=== PATIENT | female | born 1950 | race Caucasian/White ===

== ENCOUNTER 2019-10-14 14:45 | Inpatient (IN) | payer OTHER ==
--- OUTSIDE RECORDS SUMMARY | 2019-10-14 14:50 | XMS REPORT | Summary of Care ---
:1950 Author Organization [facility] Address [address] [place] [address] Care Team Providers Name Role Phone Bryce Lopez Primary Care Provider Reason for Referral Radiology Services (Routine) Status Reason Specialty Diagnoses / Referred By Referred To Procedures Contact Contact New Request Diagnostic Diagnoses Fibroadenosis of right breast Breast mass, right Stefania Veloz Radiology Procedures BI DIAGNOSTIC MAMMOGRAM BILATERAL MD Shaunna [address] [place] [phone] Reason for Visit Reason Comments Follow-up breast biopsy Encounter Details Date Type Department Care Team Description 08/03/2019 Office Visit [facility] Surgical RickyStefania jonas Denia st mass, right (Primary Dx); Specialties - Rich Maza MD Fibroadenosis of right breast [address], [address] [place] [address] [address] [place] [phone] Allergies Active Allergy Reactions Severity Noted Date Comments Clindamycin Rash 06/16/2019 Sulfa (Sulfonamide Antibiotics) Unknown - See comments 06/16/2019 documented as of this encounter (statuses as of 08/03/2019) Medications Medication Sig Dispensed Refills Start Date End Date Status amLODIPine 5 mg Take 2.5 mg by 0 07/01/2019 Active tablet mouth daily. valsartan 320 mg Take 240 mg by 1 05/12/2019 Active tablet mouth daily. multivitamin, Take 1 tablet by 0 Active tx-minerals (COMPLETE mouth daily. MULTIVITAMIN) tablet calcium/magnesium Take 2 tablets by 0 Active (CALCIUM AND mouth daily. MAGNESIUM ORAL) calcium Take 1 tablet by 0 Act ismael carbonate-vitamin D3 mouth daily. 1,000 mg(2,500 mg)-800 unit Tab zolpidem 10 mg tablet Take 10 mg by 0 Active mouth at bedtime as needed for Insomnia. traMADol 50 mg Take 1 tablet by 28 tablet 0 07/27/2019 020 Active tabletIndications: mouth every 6 Breast mass, right (six) hours as needed for Pain (scale 4-6) or Pain (scale 7-10) for up to 7 days. Hospital, Clinic, or Ordered Dose Route Frequency Start Date End D ate Status Other Facility Administered Medication ceFAZolin (ANCEF) 1000 mg IVPB O.R. HOLDING ONCE 07/27/2019 Active 1,000 mg in NaCl 0.9% (NS) 50 mL MINI-BAG documented as of this encounter (statuses as of 08/03/2019) Active Problems Problem Noted Date Breast pain 07/07/2019 Overview: Added automatically from request for jeff aide [id number] Breast mass, right 07/07/2019 Overview: Added automatically from request for jeff aide [id number] documented as of this encounter (statuses as of 08/03/2019) Social History Tobacco Use Types Packs/Day Years Used Date Never Smoker Smokeless Tobacco: Never Used Alcohol Use Drinks/Week oz/Week Comments Never Alcohol Habits Answer Date Recorded How often do you have a drink containing alcohol? Never 07/15/2019 How many drinks containing alcohol do you have on a typical Not asked day when you are drinking? How often do you have six or more drinks on one occasion? No t asked Sex Assigned at Date Recorded Not on file Job Start Date Occupation Industry Not on file Not on file Not on file Travel History Travel Start Travel End No recent travel history available. documented as of this encounter Last Filed Vital Signs Vital Sign Reading Time Taken Comments Blood Pressure 151/97 08/03/2019 1:10 PM GRAVEL WHEELER Pulse 80 08/03/2019 1:10 PM GRAVEL WHEELER Temperature 36.8 C (98.3 F) 08/03/2019 1:07 PM GRAVEL WHEELER Respiratory Rate 20 08/03/2019 1:07 PM GRAVEL WHEELER Oxygen Saturation 98% 08/03/2019 1:07 PM GRAVEL WHEELER Inhaled Oxygen Concentration - - Weight 79.4 kg (175 lb) 08/03/2019 1:07 PM GRAVEL WHEELER Height 172.7 cm (5' 8") 08/03/2019 1:07 PM GRAVEL WHEELER Body Mass Index 26.61 08/03/2019 1:07 PM GRAVEL WHEELER documented in this encounter Progress Notes Malina Carmona RN - 08/03/2019 1:00 PM CSTJessenia James is a 69 year old female comes to clinic independent in ambulation for follow up post op. Pt comes alone . Pt in NAD w/ pain reported 0/10. Pt preferred language is Divehi. Pt. denies fall in last 12 months. Allergies and medications reviewed and updated. Pt to monitor BP at home if it remains elevated or he is to become symptomatic he is to contact his PCP or go directly to the ER EL WHEELER Stefania Veloz MD - 08/03/2019 1:00 PM CST 69 year old one week status post right lumpectomy with benign pathology. SURGICAL PATHOLOGY EXAM: [id number] Order: [id number] Collected: 07/27/2019 11:06 Status: Final result Visible to patient: No (Not Released) Component Final Diagnosis A. BREAST, RIGHT, LUMPECTOMY: - BENIGN BREAST TISSUE WITH FIBROCYSTIC CHANGES (STROMAL FIBROSIS, FLORID DUCTAL HYPERPLASIA OF USUAL TYPE WITH APOCRINE METAPLASIA) - RADIAL SCAR WITH FLORID DUCTAL HYPERPLASIA OF USUAL TYPE - NO MALIGNANCY IDENTIFIED Juany Kahn MD 07/29/2019 1:26 PM Healing well RTC prn Mammogram in one year. documented in this encounter Plan of Treatment Name Type Priority Associated Diagnoses Order S chedule BI DIAGNOSTIC MAMMOGRAM IMAGING Routine Fibroadenosis of right Expected: BILATERAL breast 08/03/2020, Expires: Breast mass, right Health Maintenance Due Date Last Done Comments HEPATITIS C (HCV) SCREEN 1950 DTaP,Tdap,and Td Vaccines (1 - Tdap) 1962 COLONOSCOPY 2001 Zoster Recombinant Vaccine (SHINGRIX) (1 of 2) 2001 Medicare Wellness Visit 2016 Osteoporosis Screening 2016 PNEUMOCOCCAL VACCINES 65+ (1 of 2 - PCV13) 2016 INFLUENZA VACCINE (#1) 2019 Breast Cancer Screening (MAMMOGRAM) 06/16/2020 06/16/2019 documented as of this encounter Results Not on filedocumented in this encounter Visit Diagnoses Diagnosis Breast mass, right - Primary Lump or mass in breast Fibroadenosis of right breast Fibroadenosis of breast documented in this encounter Insurance Payer Benefit Plan / Subscriber ID Effective Dates Phone Addre ss Type Group MEDICARE MEDICARE PART A xxxxxxxxxxx 2016-Ivan [phone] Medicare & B t 82 [id number] BRIE RUFF [phone] AETNA AETNA INDEMNITY [id number] 2018-Ivan peña documented as of this encounter
--- OUTSIDE RECORDS SUMMARY | 2019-10-14 14:50 | XMS REPORT | Summary of Care ---
:1950 Author Organization [facility] - Health Address [address] [place] [address] Care Team Providers Name Role Phone Bryce Lopez Primary Care Provider Reason for Visit Auth/Cert Status Reason Specialty Diagnoses / Procedures Referred By Lola hernandezact Referred To Contact Surgery Diagnoses Mastodynia Unspecified lump in the right breast, unspecified quadrant Breast pain [N64.4] Breast mass, right [N63.10] Adc Pre/Pacu/Post Procedures [facility] CODING HELP GA BX BREAST W DEVICE 1ST LESION ULTRASOUND GUIDE GA MASTECTOMY, PARTIAL GA EXCISE BREAST CYST BREAST LUMPECTOMY [address] [place] [address] [place] [address] Phone: Fax: Encounter Details Date Type Department Care Team Description 07/27/2019 Hospital Encounter [facility] [place] [facility], Breast pain [place] [address] [place] [address] [place] [address] [place], [place] [phone] Allergies Active Allergy Reactions Severity Noted Date Comments Clindamycin Rash 06/16/2019 Sulfa (Sulfonamide Antibiotics) Unknown - See comments 06/16/2019 documented as of this encounter (statuses as of 07/27/2019) Medications Medication Sig Dispensed Refills Start Date [...] Take 1 tablet by 28 tablet 0 07/27/201908/03/ 020 Active tabletIndications: mouth every 6 Breast mass, right (six) hours as needed for Pain (scale 4-6) or Pain (scale 7-10) for up to 7 days. documented as of this encounter (statuses as of 07/27/2019) Active Problems Problem Noted Date Breast pain 07/07/2019 Overview: Added automatically from request for jeff aide [id number] Breast mass, right 07/07/2019 Overview: Added automatically from request for jeff aide [id number] documented as of this encounter (statuses as of 07/27/2019) Social History Tobacco Use Types Packs/Day Years [...] Sign Reading Time Taken Comments Blood Pressure 140/85 07/27/2019 12:08 PM DESULPHURING OPERATOR Pulse 97 07/27/2019 12:08 PM DESULPHURING OPERATOR Temperature 36.7 C (98 F) 07/27/2019 12:08 PM DESULPHURING OPERATOR Respiratory Rate 15 07/27/2019 12:08 PM DESULPHURING OPERATOR Oxygen Saturation 98% 07/27/2019 12:08 PM DESULPHURING OPERATOR Inhaled Oxygen Concentration - - Weight 79.4 kg (175 lb) 07/25/2019 5:07 PM DESULPHURING OPERATOR Height 167.6 cm (5' 5.98") 07/25/2019 5:07 PM DESULPHURING OPERATOR Body Mass Index 28.26 07/25/2019 5:07 PM DESULPHURING OPERATOR documented in this encounter Discharge Summaries Stefania Veloz MD - 07/27/2019 11:49 AM CST Date of Service: 07/27/19 Admit Date 07/27/19 Discharge Date: 07/27/19 Attending MD:Magdiel Primary Diagnosis: Right breast mass Final Diagnosis: right breast mass Active Problems: right breast mass Past Medical History: Diagnosis Date HTN (hypertension) Long Q-T syndrome Principle procedures: US guided Excision of Right breast mass Significant XRays: none Hospital couse: uncomplicsaated Condition: Good Diet: reguular Activity As tolerated Wound Care: May shower and pat incisions dry. No swimming or tub baths No heavy lifting Steristrips will fall off on their own. Call MD or return to ED for fever >101.5, redness or drainage from incision, intractable pain or nausea. Discharge: Discharged home Followed Appointment: one week 08/03/[address] Veloz Discharge Meds: tramadol 50mg q 4 hours. documented in this encounter Plan of Treatment Date Type Specialty Care Team Description 08/03/2019 Office Visit Surgery Stefania Veloz MD [address] [place] [address] [phone] Name Type Priority Associated Diagnoses Order S chedule EKG-12 LEAD ROUTINE HEART STATION Routine ONCE fo r 1 Occurrences sta rting 07/27/2019 unti l 07/27/2019 SURGICAL PATHOLOGY LAB Routine ONCE for 1 EXAM Occurrences sta rting 07/27/2019 Health Maintenance Due Date Last Done Comments HEPATITIS C (HCV) SCREEN 1950 DTaP,Tdap,and Td Vaccines (1 - Tdap) 1962 COLONOSCOPY 2001 Zoster Recombinant Vaccine (SHINGRIX) (1 of 2) 2001 Medicare Wellness Visit 2016 Osteoporosis Screening 2016 PNEUMOCOCCAL VACCINES 65+ (1 of 2 - PCV13) 2016 INFLUENZA VACCINE (#1) 2019 Breast Cancer Screening (MAMMOGRAM) 06/16/2020 06/16/2019 documented as of this encounter Procedures Procedure Name Priority Date/Time Associated Comments Diagnosis CBC WITH DIFFERENTIAL Routine 07/27/2019 8:45 Re sults for this AM DESULPHURING OPERATOR procedure are i n the results section. CBC WITH DIFFERENTIAL Routine 07/27/2019 8:45 Re sults for this AM DESULPHURING OPERATOR procedure are i n the results section. BASIC METABOLIC PANEL Routine 07/27/2019 8:45 Re sults for this (NA, K, CL, CO2, AM DESULPHURING OPERATOR procedure a re in GLUCOSE, BUN, the results CREATININE, CA) section. DISCLOSURE AND Routine 07/06/2019 12:01 CONSENT, MEDICAL AND AM DESULPHURING OPERATOR SURGICAL PROCEDURES documented in this encounter Results CBC WITH DIFFERENTIAL (07/27/2019 8:45 AM DESULPHURING OPERATOR) Pathologist Sig nature WBC 10.00 4.30 - 11.10 [facility] 10*3/L [facility] RBC 4.47 3.93 - 5.25 [facility] 10*6/L [facility] HGB 13.6 11.6 - 15.0 [facility] g/dL [facility] HCT 40.3 35.7 - 45.2 % [facility] MCV 90.2 80.6 - 95.5 fL [facility] MCH 30.4 25.9 - 32.8 pg [facility] MCHC 33.7 31.6 - 35.1 [facility] g/dL [facility] RDW-SD 42.1 39.0 - 49.9 fL [facility] RDW-CV 12.8 12.0 - 15.5 % [facility] PLT 332 166 - 358 [facility] 10*3/L [facility] MPV 9.3 (L) 9.5 - 12.9 fL [facility] NRBC/100 WBC 0.0 0.0 - 10.0 /100 [facility] WBCs [facility] NRBC x10^3 <0.01 10*3/L [facility] GRAN MAT (NEUT) % 66.6 % [facility] IMM GRAN % 0.30 % [facility] LYMPH % 21.7 % [facility] MONO % 6.8 % [facility] EOS % 4.0 % [facility] BASO % 0.6 % [facility] GRAN MAT x10^3(ANC) 6.66 1.88 - 7.09 [facility] 10*3/uL [facility] IMM GRAN x10^3 0.03 0.00 - 0.06 [facility] 10*3/uL [facility] LYMPH x10^3 2.17 1.32 - 3.29 [facility] 10*3/uL [facility] MONO x10^3 0.68 0.33 - 0.92 [facility] 10*3/uL [facility] EOS x10^3 0.40 (H) 0.03 - 0.39 [facility] 10*3/uL [facility] BASO x10^3 0.06 0.01 - 0.07 [facility] 10*3/uL [facility] Specimen Blood - ARM, RIGHT Performing Organization Address City/State/Zipcode Phone Number [facility] CLIA: [id number], [address] [place], [place] [address] Basic Metabolic Panel (NA, K, CL, CO2, Glucose, BUN, Creatinine, CA) (07/27/2019 8:45 AM DESULPHURING OPERATOR) Pathologist [facility] nature NA 137 135 - 145 mmol/L [facility] K 3.9 3.5 - 5.0 mmol/L [facility] CL 104 98 - 108 mmol/L [facility] CO2 TOTAL 25 23 - 31 mmol/L [facility] AGAP 8 2 - 16 [facility] BUN 20 7 - 23 mg/dL [facility] GLUCOSE 110 70 - 110 mg/dL [facility] CREATININE 0.65 0.50 - 1.04 [facility] mg/dL [facility] CALCIUM 9.7 8.6 - 10.6 mg/dL [facility] eGFR Calculation 90.6 mL/min/1.73m2 [facility] (Non-) [facility] LAB[facility] Y eGFR Calculation 109.9 mL/min/1.73m2 [facility] () [facility] Specimen Blood - ARM, RIGHT Narrative Performed At Association of Glomerular Filtration Rate (GFR) [facility] and Staging of Kidney Disease* + + +- + | GFR (mL/min/1.73 m2) | With Kidney Damage | Without Kidney Damage + + +- + | >90 | Stage one | Normal + + +- + | 60-89 | Stage two | Decreased GFR + + +- + | 30-59 | Stage three | Stage three + + +- + | 15-29 | Stage four | Stage four + + +- + | <15 (or dialysis) | Stage five | Stage five + + +- + *Each stage assumes the associated GFR level has been in effect for at least three months. Stages 1 to 5, with or without kidney disease, indicate chronic kidney disease. Notes: Determination of stages one and two (with eGFR >59mL/min/1.73 m2) requires estimation of kidney damage for at least three months as defined by structural or functional abnormalities of the kidney, manifested by either: Pathological abnormalities or Markers of kidney damage (including abnormalities in the composition of the blood or urine or abnormalities in imaging tests). Performing Organization Address City/State/Zipcode Phone Number [facility] CLIA: [id number], [address] [place], [place] [address] documented in this encounter Visit Diagnoses Diagnosis Breast mass, right - Primary Lump or mass in breast Breast pain Mastodynia documented in this encounter Administered Medications Medication Order MAR Action Action Date Dose Rate Site FENTanyl PF (SUBLIMAZE (PF)) injection 2 5 mcg 25 mcg, Slow IV Push, Q5MIN PRN, 4 doses, Starting 07/27/19 at 1153, Until Discontinued, Routine, Pain (scale 4-6), PACU FENTanyl PF (SUBLIMAZE (PF)) injection 2 5 mcg 25 mcg, Slow IV Push, Q5MIN PRN, 4 doses, Starting 07/27/19 at 1153, Until Discontinued, Routine, Pain (scale 7-10), PACU ibuprofen (IBU) tablet 800 mg 800 mg, Oral, PRN, 1 dose, Starting 07/27/19 at 115 7, Until Discontinued, Routine, Pain (scale 1-3), Discharge metoclopramide HCl (REGLAN) injection 10 mg 10 mg, Slow IV Push, PRN, 1 dose, Starti ng Tue 07/27/19 at 1153, Until Discontinued, Routine, Nausea and Vomiting (N/V), PACU traMADol (ULTRAM) tablet 50 mg 50 mg, Oral, PRN, 1 dose, Starting 07/27/19 at 1157 , Until Discontinued, Routine, Pain (scale 4-6), Discharge traMADol (ULTRAM) tablet 50 mg 50 mg, Oral, PRN, 1 dose, Starting 07/27/19 at 1157 , Until Discontinued, Routine, Pain (scale 7-10), Discharge Medication Order MAR Action Action Date Dose Rate Site lactated ringers IV infusion New Bag 07/27/2019 8:49 AM DESULPHURING OPERATOR 1,000 mL 20 mL/hr 1,000 mL at 20 mL/hr, 1,000 mL, IV Infusion, ONCE, 1 dose, Tu07/27/19 at 0845, Routine, DSU Pre-op scopolamine transdermal Given 07/27/2019 9:30 AM DESULPHURING OPERATOR 1.5 mg Both Ears (TRANSDERM-SCOP) patch 1.5 mg 1.5 mg, Topical, Administer over 72 Hours, ONCE, 1 dose, Fri07/27/19 at 1030, Routine, DSU Pre-op documented in this encounter Insurance Payer Benefit Plan / Subscriber ID Effective Dates Phone Addre ss Type Group MEDICARE MEDICARE PART A xxxxxxxxxxx 2016David [phone] [address] Medicare & B t 82 [id number] BRIE RUFF [id number] AETNA AETNA INDEMNITY [id number] 2018David peña documented as of this encounter
--- OUTSIDE RECORDS SUMMARY | 2019-10-14 14:50 | XMS REPORT ---
:1950 Author Organization [facility] t Address [address] [place] [address] Dr. Cl[address] [place] [address] Care Team Providers Name Role Phone Unavailable Unavailable Unavailable Problems This patient has no known problems. Allergies, Adverse Reactions, Alerts This patient has no known allergies or adverse reactions. Medications This patient has no known medications.
--- OUTSIDE RECORDS SUMMARY | 2019-10-14 14:51 | XMS REPORT | Summary of Care ---
:1950 Author Organization [facility] Address [address] [place] [address] Care Team Providers Name Role Phone Bryce Lopez Primary Care Provider Reason for Referral Radiology Services (Routine) Status Reason Specialty Diagnoses / Referred By Referred To Procedures Contact Contact New Request Diagnostic Diagnoses Fibroadenosis of right breast Breast mass, right Stefania Veloz Radiology Procedures BI DIAGNOSTIC MAMMOGRAM BILATERAL MD Shaunna [address] [place] [phone] Reason for Visit Reason Comments Follow-up breast biopsy Encounter Details Date Type Department Care Team Description 08/03/2019 Office Visit [facility] Surgical RickyStefania jonas Denia st mass, right (Primary Dx); Specialties - Rich Maza MD Fibroadenosis of right breast [address], [address] [place] [address] [address] [place] [phone] Allergies Active Allergy Reactions Severity Noted Date [...] Added automatically from request for jeff aide [id number] Breast mass, right 07/07/2019 Overview: Added automatically from request for jeff aide [id number] documented as of this encounter (statuses as [...] Comments Blood Pressure 151/97 08/03/2019 1:10 PM LABEL PRINTING MACHINIST Pulse 80 08/03/2019 1:10 PM LABEL PRINTING MACHINIST Temperature 36.8 C (98.3 F) 08/03/2019 1:07 PM LABEL PRINTING MACHINIST Respiratory Rate 20 08/03/2019 1:07 PM LABEL PRINTING MACHINIST Oxygen Saturation 98% 08/03/2019 1:07 PM LABEL PRINTING MACHINIST Inhaled Oxygen Concentration - - Weight 79.4 kg (175 lb) 08/03/2019 1:07 PM LABEL PRINTING MACHINIST Height 172.7 cm (5' 8") 08/03/2019 1:07 PM LABEL PRINTING MACHINIST Body Mass Index 26.61 08/03/2019 1:07 PM LABEL PRINTING MACHINIST documented in this encounter Progress Notes Malina Carmona RN - 08/03/2019 1:00 PM CSTJessenia James is a 69 year old female comes to clinic independent in ambulation for follow up post op. Pt comes alone . Pt in NAD w/ pain reported 0/10. Pt preferred language is Yoruba. Pt. denies fall in last 12 months. Allergies and medications reviewed and updated. Pt to monitor BP at home if it remains elevated or he is to become symptomatic he is to contact his PCP or go directly to the ER L PRINTING MACHINIST Stefania Veloz MD - 08/03/2019 1:00 PM CST 69 year old one week status post right lumpectomy with benign pathology. SURGICAL PATHOLOGY EXAM: [id number] Order: [id number] Collected: 07/27/2019 11:06 Status: Final result Visible [...] O. B[address] Medicare & B t 82 [id number] BRIE RUFF [phone] AETNA AETNA INDEMNITY [id number] 2018-Ivan peña documented as of this encounter
--- OUTSIDE RECORDS SUMMARY | 2019-10-14 14:51 | XMS REPORT | Summary of Care ---
:1950 Author Organization [facility] - Health Address [address] [place] [address] Care Team Providers Name Role Phone Bryce Lopez Primary Care Provider Encounter Details Date Type Department Care Team Description 07/27/2019 Orders Only [facility] Doctor Unassigned, [address] [facility] [place] [address] [address] [place] [address] Allergies Active Allergy Reactions Severity Noted Date [...] Overview: Added automatically from request for jeff noble [id number] Breast mass, right 07/07/2019 Overview: Added automatically from request for jeff noble [id number] documented as of this encounter (statuses as [...] of this encounter Last Filed Vital Signs Not on filedocumented in this encounter Plan of Treatment Date Type Specialty Care Team Description 08/03/2019 Office Visit Surgery Stefania Veloz MD [address] [place] [phone] Health Maintenance Due Date Last Done Comments [...] encounter Procedures Procedure Name Priority Date/Time Associated Diagnosis Comme nts DAY SURGERY - ADC Routine 07/27/2019 12:01 AM CLOSING SUPERVISOR documented in this encounter Results Not on filedocumented in this encounter Insurance Payer Benefit Plan / Subscriber ID Effective Dates Phone Addre ss Type Group MEDICARE MEDICARE PART A xxxxxxxxxxx 2016-Ivan [phone] [address] [facility] Medicare & B t 82 [id number] BRIE RUFF [id number] AETNA AETNA INDEMNITY [id number] 2018-Ivan Morin t documented as of this encounter
--- OUTSIDE RECORDS SUMMARY | 2019-10-14 15:39 | XMS REPORT ---
:1950 Author Organization [facility] t Address [address] [place] [address] Dr. [address] [place] [address] Care Team Providers Name Role Phone Unavailable Unavailable Unavailable Problems This patient has no known problems. Allergies, Adverse Reactions, Alerts This patient has no known allergies or adverse reactions. Medications This patient has no known medications.
[2019-10-14] MEDS ORDERED: POLYETHYL GLY 3350 17 GM/DOSE PO PRN (16:00)
[2019-10-14] MEDS ORDERED: PNEUMOCOCCAL VACCINE 0.5 ML IMVAC ONE (16:00)
[2019-10-14] MEDS ORDERED: ONDANSETRON 4 MG/2 ML VIAL IV PRN (16:00)
[2019-10-14] MEDS ORDERED: NACHLORIDE 0.45% 1,000 ML IV SCH (16:00)
[2019-10-14] MEDS ORDERED: LOPERAMIDE HCL 2 MG CAPSULE PO PRN (16:00)
[2019-10-14] MEDS ORDERED: ONDANSETRON 4 MG (ODT) TAB PO PRN (16:00)
[2019-10-14] MEDS ORDERED: INFLUENZA VACCINE (for 3y+) 0.5 ML DOSE IMVAC ONE (16:00)
[2019-10-14] MEDS ORDERED: ACETAMINOPHEN 325 MG TABLET PO PRN (16:00)
[2019-10-14] MEDS: ENOXAPARIN 40 MG/0.4 ML SQ SCH (16:28)
[2019-10-14 17:02] LABS: Absolute Lymphocytes (CBC) 3.1 K/uL (0.7-4.9); Basophils % 0.4 % (0-1.3); Hematocrit 41.5 % (36.0-45.0); Lymphocytes % 11.3 % (15.3-44.8); MPV 8.2 fL (7.6-11.3); RBC Red Blood Cell Count 4.75 M/uL (3.86-4.86)
[2019-10-14 17:06] LABS: Protime INR 1.16
[2019-10-14 18:08] LABS: Albumin 3.2 g/dL (3.4-5.0); Bilirubin Direct 0.2 mg/dL (0-0.2); Bilirubin Total 0.8 mg/dL (0.2-1.0); Magnesium 2.2 mg/dL (1.8-2.4); Phosphorus 3.2 mg/dL (2.5-4.9); Potassium 3.8 mmol/L (3.5-5.1); Protein, Total 6.9 g/dL (6.4-8.2); Thyroid Stimulating Hormone 3.13 uIU/mL (0.360-3.740)
[2019-10-14] MEDS: CEFTRIAXONE/SWI 1gm 1 GM/10 ML SYR IVP SCH (18:32)
[2019-10-14] MEDS ORDERED: ZOLPIDEM TARTRATE 5 MG TABLET PO PRN (18:41)
[2019-10-14] MEDS ORDERED: Ringers Lactate 1,000 ML IV SCH ×2 (19:00→21:19)
[2019-10-14] MEDS ORDERED: ALBUTEROL INHALER 60 PUFF/8 GM IH PRN (19:07)
[2019-10-14] MEDS: carvediloL 6.25 MG TAB PO SCH (19:13)
[2019-10-14] MEDS: ALBUTEROL 2.5 MG/3 ML NEB SOL IH SCH (20:00)
[2019-10-14] MEDS: IPRATROPIUM BROM 0.5MG/2.5ML IH SCH (20:00)
[2019-10-14 20:47] LABS: Urine Appearance CLEAR; Urine Bilirubin NEGATIVE (NEG); Urine Blood NEGATIVE (NEG); Urine Color YELLOW; Urine Glucose NEGATIVE (NEG); Urine Protein NEGATIVE (NEG); Urine Urobilinogen 0.2 mg/dL (0.2-1.0); Urine pH 5.5 (5.0-7.0)
[2019-10-14 20:49] LABS: Urine Microscopic Reflex NO UMIC
--- NOTE | 2019-10-14 20:54 | RAD REPORT ---
EXAM DESCRIPTION: CT - Chest Angio - 10/14/2019 8:40 pm CLINICAL HISTORY: sob COMPARISON: None. TECHNIQUE: Dynamically enhanced axial 3 mm thick images of the chest were obtained during administra tion of <100> mL Isovue 370 IV contrast. Coronal and oblique reconstruction images were generated and reviewed. Exam utilizes a protocol for optimal evaluation of pulmonary arterial tree. Maximum intensity projections 3D imaging was utilized All CT scans are performed using dose optimization technique as appropriate and may include automated exposure control or mA/KV adjustment according to patient size. FINDINGS: A pulmonary embolus is not seen. Ascending thoracic aorta has an AP diameter of 4.5 centimeters. 8 centimeter necrotic mass within the right lower lobe. Very large right pleural effusion. Passive right atelectasis Small thyroid nodules The most inferior slice demonstrates a small low-density lesion within the left lobe of the liver inc ompletely evaluated on this exam IMPRESSION: Negative for a pulmonary embolism. 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
--- NOTE | 2019-10-14 20:55 | RAD REPORT ---
EXAM DESCRIPTION: Juan Pa And Lat (2 Views)10/14/2019 8:48 pm CLINICAL HISTORY: Cough COMPARISON: Ct chest 10/11 FINDINGS: Very large right pleural effusion with right basilar atelectasis. 8 centimeter right lower lobe mass seen on the CT chest same date is not well seen on this exam secondary to a combination of the pleural effusion and atelectasis. The left lung appears clear. The heart is normal size
[2019-10-14] MEDS ORDERED: POTASSIUM CL SA 10 MEQ TAB PO ONE (21:00)
[2019-10-14 21:04] LABS: Platelet Estimate INCR
[2019-10-14 21:05] LABS: Blood Morphology Comment NOT SEEN (NOT SEEN)
[2019-10-14] MEDS: ALPRAZOLAM 0.25 MG TABLET PO PRN (21:09)
[2019-10-14] MEDS ORDERED: SODIUM CHLORIDE 0.9% 10ML INJ IV PRN (21:17)
[2019-10-14] MEDS: PANTOPRAZOLE 40 MG INJ IVP SCH (21:30)
[2019-10-15] MEDS: IPRATROPIUM BROM 0.5MG/2.5ML IH SCH ×4 (02:00→20:00)
[2019-10-15] MEDS: ALBUTEROL 2.5 MG/3 ML NEB SOL IH SCH ×4 (02:00→20:00)
[2019-10-15] MEDS: DIPHENHYDRAMINE 25 MG TAB/CAP PO PRN (03:22)
[2019-10-15 06:26] LABS: Absolute Lymphocytes (CBC) 2.6 K/uL (0.7-4.9); Basophils % 0.5 % (0-1.3); Hematocrit 39.4 % (36.0-45.0); Lymphocytes % 10.8 % (15.3-44.8); MPV 7.8 fL (7.6-11.3); RBC Red Blood Cell Count 4.49 M/uL (3.86-4.86)
[2019-10-15 06:33] LABS: Magnesium 2.3 mg/dL (1.8-2.4); Potassium 4.3 mmol/L (3.5-5.1)
[2019-10-15] MEDS: carvediloL 6.25 MG TAB PO SCH ×2 (08:05→20:42)
[2019-10-15] MEDS: ENOXAPARIN 40 MG/0.4 ML SQ SCH ×2 (08:06→09:00)
[2019-10-15] MEDS: PANTOPRAZOLE 40 MG INJ IVP SCH (08:07)
--- NOTE | 2019-10-15 08:57 | P.CNS ---
Date of Consult: 10/15/19 Reason for Consult: Pleural effusion Chief Complaint: Shortness of breath History of Present Illness: Patient is a pleasant 69-year-old lady is been sick for the past 2 weeks start off with some fever developed progressive shortness of breath denies any chest pain all weight loss does not smoke and up in the hospital was found to have a massive effusion on the right side status post thoracentesis feels better Allergies clindamycin Allergy (Verified 07/31/17 13:48) Itching/Hives/Rash Home Medications: Albuterol Sulfate [Proair Respiclick] 2 puff IH QIDP PRN 10/14/19 Amlodipine Besylate 2.5 mg PO DAILY 10/14/19 Brompheniramine/Pseudoephed/Dm [Fbhaqajsun-Fwdyqaqnpcj-Zd Syr] 3.3 ml PO QIDP PRN 10/14/19 Valsartan 160 mg PO DAILY 10/14/19 Zolpidem Tartrate 2.5 mg PO BEDTIME PRN PRN 10/14/19 methylPREDNISolone [Methylprednisolone] 1 tab PO DIRECTED 10/14/19 - Past Medical/Surgical History Diabetic: No -: Hypertension -: GERD -: Allergies -: Polypectomy -: Dilation and Curettage -: Tonsillectomy, Adenoidectomy -: Cholecystectomy -: 2 Cesarian Section - Social History Alcohol use: No CD- Drugs: No Caffeine use: Yes Place of Residence: Home Review of Systems 10-point ROS is otherwise unremarkable Respiratory: Shortness of Breath Cardiovascular: Chest Pain Physical Examination Temp Pulse Resp BP Pulse Ox 97.9 F 97 H 18 136/89 97 10/15/19 07:47 10/15/19 08:05 10/15/19 07:47 10/15/19 08:05 10/15/19 07:47 General: Alert, Oriented x3 Neck: Supple Respiratory: Diminished (Decreased air entry on the right side) Cardiovascular: No edema, Normal S1 S2 Gastrointestinal: Normal bowel sounds, Soft and benign Laboratory Data (last 24 hrs) 10/15/19 06:11: Sodium 134 L, Potassium 4.3, BUN 13, Creatinine 0.66, Glucose 135 H, Magnesium 2.3 10/15/19 06:11: WBC 24.1 H*, Hgb 12.8, Hct 39.4, Plt Count 439 H 10/14/19 16:28: Sodium 135 L, Potassium 3.8, BUN 12, Creatinine 0.80, Glucose 134 H, Phosphorus 3.2, Magnesium 2.2, Total Bilirubin 0.8, AST 14 L, ALT 21, Alkaline Phosphatase 113 10/14/19 16:28: PT 13.6 H, INR 1.16, APTT 32.0 10/14/19 16:28: WBC 27.0 H*, Hgb 13.7, Hct 41.5, Plt Count 548 H - Problems (1) Pleural effusion Current Visit: Yes Status: Acute Plan: Patient is 69 years of age admitted with a 2 week history of progressive shortness of breath feeling fatigued slight fever ever smoked massive effusion on the right side white count elevated chemistries nondiagnostic awaiting for postop chest x-ray apparently 3 L were drained will await for chemistries patient is low risk for cancers never had any cancers before possible discharge today on a fluoroquinolone follow with me in 1 or 2 weeks
[2019-10-15] MEDS ORDERED: AMLODIPINE 5 MG TAB PO SCH (09:00)
[2019-10-15] MEDS ORDERED: VALSARTAN 160 MG PO SCH (09:00)
[2019-10-15] MEDS: CEFTRIAXONE/SWI 1gm 1 GM/10 ML SYR IVP SCH ×2 (11:09→20:43)
--- NOTE | 2019-10-15 11:42 | RAD REPORT ---
EXAM DESCRIPTION: US - Thoracentesis w/ US Guide - 10/15/2019 11:27 am CLINICAL HISTORY: Pleural effusion. PE COMPARISON: No comparisons FINDINGS: Preoperative diagnosis: Right pleural effusion Post operative diagnosis: Same Conscious Sedation: None. Estimated blood loss: Minimal Specimens:A small volume of fluid was sent for requested lab studies. The patient was placed in the upright recumbent position and the right back was prepped and draped in the usual sterile fashion. 1% Lidocaine was infiltrated into the soft tissues for local anesthesia. Under sonographic guidance, a thoracentesis needle and 8 German catheter was advanced into the righ t pleural space. Approximately 2.9 liters of clear yellow fluid was aspirated. Samples were sent to p athology for requested analysis. The patient tolerated the procedure without immediate complication a nd transferred to the floor in stable condition. IMPRESSION: Successful ultrasound-guided thoracentesis as detailed.
[2019-10-15 12:26] LABS: Body Fluid WBC 1358 /mm^3
--- NOTE | 2019-10-15 13:07 | PN ---
Subjective: Ms. James is doing a little better. Denies any chest pain, nausea, vomiting, shortnes s of breath at rest. Physical Examination: Vital Signs: Blood pressure 136/89, pulse is 97, temperature 97.9, pulse ox was 94% on room air. Chest: Decreased breath sounds bilaterally. Heart: Regular. Abdomen: No guarding, no rebound, no rigidity. Investigations: Her white count is down to 24,000 from 27,000. Neutrophils are high at 81%. D-dime r was [id number] chest examination, there were no signs of pulmonary embolism, but there is a mass about 8 cm size with large pleural effusion on the right side and a small aneurysm of the a deyvi. Assessment And Plan: A mass with pleural effusion, most likely malignancy, which is unusual for this lady. She is not a smoker, has not had any kind of asbestos exposure. I will talk to Dr. Norton and ordered a diagnostic and therapeutic thoracentesis with cytology. If the test does not show any sign s of cancer positive cytology, she will need a bronchoscopy related biopsy. Dr. Dorado has been co nsulted and I talked to him a couple of times yesterday. Patient will talk to her family, which is h usband and daughter. I offered to talk to them, but she would like to talk to them herself. If posi tive for malignancy patient should possibly go to [facility], but she at this point vang s decided at age 69 if she does have a cancer, she will not do anything for it. If it is malignancy, this will be a stage IV lung cancer, possibly adenocarcinoma which can arise from scar tissue at times. Prognosis r emains overall poor. RVD/MODL Voice ID: [id number] Report ID: [id number]
[2019-10-15 13:35] LABS: Appearance SLT. TURBID (CLEAR); Body Fluid Source PLEURAL; Color of fluid Yellow (COLORLESS)
--- NOTE | 2019-10-15 15:28 | RAD REPORT ---
EXAM DESCRIPTION: RAD - Chest Pa And Lat (2 Views) - 10/15/2019 3:18 pm CLINICAL HISTORY: Thoracentesis FINDINGS: A pneumothorax is not present status post right thoracentesis.
[2019-10-15] MEDS: Ringers Lactate 1,000 ML IV SCH (18:00)
[2019-10-15] MEDS: ZOLPIDEM TARTRATE 5 MG TABLET PO PRN (20:42)
[2019-10-15] MEDS: ALPRAZOLAM 0.25 MG TABLET PO PRN (20:49)
[2019-10-16] MEDS: IPRATROPIUM BROM 0.5MG/2.5ML IH SCH ×4 (02:00→20:30)
[2019-10-16] MEDS: ALBUTEROL 2.5 MG/3 ML NEB SOL IH SCH ×4 (02:00→20:30)
[2019-10-16 05:49] LABS: Absolute Lymphocytes (CBC) 3.8 K/uL (0.7-4.9); Basophils % 0.6 % (0-1.3); Hematocrit 38.8 % (36.0-45.0); Lymphocytes % 12.4 % (15.3-44.8); MPV 8.2 fL (7.6-11.3); RBC Red Blood Cell Count 4.47 M/uL (3.86-4.86)
[2019-10-16 05:50] LABS: BUN Blood Urea Nitrogen 14 mg/dL (7-18); Bicarbonate 23 mmol/L (21-32); Glucose Level 101 mg/dL (74-106); Potassium 4.1 mmol/L (3.5-5.1); Sodium Level 132 mmol/L (136-145)
[2019-10-16] MEDS ORDERED: Meropenem 1000 MG/VIAL IV SCH (09:00)
[2019-10-16] MEDS: Meropenem 1,000 MG in NA CHLORIDE 0.9% 100 ML IV SCH ×2 (09:08→16:58)
[2019-10-16] MEDS: ENOXAPARIN 40 MG/0.4 ML SQ SCH (09:09)
[2019-10-16] MEDS: carvediloL 6.25 MG TAB PO SCH ×2 (09:17→21:02)
[2019-10-16] MEDS: PANTOPRAZOLE 40 MG INJ IVP SCH (09:17)
--- NOTE | 2019-10-16 11:59 | P.PN ---
Subjective Date of Service: 10/16/19 Chief Complaint: Shortness of breath Subjective: Improving SHE IS A LOT BETTER AFTER DR. MUHAMMAD REMOVED 3 LT OF PLEURAL FLUID. SHE HAS NO PAIN, NO FEVER. Review of Systems 10-point ROS is otherwise unremarkable Physical Examination - Vital Signs Temperature: 97.5 F Blood Pressure: 107/67 Pulse: 86 Respirations: 20 Pulse Ox (%): 91 - Physical Exam General: Mild distress HEENT: Atraumatic, PERRLA, EOMI Neck: Supple, JVD not distended Respiratory: Clear to auscultation bilaterally, Normal air movement Cardiovascular: Regular rate/rhythm, Normal S1 S2 Gastrointestinal: Normal bowel sounds, No tenderness Musculoskeletal: No tenderness Integumentary: No rashes Neurological: Normal speech, Normal tone, Normal affect Lymphatics: No axilla or inguinal lymphadenopathy - Studies Laboratory Data (last 24 hrs) 10/16/19 05:20: Sodium 132 L, Potassium 4.1, BUN 14, Creatinine 0.64, Glucose 101 10/16/19 05:20: WBC 30.9 H* D, Hgb 12.8, Hct 38.8, Plt Count 441 H Microbiology Data (last 24 hrs): 10/15/19 13:00 Sputum Sputum Gram Stain - Final 10/15/19 09:45 Body Fluid - Chest Gram Stain - Final Medications List Reviewed: Yes Assessment And Plan - Current Problems (Diagnosis) (1) Lung mass Current Visit: Yes Status: Acute Plan: THE FLUID REMOVED IS CLEAN. MALIGNANT EFFUSION IS USUALLY NOT CLEAN WITH NORMAL RBC AND WBC. SHE WITH HER HISTORY OF NO SMOKING, NO ASBESTOSIS AND NO WEIGHT LOSS IS NOT A HIGH RISK FOR CANCER. THIS CAN BE A PNEUMONIA THAT LOOKS LIKE MASS ON CT SCAN. I AM HOPING THAT WITH ANTIBIOTICS PNEUMONIA WILL DISAPPEAR AND WE MAY BE LEFT WITH NO MASS. SHE UNDERSTOOD THE PLAN. I CHANGED ABX TO MERREM ROCEPHIN FAILED AND HER WBC IS HIGHER TO 30K. (2) Pleural effusion Current Visit: Yes Status: Acute Plan: SEEMS TRANSUDATE IN CHARACTER. CHEMISTRY IS STILL PENDING. (3) HTN (hypertension) Current Visit: Yes Status: Acute Plan: I CHANGED AMBERLY MEDS SHE WAS VERY TACHYCARDIAC. (4) Prolonged QT syndrome Current Visit: Yes Status: Acute Plan: SHE WAS TOLD ABOUT THIS YEARS AGO WHEN SHE WORKED FOR [employer]. I WILL REDO EKG NOW THAT SHE HAS NO MORE TACHYCARDIA. IF EKG DOES NOT SHOW THE PROBLEM THEN SHE CAN TAKE MEDS LIKE LEVAQIN.
[2019-10-16] MEDS: ZOLPIDEM TARTRATE 5 MG TABLET PO PRN (22:51)
[2019-10-17] MEDS: Meropenem 1,000 MG in NA CHLORIDE 0.9% 100 ML IV SCH ×3 (00:02→16:05)
[2019-10-17] MEDS: IPRATROPIUM BROM 0.5MG/2.5ML IH SCH ×4 (02:00→19:50)
[2019-10-17] MEDS: ALBUTEROL 2.5 MG/3 ML NEB SOL IH SCH ×4 (02:00→19:50)
[2019-10-17] MEDS: Ringers Lactate 1,000 ML IV SCH (03:20)
[2019-10-17] MEDS: ENOXAPARIN 40 MG/0.4 ML SQ SCH (07:56)
[2019-10-17] MEDS: carvediloL 6.25 MG TAB PO SCH ×2 (07:57→21:00)
[2019-10-17] MEDS: PANTOPRAZOLE 40 MG INJ IVP SCH (07:57)
--- NOTE | 2019-10-17 10:06 | P.PN ---
Subjective Date of Service: 10/17/19 Chief Complaint: Pleural effusion Subjective: Improving (No change patient is feeling fine no fever chills for chest pain) Review of Systems Unremarkable Physical Examination - Vital Signs Temperature: 98.2 F Blood Pressure: 136/79 Pulse: 92 Respirations: 18 Pulse Ox (%): 93 - Physical Exam General: Alert, Oriented x3 Respiratory: Crackles/rales (Crackles on the right side) Cardiovascular: No edema, Regular rate/rhythm - Studies Microbiology Data (last 24 hrs): 10/15/19 13:00 Sputum Sputum Gram Stain - Final 10/15/19 09:45 Body Fluid - Chest Gram Stain - Final Medications List Reviewed: Yes Assessment & Plan - Problems (Diagnosis) (1) Pleural effusion Current Visit: Yes Status: Acute Plan: Patient admitted with a significant pleural effusion status post thoracentesis he appears to have multi lobar pneumonia pleural fluid no evidence of an infection mildly elevated white cells and mainly lymphocytic predominant patient has no fever or white count cultures are so far negative I suggest treating for atypical pneumonia with doxycycline labs are pending and x-ray findings out of proportion to her clinical symptoms await cytology far Gram stain does not show any evidence of infection I really doubt that this is malignancy chief and x-ray findings do not improve will consider a bronchoscopy and probably an empirical trial of steroids
[2019-10-17] MEDS: DOXYCYCLINE 100 MG CAP PO SCH ×2 (10:41→20:59)
[2019-10-17 11:05] LABS: Basophils % 0.4 % (0-1.3); Hematocrit 37.9 % (36.0-45.0); Lymphocytes % 9.5 % (15.3-44.8); MPV 8.3 fL (7.6-11.3); RBC Red Blood Cell Count 4.38 M/uL (3.86-4.86)
--- NOTE | 2019-10-17 11:05 | RAD REPORT ---
EXAM DESCRIPTION: RAD - Chest Pa And Lat (2 Views) - 10/17/2019 10:02 am CLINICAL HISTORY: pneumonia COMPARISON: October 14, October 13 TECHNIQUE: Frontal and lateral views of the chest were obtained. FINDINGS: The lungs are normal volume. Right upper lobe airspace opacification has improved. This is an approximately 50% reduction in insult lung parenchyma. Right lung base opacification has improved as well. Right hemidiaphragm remains partially obscured. Left lung field remains clear. Trachea is midline. Heart size is normal and central vasculature is within normal limits. No pleural effusion o r pneumothorax seen. No acute bony finding noted. No aortic abnormality. IMPRESSION: Right lung field pneumonia changes have improved by approximately 50%. Left lung field remains clear.
[2019-10-17 11:57] LABS: BUN Blood Urea Nitrogen 10 mg/dL (7-18); Bicarbonate 23 mmol/L (21-32); Glucose Level 114 mg/dL (74-106); Potassium 3.9 mmol/L (3.5-5.1); Sodium Level 136 mmol/L (136-145)
--- NOTE | 2019-10-17 15:49 | P.PN ---
Subjective Date of Service: 10/17/19 Chief Complaint: LUNG MASS VS. PNEUMONIA Subjective: Improving SHE IS A LOT BETTER AFTER DR. MUHAMMAD REMOVED 3 LT OF PLEURAL FLUID. SHE HAS NO PAIN, NO FEVER. SHE IS A LOT BETTER. HAS NO PAIN, NO COUGH. HAS SOME THROAT PAIN. Review of Systems 10-point ROS is otherwise unremarkable Physical Examination - Vital Signs Temperature: 98.7 F Blood Pressure: 143/83 Pulse: 82 Respirations: 20 Pulse Ox (%): 94 - Physical Exam General: Mild distress HEENT: Atraumatic, PERRLA, EOMI Neck: Supple, JVD not distended Respiratory: Clear to auscultation bilaterally, Normal air movement Cardiovascular: Regular rate/rhythm, Normal S1 S2 Gastrointestinal: Normal bowel sounds, No tenderness Musculoskeletal: No tenderness Integumentary: No rashes Neurological: Normal speech, Normal tone, Normal affect Lymphatics: No axilla or inguinal lymphadenopathy - Studies Laboratory Data (last 24 hrs) 10/17/19 11:37: Sodium 136, Potassium 3.9, BUN 10, Creatinine 0.62, Glucose 114 H 10/17/19 10:57: WBC Cancelled, Hgb Cancelled, Hct Cancelled, Plt Count Cancelled 10/17/19 10:43: WBC 20.9 H* D, Hgb 12.3, Hct 37.9, Plt Count 384 Microbiology Data (last 24 hrs): 10/15/19 13:00 Sputum Sputum Gram Stain - Final Medications List Reviewed: Yes Assessment And Plan - Current Problems (Diagnosis) (1) Lung mass Current Visit: Yes Status: Acute Plan: THE FLUID REMOVED IS CLEAN. MALIGNANT EFFUSION IS USUALLY NOT CLEAN WITH NORMAL RBC AND WBC. SHE WITH HER HISTORY OF NO SMOKING, NO ASBESTOSIS AND NO WEIGHT LOSS IS NOT A HIGH RISK FOR CANCER. THIS CAN BE A PNEUMONIA THAT LOOKS LIKE MASS ON CT SCAN. I AM HOPING THAT WITH ANTIBIOTICS PNEUMONIA WILL DISAPPEAR AND WE MAY BE LEFT WITH NO MASS. SHE UNDERSTOOD THE PLAN. I CHANGED ABX TO MERREM ROCEPHIN FAILED AND HER WBC IS HIGHER TO 30K. REDO CXR. ABX CONTINUE IV FOR TWO MORE DAYS. SHE CAME IN VERY SICK. I NEED WBC CLOSE TO NORMAL BEFORE SHE CAN GO HOME. SHE IS DOWN TO 20K NOW. (2) Pleural effusion Current Visit: Yes Status: Acute Plan: SEEMS TRANSUDATE IN CHARACTER. CHEMISTRY IS STILL PENDING. (3) HTN (hypertension) Current Visit: Yes Status: Acute Plan: I CHANGED AMBERLY MEDS SHE WAS VERY TACHYCARDIAC. (4) Prolonged QT syndrome Current Visit: Yes Status: Acute Plan: SHE WAS TOLD ABOUT THIS YEARS AGO WHEN SHE WORKED FOR [employer]. I WILL REDO EKG NOW THAT SHE HAS NO MORE TACHYCARDIA. IF EKG DOES NOT SHOW THE PROBLEM THEN SHE CAN TAKE MEDS LIKE LEVAQIN. NEW EKG DOES NOT SHOW QT PROLONGATION.
[2019-10-17] MEDS: ZOLPIDEM TARTRATE 5 MG TABLET PO PRN (22:49)
[2019-10-18] MEDS: Meropenem 1,000 MG in NA CHLORIDE 0.9% 100 ML IV SCH ×3 (00:14→16:34)
[2019-10-18] MEDS: IPRATROPIUM BROM 0.5MG/2.5ML IH SCH ×4 (02:00→20:15)
[2019-10-18] MEDS: ALBUTEROL 2.5 MG/3 ML NEB SOL IH SCH ×4 (02:00→20:15)
[2019-10-18 07:04] LABS: Absolute Lymphocytes (CBC) 2.7 K/uL (0.7-4.9); Basophils % 0.6 % (0-1.3); Hematocrit 38.1 % (36.0-45.0); Lymphocytes % 14.2 % (15.3-44.8); MPV 7.8 fL (7.6-11.3); RBC Red Blood Cell Count 4.37 M/uL (3.86-4.86)
[2019-10-18 07:32] LABS: BUN Blood Urea Nitrogen 11 mg/dL (7-18); Bicarbonate 25 mmol/L (21-32); Glucose Level 96 mg/dL (74-106); Potassium 3.7 mmol/L (3.5-5.1); Sodium Level 138 mmol/L (136-145)
[2019-10-18] MEDS: PANTOPRAZOLE 40 MG INJ IVP SCH (08:10)
[2019-10-18] MEDS: carvediloL 6.25 MG TAB PO SCH ×2 (08:11→20:46)
[2019-10-18] MEDS: DOXYCYCLINE 100 MG CAP PO SCH ×2 (08:12→20:46)
[2019-10-18] MEDS: ENOXAPARIN 40 MG/0.4 ML SQ SCH (08:12)
[2019-10-18 08:46] LABS: Anisocytosis 1+; Blood Morphology Comment NOTED (NOT SEEN); Platelet Estimate ADEQ
--- NOTE | 2019-10-18 09:48 | ECHO ---
HEIGHT: 5 ft 6 in WEIGHT: 168 lb 8 oz DATE OF STUDY: 10/15/[address]: Bryce Lopez MD 2-DIMENSIONAL: YES M.MODE: YES DOPPLER: YES COLOR FLOW: YES TDS: YES PORTABLE: NO DEFINITY: NO BUBBLE STUDY: NO DIAGNOSIS: TACHYCARDIA CARDIAC HISTORY: CATHERIZATION: NO SURGERY: NO PROSTHETIC VALVE: NO PACEMAKER: NO MEASUREMENTS (cm) DIASTOLIC (NORMALS) SYSTOLIC (NORMALS) IVSd 1.1 (0.6-1.2) LA Diam (1.9-4.0) LVEF 61% LVIDd 3.1 (3.5-5.7) LVIDs 2.1 (2.0-3.5) %FS 32% LVPWd 1.0 (0.6-1.2) Ao Diam 2.9 (2.0-3.7) 2 DIMENSIONAL ASSESSMENT: RIGHT ATRIUM: NORMAL LEFT ATRIUM: NORMAL RIGHT VENTRICLE: NORMAL LEFT VENTRICLE: NORMAL TRICUSPID VALVE: NORMAL MITRAL VALVE: MITRAL ANNULAR CALCIFICATION PULMONIC VALVE: NORMAL AORTIC VALVE: SCLEROSIS PERICARDIAL EFFUSION: NONE AORTIC ROOT: NORMAL LEFT VENTRICULAR WALL MOTION: NORMAL DOPPLER/COLOR FLOW: NORMAL COMMENTS: NORMAL LEFT VENTRICULAR SIZE AND FUNCTION. MITRAL ANNULAR CALCIFICATION. AORTIC SCLEROSIS WITH NO STENOSIS. TECHNOLOGIST: Radha BUSH
[2019-10-18] MEDS: Ringers Lactate 1,000 ML IV SCH (12:40)
--- NOTE | 2019-10-18 16:26 | EKG ---
Test Date: 2019-10-16 Test Time: 12:29:13 [employer] Principal: SARA MEASUREMENT RESULTS: Intervals: Rate: 91 CT: 160 QRSD: 92 QT: 378 QTc: 464 [place]: P: 37 CT: 160 QRS: 11 T: 35 INTERPRETIVE STATEMENTS: Normal sinus rhythm Normal ECG Compared to ECG 10/12/2005 11:13:03 No significant changes Electronically Signed On 10-18-19 16:23:15 CDT by Junior Gilliland
[2019-10-18] MEDS ORDERED: POTASSIUM CL SA 10 MEQ TAB PO ONE (20:29)
[2019-10-18] MEDS: ZOLPIDEM TARTRATE 5 MG TABLET PO PRN (22:46)
[2019-10-19] MEDS: Meropenem 1,000 MG in NA CHLORIDE 0.9% 100 ML IV SCH ×3 (01:14→16:33)
[2019-10-19] MEDS: IPRATROPIUM BROM 0.5MG/2.5ML IH SCH ×5 (02:00→19:30)
[2019-10-19] MEDS: ALBUTEROL 2.5 MG/3 ML NEB SOL IH SCH ×5 (02:00→19:30)
[2019-10-19] MEDS: DIPHENHYDRAMINE 25 MG TAB/CAP PO PRN ×2 (05:05→20:53)
[2019-10-19 06:33] LABS: Vitamin D 1,25-Dihydroxy Total 44 pg/mL (18-72); Vitamin D,1,25-OH2, D2 <8 pg/mL
[2019-10-19 07:30] LABS: BUN Blood Urea Nitrogen 11 mg/dL (7-18); Bicarbonate 26 mmol/L (21-32); Glucose Level 109 mg/dL (74-106); Potassium 3.7 mmol/L (3.5-5.1); Sodium Level 138 mmol/L (136-145)
[2019-10-19 07:49] LABS: Absolute Lymphocytes (CBC) 2.2 K/uL (0.7-4.9); Basophils % 0.5 % (0-1.3); Hematocrit 37.5 % (36.0-45.0); Lymphocytes % 12.6 % (15.3-44.8); MPV 8.2 fL (7.6-11.3); RBC Red Blood Cell Count 4.26 M/uL (3.86-4.86)
[2019-10-19] MEDS ORDERED: POTASSIUM CL SA 10 MEQ TAB PO ONE (08:11)
[2019-10-19] MEDS: DOXYCYCLINE 100 MG CAP PO SCH ×2 (08:28→20:52)
[2019-10-19] MEDS: PANTOPRAZOLE 40 MG INJ IVP SCH (08:29)
[2019-10-19] MEDS: ENOXAPARIN 40 MG/0.4 ML SQ SCH (08:29)
[2019-10-19] MEDS: carvediloL 6.25 MG TAB PO SCH ×2 (08:29→20:53)
[2019-10-19] MEDS: Ringers Lactate 1,000 ML IV SCH (08:30)
--- NOTE | 2019-10-19 12:30 | P.PN ---
Subjective Date of Service: 10/20/19 Chief Complaint: Pleural effusion pneumonia Subjective: Improving (Patient is clinically improving seems to be complaining some problem with the throat which is sats some quite some time denies any chest pain fever weight loss) Review of Systems Unremarkable Physical Examination - Vital Signs Temperature: 98.3 F Blood Pressure: 113/67 Pulse: 91 Respirations: 18 Pulse Ox (%): 92 - Physical Exam General: Alert, Oriented x3 Respiratory: Clear to auscultation bilaterally, Diminished (Diminished on the right side) Cardiovascular: No edema, Normal S1 S2 - Studies Laboratory Data (last 24 hrs) 10/19/19 07:02: Sodium 138, Potassium 3.7, BUN 11, Creatinine 0.64, Glucose 109 H 10/19/19 07:02: WBC 17.1 H, Hgb 12.1, Hct 37.5, Plt Count 374 Microbiology Data (last 24 hrs): 10/15/19 13:00 Sputum Sputum Gram Stain - Final 10/15/19 13:00 Sputum Culture & Sensitivity - Final 10/15/19 09:45 Body Fluid - Chest Gram Stain - Final 10/15/19 09:45 Body Fluid - Chest Culture & Sensitivity - Final No growth. Medications List Reviewed: Yes Assessment & Plan - Problems (Diagnosis) (1) Pleural effusion Status: Acute Plan: Patient admitted with significant pleural effusion of white count is declining patient does not have any risk factors for Pseudomonas so or Mr SA most likely atypical pneumonia patient also has prolonged QT interval is also on p.o. doxycycline suggest adding a cephalosporin clinical picture is not consistent with a Pseudomonas or an Mr SA infection cytology so far is negative small lymphocytes in the pleural effusion . Repeat CXRY worsenig of pleural effusion. DAVIDE Lopez Tx to Islam . Likely malignant effusion
--- NOTE | 2019-10-19 13:17 | RAD REPORT ---
EXAM DESCRIPTION: RAD - Chest Pa And Lat (2 Views) - 10/19/2019 1:06 pm CLINICAL HISTORY: Follow for pleural effusion and pneumonia Chest pain. COMPARISON: Chest Pa And Lat (2 Views) dated 10/17/2019; Chest Pa And Lat (2 Views) dated 10/15/2019; Chest Pa And Lat (2 Views) dated 10/14/2019; Thoracentesis w/ US Guide dated 10/15/2019 FINDINGS: Right-sided pleural effusion and lung consolidation has moderately progressed since 2019. No pneumothorax. Lungs are grossly clear The heart is normal in size. No displaced fractures. IMPRESSION: Moderate worsening in right lung aeration since comparative study.
[2019-10-19 16:01] VITALS: BMI 26.8
--- NOTE | 2019-10-19 17:46 | P.DS ---
Admission Date: 10/14/19 Discharge Date: 10/19/19 Disposition: TRANSFER TO [facility] Discharge Condition: SERIOUS Reason for Admission: Pleural effusion pneumonia - Problems (1) Lung mass Current Visit: Yes Status: Acute (2) Pleural effusion Current Visit: Yes Status: Acute (3) HTN (hypertension) Current Visit: Yes Status: Acute (4) Prolonged QT syndrome Current Visit: Yes Status: Acute Vital Signs/Physical Exam: Temp Pulse Resp BP Pulse Ox 97.9 F 99 H 20 134/87 94 10/19/19 16:00 10/19/19 16:00 10/19/19 16:00 10/19/19 16:00 10/19/19 16:00 Laboratory Data at Discharge: WBC 17.1 K/uL (4.3-10.9) H 10/19/19 07:02 Hgb 12.1 g/dL (12.0-15.0) 10/19/19 07:02 Hct 37.5 % (36.0-45.0) 10/19/19 07:02 Plt Count 374 K/uL (152-406) 10/19/19 07:02 PT 13.6 SECONDS (9.5-12.5) H 10/14/19 16:28 INR 1.16 10/14/19 16:28 APTT 32.0 SECONDS (24.3-36.9) 10/14/19 16:28 Sodium 138 mmol/L (136-145) 10/19/19 07:02 Potassium 3.7 mmol/L (3.5-5.1) 10/19/19 07:02 BUN 11 mg/dL (7-18) 10/19/19 07:02 Creatinine 0.64 mg/dL (0.55-1.3) 10/19/19 07:02 Glucose 109 mg/dL (74-106) H 10/19/19 07:02 Phosphorus 3.2 mg/dL (2.5-4.9) 10/14/19 16:28 Magnesium 2.3 mg/dL (1.8-2.4) 10/15/19 06:11 Total Bilirubin 0.8 mg/dL (0.2-1.0) 10/14/19 16:28 AST 14 U/L (15-37) L 10/14/19 16:28 ALT 21 U/L (12-78) 10/14/19 16:28 Alkaline Phosphatase 113 U/L (45-117) 10/14/19 16:28 Home Medications: Albuterol Sulfate [Proair Respiclick] 2 puff IH QIDP PRN 10/14/19 Amlodipine Besylate 2.5 mg PO DAILY 10/14/19 Brompheniramine/Pseudoephed/Dm [Btwsdetcgt-Utwvssznceq-Rd Syr] 3.3 ml PO QIDP PRN 10/14/19 Valsartan 160 mg PO DAILY 10/14/19 Zolpidem Tartrate 2.5 mg PO BEDTIME PRN PRN 10/14/19 methylPREDNISolone [Methylprednisolone] 1 tab PO DIRECTED 10/14/19 Diet: Regular
[2019-10-19] MEDS: ZOLPIDEM TARTRATE 5 MG TABLET PO PRN (23:06)
[2019-10-20] MEDS: IPRATROPIUM BROM 0.5MG/2.5ML IH SCH ×2 (01:30→08:45)
[2019-10-20] MEDS: ALBUTEROL 2.5 MG/3 ML NEB SOL IH SCH ×2 (01:30→08:45)
[2019-10-20] MEDS: Meropenem 1,000 MG in NA CHLORIDE 0.9% 100 ML IV SCH ×2 (02:02→08:36)
[2019-10-20] MEDS ORDERED: DIPHENHYDRAMINE 25 MG TAB/CAP PO ONE (03:43)
[2019-10-20] MEDS ORDERED: ALPRAZOLAM 0.25 MG TABLET PO PRN (03:43)
[2019-10-20 07:41] LABS: Absolute Lymphocytes (CBC) 2.7 K/uL (0.7-4.9); Basophils % 0.5 % (0-1.3); Hematocrit 37.3 % (36.0-45.0); Lymphocytes % 12.2 % (15.3-44.8); MPV 8.1 fL (7.6-11.3); RBC Red Blood Cell Count 4.31 M/uL (3.86-4.86)
[2019-10-20 08:09] LABS: BUN Blood Urea Nitrogen 13 mg/dL (7-18); Bicarbonate 24 mmol/L (21-32); Glucose Level 114 mg/dL (74-106); Potassium 3.9 mmol/L (3.5-5.1); Sodium Level 137 mmol/L (136-145)
[2019-10-20] MEDS: DOXYCYCLINE 100 MG CAP PO SCH (08:37)
[2019-10-20] MEDS: ENOXAPARIN 40 MG/0.4 ML SQ SCH (08:37)
[2019-10-20] MEDS: PANTOPRAZOLE 40 MG INJ IVP SCH (08:38)
[2019-10-20] MEDS: carvediloL 6.25 MG TAB PO SCH (08:38)
[2019-10-20 09:59] LABS: Blood Morphology Comment NOT SEEN (NOT SEEN); Platelet Estimate ADEQ; Urine White Blood Cell Casts OK
[2019-10-20 10:09] VITALS: BP 113/67; TEMP 98.3
[2019-10-20 10:58] VITALS: O2SAT 93
== END 2019-10-20 09:58 | disposition short-term general hospital (02) | DRG 186 ==
LOC: 4TH 14:45 → UNDOADMOB 14:45 → OBSVTOIN 15:36 → 4TH 15:36 → 2ND 10-15 10:56
PROVIDERS: ADMIT Internal Medicine; ATTEND Internal Medicine
PROC: 0W993ZZ Drainage of Right Pleural Cavity, Percutaneous Approach (ICD-10-PCS; principal; 2019-10-15)
DX: J90 Pleural effusion, not elsewhere classified (principal); J18.9 Pneumonia, unspecified organism; I10 Essential (primary) hypertension; K21.0 Gastro-esophageal reflux disease with esophagitis; R09.02 Hypoxemia; J30.9 Allergic rhinitis, unspecified; I45.81 Long QT syndrome; R00.0 Tachycardia, unspecified; R91.8 Other nonspecific abnormal finding of lung field
CPT/HCPCS: 32555; 36415; 71046; 71275; 80048; 80076; 81003; 82607; 82652; 83605; 83735; 83880; 84100; 84443; 85025; 85379; 85610; 85730; 87015; 87040; 87070; 87116; 87205; 87206; 88108; 88305; 89050; 90670; 93005; 93306; 94640; C9113; J0696; J1650; J7120; Q9967; U0002

== ENCOUNTER → 2019-11-19 | Day surgery (SDC) | payer OTHER ==
[~2019-11-19] MED LIST: KETOROLAC 30 MG/ML INJ ONE; LIDOCAINE 1% MPF 5 ML VIAL ONE; NS 0.9% VIAL 20 ML ONE; Ringers Lactate 1,000 ML IV ONE; propofoL 200 MG/20 ML VIAL IV ONE
--- OUTSIDE RECORDS SUMMARY | 2019-11-19 08:55 | XMS REPORT | Clinical Summary ---
:1950 Author Organization [facility] Address [address] [place] [address] Care Team Providers Name Role Phone Unavailable Primary Care Provider Unavailable Allergies Not on File Medications Not on file Active Problems Not on file Encounters Date Type Specialty Care Team Description 10/15/2019 Lab Requisition Lab Bryce Lopez after 11/18/2018 Social History Tobacco Use Types Packs/Day Years Used Date Never Assessed Sex Assigned at Date Recorded Not on file Job Start Date Occupation Industry Not on file Not on file Not on file Travel History Travel Start Travel End No recent travel history available. Last Filed Vital Signs Not on file Plan of Treatment Not on file Procedures Procedure Name Priority Date/Time Associated Diagnosis Comme nts SARS-COV2/RT-PCR Routine 10/14/2019 4:27 PM Resu lts for this ([facility]) CDT procedure are in the results section. after 11/18/2018 Results SARS-CoV2/RT-PCR ([facility]) (10/14/2019 4:27 PM CDT) SARS-COV2/RT-PCR Not Detected Not Detected, Negative [facility] SARS-COV-2 PERFORMING LAB [facility] Specimen Other Narrative Performed At Negative results do not preclude SARS-CoV-2 [facility] infection and should not be used as the sole basis for patient management decisions. Negative results must be combined with clinical observations, patient history, and epidemiological information. A false negative result may occur if a specimen is improperly collected, transported or handled. The limit of detection for this assay is 250 copies/mL. This SARS CoV-2 test is a rapid, real-time RT-PCR test intended for the qualitative detection of nucleic acid from SARS-CoV-2 in a nasopharyngeal swab specimen collected from individuals suspected of COVID-19 by their healthcare provider. This test has not been Food and Drug Administration (FDA) cleared or approved and has been authorized by FDA under an Emergency Use Authorization (EUA). This EUA will be effective until the declaration that circumstances exist justifying the authorization of the emergency use of in vitro diagnostic tests for detection and/or diagnosis of COVID-19 is terminated under Section 564(b)(2) of the Act or the EUA is revoked under Section 564(g) of the Act. Fact Sheet for Healthcare Providers: https://www.[employer]/Documents/Xpert%20Xpre ss%20SARS%20CoV-2/Fact%20Sheets/3023802%20SAR S-COV-2%20HEALTHCARE%20PROVIDERS%20FACT%20SHEE T.pdf Fact Sheet for Healthcare Patients: https://www.[employer]/Documents/Xpert%20Xpre ss%20SARS%20CoV-2/Fact%20Sheets/119-3801%20SAR S-COV-2%20PATIENT%20FACT%20SHEET.pdf Performing Laboratory: [address] [place] [address] Performing Organization Address City/State/Zipcode Phone Number [facility] [address] [place] [phone] C[facility] after 11/18/2018
--- OUTSIDE RECORDS SUMMARY | 2019-11-19 08:55 | XMS REPORT | Clinical Summary ---
:1950 Author Organization [facility] Address [address] [place] [address] Care Team Providers Name Role Phone MD Jessica Primary Care Provider Allergies Active Allergy Reactions Severity Noted Date Comments Clindamycin Rash Low 10/20/2019 Rash to hands, per pt Levofloxacin Rash Low 10/20/2019 Medications Medication Sig Dispensed Refills Start End Status Date Date albuterol sulfate Inhale. 0 Ac tive (PROAIR RESPICLICK INHL) BROMPHENIRAMINE-PHENYL Take by 0 Active EPHRINE ORAL mouth. Pt states that she is not taking methylPREDNISolone Take 4 mg by 0 Active (MEDROL DOSEPAK) 4 mg mouth 2 (two) tablet times a day. Per pt she is no longer taking zolpidem (AMBIEN) 5 MG Take 10 mg by 0 Active tablet mouth nightly as needed for sleep. carvediloL (Coreg) Take 1 tablet 62 tablet 0 Active 3.125 MG tablet (3.125 mg 0 020 total) by mouth 2 (two) times a day with meals for 31 days. Pt states that she was taking Coreg at [facility] amLODIPine (NORVASC) Take 2.5 mg 0 Discontinued 2.5 mg tablet by mouth 020 (Stop Taking at daily. Discharge) valsartan (DIOVAN) 160 Take 160 mg 0 10/28 Discontinued MG tablet by mouth 020 (Stop Taki ng at daily. Pt Discharge) states that she is no longer taking Valsartan carvedilol (COREG Take by 0 Di scontinued ORAL) mouth. Pt 020 states that she was taking Coreg at [facility] gabapentin (NEURONTIN) Take 1 21 capsule 0 300 mg capsule capsule (300 0 020 mg total) by mouth 3 (three) times a day for 7 days. Active Problems Patient Care Coordination Note Dr. Ferreira spoke with patient's and patient on phone regarding chest wall pain. Patient has been taking OTC Tylenol with out improvement in pain, requesting lidocaine patches and "nerve pain medicine". Advis ed patient to schedule doses of tylenol 1000 mg every 8 hours, recommended that patie nt obtain lidocaine patches over the counter, ePrescribed gabapentin 300 mg PO TID for 7 days to patient's home [facility] pharmacy in [place], [place]. 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 Pleural effusion, right 10/20/2019 Encounters Date Type Specialty Care Team Description 11/18/2019 Telephone Cardiothoracic Surgery Michelle James, LIZZ 11/18/2019 Orders Only Cardiothoracic Surgery Provider, MD Rosalino 11/17/2019 Telephone Cardiothoracic Surgery Michelle James, WOOD SHINGLE ROOFER 11/04/2019 Telephone Cardiothoracic Surgery Michelle James NP 11/03/2019 Orders Only General Surgery Raulito Pascual Chest wall p ain (Primary Dx); MD Mirian Pleural effusio n, right 10/27/2019 Surgery Cardiothoracic Surgery Raulito Pascual [facility] Mirian KINCAID MD USING NAVIGATI ON, VERYUE PROTOCOL, FNA, BRUSHINGS, BAL AND BIOPSY 10/27/2019 Anesthesia Event Cardiothoracic Surgery Real Cartagena MD 10/20/2019 - Hospital Encounter General Internal Raulito Pascual Pleur al effusion, right (Primary Dx); 10/29/2019 Medicine MD Mirian Pleural effusio n; Lung mass 10/19/2019 Intake Access after 11/18/2018 Family History Medical History Relation Name Comments Hypertension Father Hypertension Mother Cancer Paternal Grandfather throat Relation Name Status Comments Father Mother Paternal Grandfather Social History Tobacco Use Types Packs/Day Years Used Date Never Smoker Smokeless Tobacco: Never Used Alcohol Use Drinks/Week oz/Week Comments Not Currently Sex Assigned at Date Recorded Not on file Job Start Date Occupation Industry Not on file Not on file Not on file Travel History Travel Start Travel End No recent travel history available. Last Filed Vital Signs Vital Sign Reading Time Taken Comments Blood Pressure 133/94 10/29/2019 11:22 AM CDT Pulse 92 10/29/2019 4:23 PM CDT Temperature 37.2 C (98.9 F) 10/29/2019 11:22 AM CDT Respiratory Rate 18 10/29/2019 4:23 PM CDT Oxygen Saturation 96% 10/29/2019 4:27 PM CDT Inhaled Oxygen Concentration - - Weight 76.3 kg (168 lb 3.2 oz) 10/29/2019 7:59 AM CDT Height 167.6 cm (5' 6") 10/27/2019 9:19 AM CDT Body Mass Index 27.15 10/27/2019 9:19 AM CDT Plan of Treatment Health Maintenance Due Date Last Done Comments BREAST CANCER SCREENING 2001 COLONOSCOPY SCREENING 2001 SHINGLES VACCINES (#1) 2001 65+ PNEUMOCOCCAL VACCINE (1 of 2 - PCV13) 2016 INFLUENZA VACCINE 01/29/2020 Implants Implanted Type Area Jewelry Setter Device Shelf Model / Identifier Expiration Serial / Date Lot Cath Needle Yueh Centsis 19ga Str 5fr 7cm Cath Strl - [id number] Surgical N/A: N/A COOK [id number] / Implanted: 10/21/[address] [facility] (Quantity not on file) Imp lants; INTERVENTIONAL / Expanders; RADIOLOGY Extenders; Surgical Wires Procedures Procedure Name Priority Date/Time Associated Comments Diagnosis XR CHEST 2 VW Routine 11/16/2019 XR CHEST 1 VW PORTABLE Routine 10/29/2019 12:28 R esults for this PM CDT procedure are i n the results section. HC COMPLETE BLD COUNT Routine 10/29/2019 6:30 Re sults for this W/AUTO DIFF AM CDT procedure are i n the results section. ESTIMATED GFR Routine 10/29/2019 4:00 Results fo r this AM CDT procedure are i n the results section. PHOSPHORUS LEVEL Routine 10/29/2019 4:00 Results for this AM CDT procedure are i n the results section. MAGNESIUM LEVEL Routine 10/29/2019 4:00 Results for this AM CDT procedure are i n the results section. BASIC METABOLIC PANEL Routine 10/29/2019 4:00 Re sults for this AM CDT procedure are i n the results section. XR CHEST 1 VW PORTABLE Routine 10/28/2019 6:20 R esults for this AM CDT procedure are i n the results section. SMEAR REVIEW Routine 10/28/2019 4:15 Results for this AM CDT procedure are i n the results section. HC COMPLETE BLD COUNT Routine 10/28/2019 4:15 Re sults for this W/AUTO DIFF AM CDT procedure are i n the results section. ESTIMATED GFR Routine 10/28/2019 4:00 Results fo r this AM CDT procedure are i n the results section. PHOSPHORUS LEVEL Routine 10/28/2019 4:00 Results for this AM CDT procedure are i n the results section. MAGNESIUM LEVEL Routine 10/28/2019 4:00 Results for this AM CDT procedure are i n the results section. BASIC METABOLIC PANEL Routine 10/28/2019 4:00 Re sults for this AM CDT procedure are i n the results section. XR CHEST 1 VW PORTABLE STAT 10/27/2019 1:12 R esults for this PM CDT procedure are i n the results section. SURGICAL PATHOLOGY Routine 10/27/2019 1:12 Resul ts for this REQUEST PM CDT procedure are i n the results section. CYTOLOGY Routine 10/27/2019 12:23 Results for this (NON-GYNECOLOGICAL) PM CDT procedur e are in REQUEST the results section. CYTOLOGY Routine 10/27/2019 12:23 Results for this (NON-GYNECOLOGICAL) PM CDT procedur e are in REQUEST the results section. CYTOLOGY Routine 10/27/2019 12:23 Results for this (NON-GYNECOLOGICAL) PM CDT procedur e are in REQUEST the results section. CYTOLOGY Routine 10/27/2019 12:23 Results for this (NON-GYNECOLOGICAL) PM CDT procedur e are in REQUEST the results section. CYTOLOGY Routine 10/27/2019 12:21 Results for this (NON-GYNECOLOGICAL) PM CDT procedur e are in REQUEST the results section. GRAM STAIN Timed 10/27/2019 12:04 Results for this PM CDT procedure are i n the results section. FUNGUS SMEAR Timed 10/27/2019 12:04 Results for this PM CDT procedure are i n the results section. AFB STAIN Timed 10/27/2019 12:04 Results for this PM CDT procedure are i n the results section. RESPIRATORY CULTURE Timed 10/27/2019 12:04 Pleural effusion, Results for this PM CDT right procedure are i n the results section. AFB CULTURE Timed 10/27/2019 12:04 Pleural effusion, PM CDT right FUNGUS CULTURE Timed 10/27/2019 12:04 Pleural effusion, PM CDT right CYTOLOGY Routine 10/27/2019 12:02 Results for this (NON-GYNECOLOGICAL) PM CDT procedur e are in REQUEST the results section. CYTOLOGY Routine 10/27/2019 11:52 Results for this (NON-GYNECOLOGICAL) AM CDT procedur e are in REQUEST the results section. GRAM STAIN Timed 10/27/2019 11:35 Results for this AM CDT procedure are i n the results section. FUNGUS SMEAR Timed 10/27/2019 11:35 Results for this AM CDT procedure are i n the results section. AFB STAIN Timed 10/27/2019 11:35 Results for this AM CDT procedure are i n the results section. RESPIRATORY CULTURE Timed 10/27/2019 11:35 Pleural effusion, Results for this AM CDT right procedure are i n the results section. AFB CULTURE Timed 10/27/2019 11:35 Pleural effusion, AM CDT right FUNGUS CULTURE Timed 10/27/2019 11:35 Pleural effusion, AM CDT right CYTOLOGY Routine 10/27/2019 10:40 Results for this (NON-GYNECOLOGICAL) AM CDT procedur e are in REQUEST the results section. GA AN ELECTIVE Routine 10/27/2019 10:29 Results f or this ENDOTRACHEAL AIRWAY AM CDT procedur e are in the results section. CT CHEST W CONTRAST Routine 10/27/2019 8:41 Resu lts for this AM CDT procedure are i n the results section. ESTIMATED GFR Routine 10/27/2019 4:00 Results fo r this AM CDT procedure are i n the results section. TYPE AND SCREEN Routine 10/27/2019 4:00 Results for this AM CDT procedure are i n the results section. PROTHROMBIN TIME WITH Routine 10/27/2019 4:00 Re sults for this INR AM CDT procedure are i n the results section. PARTIAL THROMBOPLASTIN Routine 10/27/2019 4:00 R esults for this TIME (PTT) AM CDT procedure are i n the results section. PHOSPHORUS LEVEL Routine 10/27/2019 4:00 Results for this AM CDT procedure are i n the results section. MAGNESIUM LEVEL Routine 10/27/2019 4:00 Results for this AM CDT procedure are i n the results section. CBC WITH PLATELET AND Routine 10/27/2019 4:00 Re sults for this DIFFERENTIAL AM CDT procedure are i n the results section. BASIC METABOLIC PANEL Routine 10/27/2019 4:00 Re sults for this AM CDT procedure are i n the results section. URINALYSIS SCREEN AND Routine 10/26/2019 6:15 Re sults for this MICROSCOPY, WITH REFLEX PM CDT proc edure are in TO CULTURE the results section. URINE CULTURE Routine 10/26/2019 6:15 Results fo r this PM CDT procedure are i n the results section. CT CHEST WO CONTRAST Routine 10/26/2019 8:32 Res ults for this AM CDT procedure are i n the results section. ESTIMATED GFR Routine 10/26/2019 6:55 Results fo r this AM CDT procedure are i n the results section. PHOSPHORUS LEVEL Routine 10/26/2019 6:55 Results for this AM CDT procedure are i n the results section. MAGNESIUM LEVEL Routine 10/26/2019 6:55 Results for this AM CDT procedure are i n the results section. BASIC METABOLIC PANEL Routine 10/26/2019 6:55 Re sults for this AM CDT procedure are i n the results section. HC COMPLETE BLD COUNT Routine 10/26/2019 6:55 Re sults for this W/AUTO DIFF AM CDT procedure are i n the results section. XR CHEST 1 VW PORTABLE Routine 10/26/2019 6:15 R esults for this AM CDT procedure are i n the results section. CYTOLOGY Routine 10/25/2019 11:07 Results for this (NON-GYNECOLOGICAL) AM CDT procedur e are in REQUEST the results section. BLOOD CULTURE, AEROBIC Routine 10/25/2019 10:12 R esults for this & ANAEROBIC AM CDT procedure are i n the results section. VANCOMYCIN LEVEL, Routine 10/25/2019 10:10 Result s for this RANDOM AM CDT procedure are i n the results section. BLOOD CULTURE, AEROBIC Routine 10/25/2019 10:05 R esults for this & ANAEROBIC AM CDT procedure are i n the results section. ESTIMATED GFR Routine 10/25/2019 7:24 Results fo r this AM CDT procedure are i n the results section. MAGNESIUM LEVEL Routine 10/25/2019 7:24 Results for this AM CDT procedure are i n the results section. BASIC METABOLIC PANEL Routine 10/25/2019 7:24 Re sults for this AM CDT procedure are i n the results section. HC COMPLETE BLD COUNT Routine 10/25/2019 7:24 Re sults for this W/AUTO DIFF AM CDT procedure are i n the results section. XR CHEST 1 VW PORTABLE Routine 10/25/2019 6:25 R esults for this AM CDT procedure are i n the results section. XR CHEST 1 VW PORTABLE Routine 10/24/2019 8:15 R esults for this AM CDT procedure are i n the results section. HC COMPLETE BLD COUNT Routine 10/24/2019 5:20 Re sults for this W/AUTO DIFF AM CDT procedure are i n the results section. XR CHEST 1 VW PORTABLE Routine 10/23/2019 6:40 R esults for this AM CDT procedure are i n the results section. ESTIMATED GFR Routine 10/23/2019 5:40 Results fo r this AM CDT procedure are i n the results section. PHOSPHORUS LEVEL Routine 10/23/2019 5:40 Results for this AM CDT procedure are i n the results section. MAGNESIUM LEVEL Routine 10/23/2019 5:40 Results for this AM CDT procedure are i n the results section. HC COMPLETE BLD COUNT Routine 10/23/2019 5:40 Re sults for this W/AUTO DIFF AM CDT procedure are i n the results section. BASIC METABOLIC PANEL Routine 10/23/2019 5:40 Re sults for this AM CDT procedure are i n the results section. XR CHEST 1 VW PORTABLE STAT 10/22/2019 4:31 R esults for this PM CDT procedure are i n the results section. VANCOMYCIN LEVEL, Timed 10/22/2019 8:00 Result s for this TROUGH AM CDT procedure are i n the results section. XR CHEST 1 VW PORTABLE Routine 10/22/2019 6:32 R esults for this AM CDT procedure are i n the results section. ESTIMATED GFR Routine 10/22/2019 4:53 Results fo r this AM CDT procedure are i n the results section. PHOSPHORUS LEVEL Routine 10/22/2019 4:53 Results for this AM CDT procedure are i n the results section. MAGNESIUM LEVEL Routine 10/22/2019 4:53 Results for this AM CDT procedure are i n the results section. IONIZED CALCIUM Routine 10/22/2019 4:53 Results for this AM CDT procedure are i n the results section. HC COMPLETE BLD COUNT Routine 10/22/2019 4:53 Re sults for this W/AUTO DIFF AM CDT procedure are i n the results section. BASIC METABOLIC PANEL Routine 10/22/2019 4:53 Re sults for this AM CDT procedure are i n the results section. GRAM STAIN Routine 10/21/2019 5:20 Results for this PM CDT procedure are i n the results section. SPUTUM CULTURE Routine 10/21/2019 5:20 Results f or this PM CDT procedure are i n the results section. CYTOLOGY Routine 10/21/2019 5:15 Results for this (NON-GYNECOLOGICAL) PM CDT procedur e are in REQUEST the results section. AFB STAIN Routine 10/21/2019 5:15 Results for this PM CDT procedure are i n the results section. GRAM STAIN Routine 10/21/2019 5:15 Results for this PM CDT procedure are i n the results section. FUNGUS SMEAR Routine 10/21/2019 5:15 Results for this PM CDT procedure are i n the results section. ANAEROBIC CULTURE Routine 10/21/2019 5:15 Result s for this PM CDT procedure are i n the results section. AEROBIC CULTURE Routine 10/21/2019 5:15 Results for this PM CDT procedure are i n the results section. IR TUNNELED PLEURAL Routine 10/21/2019 4:47 Resu lts for this CATHETER PM CDT procedure are i n the results section. ESTIMATED GFR Routine 10/21/2019 5:50 Results fo r this AM CDT procedure are i n the results section. PARTIAL THROMBOPLASTIN Routine 10/21/2019 5:50 R esults for this TIME (PTT) AM CDT procedure are i n the results section. PROTHROMBIN TIME WITH Routine 10/21/2019 5:50 Re sults for this INR AM CDT procedure are i n the results section. PHOSPHORUS LEVEL Routine 10/21/2019 5:50 Results for this AM CDT procedure are i n the results section. MAGNESIUM LEVEL Routine 10/21/2019 5:50 Results for this AM CDT procedure are i n the results section. BASIC METABOLIC PANEL Routine 10/21/2019 5:50 Re sults for this AM CDT procedure are i n the results section. CBC WITH PLATELET AND Routine 10/21/2019 5:50 Re sults for this DIFFERENTIAL AM CDT procedure are i n the results section. URINALYSIS SCREEN AND STAT 10/20/2019 10:30 Re sults for this MICROSCOPY, WITH REFLEX PM CDT proc edure are in TO CULTURE the results section. URINE CULTURE STAT 10/20/2019 10:30 Results fo r this PM CDT procedure are i n the results section. TYPE AND SCREEN Routine 10/20/2019 9:45 Results for this PM CDT procedure are i n the results section. BLOOD CULTURE, AEROBIC Routine 10/20/2019 7:00 R esults for this & ANAEROBIC PM CDT procedure are i n the results section. BLOOD CULTURE, AEROBIC Routine 10/20/2019 6:30 R esults for this & ANAEROBIC PM CDT procedure are i n the results section. RESPIRATORY PATHOGEN Routine 10/20/2019 6:30 Res ults for this PANEL PM CDT procedure are i n the results section. CT CHEST W CONTRAST STAT 10/20/2019 6:28 Resu lts for this PM CDT procedure are i n the results section. ESTIMATED GFR STAT 10/20/2019 1:00 Results fo r this PM CDT procedure are i n the results section. TYPE AND SCREEN STAT 10/20/2019 1:00 Results for this PM CDT procedure are i n the results section. PROTHROMBIN TIME WITH STAT 10/20/2019 1:00 Re sults for this INR PM CDT procedure are i n the results section. PHOSPHORUS LEVEL STAT 10/20/2019 1:00 Results for this PM CDT procedure are i n the results section. PARTIAL THROMBOPLASTIN STAT 10/20/2019 1:00 R esults for this TIME (PTT) PM CDT procedure are i n the results section. MAGNESIUM LEVEL STAT 10/20/2019 1:00 Results for this PM CDT procedure are i n the results section. LACTIC ACID LEVEL STAT 10/20/2019 1:00 Result s for this PM CDT procedure are i n the results section. IONIZED CALCIUM STAT 10/20/2019 1:00 Results for this PM CDT procedure are i n the results section. HEPATIC FUNCTION PANEL STAT 10/20/2019 1:00 R esults for this PM CDT procedure are i n the results section. HC COMPLETE BLD COUNT STAT 10/20/2019 1:00 Re sults for this W/AUTO DIFF PM CDT procedure are i n the results section. BASIC METABOLIC PANEL STAT 10/20/2019 1:00 Re sults for this PM CDT procedure are i n the results section. XR CHEST 1 VW PORTABLE STAT 10/20/2019 12:55 R esults for this PM CDT procedure are i n the results section. XR CHEST EXTERNAL STUDY Routine 10/19/2019 1:00 Results for this PM CDT procedure are i n the results section. XR CHEST EXTERNAL STUDY Routine 10/17/2019 9:56 Results for this AM CDT procedure are i n the results section. XR CHEST EXTERNAL STUDY Routine 10/15/2019 3:08 Results for this PM CDT procedure are i n the results section. US VASCULAR EXTERNAL Routine 10/15/2019 9:57 Res ults for this STUDY AM CDT procedure are i n the results section. XR CHEST EXTERNAL STUDY Routine 10/14/2019 8:41 Results for this PM CDT procedure are i n the results section. CT CHEST EXTERNAL STUDY Routine 10/14/2019 8:08 Results for this PM CDT procedure are i n the results section. after 11/18/2018 Results XR Chest 2 Vw (11/16/2019) Narrative Performed At This result has an attachment that is no t available. XR Chest 1 Vw Portable (10/29/2019 12:28 PM CDT)Only the most recent of10 resultswithin the time period is included. Specimen Narrative Performed At EXAMINATION: XR CHEST 1 VW PORTABLE [facility] CLINICAL HISTORY: follow up COMPARISON: Single view chest from 09/30 IMPRESSION: An AP radiograph of the chest was submit betty for interpretation. No significant change in appearance of the chest are c ompared previous examination. Again noted is a tunneled right-sided chest tube overl brian the right lung base. A large, likely complex right-sided pleural effusion is again seen. Associated consolidative airspace disease within the right lung is also again noted. There is minimal aeration of the right lung apex. The left lung is clear. Atelectasis is noted within th e left lung base. No left-sided pleural effusion or pneumo thorax. No midline shift. The mediastinal contours and cardiac silhouette are un changed and unremarkable. Osteopenia. [id number] Procedure Note Interface, Radiology Results Incoming - 10/29/2019 12:33 PM CDT EXAMINATION: XR CHEST 1 VW PORTABLE CLINICAL HISTORY: follow up COMPARISON: Single view chest from 10/27 IMPRESSION: An AP radiograph of the chest was submit betty for interpretation. No significant change in appearance of t he chest are compared previous examination. Again noted is a tunneled right-sided ch est tube overlying the right lung base. A large, likely complex right-sided pleural effusion is again seen. Associated consolidative airspace disease within the right lung is also again noted. There is minimal aeration of the right lung apex. The left lung is clear. Atelectasis is n oted within the left lung base. No left- sided pleural effusion or pneumothorax. No midline shift. The mediastinal contours and cardiac isa houette are unchanged and unremarkable. Osteopenia. [facility] Performing Organization Address City/State/Zipcode Phone Number KELLI PURVIS [address] [place] [address] CBC with platelet and differential (10/29/2019 6:30 AM CDT)Only the most recent of10 resultswithin the time period is included. WBC 17.49 (H) 4.50 - 11.00 [facility] k[facility]uL [facility] RBC 3.46 (L) 4.20 - 5.50 [facility] m/uL [facility] HGB 9.6 (L) 12.0 - 16.0 [facility] g/dL [facility] HCT 30.8 (L) 37.0 - 47.0 % [facility] MCV 89.0 82.0 - 100.[address] [facility] MCH 27.7 27.0 - 34.0 pg [facility] MCHC 31.2 31.0 - 37.0 [facility] g/dL [facility] RDW - SD 43.7 37.0 - 55.0 fL [facility] MPV 9.4 8.8 - 13.2 fL [facility] Platelet count 429 (H) 150 - 400 k/uL [facility] Nucleated RBC 0.00 /100 WBC [facility] Neutrophils 76.9 (H) 39.0 - 69.0 % [facility] Lymphocytes 13.2 (L) 25.0 - 45.0 % [facility] Monocytes 5.4 0.0 - 10.0 % [facility] Eosinophils 3.0 0.0 - 5.0 % [facility] Basophils 0.4 0.0 - 1.0 % [facility] Immature granulocytes 1.1 0.0 - 1.0 % [facility] (H)Comment: HOSPITAL "Immature granulocytes" (promyelocytes , myelocytes, metamyelocytes ) Specimen Blood Performing Organization Address City/[facility] Phone Number [facility] DEPARTMENT OF PATHOLOGY AND [address] [place] [address] [place] [phone] Estimated GFR (10/29/2019 4:00 AM CDT)Only the most recent of9 resultswithin the time period is included. Estimated GFR 69 mL/min/1.73 [facility] Comment: m2 HOSPITAL Catergory Units Interpretation G1 >=90 Normal or high G2 60-89 Mildly decreased G3a 45-59 Mildly to moderately decreas ed G3b 30-44 Moderately to severely decre ased G4 15-29 Severely decreased G5 <15 Kidney failure The eGFR was calculated using the Chronic Kidney Disea se Epidemiology Collaboration (CKD-EPI) equation. Interpretation is based on recommendations of the National Kidney Foundation-Kidney Disease Outcomes Durga lity Initiative (NKF-KDOQI) published in 2014. Specimen Performing Organization Address [facility] Phone Number [facility] DEPARTMENT OF PATHOLOGY AND [address] [place] [phone] Phosphorus level (10/29/2019 4:00 AM CDT)Only the most recent of8 resultswithin the time period is included. Pathologist Sig nature Phosphorus 3.7 2.4 - 4.5 mg/dL [facility] Specimen Blood Performing Organization Address [facility] Phone Number [facility] DEPARTMENT OF PATHOLOGY AND [address] [place] [phone] Magnesium level (10/29/2019 4:00 AM CDT)Only the most recent of9 resultswithin the time period is included. Pathologist Sig nature Magnesium 1.8 1.6 - 2.4 mg/dL [facility] Specimen Blood Performing Organization Address [facility] Phone Number [facility] DEPARTMENT OF PATHOLOGY AND [address] [place] [phone] Basic metabolic panel (10/29/2019 4:00 AM CDT)Only the most recent of9 results within the time period is included. Pathologist Sig nature Sodium 141 135 - 148 mEq/L [facility] L Potassium 3.4 (L) 3.5 - 5.0 mEq/L [facility] L Chloride 103 98 - 112 mEq/L [facility] CO2 28 24 - 31 mEq/L [facility] Anion gap 10@ANIO 7 - 15 mEq/L [facility] BUN 8 8 - 23 mg/dL [facility] Creatinine 0.86 0.50 - 0.90 mg/dL [facility] Glucose 84 65 - 99 mg/dL [facility] Calcium 8.5 (L) 8.8 - 10.2 mg/dL [facility] Specimen Blood Performing Organization Address City/State/Zipcode Phone Number [facility] DEPARTMENT OF PATHOLOGY AND [address] [place] [phone] GENOMIC MEDICINE [address] [address] Smear review (10/28/2019 4:15 AM CDT) Pathologist [facility] Platelet slide review Increased (A) [facility] Anisocytosis Moderate [facility] Ovalocytes Moderate [facility] Enlarged platelets Moderate (A) [facility] Giant platelets Occasional [facility] Specimen Performing Organization Address City/State/Zipcode Phone Number [facility] DEPARTMENT OF PATHOLOGY AND [address] [place] [phone] GENOMIC MEDICINE [address] [address] Surgical pathology request (10/27/2019 1:12 PM CDT) [facility] DEPARTMENT OF PATHOLOGY AND GENOMIC MEDICINE Surgical pathology See link below [facility] DEPARTMENT OF report for PDF Lab PATHOLOGY AND Report GENOMIC MEDICINE Result status This is Final [facility] DEPARTMENT OF Report for PATHOLOGY AND [id number] GENOMIC MEDICINE Specimen Performing Organization Address City/State/Zipcode Phone Number [facility] DEPARTMENT OF PATHOLOGY AND [address] [place] [phone] GENOMIC MEDICINE Cytology (non-gynecological) request (10/27/2019 12:23 PM CDT)Only the most recent of10 resultswithin the time period is included. [facility] DEPARTMENT OF PATHOLOGY AND GENOMIC MEDICINE Cytology See link below for [facility] DEPARTMENT OF (non-gynecological PDF Lab Report PATHOLOGY AND ) report GENOMIC MEDICINE Result status This is Supplemental [facility] DEPARTMENT OF Report for PATHOLOGY AND [id number] GENOMIC MEDICINE Specimen Narrative Performed At [facility] DEPARTMENT OF PATHOLOGY AND GENOMIC BRAF, EGFR, LUNG NGS, KRASM METFISH, MEDICINE [id number] DOS 10/27/2019 Performing Organization Address [facility] Phone Number [facility] DEPARTMENT OF PATHOLOGY AND [address] [place] [address] GENOMIC MEDICINE Respiratory culture (10/27/2019 12:04 PM CDT)Only the most recent of2 results within the time period is included. Respiratory culture No growth after 2 days. [facility] isolate Comment: HOSPITAL Specimen Information Specimen Source: Bronchial Washing Specimen Site: Lung: RLL Specimen Bronchial washing - Lung Performing Organization Address [facility] Phone Number [facility] DEPARTMENT OF PATHOLOGY AND [address] [place] [phone] Fungus smear (10/27/2019 12:04 PM CDT)Only the most recent of3 resultswithin the time period is included. Pathologist Sig nature Fungus smear No fungi observed. [facility] Comment: HOSPITAL Specimen Information Specimen Source: Bronchial Washing Specimen Site: Lung: RLL Specimen Bronchial washing Performing Organization Address [facility] Phone Number [facility] DEPARTMENT OF PATHOLOGY AND [address] [place] [address] [phone] [address] Gram stain (10/27/2019 12:04 PM CDT)Only the most recent of4 resultswithin the time period is included. Gram stain isolate Few WBC's [facility] No organisms seen HOSPITAL Comment: Specimen Information Specimen Source: Bronchial Washing Specimen Site: Lung: RLL Specimen Bronchial washing Performing Organization Address City/[facility]/Zipcode Phone Number [facility] DEPARTMENT OF PATHOLOGY AND [address] [place] [phone] AFB stain (10/27/2019 12:04 PM CDT)Only the most recent of3 resultswithin the time period is included. Pathologist Sig nature AFB stain No acid fast bacilli (AFB) seen. [facility] Comment: HOSPITAL Specimen Information Specimen Source: Bronchial Washing Specimen Site: Lung: RLL Specimen Bronchial washing Performing Organization Address City/State/Zipcode Phone Number [facility] DEPARTMENT OF PATHOLOGY AND [address] [place], [place] [address] GENOMIC MEDICINE [facility] [address] [place] [address] Airway (10/27/2019 10:29 AM CDT) Narrative Performed At Laly Vera 2019 10:48 AM Airway Date/Time: 10/27/2019 10:18 AM Performed by: Laly Vera so Authorized by: Laly Vera sshilda Location: OR Urgency: Elective Difficult Airway: No Anesthesiologist: Real Cartagena MD Resident/CHEMICALS DISTILLER/AA: Laly Vera Performed by: resident/CHEMICALS DISTILLER/AA Preoxygenated with 100% O2: Yes Mask Ventilation: Not attempted Final Airway Type: Endotracheal airway Final Endotracheal Airway: ETT Cuffed: Yes Technique Used: Direct laryngoscopy Devices/Methods Used in Placement: Int ubating stylet Insertion Site: Oral Blade Type: Richardson Laryngoscope Blade/Videolaryngoscope Galileo de Size: 2 ETT Size (mm): 9.0 Cuff at minimum occlusion pressure: Yes Measured from: Lips ETT to Lips (cm): 23 Placement Verified by: CO2 detection and direct visualization Laryngoscopic view: Grade I - full vie w of glottis Number of Attempts at Approach: 1 Preoxygenation times five minutes on 100% FiO2. Zarina h IV induction. Eyes taped after loss of eyelash reflex. DL t imes 1 with Richardson 2, Grade 1 view. ETT passed atraumatically through vocal cords. Cuffed to seal. Positive chest rise, positive mist, positive EtCO2. ET T taped to secure. No damage to lips, teeth, gums or oropha rynx. VSS. CT Chest W Contrast (10/27/2019 8:41 AM CDT)Only the most recent of2 results within the time period is included. Specimen Narrative Performed At EXAMINATION: RADIANT CT CHEST W CONTRAST CLINICAL HISTORY: VERAN protocol preop unable to visualize structure s in noncontrast study TECHNIQUE: Multiple axial images of the chest were obtained follo wing intravenous administration of iodinated contrast. Sagittal and cor onal computerized reformatted images were also obtained. CT imaging was performed with iterative reconstruction techniques and/or automated exposure control to reduce rad iation dose. COMPARISON: 10/26/2019, 10/20/2019 FINDINGS: Chest tube is present in the right basilar region. Lar ge loculated right pleural effusion is decreased from October 20, 2019 exam . Redemonstration of a large mass at the right base in the expected lexus on of the right middle lobe measuring 10.3 x 9.4 cm. This shows heterogeneous enhancement with hypoattenuat ing areas suggesting partial necrosis. The right lung otherwise shows compressive atelectasis adjacent to the tumor and underlying the loculated effusion. Interlobu lar septal thickening is again seen at the right apex. There is d iffuse irregular right pleural thickening. Filling defect is demonstrated in the right superior p ulmonary vein (series 2 image 64) suspicious for tumor . Borderline enlarged right paratracheal and subcarinal lymph nodes measure up to 1.4 cm in short axis. Slightly prominent 8 mm lymph node at the right cardiophrenic fat pad. No suspicious nodule or acute airspace disease in the left lung. No left pleural effusion. 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 The heart is normal in size . No destructive bony lesion. Ill-defined hypoattenuation in segment 2 of the liver is indeterminate. IMPRESSION: Redemonstration of a large right basilar lung mass wit h evidence of superior pulmonary vein invasion and large loculated m alignant pleural effusion (decrease in size following adam st tube placement). Mildly enlarged mediastinal lymph nodes are suspicious. Ill-defined hypoattenuation in segment 2 of the liver is indeterminate. Consider MRI to further evaluate. [id number] Procedure Note Hm Interface, Radiology Results Incoming - 10/27/2019 8:54 AM CDT EXAMINATION: CT CHEST W CONTRAST CLINICAL HISTORY: VERAN protocol preop unable to visuali ze structures in noncontrast study TECHNIQUE: Multiple axial images of the chest were obtained following intravenous administration of iodinated contrast. Sagittal and coronal computerized reformatted images were also obtained. CT imaging was performed with iterative reconstruction techniques and/or automated exposure control to reduce radiation dose. COMPARISON: 10/26/2019, 10/20/2019 FINDINGS: Chest tube is present in the right basil ar region. Large loculated right pleural effusion is decreased from October 20, 2019 exam. Redemonstration of a large mass at the right base in the expected region of the right middle lobe measuring 10.3 x 9.4 cm. This shows heterogeneous enhancement wit h hypoattenuating areas suggesting partial necrosis. The right lung otherwise shows compressi ve atelectasis adjacent to the tumor and underlying the loculated effusion. Interlobular septal thickening is again seen at the right apex. There is diffuse irregular right pleural thickening. Filling defect is demonstrated in the ri ght superior pulmonary vein (series 2 image 64) suspicious for tumor. Borderline enlarged right paratracheal a nd subcarinal lymph nodes measure up to 1.4 cm in short axis. Slightly prominent 8 mm lymph node at the right cardiophrenic fat pad. No suspicious nodule or acute airspace d isease in the left lung. No left pleural effusion. 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 The heart is normal in size. No destructive bony lesion. Ill-defined hypoattenuation in segment 2 of the liver is indeterminate. IMPRESSION: Redemonstration of a large right basilar lung mass with evidence of superior pulmonary vein invasion and large loculated malignant pleural effusion (decrease in size following chest tube placement). Mildly enlarged mediastinal lymph nodes are suspicious. Ill-defined hypoattenuation in segment 2 of the liver is indeterminate. Consider MRI to further evaluate. [id number] Performing Organization Address City/[facility] Phone Number [facility] [address] [place] [phone] Partial thromboplastin time, activated (10/27/2019 4:00 AM CDT)Only the most recent of3 resultswithin the time period is included. PTT 36.6 (H) 23.0 - 36.0 [facility] Comment: [facility] HOSPITAL PTT therapeutic range for unfractionated heparin is 61.0-112.0 seconds which corresponds to Anti-Xa 0.3-0.7 U/ml. Specimen Blood Performing Organization Address City/[facility]/Zipcode Phone Number [facility] DEPARTMENT OF PATHOLOGY AND [address] [place] [phone] GENOMIC MED[address] [address] Prothrombin time with INR (10/27/2019 4:00 AM CDT)Only the most recent of3 resultswithin the time period is included. Prothrombin time 15.2 (H) 11.5 - 14.5 [facility] INR 1.2 DOVRAY Comment: [facility] International Normalized Ratio (INR) is a [facility] monitoring tool for patients who are stable on oral anticoagulant therapy. An INR of 2.0-3.0 is suggested for deep vein thrombosis/pulmonary embolism. Specimen Blood Performing Organization Address City/[facility] Phone Number [facility] DEPARTMENT OF PATHOLOGY AND [address] [place] [address] [address] Type and screen (10/27/2019 4:00 AM CDT)Only the most recent of3 resultswithin the time period is included. Pathologist Sig nature ABO grouping O [facility] Rh type POS [facility] Antibody screen (gel) NEG [facility] Specimen Blood Performing Organization Address [facility] Phone Number [facility] DEPARTMENT OF PATHOLOGY AND [address] [place] [address] [address] Urinalysis screen and microscopy, with reflex to culture (10/26/2019 6:15 PM CDT)Only the most recent of2 resultswithin the time period is included. Pathologist Sig nature Specimen site Clean catch [facility] Color, UA Yellow [facility] Appearance, UA Clear [facility] Specific gravity, 1.009 1.001 - 1.035 [facility] pH, UA 5.0 5.0 - 8.5 [facility] Protein, UA Negative Negative [facility] Glucose, UA Negative Negative [facility] Ketones, UA Negative Negative [facility] Bilirubin, UA Negative Negative [facility] Blood, UA Small (A) Negative [facility] Nitrite, UA Negative Negative [facility] Urobilinogen, UA <2.0 <2.0 [facility] Leukocyte esterase, Negative Negative [facility] WBC, UA 1 0 - 4 /HPF [facility] RBC, UA <1 0 - 5 /HPF [facility] Bacteria, UA Few None seen [facility] Yeast, UA None seen [facility] Yeast with None seen [facility] pseudohyphae, [facility] Granular casts, UA 1 0 - 1 /LPF [facility] Hyaline casts, UA 3 /LPF [facility] Specimen Urine Performing Organization Address City/[facility]/Zipcode Phone Number [facility] DEPARTMENT OF PATHOLOGY AND [address] [place], [place] [address] [facility] [address] [place] [phone] Urine culture (10/26/2019 6:15 PM CDT)Only the most recent of2 resultswithin the time period is included. Pathologist Sig nature Urine culture SEE COMMENTComment: [facility] Bacteriuria screen HOSPITAL negative. Specimen Performing Organization Address City/[facility]/Zipcode Phone Number [facility] DEPARTMENT OF PATHOLOGY AND [address] [place] [phone] [facility] [address] [place] [address] CT Chest Wo Contrast (10/26/2019 8:32 AM CDT) Specimen Narrative Performed At EXAMINATION: CT CHEST WO CONTRAST RADIANT CLINICAL HISTORY: 69 years Female hilar mass VERAN p rotocol supine for possible navigational bronchoscopy TECHNIQUE: Multiple axial images of the chest were o btained without intravenous contrast. Sagittal and coronal computerize d reformatted images were also obtained. CT imaging was performed wi iterative reconstruction techniques and/or automat ed exposure control to reduce radiation dos e. A Veran protocol was utilized COMPARISON: To previous study from 10/20/2019 IMPRESSION: Lungs and airways: Interlobular septal thickening is n oted involving the right upper lobe, possibly related to congestive salazar es. Extensive atelectasis is present in the right middle lobe and ri ght lower lobe, and there is a probable large mass involving the right lower lobe better visualized on th e previous examination (series 2, image 72) Pleura: A loculated right pleural effusion has decreas ed significantly since the previous examination. A right pleural tube is now present. Mediastinum and lymph nodes: Small mediastinal nodes i n the precarinal area are unchanged. The right hilum is not adequately evaluated due to lack of intravenous contrast administrat ion. Cardiovascular: The heart size is normal. A small jerciho cardial effusion is present. The thoracic aorta is normal in caliber. Upper abdomen: No suspicious abnormaliti es. Bones: No suspicious osseous lesions. Other: None. SUMMARY: 1.A Veran protocol was utilized. [id number] Procedure Note Hm Interface, Radiology Results Incoming - 10/26/2019 8:42 AM CDT EXAMINATION: CT CHEST WO CONTRAST CLINICAL HISTORY: 69 years Female hilar mass VERAN protocol supine for possible navigational bronchoscopy TECHNIQUE: Multiple axial images of the chest were obtained without intravenous contrast. Sagittal and coronal computerized reformatted images were also obtained. CT imaging was performed with iterative reconstruction techniques and/or automated exposure control to reduce radiation dos e. A Veran protocol was utilized COMPARISON: To previous study from 10/20/2019 IMPRESSION: Lungs and airways: Interlobular septal t hickening is noted involving the right upper lobe, possibly related to congestive changes. Extensive atelectasis is present in the right middle lobe and right lower lobe, and there is a probable large mass involving the right lower lobe better vi sualized on the previous examination (series 2, image 72) Pleura: A loculated right pleural effusi on has decreased significantly since the previous examination. A right pleural tube is now present. Mediastinum and lymph nodes: Small media stinal nodes in the precarinal area are unchanged. The right hilum is not adequately evaluated due to lack of intravenous contrast administration. Cardiovascular: The heart size is normal . A small pericardial effusion is present. The thoracic aorta is normal in caliber. Upper abdomen: No suspicious abnormaliti es. Bones: No suspicious osseous lesions. Other: None. SUMMARY: 1.A Veran protocol was utilized. [id number] Performing Organization Address City/[facility] Phone Number [facility] [address] [place] [address] Blood culture, aerobic & anaerobic (10/25/2019 10:12 AM CDT)Only the most recent of4 resultswithin the time period is included. Blood culture No growth after 5 days of incubation. [facility] isolate Comment: HOSPITAL Specimen Information Specimen Source: Blood Specimen Site: Forearm, left Specimen Blood - Forearm, left Performing Organization Address City/[facility]/Zipcode Phone Number [facility] DEPARTMENT OF PATHOLOGY AND [address] [place], [place] [address] GENOMIC MEDICINE [address] [address] Vancomycin level, random (10/25/2019 10:10 AM CDT) Pathologist Sig nature Vancomycin, random 25.7 ug/mL [facility] ITAL Specimen Serum Performing Organization Address [facility] Phone Number [facility] DEPARTMENT OF PATHOLOGY AND [address] [place] [address] [phone] [address] Vancomycin level, trough (10/22/2019 8:00 AM CDT) Vancomycin, 17.2 10.0 - 20.0 [facility] trough Comment: ug/mL HOSPITAL Therapeutic Ranges: Peak 30.0 - 40.0 ug/mL Trough 10.0 - 20.0 ug/mL Specimen Serum Performing Organization Address [facility] Phone Number [facility] DEPARTMENT OF PATHOLOGY AND [address] [place] [address] [place] [phone] Ionized calcium (10/22/2019 4:53 AM CDT)Only the most recent of2 resultswithin the time period is included. Pathologist Sig nature pH 7.43 [facility] Ionized calcium 1.16 1.11 - 1.32 mmol/L [facility] Specimen Blood Performing Organization Address [facility] Phone Number [facility] DEPARTMENT OF PATHOLOGY AND [address] [place] [address] [address] [address] Sputum culture (10/21/2019 5:20 PM CDT) Pathologist [facility] Sputum culture Normal oral breana isolated. [facility] isolate Comment: HOSPITAL Specimen Information Specimen Source: Sputum Specimen Site: Expectorated Specimen Sputum - Expectorated Performing Organization Address City/[facility] Phone Number [facility] DEPARTMENT OF PATHOLOGY AND [address] [place] [address] [phone] [address] Aerobic culture (10/21/2019 5:15 PM CDT) [facility] Signature Aerobic culture No growth after 3 days. [facility] isolate Comment: HOSPITAL Specimen Information Specimen Source: Pleural fluid Specimen Site: Not specified Specimen Pleural fluid - Not specified Performing Organization Address City/[facility] Phone Number [facility] DEPARTMENT OF PATHOLOGY AND [address] [place], [place] [address] [facility] [address] [place] [address] Anaerobic culture (10/21/2019 5:15 PM CDT) Anaerobic culture No anaerobic organisms isolated. [facility] isolate Comment: HOSPITAL Specimen Information Specimen Source: Pleural fluid Specimen Site: Not specified Specimen Pleural fluid - Not specified Performing Organization Address City/State/Zipcode Phone Number [facility] DEPARTMENT OF PATHOLOGY AND [address] [place] [address] [address] IR Tunneled Pleura Catheter (10/21/2019 4:47 PM CDT) Specimen Narrative Performed At Performing Radiologist HYUN Davis MD Assistants None Anesthesia Type Moderate sedation was administered by the procedure nu rse and monitored intraservice [id number] by the procedure physician f or 27 minutes. Lidocaine 1% and lidocaine 1% mixed with epinephrine w ere used for local anesthetic. Pre Procedure Diagnosis right pleural effusion Post Procedure Diagnosis Status post tunneled right chest PleurX catheter placement. Procedure Tunneled right chest PleurX catheter pranav cement Technique Written informed consent was obtained prior to the pro cedure. The patient was placed in a left posterior oblique positio n on the procedure table. The right posterolateral chest was sterilely pr epared and draped in the routine manner. Lidocaine 1% was used for local anesthetic. Ultrasound imaging over the right chest was then performed, demonstrating a large right pleural ef fusion. Using real-time ultrasound guidance, a 21-gauge micropunctur e needle was advanced successfully into the right ple ural space, with return of maricruz-colored pleural fluid. A 0 .018 inch guidewire was advanced through the needle and into the right pleural space under fluoroscopy. The needle was removed, and a micropuncture sheath system was then placed. The inner dilator and guidewire were then removed, and a stiff 0.035 inch A mplatz wire was then advanced into the right pleural space under fluor oscopy. The tissues just inferior and lateral to the pleural entry site were then anesthetized with lidocaine 1% mixed wit h epinephrine. A skin incision was made, and a tunneling device was used to pass the tunneled PleurX catheter from the skin ent ry site to the pleural entry site. Attention was then returned to the pleural entry site. The tract was sequentially dilated , and the tunneled PleurX catheter was deployed using a pee l-away sheath. The catheter tip was placed over the right chest. The Pleu rX catheter was then used to remove 2000 mL of pleural fluid. The cath eter was then sewn to skin using 2-0 silk suture. The small pleural entry incision was closed with 4-0 Monoc ryl suture and Steri-Strips. The patient tolerated the procedure well. Fluoroscopy Ka,r = 2 mGy Complications None Specimens Removed As described in the above report Estimated Blood Loss Less than 1 mL Blood/Blood Products Administered None Grafts/Implants As described in the above report Impression: Successful ultrasound and fluoroscopic-guided placemen t of a tunneled right chest PleurX catheter. This catheter was used to remove 2000 mL of fluid. This catheter is ready for use. [facility]-[id number] Procedure Note Interface, Radiology Results Incoming - 10/21/2019 5:31 PM CDT Performing Radiologist Ryan Davis MD Assistants None Anesthesia Type Moderate sedation was administered by e procedure nurse and monitored intraservice [id number] by the procedure physician for 27 minutes. Lidocaine 1% and lidocaine 1% mixed with epinephrine were used for local anesthetic. Pre Procedure Diagnosis right pleural effusion Post Procedure Diagnosis Status post tunneled right chest PleurX catheter placement. Procedure Tunneled right chest PleurX catheter pranav cement Technique Written informed consent was obtained pr ior to the procedure. The patient was placed in a left posterior oblique position on the procedure table. The right posterolateral chest was sterilely prepared and draped in the routine manner. Lidocaine 1% was used for local anesthetic. Ultrasound im aging over the right chest was then performed, demonstrating a large right pleural effusion. Using real-time ultrasound guidance, a 21-gauge micropuncture needle was advanced successfully into the right ple ural space, with return of maricruz-colored pleu ral fluid. A 0.018 inch guidewire was advanced through the needle and into the right pleural space under fluoroscopy. The needle was removed, and a micropuncture sheath system was then placed. The inner dilator and guidewire were then removed, and a stif f 0.035 inch Amplatz wire was then advanced into the right pleural space under fluoroscopy. The tissues just inferior and lateral to the pleural entry site were then anesthetized with lidocaine 1% mixed with epinephrine. A skin incision was made, a nd a tunneling device was used to pass the tunneled PleurX catheter from the skin entry site to the pleural entry site. Attention was then returned to the pleural entry site. The tract was sequentially dilated, and the tunneled PleurX catheter was deploy ed using a peel-away sheath. The catheter tip was placed over the right chest. The PleurX catheter was then used to remove 2000 mL of pleural fluid. The catheter was then sewn to skin using 2-0 silk suture. The small pleural entry incision was closed with 4-0 Monocryl suture and Steri- Strips. The patient tolerated the procedure well. Fluoroscopy Ka,r = 2 mGy Complications None Specimens Removed As described in the above report Estimated Blood Loss Less than 1 mL Blood/Blood Products Administered None Grafts/Implants As described in the above report Impression: Successful ultrasound and fluoroscopic-g uided placement of a tunneled right chest PleurX catheter. This catheter was used to remove 2000 mL of fluid. This catheter is ready for use. [facility]-[id number] Performing Organization Address City/State/Zipcode Phone Number [facility] [address] [place] [address] Respiratory pathogen panel (10/20/2019 6:30 PM CDT) Adenovirus PCR Not Detected [facility] Comment: [facility] Specimen Information HOSPITAL Specimen Source: Nares Specimen Site: Not specified Coronavirus HKU1 PCR Not Detected [facility] Coronavirus NL63 PCR Not Detected [facility] Coronavirus 229E PCR Not Detected [facility] Coronavirus OC43 PCR Not Detected [facility] Human metapneumovirus Not Detected [facility] Human Detected (A) [facility] rhinovirus/enterovirus [facility] Influenza A PCR Not Detected [facility] Influenza A/H1 PCR Not Reported [facility] Influenza A/H3 PCR Not Reported [facility] Influenza A/H1-2009 PCR Not Reported [facility] Influenza B PCR Not Detected [facility] Parainfluenza virus 1 Not Detected [facility] Parainfluenza virus 2 Not Detected [facility] Parainfluenza virus 3 Not Detected [facility] Parainfluenza virus 4 Not Detected [facility] Respiratory syncytial Not Detected [facility] virus PCR [facility] Bordetella pertussis Not Detected [facility] Bordetella Not Detected [facility] parapertussis [facility] Chlamydia pneumoniae Not Detected [facility] Mycoplasma pneumoniae Not Detected [facility] Influenza A no sub type Not Reported [facility] Specimen Nares - Not specified Performing Organization Address City/[facility] Phone Number [facility] DEPARTMENT OF PATHOLOGY AND [address] [place] [address] [phone] [phone] Lactic acid level (10/20/2019 1:00 PM CDT) Pathologist Sig nature Lactic acid 1.5 0.5 - 2.2 mmol/L [facility] Specimen Blood Performing Organization Address [facility] Phone Number [facility] DEPARTMENT OF PATHOLOGY AND [address] [place] [phone] Hepatic function panel (10/20/2019 1:00 PM CDT) Albumin 2.4 (L) 3.5 - 5.0 [facility] g/dL [facility] Total bilirubin 0.5 0.0 - 1.2 [facility] mg/dL [facility] Bilirubin direct <0.2 0.0 - 0.3 [facility] mg/dL HOSPITAL Alkaline phosphatase 92 35 - 104 U/L [facility] Protein 5.4 (L) 6.3 - 8.3 [facility] Comment: g/dL HOSPITAL - 4.6-7.0 g/dL 1 week 4.4-7.6 g/dL 7 months-1year 5.1-7.3 g/dL 1-2 years 5.6-7.5 g/dL >3 years 6.0-8.0 g/dL 18-150 6.3-8.3 g/dL ALT 16 5 - 50 U/L [facility] AST 15 10 - 35 U/L [facility] Specimen Blood Performing Organization Address City/[facility] Phone Number [facility] DEPARTMENT OF PATHOLOGY AND [address] [place] [address] [phone] [address] XR Chest External Study (10/19/2019 1:00 PM CDT)Only the most recent of4 resultswithin the time period is included. Specimen Narrative Performed At This exam was not acquired at a [facility] facility and has not been [facility] interpreted by a [facility] Provider. T he exam was imported into our imaging system. Performing Organization Address City/State/Zipcode Phone Number [facility] [address] [place] [address] [place] Vascular External Study (10/15/2019 9:57 AM CDT) Specimen Narrative Performed At This exam was not acquired at a [facility] facility and has not been [facility] interpreted by a [facility] Provider. T he exam was imported into our imaging system. Performing Organization Address City/State/Zipcode Phone Number [facility] [address] [place] [address] CT Chest External Study (10/14/2019 8:08 PM CDT) Specimen Narrative Performed At This exam was not acquired at a [facility] facility and has not been [facility] interpreted by a [facility] Provider. T he exam was imported into our imaging system. 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
--- OUTSIDE RECORDS SUMMARY | 2019-11-19 08:57 | XMS REPORT ---
:1950 Author Organization [facility] t Address [address] [place] [address] Care Team Providers Name Role Phone Jessica LOZANO Primary Care Physician Jacob ZAMUDIO M. Attending Clinician Cash LOZANO Attending Clinician Ankur LOZANO, Y.H. Attending Clinician Osiel LOZANO, W. Attending Clinician Magdiel LOZANO, S Attending Clinician ANKUR Admitting Clinician Unavailable Payers Payer Name Policy Policy Number Effective Expiration Source Type Date Date MEDICAREMEDICARE PART xxxxxxxxxxx 2016 Jerod levy A AND 00:00:00 Mosque Bxxxxxxxxxxx2016- [place] [facility]ET[place]AETNA xxxxxxxxx [address] [facility] 00:00:00 Mosque INDEMNITYxxxxxxxxx2-PresentIndemnit y Problems Condition Condition Condition Status Onset Resolution Last Treating Co mments Source Name Details Category Date Date Treatment Clinician Date Lung mass Lung mass Disease Active Derik ston - Methodi 00:00: st 00 Pleural Pleural Disease Active [place] effusion, effusion, - Meth mackenzie right right 00:00: st 00 Allergies, Adverse Reactions, Alerts Allergy Allergy Status Severity Reaction(s) Onset Inactive Treating Comm ents Source Name Type Date Date Clinician Clindamy Propensi Active Rash Rash to [place] on casandra ty to 10-19 hands, Methodi adverse 00:00: per pt st reaction 00 s to drug Levoflox Propensi Active Rash 2019-0 [place] ac[place] ty to 10-19 [facility] adverse 00:00: st reaction 00 s to drug Family History Family Member Diagnosis Comments Start Date Stop Date Source Natural father Hypertension Michael Mendoza Natural mother Hypertension Michael Mendoza Paternal grandfather Cancer Hous dion Mendoza Social History Social Habit Start Date Stop Date Quantity Comments Source Sex Assigned At [place] M ethodist Alcohol intake 2019-10-29 2019-10-29 Ex-drinker [facility] thodist 00:00:00 00:00:00 (finding) Smoking Status Start Date Stop Date Source Never smoker [place] Maddiis t Medications Ordered Filled Start Stop Current Ordering Indication Dosage Frequency Signature Comments Components Source Medication Medication Date Date Medication? Clinician (SIG) Name Name gabapentin 2020-0 2020- No 300mg [id number] Take 1 [place] (NEURONTIN) 11-02 05-13 [id number] capsule [facility] 300 mg 00:00: 23:59 3D ([address] capsule 00 :00 total) by mouth 3 (three) times a day for 7 days. amLODIPine 2019-0 2020- No 2.5mg QD Take 2.5 [place] (NORVASC) 5- 05-01 mg by Method[facility] 2.5 mg 17:57: 00:[address] tablet 20 :00 daily. valsartan 2020-0 2020- No 160mg QD Take 160 [place] (DIOVAN) 5- 05-01 mg by [facility] 160 MG 17:57: 00:[address] tablet 20 :00 daily. Pt states that she is no longer taking Valsartan albuterol 2020-0 Yes Inhale. Dashawnt on sulfate 10-28 [facility] (PROAIR 17:57: st RESPICLICK 16 INHL) BROMPHENIRA 2020-0 Yes Take by Derik adam MINE-PHENYL - mouth. Pt Met hodi EPHRINE 17:57: states st ORAL 16 that she is not taking methylPREDN 2020-0 Yes 4mg Q.5D Take 4 mg [place] ISolone - by mouth 2 Method i (MEDROL 17:57: (two) st DOSEPAK) 4 16 times a mg tablet day. Per pt she is no longer taking zolpidem 2020-0 Yes 10mg QD Take 10 mg Derik ston (AMBIEN) 10-28 by mouth Metho di MG tablet 17:57: nightly as st 16 needed for sleep. carvedilol 2019- No Take by Derik adam (COREG 10-28 mouth. Pt Methodi ORAL) 16:28: 00:[address] 27 :00 that she was taking Coreg at [facility] carvediloL 2020- Yes 3.125mg Q.5D Take 1 [place] (Coreg) 10-28 tablet Methodi 3.125 MG 00:00: 23:59 (3.[address] tablet 00 :00 total) by mouth 2 (two) times a day with meals for 31 days. Pt states that she was taking Coreg at [facility] Vital Signs Vital Name Observation Time Observation Value Comments Source Oxygen saturation in 2019-10-29 16:27:00 96 /min Michael Mendoza Arterial blood by Pulse oximetry Heart rate 2019-10-29 16:23:00 92 /min Michael Mendoza Respiratory rate 2019-10-29 16:23:00 18 /min Dashawn Mendoza Systolic blood 2019-10-29 11:22:58 133 mm[Hg] Michael Mendoza pressure Diastolic blood 2019-10-29 11:22:58 94 mm[Hg] Natalie Mendoza pressure Body temperature 2019-10-29 11:22:58 37.17 Lola Dashawn Mendoza Body weight 2019-10-29 07:59:37 76.295 kg Michael Mendoza BMI 2019-10-29 07:59:37 27.15 kg/m2 Michael Mendoza Body height 2019-10-27 09:19:00 167.6 cm Michael Mendoza Procedures Procedure Date / Time Performing Clinician Source Performed XR CHEST 2 VW 2019-11-16 00:00:00 Provider, Historical Michael Mendoza XR CHEST 1 VW PORTABLE 2019-10-29 12:28:55 Maya Caballero HC COMPLETE BLD COUNT 2019-10-29 06:30:00 Maya Caballero W/AUTO DIFF BASIC METABOLIC PANEL 2019-10-29 04:00:00 Maya Caballero MAGNESIUM LEVEL 2019-10-29 04:00:00 Maya Caballero odist PHOSPHORUS LEVEL 2019-10-29 04:00:00 Maya Caballero Met hodist ESTIMATED GFR 2019-10-29 04:00:00 Raulito Pascual Me thodist XR CHEST 1 VW PORTABLE 2019-10-28 06:20:00 Maya Caballero on Mosque HC COMPLETE BLD COUNT 2019-10-28 04:15:00 Maya Caballero Mosque W/AUTO DIFF SMEAR REVIEW 2019-10-28 04:15:00 Raulito Pascual Me thodist BASIC METABOLIC PANEL 2019-10-28 04:00:00 Maya Caballero Mosque MAGNESIUM LEVEL 2019-10-28 04:00:00 Maya Caballero Meth odist PHOSPHORUS LEVEL 2019-10-28 04:00:00 Maya Caballero Met hodist ESTIMATED GFR 2019-10-28 04:00:00 Raulito Pascual Me thodist XR CHEST 1 VW PORTABLE 2019-10-27 13:12:34 Maya Caballero on Mosque SURGICAL PATHOLOGY REQUEST 2019-10-27 13:12:00 Raulito Pascualist CYTOLOGY 2019-10-27 12:23:00 Raulito Pascual Me thodist (NON-GYNECOLOGICAL) REQUEST CYTOLOGY 2019-10-27 12:21:00 Raulito Pascual Wa thodist (NON-GYNECOLOGICAL) REQUEST FUNGUS CULTURE 2019-10-27 12:04:00 Raulito Pascual Wa thodist AFB CULTURE 2019-10-27 12:04:00 Raulito Pascual Wa thodist RESPIRATORY CULTURE 2019-10-27 12:04:00 Raulito Pascual AFB STAIN 2019-10-27 12:04:00 Raulito Pascual Wa thodist GRAM STAIN 2019-10-27 12:04:00 Raulito Pascual Wa thodist CYTOLOGY 2019-10-27 12:02:00 Raulito Pascual Me thodist (NON-GYNECOLOGICAL) REQUEST CYTOLOGY 2019-10-27 11:52:00 Raulito Pascual Wa thodist (NON-GYNECOLOGICAL) REQUEST FUNGUS CULTURE 2019-10-27 11:35:00 Raulito Pascual Wa thodist AFB CULTURE 2019-10-27 11:35:00 Raulito Pascual Wa thodist RESPIRATORY CULTURE 2019-10-27 11:35:00 Raulito Pascual Mosque AFB STAIN 2019-10-27 11:35:00 Raulito Pascual Wa thodist GRAM STAIN 2019-10-27 11:35:00 Raulito Pascual Wa thodist CYTOLOGY 2019-10-27 10:40:00 Raulito Pascual Wa thodist (NON-GYNECOLOGICAL) REQUEST MI AN ELECTIVE 2019-10-27 10:29:45 Laly Vera Wa thodist ENDOTRACHEAL AIRWAY [place] CT CHEST W CONTRAST 2019-10-27 08:41:13 Chuckie Rai n Mosque BASIC METABOLIC PANEL 2019-10-27 04:00:00 Chuckie Rai Mosque CBC WITH PLATELET AND 2019-10-27 04:00:00 Chuckie Rai Mosque DIFFERENTIAL MAGNESIUM LEVEL 2019-10-27 04:00:00 Chuckie Rai Wa thodist PHOSPHORUS LEVEL 2019-10-27 04:00:00 Chuckie Rai ethodist PARTIAL THROMBOPLASTIN 2019-10-27 04:00:00 Chuckie Rai Derik ston Mosque TIME (PTT) PROTHROMBIN TIME WITH INR 2019-10-27 04:00:00 Chuckie Rai TYPE AND SCREEN 2019-10-27 04:00:00 Chuckie Rai Wa thodist ESTIMATED GFR 2019-10-27 04:00:00 Raulito Pascual Wa thodist URINE CULTURE 2019-10-26 18:15:00 Raulito Pascual Wa thodist URINALYSIS SCREEN AND 2019-10-26 18:15:00 Chuckie Rai Mosque MICROSCOPY, WITH REFLEX TO CULTURE CT CHEST WO CONTRAST 2019-10-26 08:32:20 Chuckie Rai Mosque HC COMPLETE BLD COUNT 2019-10-26 06:55:00 Chuckie Rai Mosque W/AUTO DIFF BASIC METABOLIC PANEL 2019-10-26 06:55:00 AdaMayaroma n Mosque MAGNESIUM LEVEL 2019-10-26 06:55:00 AdaMaya Meth odist PHOSPHORUS LEVEL 2019-10-26 06:55:00 Maya Caballero Met hodist ESTIMATED GFR 2019-10-26 06:55:00 Raulito Pascual Me thodist XR CHEST 1 VW PORTABLE 2019-10-26 06:15:00 AdaMaya Natalie on Mosque CYTOLOGY 2019-10-25 11:07:00 Raulito Pascual Me thodist (NON-GYNECOLOGICAL) REQUEST BLOOD CULTURE, AEROBIC & 2019-10-25 10:12:00 Chuckie Rai ANAEROBIC VANCOMYCIN LEVEL, RANDOM 2019-10-25 10:10:00 Chuckie Rai BLOOD CULTURE, AEROBIC & 2019-10-25 10:05:00 Chuckie Rai ANAEROBIC HC COMPLETE BLD COUNT 2019-10-25 07:24:00 Chuckie Rai W/AUTO DIFF BASIC METABOLIC PANEL 2019-10-25 07:24:00 Raulito Pascual Mosque MAGNESIUM LEVEL 2019-10-25 07:24:00 Raulito Pascual Me thodist ESTIMATED GFR 2019-10-25 07:24:00 Raulito Pascual Me thodist XR CHEST 1 VW PORTABLE 2019-10-25 06:25:00 Mary Carmen Gabriel Mosque XR CHEST 1 VW PORTABLE 2019-10-24 08:15:00 Chuckie Rai HC COMPLETE BLD COUNT 2019-10-24 05:20:00 Chuckie Rai Mosque W/AUTO DIFF XR CHEST 1 VW PORTABLE 2019-10-23 06:40:00 Ricky Moreira Mosquefarheen Lopez BASIC METABOLIC PANEL 2019-10-23 05:40:00 Ricky Moreira on Mosque John HC COMPLETE BLD COUNT 2019-10-23 05:40:00 Ricky Moreira Mosque W/AUTO DIFF John MAGNESIUM LEVEL 2019-10-23 05:40:00 Ricky Moreira Met todd Lopez PHOSPHORUS LEVEL 2019-10-23 05:40:00 Ricky Moreira Me charisunil Lopez ESTIMATED GFR 2019-10-23 05:40:00 Raulito Pascual Wa thodist XR CHEST 1 VW PORTABLE 2019-10-22 16:31:39 Ricky Moreira VANCOMYCIN LEVEL, TROUGH 2019-10-22 08:00:00 Ricky Moreira XR CHEST 1 VW PORTABLE 2019-10-22 06:32:00 Ricky Moreira BASIC METABOLIC PANEL 2019-10-22 04:53:00 Ricky Moreira on Kelly Lopez HC COMPLETE BLD COUNT 2019-10-22 04:53:00 Ricky Moreira on Mosque W/AUTO DIFF John IONIZED CALCIUM 2019-10-22 04:53:00 Ricky Moreira Met todd Lopez MAGNESIUM LEVEL 2019-10-22 04:53:00 Ricky Moreira Met todd Lopez PHOSPHORUS LEVEL 2019-10-22 04:53:00 Ricky Moreira Wa christiano Lopez ESTIMATED GFR 2019-10-22 04:53:00 Raulito Pascual Wa thodist SPUTUM CULTURE 2019-10-21 17:20:00 Raulito Pascual Wa thodist GRAM STAIN 2019-10-21 17:20:00 Raulito Pascual Wa thodist AEROBIC CULTURE 2019-10-21 17:15:00 Raulito Pascual Wa thodist ANAEROBIC CULTURE 2019-10-21 17:15:00 Raulito Pascual Mosque GRAM STAIN 2019-10-21 17:15:00 Raulito Pascual Wa thodist AFB STAIN 2019-10-21 17:15:00 Raulito Pascual Wa thodist CYTOLOGY 2019-10-21 17:15:00 Raulito Pascual Wa thodist (NON-GYNECOLOGICAL) REQUEST IR TUNNELED PLEURAL 2019-10-21 16:47:00 Riccardo Marlow n Mosque CATHETER CBC WITH PLATELET AND 2019-10-21 05:50:00 Ricky Moreira on Mosque DIFFERENTIAL John BASIC METABOLIC PANEL 2019-10-21 05:50:00 Ricky Moreira on Kelly Lopez MAGNESIUM LEVEL 2019-10-21 05:50:00 Ricky Moreira Met todd Lopez PHOSPHORUS LEVEL 2019-10-21 05:50:00 Ricky Moreira Me christiano Lopez PROTHROMBIN TIME WITH INR 2019-10-21 05:50:00 Steve Silva PARTIAL THROMBOPLASTIN 2019-10-21 05:50:00 Steve Silva on Mosque TIME (PTT) ESTIMATED GFR 2019-10-21 05:50:00 Raulito Pascual Wa thodi URINE CULTURE 2019-10-20 22:30:00 Raulito Pascual Wa thodi URINALYSIS SCREEN AND 2019-10-20 22:30:00 Ricky Moreira on Mosque MICROSCOPY, WITH REFLEX TO John CULTURE TYPE AND SCREEN 2019-10-20 21:45:00 Raulito Pascual Wa christiano BLOOD CULTURE, AEROBIC & 2019-10-20 19:00:00 Ricky Moreira ANAEROBIC John RESPIRATORY PATHOGEN PANEL 2019-10-20 18:30:00 Steve Silva BLOOD CULTURE, AEROBIC & 2019-10-20 18:30:[address] CHEST W CONTRAST 2019-10-20 18:28:00 Steve Silva BASIC METABOLIC PANEL 2019-10-20 13:00:00 Ricky Moreira on Kelly Lopez HC COMPLETE BLD COUNT 2019-10-20 13:00:00 Ricky Moreira on Mosque W/AUTO DIFF John HEPATIC FUNCTION PANEL 2019-10-20 13:00:00 Ricky Moreira IONIZED CALCIUM 2019-10-20 13:00:00 Ricky Moreira Met todd Lopez LACTIC ACID LEVEL 2019-10-20 13:00:00 Ricky Moreira M ethodist Lopez MAGNESIUM LEVEL 2019-10-20 13:00:00 Ricky Moreira Met todd Lopez PARTIAL THROMBOPLASTIN 2019-10-20 13:00:00 Ricky Moreira TIME (PTT) John PHOSPHORUS LEVEL 2019-10-20 13:00:00 Ricky Moreira Me christiano Lopez PROTHROMBIN TIME WITH INR 2019-10-20 13:00:00 Ricky Moreira TYPE AND SCREEN 2019-10-20 13:00:00 Ricky Moreira Met todd Lopez ESTIMATED GFR 2019-10-20 13:00:00 Raulito Pascual XR CHEST 1 VW PORTABLE 2019-10-20 12:55:00 Ricky Moreira XR CHEST EXTERNAL STUDY 2019-10-19 13:00:00 Raulito Pascual XR CHEST EXTERNAL STUDY 2019-10-17 09:56:00 Raulito Pascual XR CHEST EXTERNAL STUDY 2019-10-15 15:08:00 Raulito Pascual US VASCULAR EXTERNAL STUDY 2019-10-15 09:57:00 Raulito Pascual XR CHEST EXTERNAL STUDY 2019-10-14 20:41:[address] CHEST EXTERNAL STUDY 2019-10-14 20:08:00 Raulito Pascual Plan of Care Planned Activity Planned Date Details Comments Source Future Scheduled 2020-01-29 INFLUENZA VACCINE Michael mccrary Mosque Test 00:00:00 [code = INFLUENZA VACCINE] Future Scheduled 2016 65+ PNEUMOCOCCAL Michael Mosque Test 00:00:00 VACCINE (1 of 2 - PCV13) [code = 65+ PNEUMOCOCCAL VACCINE (1 of 2 - PCV13)] Future Scheduled 2001 BREAST CANCER Rodriguez Wa thodist Test 00:00:00 SCREENING [code = BREAST CANCER SCREENING] Future Scheduled 2001 COLONOSCOPY SCREENING mildred Mendoza Test 00:00:00 [code = COLONOSCOPY SCREENING] Future Scheduled 2001 SHINGLES VACCINES (#1) [place] Mosque Test 00:00:00 [code = SHINGLES VACCINES (#1)] Encounters Start End Encounter Admission Attending Care Care Encounter Source Date/Time Date/Time Type Type Clinicians Facility Department ID 2019-10-20 2019-10-29 Inpatient ANKUR [facility] 027 [id number] 57 [place] 00:00:00 00:00:[address] 2019-08-03 2019-08-03 Office [facility] [id number] 12:51:30 13:10:35 Visit Stefania Garland [id number] [place] [id number] [facility] [id number] nal [address] Building Results Test Description Test Time Test Comments Results Result Comments Source Cytology (non-gynecological) request 2019-11-17 15:08:10 Test Item Value Reference Range Interpretation Comme nts Case number (test code = [id number]) [id number] Cytology (non-gynecological) report See link below for PDF Lab Repo rt (test code = 1178) Result status (test code = 2354703) This is Supplemental Report for [id number] RISA (test code = RISA) NEOGENOMICSBRAF, EGFR, LUNG NGS, KRASM METFISH, [id number] 10/27/2019 [place] MethodistBlood culture, aerobic & [id number] 11:33:05 Test Item Value Reference Range Interpretation Comments Blood culture No growth Specimen isolate (test after 5 days InformationSpe cimen code = 600-7) of Source: BloodS pecimen incubation. Site: Forearm, left [place] MethodistRespiratory [id number] 13:42:39 Test Item Value Reference Range Interpretation Comments Respiratory No growth Specimen culture isolate after 2 InformationS pecimen (test code = days. Source: Bronchi [place] 18767-7) WashingSpecimen Site: Lung: RLL [place] MethodistXR Chest 1 Vw [id number] 12:30:05Hm Interface, Radiology Results - 10/29/2019 12:33 PM CDTEXAMINATION: XR CHEST 1 VW PORTABLECLINICAL HISTORY: follow upCOMPARISON: Single view chest from 10/28/2019IMPRESSION:An AP radiograph of the chest was submitted for interpretation.No significant change in appearance of the chest are compared previous examination.Again noted is a tunneled right-sided chest tube overlying the right lung base. A large, likely complex right-sided pleural effusion is again seen. Associated consolidativeairspace disease within the right lung is also again noted. There is minimal aeration of the right lung apex.The left lung is clear. Atelectasis is noted within the left lung base. No left-sided pleural effusion or pneumothorax. No midline shift.The mediastinal contours and cardiac silhouette are unchanged and unremarkable.Osteopenia. [facility] MethodistBasic metabolic [id number] 07:11:12 Test Item Value Reference Range Interpretation Comments Sodium (test code = 2951-2) 141 135- 148 mEq/L Potassium (test code = 2823-3) 3.4 3.5- 5.0 mEq/L L Chloride (test code = 2075-0) 103 98- 112 mEq/L CO2 (test code = 2027-9) 28 24- 31 mEq/L Anion gap (test code = 87880-4) 10@ANIO 7- 15 mEq/L BUN (test code = 3094-0) 8 mg/dL 8-23 Creatinine (test code = 2160-0) 0.86 mg/dL 0.5-0.9 Glucose (test code = 2345-7) 84 mg/dL 65-99 Calcium (test code = 33077-2) 8.5 mg/dL 8.8-10.2 L Lab Interpretation (test code = Abnormal 21541-0) [place] MethodistMagnesium [id number] 07:11:12 Test Item Value Reference Range Interpretation Comments Magnesium (test code = 87276-8) 1.8 mg/dL 1.6-2.4 [place] MethodistPhosphorus [id number] 07:11:12 Test Item Value Reference Range Interpretation Comments Phosphorus (test code = 2777-1) 3.7 mg/dL 2.4-4.5 [place] MethodistEstimated [id number] 07:11:12 Test Item Value Reference Range Interpretation Comments Estimated GFR (test 69 mL/min/1.73 m2 Caterg ory Units code = 5488) InterpretationG 1 >=90 Normal or highG2 60-89 Mildly venoqcaaaB9s 45-59 Mildly to mode rately trbrejnzmY4d 30-44 Moderately to severely decreasedG4 15-29 Severely decre asedG5 <15 Kidn ey failureThe eGFR was calculated kirill garcia the Chronic Kidney Disease Epidemiology Co llaboration (CKD-EPI) equat ion. Interpretation is based on recommendations of the National Kidney Foundation-Kidn ey Disease Outcomes Qualit y Initiative (NKF-KDOQI) pub lished in 2014. Michael MethodistCBC with platelet and [id number] 06:59:34 Test Item Value Reference Range Interpretation Comments WBC (test code = 80617-5) 17.49 4.50- 11.00 k/uL H RBC (test code = 20466-1) 3.46 m/uL 4.2-5.5 L HGB (test code = 718-7) 9.6 g/dL 12-16 L HCT (test code = 4544-3) 30.8 % 37-47 L MCV (test code = 787-2) 89.0 fL 82-100 MCH (test code = 785-6) 27.7 pg 27-34 MCHC (test code = 786-4) 31.2 g/dL 31-37 RDW - SD (test code = 43.7 fL 37-55 81906-4) MPV (test code = 54793-9) 9.4 fL 8.8-13.2 Platelet count (test code 429 150- 400 k/uL H = 80667-3) Nucleated RBC (test code 0.00 /100 WBC = 52954-1) Neutrophils (test code = 76.9 % 39-69 H 09614-5) Lymphocytes (test code = 13.2 % 25-45 L 33128-8) Monocytes (test code = 5.4 % 0-10 14579-3) Eosinophils (test code = 3.0 % 0-5 42374-3) Basophils (test code = 0.4 % 0-1 49869-7) Immature granulocytes 1.1 % 0-1 H "Immat ure (test code = 63069-7) granul ocytes" (promyelocytes, myelocytes, metamyelocytes) Lab Interpretation (test Abnormal code = 86268-3) Michael MethodistSurgical pathology [id number] 18:07:21 Test Item Value Reference Range Interpretation Comments Case number (test code = [id number]) Surgical pathology See link below for report (test code = PDF Lab Report 2255) Result status (test code This is Final Report = [id number]) for [id number] Michael LindaistFungus [id number] 14:40:24 Test Item Value Reference Range Interpretation Comments Fungus smear No fungi Specimen (test code = observed. InformationSpec imen Source: 1443) Bronchial Washi ngSpecimen Site: Lung: RLL Michael LindaistSmear [id number] 06:32:42 Test Item Value Reference Range Interpretation Comments Platelet slide review (test code = Increased A 12857-9) Anisocytosis (test code = 702-1) Moderate Ovalocytes (test code = 774-0) Moderate Enlarged platelets (test code = Moderate A 00461-7) Giant platelets (test code = Occasional 5908-9) Lab Interpretation (test code = Abnormal 80171-2) Rodriguez MethodistAFB [id number] 01:47:29 Test Item Value Reference Range Interpretation Comments AFB stain No acid fast Specimen (test code = bacilli (AFB) InformationSpe cimen 676-7) seen. Source: Bronchi al WashingSpecimen Site: Lung: RLL Michael LindaistGram [id number] 16:51:40Gram stain isolateFew WBC'sNo organisms seen Comment: Specimen InformationSpecimen Source: Bronchial WashingSpecimen Site: Lung: RLL [facility] Mosque [id number] 10:29:45Laly Vera 10/27/2019 10:48 AMAirwayDate/Time: 10/27/2019 10:18 AMPerformed by: Laly VeraoAuthorized by: Laly Vera Location: ORUrgency: ElectiveDifficult Airway: No Anesthesiologist: Real aCrtagena, MDResident/TELEGRAPH REPEATER INSTALLER/AA: Georgi VeraaPerformed by: resident/TELEGRAPH REPEATER INSTALLER/AAPreoxygenated with 100% O2: Yes Mask Ventilation: Not attemptedFinal Airway Type: Endotracheal airwayFinal Endotracheal Airway: ETTCuffed: Yes Technique Used: Direct laryngoscopyDevices/Methods Used in Placement: Intubating styletInsertion Site: OralBlade Type: Mille rLaryngoscope Blade/Videolaryngoscope Blade Size: 2ETT Size (mm): 9.0Cuff at minimum occlusion pressure: Yes Measured from: LipsETT to Lips (cm): 23Placement Verified by: CO2 detection and direct visualization Laryngoscopic view: Grade I - full view of glottisNumber of Attempts at Approach: 1 P reoxygenation times five minutes on 100% FiO2. Smooth IV induction. Eyes taped after loss of eyelashreflex. DL times 1 with Richardson 2, Grade 1 view. ETT passed atraumatically through vocal cords. Cuffed to seal. Positive chest rise, positive mist, positive EtCO2. ETT taped to secure. No damage to lips, teeth, gums or oropharynx. VSS.[place] [facility]CT [facility] W [id number] 08:51:15 Hm Interface, Radiology Results 10/27/2019 8:54 AM CDTEXAMINATION:CT CHEST W CONTRASTCLINICAL HISTORY:VERAN protocol preop unable to visualize structures in noncontrast studyTECHNIQUE:Multiple axial images of the chest were obtained following intravenous administration of iodinated contrast. Sagittal and coronal computerized reformatted images were also obtained.CT imaging was performedwith iterative reconstruction techniques and/or automated exposure control to reduce radiation dose.COMPARISON:10/26/2019, 10/20/2019FINDINGS:Chest tube is present in the right basilar region. Large loculated right pleural effusion is decreased from October 20, 2019 exam. Redemonstration of a large mass at the right base in the expected region of the right middle lobe measuring 10.3 x 9.4 cm. This shows heterogeneous enhancement with hypoattenuating areas suggesting partial necrosis.The right lung otherwise shows compressive atelectasis adjacent to the tumor and underlying the loculated effusion. Interl obular septal thickening is again seen at the right apex. There is diffuse irregular right pleural thickening.Filling defect is demonstrated in the right superior pulmonary vein (series 2 image 64) suspicious for tumor.Borderline enlarged right paratracheal and subcarinal lymph nodes measure up to 1.4cm in short axis. Slightly prominent 8 mm lymph node at the right cardiophrenic fat pad.No suspicious nodule or acute airspace disease in the left lung. 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 The heart is normal in size.No destructive bony lesion.Ill- defined hypoattenuation in segment 2 of the liver is indeterminate.IMPRESSION:Redemonstration of a large right basilar lung mass with evidence of superior pulmonary vein invasion and large loculated malignant pleural effusion (decrease in size following chest tube placement).Mildly en larged mediastinal lymph nodes are suspicious.Ill-defined hypoattenuation in segment 2 of the liver is indeterminate. Consider MRI to further evaluate.[id number] MethodistType and [id number] 05:09:00 Test Item Value Reference Range Interpretation Comments ABO grouping (test code = 883-9) O Rh type (test code = 36087-3) POS Antibody screen (gel) (test code = NEG 890-4) [place] MethodistPartial thromboplastin time, [id number] 04:29:25 Test Item Value Reference Range Interpretation Comments PTT (test code = 36.6 23.0- 36.0 sec H PTT thera peutic range 23653-5) for unfractiona betty heparin is61.0- 112.0 seconds which corresponds to Anti-Xa0.3-0.7 U/ml. Lab Interpretation Abnormal (test code = 07989-6) [place] MethodistProthrombin time with [id number] 04:29:09 Test Item Value Reference Range Interpretation Comments Prothrombin time (test 15.2 11.5- 14.5 sec H code = 5902-2) INR (test code = 1.2 [facility] [address]-6) Normalized Rati o (INR) is a therapeuti c monitoring tool for patients who ar e stable on oral anticoagulant t herapy. An INR of 2.0-3 .0 is suggested for d eep vein thrombosis/pulm onary embolism. Lab Interpretation Abnormal (test code = 23560-8) [place] MethodistUrinalysis screen and microscopy, with reflex to culture 2019-10-26 21:49:23 Test Item Value Reference Range Interpretation Comments Specimen site (test code = Clean catch 3846676) Color, UA (test code = 5778-6) Yellow Appearance, UA (test code = Clear 5767-9) Specific gravity, UA (test code = 1.009 1.001-1.035 5811-5) pH, UA (test code = 5803-2) 5.0 5.0-8.5 Protein, UA (test code = 00332-9) Negative Negative Glucose, UA (test code = 00447-5) Negative Negative Ketones, UA (test code = 2514-8) Negative Negative Bilirubin, UA (test code = Negative Negative 5770-3) Blood, UA (test code = 5794-3) Small Negative A Nitrite, UA (test code = 5802-4) Negative Negative Urobilinogen, UA (test code = <2.0 <2.0 93469-6) Leukocyte esterase, UA (test code Negative Negative = 5799-2) WBC, UA (test code = 5821-4) 1 0- 4 /HPF RBC, UA (test code = 60095-3) <1 0- 5 /HPF Bacteria, UA (test code = Few None seen 79749-9) Yeast, UA (test code = 81863-3) None seen Yeast with pseudohyphae, UA (test None seen code = 18188-0) Granular casts, UA (test code = 1 0- 1 /LPF 5793-5) Hyaline casts, UA (test code = 3 /LPF 5796-8) Lab Interpretation (test code = Abnormal 56356-6) [place] [facility] [id number] 21:12:49 Test Item Value Reference Range Interpretation Comments Urine culture (test SEE COMMENT Bacteriu alejandro screen code = 9699061) negative. [place] [facility]CT Chest Wo [id number] 08:39:29Hm Interface, Radiology Results 10/26/2019 8:42 AM CDTEXAMINATION: CT CHEST WO CONTRASTCL INICAL HISTORY: 69 years Female hilar mass VERAN protocol supine for possible navigational bronchoscopyTECHNIQUE: Multiple axial images of the chest were obtained without intravenous contrast. Sagittal and coronal computerized reformatted images were also obtained. CT imaging was performed with iterative reconstruction techniques and/or automated exposure control to reduce radiation dose. A Veranprotocol was utilizedCOMPARISON:To previous study from 10/20/2019IMPRESSION:Lungs and airways: Interlobular septal thickening is noted involving the right upper lobe, possibly related to congestive changes. Extensive atelectasis is present in the right middle lobe and right lower lobe, and there is a probable large mass involving the right lower lobe better visualized on the previous examination (series 2, image 72)Pleura: A loculated right pleural effusion has decreased significantly since the previous examination. A right pleural tube is now present.Mediastinum and lymph nodes: Small mediastinal nodes in the precarinal area are unchanged. The right hilum is not adequately evaluated due to lack ofintravenous contrast administration.Cardiovascular: The heart size is normal. A small pericardial eff usion is present. The thoracic aorta is normal in caliber.Upper abdomen: No suspicious abnormalities.Bones: No suspicious osseous lesions. Other: None.SUMMARY:1.A Veran protocol was utilized.HMTW-[id number] [facility] Anaerobic [id number] 07:58:24 Test Item Value Reference Range Interpretation Comments Anaerobic No anaerobic Specimen culture isolate organisms InformationS pecimen (test code = isolated. Source: Pleural 552) fluidSpecimen S ite: Not specified [facility] [id number] 13:49:27 Test Item Value Reference Range Interpretation Comments Aerobic culture No growth Specimen isolate (test after 3 days. InformationSp ecimen code = 498) Source: Pleural fluidSpecimen S ite: Not specified [facility] MethodistVancomycin level, [id number] 10:51:23 Test Item Value Reference Range Interpretation Comments Vancomycin, random (test code = 25.7 ug/mL ) [facility] MethodistSputum [id number] 05:17:38 Test Item Value Reference Range Interpretation Comments Sputum culture Normal oral Specimen isolate (test breana InformationSpe cimen code = 2234) isolated. Source: SputumS pecimen Site: Expectora betty [place] MethodistVancomycin level, [id number] 09:42:14 Test Item Value Reference Range Interpretation Comments Vancomycin, trough 17.2 ug/mL 10-20 Therapeut ic Ranges: (test code = Peak 30.0 - 40.0 78884-6) ug/mL Trough 10.0 - 20.0 ug/mL [facility] MethodistIonized [id number] 06:01:45 Test Item Value Reference Range Interpretation Comments pH (test code = 2753-2) 7.43 Ionized calcium (test code = 1.16 mmol/L 1.11-1.32 ) Michael Hines Tunneled Pleura [id number] 17:28:46Hm Interface, Radiology Results Incoming - 10/21/2019 5:31 PM CDTPerforming RadiologistDaviMD Vance Cheema Anesthesia TypeModerate sedation was administered by the procedure nurse and monitored intraservice lily-wi-vfej by the procedure physician for 27 minutes. Lidocaine 1% and lidocaine1% mixed with epinephrine were used for local anesthetic. Pre Procedure Diagnosis right pleural effus ionPost Procedure DiagnosisStatus post tunneled right chest PleurX catheter placement. ProcedureTunneled right chest PleurX catheter placement TechniqueWritten informed consent was obtained prior to the procedure. The patient was placed [...] needle was advanced successfully into the right pleural space, with return of maricruz-colored pleural fluid. A0.018 inch guidewire was advanced through the needle and into the right pleural space under fluoroscopy. The needle was removed, and a micropuncture sheath system was then placed. The inner dilator andguidewire were then removed, and a stiff 0.035 inch Amplatz wire was then advanced into the right pleural space under fluoroscopy. The tissues just inferior and lateral to the pleural entry site were then anesthetized with lidocaine 1% mixed with epinephrine. A skin incision was made, and a tunneling device was used to pass the tunneled PleurX catheter from the skin entry site to the pleural entry site. Attention was then returned to the pleural entry site. The tract was sequentially dilated, and the tunneled PleurX catheter was deployed using a peel-away sheath. The catheter tip was placed over the right chest. The PleurX catheter was then used to remove 2000 mL of pleural fluid. The catheter wasthen sewn to skin using 2-0 silk suture. The small pleural entry incision was closed with 4-0 Monocryl suture and Steri-Strips. The patient tolerated the procedure well. FluoroscopyKa,r = 2 mGyComplicationsNone Specimens RemovedAs described in the above report Estimated Blood LossLess than 1 mL Blood/Blood Products AdministeredNone Grafts/ImplantsAs described in the above report Impression: Successful ultrasound and fluoroscopic-guided placement of a tunneled right chest PleurX catheter. This catheter was used to remove 2000 mL of fluid. This catheter is ready for use.[facility]-[id number] MethodistRespiratory pathogen [id number] 22:15:07 Test Item Value Reference Interpretation Comments Range Adenovirus PCR (test Not Detected Specime n code = 7092) InformationSpec imen [facility] Not speci fied Coronavirus HKU1 PCR Not Detected (test code = 7093) Coronavirus NL63 PCR Not Detected (test code = 7094) Coronavirus 229E PCR Not Detected (test code = 7095) Coronavirus OC43 PCR Not Detected (test code = 7096) Human Not Detected metapneumovirus PCR (test code = 7097) Human Detected A rhinovirus/enterovir us PCR (test code = 7098) Influenza A PCR Not Detected (test code = 7099) Influenza A/H1 PCR Not Reported (test code = 7100) Influenza A/H3 PCR Not Reported (test code = 7102) Influenza A/H1-2009 Not Reported PCR (test code = 7101) Influenza B PCR Not Detected (test code = 7104) Parainfluenza virus Not Detected 1 PCR (test code = 7105) Parainfluenza virus Not Detected 2 PCR (test code = 7106) Parainfluenza virus Not Detected 3 PCR (test code = 7107) Parainfluenza virus Not Detected 4 PCR (test code = 7108) Respiratory Not Detected syncytial virus PCR (test code = 7109) Bordetella pertussis Not Detected PCR (test code = 6239846) Bordetella Not Detected parapertussis PCR (test code = 1469705) Chlamydia pneumoniae Not Detected PCR (test code = 3753) Mycoplasma Not Detected pneumoniae PCR (test code = 7110) Influenza A no sub Not Reported type PCR (test code = 7127) Lab Interpretation Abnormal (test code = 64684-4) [facility] MethodistHepatic function [id number] 16:06:15 Test Item Value Reference Range Interpretation Comments Albumin (test code = 2.4 g/dL 3.5-5 L 1751-7) Total bilirubin (test 0.5 mg/dL 0-1.2 code = 1974-2) Bilirubin direct (test <0.2 0-0.3 code = 1967-7) Alkaline phosphatase 92 U/L 35-104 (test code = 6768-6) Protein (test code = 5.4 g/dL 6.3-8.3 L -[place] n 2885-2) 4.6-7.0 g /dL1 week 4.4-7.6 g/dL 7 months-1year 5.1-7.3 g/dL 1-2 years 5.6-7.5 g/dL>3 years 6.0-8.0 g/gM51-269 6.3-8. 3 g/dL ALT (test code = 1742-6) 16 U/L 5-50 AST (test code = 1920-8) 15 U/L 10-35 Lab Interpretation (test Abnormal code = 14911-8) [place] MethodistLactic acid [id number] 16:01:12 Test Item Value Reference Range Interpretation Comments Lactic acid (test code = 73160-0) 1.5 mmol/L 0.5-2.2 [place] MethodistXR Chest External [id number] 14:18:00This exam was not acquired at a [facility] facility and has not been interpreted by a [facility] Provider. The exam was imported into our imaging system.[place] [facility]CT Chest External [id number] 14:17:03This exam was not acquired at a [facility] facility and has not been interpreted by a [facility] Provider. The exam was imported into our imaging system.[place] MethodistUS Vascular External Study 2019-10-20 14:15:11This exam was not acquired at a [facility] facility and has not been interpreted by a [facility] Provider. The exam was imported into our imaging system.[place] MethodistSARS-COV2/RT-PCR ([facility])2019-10-15 01:33:00 Test Item Value Reference Range Interpretation Comments SARS-COV2/RT-PCR (test Not Detected Not Detected, Negative code = 7648226) SARS-COV-2 PERFORMING LAB [facility] (test code = 4036940) Negative results do not preclude SARS-CoV-2 infection and should not be used as the sole basis for patient management decisions. Negative results must be combined with clinical observations, patient history, and epidemiological information. A false negative result may occur if a specimen is improperly collected, transported or handled.The limit of detection for this assay is 250 copies/mL.This SARS CoV-2 test is a rapid, real-time RT-PCR test intended for the qualitative detection of nucleic acid from SARS-CoV-2 in a nasopharyngeal swab specimen collected from individuals suspected of COVID-19 by their healthcare provider.This test has not been Food and Drug [...] is revoked under Section 564(g) of the Act.Fact Sheet for Healthcare Pro viders:https://www.[employer]/Documents/Xpert%20Xpress%20SARS%20CoV-2/Fact%20Sh eets/3023802%99JGPT-IOA-2%20HEALTHCARE%20PROVIDERS%20FACT%20SHEET.pdfFact Sheet for Healthcare Patients:https://www.[employer]/Documents/Xpert%20Xpress%20SARS%20CoV-2/Fact%20Sheets/3023801%20SARS-COV -2%20PATIENT%20FACT%20SHEET.pdfPerforming Laboratory:[facility] [place] [address]
--- NOTE | 2019-11-19 12:47 | P.OP ---
Preoperative diagnosis: Malignant RIGHT plerual effusion Postoperative diagnosis: Malignant RIGHT plerual effusion Primary procedure: Placement of RIGHT PleurX Thoracostomy tube Anesthesia: MAC + Local Estimated blood loss: <2cc Specimen: none Findings: reddish colored clear fluid Complications: None Drain(s): Other (PleruX Catheter) Transferred to: Recovery Room Condition: Good
[2019-11-19 13:35] VITALS: O2SAT 98
--- NOTE | 2019-11-19 14:01 | RAD REPORT ---
EXAM DESCRIPTION: RAD - Chest Single View - 11/19/2019 1:16 pm CLINICAL HISTORY: post- pleurx catheter insertion COMPARISON: Two view chest November 15 TECHNIQUE: AP portable chest image was obtained 11/19/2019 1:16 pm . FINDINGS: Left lung field remains clear. Trachea is midline. Tube is been placed into the chest appr oximately seventh inner costal space. Tubing is curled in the upper chest. No pneumothorax is identif ied. Partial aeration of the right upper lobe present. Heart size is grossly normal. Right-side of th e heart is still obscured by the pleural fluid. IMPRESSION: Right-sided chest tube placement as detailed. No pneumothorax.
[2019-11-19 15:33] VITALS: BP 119/70; TEMP 98.1
--- NOTE | 2019-11-19 15:38 | OP ---
Date of Procedure: 11/19/2019 Surgeon: Luciano Braxton MD, Preoperative Diagnosis: Malignant right pleural effusion. Postoperative Diagnosis: Malignant right pleural effusion. Procedure Performed: Placement of a right PleurX thoracostomy tube, superior and anterior to previou sly placed PleurX thoracostomy tube, which was no longer functioning prior to the procedure. Anesthesia: MAC plus local with 1% lidocaine. Estimated Blood Loss: Less than 2 mL. Specimens: None. Findings: Reddish-colored clear pleural fluid returned approximately 700 mL immediately obtained. Complications: None. Drains: A PleurX thoracic catheter. Condition: Transferred to recovery room in good condition. Procedure In Detail: After informed consent was obtained, patient was brought to the operating room, prepped and draped in the usual sterile fashion. After adequate anesthesia was achieved, I felt an area over the right thoracic space at the fifth intercostal space, anesthetized the area appropriatel y and using a finder needle was able to cannulate the thoracic cavity and reddish clear, straw/reddis h fluid was returned. I anesthetized the tract with 1% lidocaine, made a small reg incision at this point and introduced the introducer sheath at this point using a needle. The fluid returned immedia tely was once again reddish straw colored fluid. A wire was advanced at this point and the introduce r sheath removed. At this point, I anesthetized the tract inferior to the insertion site and made a small reg incision this. Using a tunneling device I brought the PleurX catheter with cuff into the appropriate position and performing sequential dilatation over Seldinger technique I placed the intro ducer sheath in. At this point good fluid return was appreciated and I placed the PleurX catheter in to the thoracic space without evidence of complication. Fluid was noted to be emanating from the Ple urX catheter at the end of the procedure, approximately 500 mL came out additional to the previous fl uid. Drain and the PleurX catheter was working well on a Pneumovax system. At this point I cleansed the area and closed the incisions with 2-0 nylon suture and secured the PleurX catheter [facility] set of 2-0 nylon suture. A sterile dressing was placed over top. Patient tolerated the procedure well without evidence of complication and transferred to PACU in good condition. All counts were cor rect at the end of the case. TK/MODL Voice ID: [id number] Report ID: [id number]
== END | disposition home or self-care (01) ==
LOC: OR 08:51
PROVIDERS: ATTEND Surgery
PROC: 0W9930Z Drainage of Right Pleural Cavity with Drainage Device, Percutaneous Approach (ICD-10-PCS; principal; 2019-11-19 11:30)
DX: J91.0 Malignant pleural effusion (principal); C34.91 Malignant neoplasm of unspecified part of right bronchus or lung; I10 Essential (primary) hypertension; K21.9 Gastro-esophageal reflux disease without esophagitis; E05.90 Thyrotoxicosis, unspecified without thyrotoxic crisis or storm; Z90.49 Acquired absence of other specified parts of digestive tract; Z88.3 Allergy status to other anti-infective agents
CPT/HCPCS: 71045; 32551; J2704; J7120

== ENCOUNTER 2019-12-22 10:06 | Day surgery (SDC) | payer OTHER ==
[2019-12-22] MEDS ORDERED: Ringers Lactate 1,000 ML IV ONE (10:22)
[2019-12-22] MEDS ORDERED: BUPIVACA 0.25%/EPI 0.0005%/PF 30 ML VIAL ONE (10:54)
[2019-12-22] MEDS ORDERED: CEFAZOLIN/SWI 1gm 1 GM/10 ML SYR ONE (10:58)
--- NOTE | 2019-12-22 11:52 | RAD REPORT ---
EXAM DESCRIPTION: RAD - Chest Single View - 12/22/2019 11:42 am CLINICAL HISTORY: s/p chest tube removal Chest pain. COMPARISON: Chest Single View dated 11/19/2019; Chest Pa And Lat (2 Views) dated 11/16/2019; Chest Pa And Lat (2 Views) dated 10/19/2019; Chest Pa And Lat (2 Views) dated 10/17/2019; Thorax Wo Con dated 04/2020 FINDINGS: Portable technique limits examination quality. Large right pleural effusion with large mass in the inferior right hemithorax is unchanged. Aerated l wendy is seen in the medial right upper lobe. The left lung is grossly clear. No measurable pneumothora x seen. The heart is normal in size.
[2019-12-22 11:59] VITALS: O2SAT 99
--- OUTSIDE RECORDS SUMMARY | 2019-12-22 12:10 | XMS REPORT | Clinical Summary ---
:1950 Author Organization [facility] Address [address] [place] [address] Care Team Providers Name Role Phone Unavailable Primary Care Provider Unavailable Allergies Not on File Medications Not on file Active Problems Not on file Encounters Date Type Specialty Care Team Description 10/15/2019 Lab Requisition Lab Bryce Lopez after 12/21/2018 Social History Tobacco Use Types Packs/Day Years [...] procedure are in the results section. after 12/21/2018 Results SARS-CoV2/RT-PCR ([facility]) (10/14/2019 4:27 PM CDT) SARS-COV2/RT-PCR Not Detected Not Detected, Negative [facility] SARS-COV-2 PERFORMING LAB [facility] Specimen Other Narrative Performed At Negative results do not preclude SARS-CoV-2 [facility] infection and should not be used as [...] the Act. Fact Sheet for Healthcare Providers: https://www.[employer]/Documents/Xpert%20Xpre ss%20SARS%20CoV-2/Fact%20Sheets/3023802%20SAR S-COV-2%20HEALTHCARE%20PROVIDERS%20FACT%20SHEE T.pdf Fact Sheet for Healthcare Patients: https://www.[employer]/Documents/Xpert%20Xpre ss%20SARS%20CoV-2/Fact%20Sheets/297-3801%20SAR S-COV-2%20PATIENT%20FACT%20SHEET.pdf Performing Laboratory: [address] [place] [address] Performing Organization Address City/State/Zipcode Phone Number [facility] [address] [place] [phone] CENTER after 12/21/2018
--- OUTSIDE RECORDS SUMMARY | 2019-12-22 12:10 | XMS REPORT | Clinical Summary ---
:1950 Author Organization [place] [facility] Address [address] [place] [address] Care Team Providers Name Role Phone MD [...] tablet mouth nightly as needed for sleep. amLODIPine (NORVASC) Take 2.5 mg 0 Discontinued [...] states that she was taking Coreg at [facility] carvediloL (Coreg) Take 1 tablet 62 tablet 0 3.125 MG tablet (3.125 mg 0 020 total) by mouth 2 (two) times a day with meals for 31 days. Pt states that she was taking Coreg at [facility] gabapentin (NEURONTIN) Take 1 21 capsule 0 [...] TID for 7 days to patient's home [facility] pharmacy in [place], [place]. 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 Pleural effusion, right 10/20/2019 Encounters Date Type Specialty Care Team Description 11/28/2019 Refill Cardiothoracic Surgery Raulito Pascual MD 11/18/2019 Telephone Cardiothoracic Surgery Michelle James NP 11/18/2019 Orders Only Cardiothoracic Surgery Rosalino Castrejon MD 11/17/2019 Telephone Cardiothoracic Surgery Michelle James NP 11/04/2019 Telephone Cardiothoracic Surgery Michelle James NP 11/03/2019 Orders Only General Surgery Rauilto Pascual Chest wall p ain (Primary Dx); MD Mirian Pleural effusio n, right 10/27/2019 Surgery Cardiothoracic Surgery Raulito Pascual [facility] Mirian KINCAID MD USING NAVIGATI ON, VERAN PROTOCOL, FNA, BRUSHINGS, BAL AND BIOPSY 10/27/2019 Anesthesia Event Cardiothoracic Surgery Real Cartagena MD 10/20/2019 - Hospital Encounter General Internal Raulito Pascual Pleur al effusion, right (Primary Dx); 10/29/2019 Medicine MD Mirian Pleural effusio n; Lung mass 10/19/2019 Intake Access after 12/21/2018 Family History Medical History Relation Name Comments [...] INFLUENZA VACCINE 01/29/2020 Implants Implanted Type Area Svp [employer] Device Shelf Model / Identifier Expiration Serial / Date Lot Cath Needle Yueh Centsis 19ga Str 5fr 7cm Cath Strl - [id number] Surgical N/A: N/A COOK [id number] / Implanted: 10/21/2019 at [facility] (Quantity not on file) Imp lants; INTERVENTIONAL [...] AFB CULTURE Timed 10/27/2019 12:04 Pleural effusion, Result s for this PM CDT right procedure are i n the results section. FUNGUS CULTURE Timed 10/27/2019 12:04 Pleural effusion, Resu lts for this PM CDT right procedure are i n the results section. CYTOLOGY Routine 10/27/2019 12:02 Results for this [...] AFB CULTURE Timed 10/27/2019 11:35 Pleural effusion, Result s for this AM CDT right procedure are i n the results section. FUNGUS CULTURE Timed 10/27/2019 11:35 Pleural effusion, Resu lts for this AM CDT right procedure are i n the results section. CYTOLOGY Routine 10/27/2019 10:40 Results for this (NON-GYNECOLOGICAL) AM CDT procedur e are in REQUEST the results section. WA AN ELECTIVE Routine 10/27/2019 10:29 Results f [...] i n the results section. AFB CULTURE Routine 10/21/2019 5:15 Results for this PM CDT procedure are i n the results section. ANAEROBIC CULTURE Routine 10/21/2019 5:15 Result s for this PM CDT procedure are i n the results section. FUNGUS CULTURE Routine 10/21/2019 5:15 Results f or this PM CDT procedure [...] are i n the results section. after 12/21/2018 Results XR Chest 2 Vw (11/16/2019) Narrative [...] silhouette are un changed and unremarkable. Osteopenia. [facility] Procedure Note Hm Interface, Radiology Results Incoming - 10/29/2019 12:33 [...] isa houette are unchanged and unremarkable. Osteopenia. [facility] Performing Organization Address City/State/Zipcode Phone Number [place] [address] [place] [address] CBC with platelet and differential (10/29/2019 6:30 AM CDT)Only the most recent of10 resultswithin the time period is included. WBC 17.49 (H) 4.50 - 11.00 [facility] k/uL [facility] RBC 3.46 (L) 4.20 - 5.50 [facility] m/uL [facility] HGB 9.6 (L) 12.0 - 16.0 [facility] g/dL [facility] HCT 30.8 (L) 37.0 - 47.0 % [facility] MCV 89.0 82.0 - 100.0 [facility] MCH 27.7 27.0 - 34.0 pg [facility] MCHC 31.2 31.0 - 37.0 [facility] g/dL [facility] RDW - SD 43.7 37.0 - 55.0 fL [facility] MPV 9.4 8.8 - 13.2 fL [facility] Platelet count 429 (H) 150 - 400 k/uL [facility] Nucleated RBC 0.00 /100 WBC [facility] Neutrophils 76.9 (H) 39.0 - 69.0 % [facility] Lymphocytes 13.2 (L) 25.0 - 45.0 % [facility] Monocytes 5.4 0.0 - 10.0 % [facility] Eosinophils 3.0 0.0 - 5.0 % [facility] Basophils 0.4 0.0 - 1.0 % [facility] Immature granulocytes 1.1 0.0 - 1.0 % [facility] (H)Comment: HOSPITAL "Immature granulocytes" (promyelocytes , myelocytes, metamyelocytes ) Specimen Blood Performing Organization Address City/State/Zipcode Phone Number [facility] DEPARTMENT OF PATHOLOGY AND [address] [place] [phone] [place] [address] Estimated GFR (10/29/2019 4:00 AM CDT)Only the most recent of9 resultswithin the time period is included. Estimated GFR 69 mL/min/1.73 [facility] Comment: HOSPITAL Catergory Units Interpretation G1 >=90 Normal [...] published in 2014. Specimen Performing Organization Address City/[facility] Phone Number [facility] DEPARTMENT OF PATHOLOGY AND [address] [place] [phone] [place] [address] Phosphorus level (10/29/2019 4:00 AM CDT)Only the most recent of8 resultswithin the time period is included. Pathologist Sig nature Phosphorus 3.7 2.4 - 4.5 mg/dL [facility] Specimen Blood Performing Organization Address City/State/Zipcode Phone Number [facility] DEPARTMENT OF PATHOLOGY AND [address] [place] [address] [phone] [address] Magnesium level (10/29/2019 4:00 AM CDT)Only the most recent of9 resultswithin the time period is included. Pathologist Sig nature Magnesium 1.8 1.6 - 2.4 mg/dL [facility] Specimen Blood Performing Organization Address [facility] Cent[facility]ode Phone Number [facility] DEPARTMENT OF PATHOLOGY AND [address] [place] [address] [phone] [address] Basic metabolic panel (10/29/2019 4:00 AM CDT)Only the most recent of9 results within the time period is included. Pathologist Sig nature Sodium 141 135 - 148 mEq/L [facility] Potassium 3.4 (L) 3.5 - 5.0 mEq/L [facility] Chloride 103 98 - 112 mEq/L [facility] CO2 28 24 - 31 mEq/L [facility] Anion gap 10@ANIO 7 - 15 mEq/L [facility] BUN 8 8 - 23 mg/dL [facility] Creatinine 0.86 0.50 - 0.90 mg/dL [facility] JESSICA Glucose 84 65 - 99 mg/dL [facility] Calcium 8.5 (L) 8.8 - 10.2 mg/dL [facility] AL Specimen Blood Performing Organization Address [facility] Cent[facility]oca Phone Number [facility] DEPARTMENT OF PATHOLOGY AND [address] [place] [address] [address] Smear review (10/28/2019 4:15 AM CDT) Platelet slide review Increased (A) [facility] Anisocytosis Moderate [facility] Ovalocytes Moderate [facility] Enlarged platelets Moderate (A) [facility] Giant platelets Occasional [facility] Specimen Performing Organization Address City/[facility]/Zipcode Phone Number [facility] DEPARTMENT OF PATHOLOGY AND [address] [place], [place] [address] [address] [address] Surgical pathology request (10/27/2019 1:12 PM CDT) [facility] DEPARTMENT OF PATHOLOGY AND GENOMIC MEDICINE Surgical pathology See link below [facility] DEPARTMENT OF report for PDF Lab PATHOLOGY AND Report GENOMIC MEDICINE Result status This is Final [facility] DEPARTMENT OF Report for PATHOLOGY AND [id number] GENOMIC MEDICINE Specimen Performing Organization Address City/[facility]/Zipcode Phone Number [facility] DEPARTMENT OF PATHOLOGY AND [address] [place] [phone] GENOMIC MEDICINE Cytology (non-gynecological) request (10/27/2019 12:23 PM CDT)Only the most recent of10 resultswithin the time period is included. [facility] DEPARTMENT OF PATHOLOGY AND GENOMIC MEDICINE Cytology See link below for [facility] DEPARTMENT OF (non-gynecological PDF Lab Report PATHOLOGY AND ) report GENOMIC MEDICINE Result status This is Supplemental [facility] DEPARTMENT OF Report for PATHOLOGY AND [id number] GENOMIC MEDICINE Specimen Narrative Performed At [facility] DEPARTMENT OF PATHOLOGY AND GENOMIC BRAF, EGFR, LUNG NGS, KRASM METFISH, MEDICINE [id number] DOS 10/27/2019 Performing Organization Address City/[facility] Centercode Phone Number [facility] DEPARTMENT OF PATHOLOGY AND [address] [place] [phone] GENOMIC MEDICINE Respiratory culture (10/27/2019 12:04 PM CDT)Only the most recent of2 results within the time period is included. Respiratory culture No growth after 2 days. [facility] THODIST isolate Comment: HOSPITAL Specimen Information Specimen Source: Bronchial Washing Specimen Site: Lung: RLL Specimen Bronchial washing - Lung Performing Organization Address City/[facility] Centercode Phone Number [facility] DEPARTMENT OF PATHOLOGY AND [address] [place] [address] [phone] [address] Fungus smear (10/27/2019 12:04 PM CDT)Only the most recent of3 resultswithin the time period is included. Pathologist Sig nature Fungus smear No fungi observed. [facility] Comment: HOSPITAL Specimen Information Specimen Source: Bronchial Washing Specimen Site: Lung: RLL Specimen Bronchial washing Performing Organization Address City/[facility]/Zipcode Phone Number [facility] DEPARTMENT OF PATHOLOGY AND [address] [place] [address] [phone] [address] AFB culture (10/27/2019 12:04 PM CDT)Only the most recent of3 resultswithin the time period is included. AFB culture No growth after 6 weeks of incubation. [facility] isolate Comment: HOSPITAL Specimen Information Specimen Source: Bronchial Washing Specimen Site: Lung: RLL Specimen Bronchial washing - Lung Performing Organization Address City/[facility] Centercode Phone Number [facility] DEPARTMENT OF PATHOLOGY AND [address] [place] [address] [phone] [address] Gram stain (10/27/2019 12:04 PM CDT)Only the most recent of4 resultswithin the time period is included. Gram stain isolate Few WBC's [facility] No organisms seen HOSPITAL Comment: Specimen Information Specimen Source: Bronchial Washing Specimen Site: Lung: RLL Specimen Bronchial washing Performing Organization Address [facility] Phone Number [facility] DEPARTMENT OF PATHOLOGY AND [address] [place] [address] [phone] [address] AFB stain (10/27/2019 12:04 PM CDT)Only the most recent of3 resultswithin the time period is included. Pathologist Sig nature AFB stain No acid fast bacilli (AFB) seen. [facility] Comment: HOSPITAL Specimen Information Specimen Source: Bronchial Washing Specimen Site: Lung: RLL Specimen Bronchial washing Performing Organization Address [facility] Phone Number [facility] DEPARTMENT OF PATHOLOGY AND [address] [place] [address] [phone] [address] Fungus culture (10/27/2019 12:04 PM CDT)Only the most recent of3 resultswithin the time period is included. Fungus culture No growth after 4 weeks of incubation. [facility] isolate Comment: HOSPITAL Specimen Information Specimen Source: Bronchial Washing Specimen Site: Lung: RLL Specimen Bronchial washing - Lung Performing Organization Address City/[facility]/Zipcode Phone Number [facility] DEPARTMENT OF PATHOLOGY AND [address] [place] [address] [phone] [address] Airway (10/27/2019 10:29 AM CDT) Narrative Performed At Laly Vera 2019 10:48 AM Airway Date/Time: 10/27/2019 10:18 AM Performed by: Laly Vera so Authorized by: Laly Vera sso Location: OR Urgency: Elective Difficult Airway: No Anesthesiologist: Real Cartagena MD Resident/DAM ATTENDANT/AA: Laly Vera Performed by: resident/DAM ATTENDANT/AA Preoxygenated with 100% O2: Yes Mask Ventilation: [...] Preoxygenation times five minutes on 100% FiO2. [place] h IV induction. Eyes taped after loss [...] is indeterminate. Consider MRI to further evaluate. [id number] Procedure Note Hm Interface, Radiology Results Incoming [...] is indeterminate. Consider MRI to further evaluate. [id number] Performing Organization Address [facility] Phone Number [address] [address] Partial thromboplastin time, activated (10/27/2019 4:00 AM CDT)Only the most recent of3 resultswithin the time period is included. PTT 36.6 (H) 23.0 - 36.0 [facility] Comment: [facility] PTT therapeutic range for unfractionated heparin is 61.0-112.0 seconds which corresponds to Anti-Xa 0.3-0.7 U/ml. Specimen Blood Performing Organization Address [facility] Phone Number [facility] DEPARTMENT OF PATHOLOGY AND [address] [place] [phone] GENOMIC MEDICINE [address] [address] Prothrombin time with INR (10/27/2019 4:00 AM CDT)Only the most recent of3 resultswithin the time period is included. Prothrombin time 15.2 (H) 11.5 - 14.5 [facility] INR 1.2 [place] Comment: BUDDHISM [facility] International Normalized Ratio (INR) is a therapeu [facility] monitoring tool for patients who are stable on oral anticoagulant therapy. An INR of 2.0-3.0 is suggested for deep vein thrombosis/pulmonary embolism. Specimen Blood Performing Organization Address [facility] Phone Number [facility] DEPARTMENT OF PATHOLOGY AND [address] [place] [address] [phone] [address] Type and screen (10/27/2019 4:00 AM CDT)Only the most recent of3 resultswithin the time period is included. Pathologist Sig nature ABO grouping O [facility] Rh type POS [facility] Antibody screen (gel) NEG [facility] Specimen Blood Performing Organization Address City/[facility] Phone Number [facility] DEPARTMENT OF PATHOLOGY AND [address] [place] [phone] [facility] [address] [place] [address] Urinalysis screen and microscopy, with reflex to culture (10/26/2019 6:15 PM CDT)Only the most recent of2 resultswithin the time period is included. Pathologist Sig nature Specimen site Clean catch [facility] Color, UA Yellow [facility] Appearance, UA Clear [facility] Specific gravity, 1.009 1.001 - 1.035 [facility] pH, UA 5.0 5.0 - 8.5 [facility] Protein, UA Negative Negative [facility] Glucose, UA Negative Negative [facility] Ketones, UA Negative Negative [facility] Bilirubin, UA Negative Negative [facility] Blood, UA Small (A) Negative [facility] Nitrite, UA Negative Negative [facility] Urobilinogen, UA <2.0 <2.0 [facility] Leukocyte esterase, Negative Negative [facility] WBC, UA 1 0 - 4 /HPF [facility] RBC, UA <1 0 - 5 /HPF [facility] Bacteria, UA Few None seen [facility] Yeast, UA None seen [facility] Yeast with None seen [facility] pseudohyphae, [facility] Granular casts, UA 1 0 - 1 /LPF [facility] Hyaline casts, UA 3 /LPF [facility] Specimen Urine Performing Organization Address City/[facility] Centercode Phone Number [facility] DEPARTMENT OF PATHOLOGY AND [address] [place] [address] [phone] [address] Urine culture (10/26/2019 6:15 PM CDT)Only the most recent of2 resultswithin the time period is included. Pathologist Sig nature Urine culture SEE COMMENTComment: [facility] Bacteriuria screen HOSPITAL negative. Specimen Performing Organization Address City/State/Zipcode Phone Number [facility] DEPARTMENT OF PATHOLOGY AND [address] [address] GENOMIC MEDICINE [facility] [address] [place] [address] CT Chest Wo Contrast (10/26/2019 8:32 AM [...] The heart size is normal. A small jericho cardial effusion is present. The thoracic aorta is normal in caliber. Upper abdomen: No suspicious abnormaliti es. Bones: No suspicious osseous lesions. Other: None. SUMMARY: 1.A Veran protocol was utilized. [id number] Procedure Note Hm Interface, Radiology Results Incoming [...] None. SUMMARY: 1.A Veran protocol was utilized. [id number] Performing Organization Address [facility] Phone Number [address] [address] Blood culture, aerobic & anaerobic (10/25/2019 10:12 AM CDT)Only the most recent of4 resultswithin the time period is included. Pathologist Violeta Blood culture No growth after 5 days of incubation. ZULEIMA BARONE isolate Comment: HOSPITAL Specimen Information Specimen Source: Blood Specimen Site: Forearm, left Specimen Blood - Forearm, left Performing Organization Address [facility] Phone Number [facility] DEPARTMENT OF PATHOLOGY AND [address] [place] [address] [phone] [address] Vancomycin level, random (10/25/2019 10:10 AM CDT) Pathologist Sig nature Vancomycin, random 25.7 ug/mL [facility] HOSP ITAL Specimen Serum Performing Organization Address [facility] Phone Number [facility] DEPARTMENT OF PATHOLOGY AND [address] [place] [address] [phone] [address] Vancomycin level, trough (10/22/2019 8:00 AM CDT) Pathologist Violeta Vancomycin, 17.2 10.0 - 20.0 [facility] trough Comment: ug/mL HOSPITAL Therapeutic Ranges: Peak 30.0 - 40.0 ug/mL Trough 10.0 - 20.0 ug/mL Specimen Serum Performing Organization Address City/[facility]/Zipcode Phone Number [facility] DEPARTMENT OF PATHOLOGY AND [address] [place] [address] [phone] [address] Ionized calcium (10/22/2019 4:53 AM CDT)Only the most recent of2 resultswithin the time period is included. Pathologist Sig nature pH 7.43 [facility] Ionized calcium 1.16 1.11 - 1.32 mmol/L [facility] Specimen Blood Performing Organization Address City/[facility] Centercode Phone Number [facility] DEPARTMENT OF PATHOLOGY AND [address] [place] [address] [place] [address] Sputum culture (10/21/2019 5:20 PM CDT) Sputum culture Normal oral breana isolated. SHAYNA ACEVEDO HODDAYANNA isolate Comment: HOSPITAL Specimen Information Specimen Source: Sputum Specimen Site: Expectorated Specimen Sputum - Expectorated Performing Organization Address City/[facility] Phone Number [facility] DEPARTMENT OF PATHOLOGY AND [address] [place] [address] [phone] [address] Aerobic culture (10/21/2019 5:15 PM CDT) Aerobic culture No growth after 3 days. SHAYNA HARDWICK IST isolate Comment: HOSPITAL Specimen Information Specimen Source: Pleural fluid Specimen Site: Not specified Specimen Pleural fluid - Not specified Performing Organization Address City/[facility] Centercode Phone Number [facility] DEPARTMENT OF PATHOLOGY AND [address] [place] [address] [phone] [address] Anaerobic culture (10/21/2019 5:15 PM CDT) Anaerobic culture No anaerobic organisms isolated. SHEN BARONE isolate Comment: HOSPITAL Specimen Information Specimen Source: Pleural fluid Specimen Site: Not specified Specimen Pleural fluid - Not specified Performing Organization Address City/[facility]/Zipcode Phone Number [facility] DEPARTMENT OF PATHOLOGY AND [address] [place] [address] [phone] [place] [address] IR Tunneled Pleura Catheter (10/21/2019 4:47 PM CDT) Specimen Narrative Performed At Performing Radiologist KELLI Davis MD Assistants None Anesthesia Type Moderate sedation was administered by the procedure nu rse and monitored intraservice [id number] by the procedure physician f or 27 [...] fluid. This catheter is ready for use. [facility]-[id number] Procedure Note Interface, Radiology Results Incoming - 10/21/2019 5:31 PM CDT Performing Radiologist Ryan Davis MD Assistants None Anesthesia Type Moderate sedation was administered by e procedure nurse and monitored intraservice [id number] by the procedure physician for 27 minutes. [...] fluid. This catheter is ready for use. [facility]-[id number] Performing Organization Address City/State/Zipcode Phone Number [address] [address] Respiratory pathogen panel (10/20/2019 6:30 PM CDT) Pathologist [facility] Adenovirus PCR Not Detected [place] Comment: BUDDHISM Specimen Information HOSPITAL Specimen Source: Nares Specimen Site: Not specified Coronavirus HKU1 PCR Not Detected [place] [facility] Coronavirus NL63 PCR Not Detected [facility] Coronavirus 229E PCR Not Detected [facility] Coronavirus OC43 PCR Not Detected [facility] Human metapneumovirus Not Detected [facility] Human Detected (A) [place] rhinovirus/enterovirus [facility] Influenza A PCR Not Detected [facility] Influenza A/H1 PCR Not Reported [facility] Influenza A/H3 PCR Not Reported [facility] Influenza A/H1-2009 PCR Not Reported [facility] Influenza B PCR Not Detected [facility] Parainfluenza virus 1 Not Detected [facility] Parainfluenza virus 2 Not Detected [facility] Parainfluenza virus 3 Not Detected [facility] Parainfluenza virus 4 Not Detected [facility] Respiratory syncytial Not Detected [place] virus PCR [facility] Bordetella pertussis Not Detected [facility] Bordetella Not Detected [place] parapertussis PCR [facility] Chlamydia pneumoniae Not Detected [facility] Mycoplasma pneumoniae Not Detected [facility] Influenza A no sub type Not Reported [facility] Specimen Nares - Not specified Performing Organization Address City/[facility]/Zipcode Phone Number [facility] DEPARTMENT OF PATHOLOGY AND [address] [place] [phone] GENOMIC MEDICINE [address] [address] Lactic acid level (10/20/2019 1:00 PM CDT) Pathologist Sig nature Lactic acid 1.5 0.5 - 2.2 mmol/L [facility] Specimen Blood Performing Organization Address City/State/Zipcode Phone Number [facility] DEPARTMENT OF PATHOLOGY AND [address] [place] [address] [phone] [address] Hepatic function panel (10/20/2019 1:00 PM CDT) Albumin 2.4 (L) 3.5 - 5.0 [facility] g/dL [facility]PITAL Total bilirubin 0.5 0.0 - 1.2 [facility] mg/dL [facility] Bilirubin direct <0.2 0.0 - 0.3 [facility] mg/dL [facility]OSPITAL Alkaline phosphatase 92 35 - 104 U/L [facility] Protein 5.4 (L) 6.3 - 8.3 [facility] Comment: g/dL HOSPITAL - 4.6-7.0 g/dL 1 week 4.4-7.6 g/dL 7 months-1year 5.1-7.3 g/dL 1-2 years 5.6-7.5 g/dL >3 years 6.0-8.0 g/dL 18-150 6.3-8.3 g/dL ALT 16 5 - 50 U/L [facility] AST 15 10 - 35 U/L [facility] Specimen Blood Performing Organization Address [facility] Number [facility] DEPARTMENT OF PATHOLOGY AND [address] [place] [address] [phone] [address] XR Chest External Study (10/19/2019 1:00 PM CDT)Only the most recent of4 resultswithin the time period is included. Specimen Narrative Performed At This exam was not acquired at a [facility] facility and has not been [facility] interpreted by a Zoroastrian Provider. T he exam was imported into our imaging system. Performing Organization Address City/State/Zipcode Phone Number [facility] [address] [place] [phone] [place] Vascular External Study (10/15/2019 9:57 AM CDT) Specimen Narrative Performed At This exam was not acquired at a [facility] facility and has not been [facility] interpreted by a Zoroastrian Provider. T he exam was imported into our imaging system. Performing Organization Address City/State/Zipcode Phone Number [facility] [address] [place] [address] [place] Chest External Study (10/14/2019 8:08 PM CDT) Specimen Narrative Performed At This exam was not acquired at a [facility] t facility and has not been [facility] interpreted by a Zoroastrian Provider. T he exam was imported into our imaging system. Performing Organization Address City/State/Zipcode Phone Number [facility] [address] [place] [address] after 12/21/2018 Insurance Payer Benefit Plan / Subscriber ID Effective Dates Phone Addre ss Type Group MEDICARE MEDICARE PART A AND xxxxxxxxxxx 2016-Ivan [facility] [place] Medicare B t AETNA AETNA [facility] xxxxxxxxx 2018-Ivan Indemnity INDEMNITY t Advance Directives For more information, please contact: [phone] Type Date Recorded Patient Retrimmer Explanati on Advance Directives, Living Will and Medical Power of Assistant Community Director
--- OUTSIDE RECORDS SUMMARY | 2019-12-22 12:12 | XMS REPORT | Continuity of Care Document ---
:1950 Author Organization [facility] t Address [address] [place] [address] [address]. [address]. [address] [place] [address] Care Team Providers Name Role Phone Jessica LOZANO Primary Care Physician Ankur LOZANO, Y.H. Attending Clinician April James NP. Attending Clinician Provider Attending Clinician Osiel LOZANO, W. Attending Clinician Pam Lopez Attending Clinician Magdiel LOZANO, S Attending Clinician ANKUR Admitting Clinician Unavailable Payers Payer Name Policy Policy Number Effective Expiration Source Type Date Date MEDICAREMEDICARE PART xxxxxxxxxxx 2016 [facility] [place] xxxxxxxxx 2018 [facility] 00:00:00 [facility] INDEMNITYxxxxxxxxx2/-PresentIndemnit y Problems Condition Condition Condition Status Onset Resolution Last Treating Co mments Source Name Details Category Date Date Treatment Clinician Date Lung mass Lung mass Disease Active Derik ston 4-28 [facility] 00:00: st 00 Pleural Pleural Disease Active [place] effusion, effusion, 4-22 Meth mackenzie right right 00:00: st 00 Allergies, Adverse Reactions, Alerts Allergy Allergy Status Severity Reaction(s) Onset Inactive Treating Comm ents Source Name Type Date Date Clinician Clindamy Propensi Active Rash 2019-0 Rash to [place] ty to 10-19 hands, [facility] adverse 00:00: per pt st reaction 00 s to drug Levoflox Propensi Active Rash 2019-0 [place] acin ty to 10-19 [facility] adverse 00:00: st reaction 00 s to drug Family History Family Member Diagnosis Comments Start Date Stop Date Source Natural father Hypertension Rodriguez Protestant Natural mother Hypertension [place] Protestant Paternal grandfather Cancer [place] [facility] Social History Social Habit Start Date Stop Date Quantity Comments Source Sex Assigned At [place] M ethodist Alcohol intake 2019-10-29 2019-10-29 Ex-drinker [facility] thodist 00:00:00 00:00:00 (finding) Smoking Status Start Date Stop Date Source Never smoker [place] Maddiis t Medications Ordered Filled Start Stop Current Ordering Indication Dosage Frequency Signature Comments Components Source Medication Medication Date Date Medication? Clinician (SIG) Name Name gabapentin 2020-0 2020- No 300mg Q.[id number] Take 1 [place] (NEURONTIN) 11-02 05-13 [id number] capsule [facility] 300 mg 00:00: 23:59 3D ([address] capsule 00 :00 total) by mouth 3 (three) times a day for 7 days. amLODIPine 2020-0 2020- No 2.5mg QD Take 2.5 [place] (NORVASC) 5- 05-01 mg by [facility] 2.5 mg 17:57: 00:[address] tablet 20 :00 daily. valsartan 2020-0 2020- No 160mg QD Take 160 [place] (DIOVAN) 5- 05-01 mg by [facility] 160 MG 17:57: 00:[address] tablet 20 :00 daily. Pt states that she is no longer taking Valsartan albuterol 2020-0 Yes Inhale. [place] on sulfate 10-28 [facility] (PROAIR 17:57: st [...] pt she is no longer taking zolpidem Yes 10mg QD Take 10 mg Derik ston (AMBIEN) 10-28 by mouth Metho di MG tablet 17:57: nightly as st 16 needed for sleep. carvedilol 2019- No Take by Derik arendemetra (COREG 10-28 mouth. Pt [facility] ORAL) 16:28: 00:[address] 27 :00 that she was taking Coreg at [facility] carvediloL 2019- No 3.125mg Q.5D Take 1 [place] (Coreg) 10-28 tablet [facility] 3.125 MG 00:00: 23:59 (3.[address] tablet 00 :00 total) by mouth 2 (two) times a day with meals for 31 days. Pt states that she was taking Coreg at [facility] Vital Signs Vital Name Observation Time Observation [...] Body temperature 2019-10-29 11:22:58 37.17 Lola Dashawn ton Protestant Body weight 2019-10-29 07:59:37 76.295 kg Michael [...] 04:00:00 Maya Caballero MAGNESIUM LEVEL 2019-10-29 04:00:00 AdaMaya Meth odist PHOSPHORUS LEVEL 2019-10-29 04:00:00 AdaАндрейmadeline Rodriguez Met hodist ESTIMATED GFR 2019-10-29 04:00:00 Raulito Pascual Me thodist XR CHEST 1 VW PORTABLE 2019-10-28 06:20:00 Maya Caballero on Protestant HC COMPLETE BLD COUNT 2019-10-28 04:15:00 Maya Caballero W/AUTO DIFF SMEAR REVIEW 2019-10-28 04:15:00 Raulito Pascual Me thodist BASIC METABOLIC PANEL 2019-10-28 04:00:00 Maya Caballero MAGNESIUM LEVEL 2019-10-28 04:00:00 AdaАндрейmadeline Rodriguez Meth odist PHOSPHORUS LEVEL 2019-10-28 04:00:00 AdaMaya Rodriguez Met hodist ESTIMATED GFR 2019-10-28 04:00:00 Raulito Pascual Me thodist XR CHEST 1 VW PORTABLE 2019-10-27 13:12:34 Maya Caballero on Protestant SURGICAL PATHOLOGY 2019-10-27 13:12:00 Raulito Pascual Protestant REQUEST CYTOLOGY 2019-10-27 12:23:00 Raulito Pascual Va thodist (NON-GYNECOLOGICAL) REQUEST CYTOLOGY 2019-10-27 12:21:00 Raulito Pascual Va thodist (NON-GYNECOLOGICAL) REQUEST FUNGUS CULTURE 2019-10-27 12:04:00 Raulito Pascual Va thodist AFB CULTURE 2019-10-27 12:04:00 Raulito Pascual Va thodist RESPIRATORY CULTURE 2019-10-27 12:04:00 Raulito Pascual AFB STAIN 2019-10-27 12:04:00 Raulito Pascual Va thodist GRAM STAIN 2019-10-27 12:04:00 Raulito Pascual Me thodist CYTOLOGY 2019-10-27 12:02:00 Raulito Pascual Va thodist (NON-GYNECOLOGICAL) REQUEST CYTOLOGY 2019-10-27 11:52:00 Raulito Pascual Va thodist (NON-GYNECOLOGICAL) REQUEST FUNGUS CULTURE 2019-10-27 11:35:00 Raulito Pascual Va thodist AFB CULTURE 2019-10-27 11:35:00 Raulito Pascual Va thodist RESPIRATORY CULTURE 2019-10-27 11:35:00 Raulito Pascual Protestant AFB STAIN 2019-10-27 11:35:00 Raulito Pascual Va thodist GRAM STAIN 2019-10-27 11:35:00 Raulito Pascual Va thodist CYTOLOGY 2019-10-27 10:40:00 Raulito Pascual Va thodist (NON-GYNECOLOGICAL) REQUEST TN AN ELECTIVE 2019-10-27 10:29:45 Laly Vera Va thodist ENDOTRACHEAL AIRWAY [place] CT CHEST W CONTRAST 2019-10-27 08:41:13 Chuckie Rai BASIC METABOLIC PANEL 2019-10-27 04:00:00 Chuckie Rai Protestant CBC WITH PLATELET AND 2019-10-27 04:00:00 Chuckie Rai DIFFERENTIAL MAGNESIUM LEVEL 2019-10-27 04:00:00 Chuckie Rai Va thodist PHOSPHORUS LEVEL 2019-10-27 04:00:00 Chuckie Rai ethodist PARTIAL THROMBOPLASTIN 2019-10-27 04:00:00 Chuckie Rai Derik ston Protestant TIME (PTT) PROTHROMBIN TIME WITH INR 2019-10-27 04:00:00 Chuckie Rai TYPE AND SCREEN 2019-10-27 04:00:00 Chuckie Rai Va thodist ESTIMATED GFR 2019-10-27 04:00:00 Raulito Pascual Va thodist URINE CULTURE 2019-10-26 18:15:00 Raulito Pascual Va thodist URINALYSIS SCREEN AND 2019-10-26 18:15:00 Chuckie Rai Protestant MICROSCOPY, WITH REFLEX TO CULTURE CT CHEST WO CONTRAST 2019-10-26 08:32:20 Chuckie Rai on Protestant HC COMPLETE BLD COUNT 2019-10-26 06:55:00 Chuckie Raiist W/AUTO DIFF BASIC METABOLIC PANEL 2019-10-26 06:55:00 AdaMayaroma n Protestant MAGNESIUM LEVEL 2019-10-26 06:55:00 AdaMaya Meth odist PHOSPHORUS LEVEL 2019-10-26 06:55:00 Maya Caballero Met hodist ESTIMATED GFR 2019-10-26 06:55:00 Raulito Pascual Me thodist XR CHEST 1 VW PORTABLE 2019-10-26 06:15:00 Ada Maya Estrada on Protestant CYTOLOGY 2019-10-25 11:07:00 Raulito Pascual Me thodist (NON-GYNECOLOGICAL) REQUEST BLOOD CULTURE, AEROBIC & 2019-10-25 10:12:00 Chuckie Rai ANAEROBIC VANCOMYCIN LEVEL, RANDOM 2019-10-25 10:10:00 Chuckie Rai BLOOD CULTURE, AEROBIC & 2019-10-25 10:05:00 Chuckie Rai ANAEROBIC HC COMPLETE BLD COUNT 2019-10-25 07:24:00 Chuckie Rai W/AUTO DIFF BASIC METABOLIC PANEL 2019-10-25 07:24:00 Raulito Pascual Protestant MAGNESIUM LEVEL 2019-10-25 07:24:00 Raulito Pascual Me thodist ESTIMATED GFR 2019-10-25 07:24:00 Raulito Pascual Me thodist XR CHEST 1 VW PORTABLE 2019-10-25 06:25:00 Mary Carmen Gabriel Protestant XR CHEST 1 VW PORTABLE 2019-10-24 08:15:00 Chuckie Rai HC COMPLETE BLD COUNT 2019-10-24 05:20:00 Chuckie Raiist W/AUTO DIFF XR CHEST 1 VW PORTABLE 2019-10-23 06:40:00 Ricky Moreira BASIC METABOLIC PANEL 2019-10-23 05:40:00 Ricky Moreira on Protestant John HC COMPLETE BLD COUNT 2019-10-23 05:40:00 Ricky Moreira on Protestant W/AUTO DIFF John MAGNESIUM LEVEL 2019-10-23 05:40:00 Ricky Moreira Met todd John PHOSPHORUS LEVEL 2019-10-23 05:40:00 Ricky Moreira Me christiano Lopez ESTIMATED GFR 2019-10-23 05:40:00 Raulito Pascual Va thodist XR CHEST 1 VW PORTABLE 2019-10-22 16:31:39 Ricky Moreira VANCOMYCIN LEVEL, TROUGH 2019-10-22 08:00:00 Ricky Moreira XR CHEST 1 VW PORTABLE 2019-10-22 06:32:00 Ricky Moreira BASIC METABOLIC PANEL 2019-10-22 04:53:00 Ricky Moreira on Protestantfarheen Lopez HC COMPLETE BLD COUNT 2019-10-22 04:53:00 Ricky Moreira on Protestant W/AUTO DIFF John IONIZED CALCIUM 2019-10-22 04:53:00 Ricky Moreira Met todd Lopez MAGNESIUM LEVEL 2019-10-22 04:53:00 Ricky Moreira Met todd Lopez PHOSPHORUS LEVEL 2019-10-22 04:53:00 Ricky Moreira Va christiano Lopez ESTIMATED GFR 2019-10-22 04:53:00 Raulito Pascual Va thodist SPUTUM CULTURE 2019-10-21 17:20:00 Raulito Pascual Me thodist GRAM STAIN 2019-10-21 17:20:00 Raulito Pascual Va thodist AEROBIC CULTURE 2019-10-21 17:15:00 Raulito Pascual Va thodist FUNGUS CULTURE 2019-10-21 17:15:00 Raulito Pascual Va thodist ANAEROBIC CULTURE 2019-10-21 17:15:00 Raulito Pascual Protestant AFB CULTURE 2019-10-21 17:15:00 Raulito Pascual Me thodist GRAM STAIN 2019-10-21 17:15:00 Raulito Pascual Va thodist AFB STAIN 2019-10-21 17:15:00 Raulito Pascual Va thodist CYTOLOGY 2019-10-21 17:15:00 Raulito Pascual Va thodist (NON-GYNECOLOGICAL) REQUEST IR TUNNELED PLEURAL 2019-10-21 16:47:00 Riccardo Marlow Protestant CATHETER CBC WITH PLATELET AND 2019-10-21 05:50:00 Ricky Moreira on Protestant DIFFERENTIAL John BASIC METABOLIC PANEL 2019-10-21 05:50:00 Ricky Moreira on Kelly Lopez MAGNESIUM LEVEL 2019-10-21 05:50:00 Ricky Moerira Met hodfarheen Lopez PHOSPHORUS LEVEL 2019-10-21 05:50:00 Ricky Moreira Va christiano Lopez PROTHROMBIN TIME WITH INR 2019-10-21 05:50:00 Steve Silva PARTIAL THROMBOPLASTIN 2019-10-21 05:50:00 Steve Silva on Protestant TIME (PTT) ESTIMATED GFR 2019-10-21 05:50:00 Raulito Pascual Va thodist URINE CULTURE 2019-10-20 22:30:00 Raulito Pascual Va thodist URINALYSIS SCREEN AND 2019-10-20 22:30:00 Ricky Moreira on Protestant MICROSCOPY, WITH REFLEX John TO CULTURE TYPE AND SCREEN 2019-10-20 21:45:00 Raulito Pascual Va thodist BLOOD CULTURE, AEROBIC & 2019-10-20 19:00:00 Ricky Moreira ANAEROBIC John RESPIRATORY PATHOGEN 2019-10-20 18:30:00 Steve Silva PANEL BLOOD CULTURE, AEROBIC & 2019-10-20 18:30:[address] CHEST W CONTRAST 2019-10-20 18:28:00 Steve Silva BASIC METABOLIC PANEL 2019-10-20 13:00:00 Rciky Moreira on Kelly Lopez HC COMPLETE BLD COUNT 2019-10-20 13:00:00 Ricky Moreira on Protestant W/AUTO DIFF John HEPATIC FUNCTION PANEL 2019-10-20 13:00:00 Ricky Moreira IONIZED CALCIUM 2019-10-20 13:00:00 Ricky Moreira Met todd Lopez LACTIC ACID LEVEL 2019-10-20 13:00:00 Ricky Moreira M ethodist John MAGNESIUM LEVEL 2019-10-20 13:00:00 Ricky Moreira Met todd Lopez PARTIAL THROMBOPLASTIN 2019-10-20 13:00:00 Ricky Moreira TIME (PTT) John PHOSPHORUS LEVEL 2019-10-20 13:00:00 Ricky Moreira Me thsunil Lopez PROTHROMBIN TIME WITH INR 2019-10-20 13:00:00 Ricky Moreira TYPE AND SCREEN 2019-10-20 13:00:00 Ricky Moreira Met todd Lopez ESTIMATED GFR 2019-10-20 13:00:00 Raulito Pascual Va christiano XR CHEST 1 VW PORTABLE 2019-10-20 12:55:00 Ricky Moreira XR CHEST EXTERNAL STUDY 2019-10-19 13:00:00 Raulito Pascual XR CHEST EXTERNAL STUDY 2019-10-17 09:56:00 Raulito Pascual XR CHEST EXTERNAL STUDY 2019-10-15 15:08:00 Raulito Pascual US VASCULAR EXTERNAL 2019-10-15 09:57:00 Raulito Pascual on Protestant STUDY XR CHEST EXTERNAL STUDY 2019-10-14 20:41:[address] CHEST EXTERNAL STUDY 2019-10-14 20:08:00 Raulito Pascual SARS-COV2/RT-PCR ([facility] & 2019-10-14 16:27:[address] [facility] - REF LABS) [facility] Plan of Care Planned Activity Planned Date Details Comments Source Future Scheduled 2020-01-29 INFLUENZA VACCINE [place] dmeetra Protestant Test 00:00:00 [code = INFLUENZA VACCINE] Future Scheduled 2016 65+ PNEUMOCOCCAL Michael Protestant Test 00:00:00 VACCINE (1 of 2 - PCV13) [code = 65+ PNEUMOCOCCAL VACCINE (1 of 2 - PCV13)] Future Scheduled 2001 BREAST CANCER Michael Gibson thodist Test 00:00:00 SCREENING [code = BREAST CANCER SCREENING] Future Scheduled 2001 COLONOSCOPY SCREENING Ho mildred Protestant Test 00:00:00 [code = COLONOSCOPY SCREENING] Future Scheduled 2001 SHINGLES VACCINES (#1) [place] [facility] Test 00:00:00 [code = SHINGLES VACCINES (#1)] Encounters Start End Encounter Admission Attending Care Care Encounter Source Date/Time Date/Time Type Type Clinicians Facility Department ID 2019-10-20 2019-10-29 Inpatient [facility] 027 [id number] 57 [place] 00:00:00 00:00:[address] [place] [address] 2019-08-03 2019-08-03 Office [facility] [id number] 12:51:30 13:10:35 Visit Stefania Garland [id number] [place] [id number] [id number] [address] Results Test Description Test Time Test Comments Results Result Comments Source AFB culture 2019-12-09 00:13:28 Test Item Value Reference Range Interpretation Comme nts AFB culture isolate No growth after 6 weeks of Specimen InformationSpecimen (test code = 543-9) incubation. Source: Bronchial WashingSpecimen Site: Lung: RLL Rodriguez MethodistFungus [id number] 00:15:15 Test Item Value Reference Range Interpretation Comments Fungus culture No growth Specimen isolate (test after 4 weeks InformationSp ecimen code = 1441) of Source: Bronchi al incubation. WashingSpecimen Site: Lung: RLL Michael MethodistCytology (non-gynecological) [id number] 15:08:10 Test Item Value Reference Range Interpretation Comments Case number (test [id number] code = [id number]) Cytology See link below for PDF (non-gynecological) Lab Report report (test code = 1178) Result status (test This is Supplemental code = [id number]) Report for [id number] RISA (test code = RISA) NEOGENOMICSBRAF, EGFR, LUNG NGS, KRASM METFISH, [id number] 10/27/2019 [place] MethodistBlood culture, aerobic & [id number] 11:33:05 Test Item Value Reference Range Interpretation Comments Blood culture No growth Specimen isolate (test after 5 days InformationSpe cimen code = 600-7) of Source: BloodS pecimen incubation. Site: Forearm, left [place] MethodistRespiratory [id number] 13:42:39 Test Item Value Reference Range Interpretation Comments Respiratory No growth Specimen culture isolate after 2 InformationS pecimen (test code = days. Source: [place]chi [place] 19938-5) WashingSpecimen Site: Lung: RLL [place] MethodistXR Chest 1 Vw [id number] 12:30:05Hm Interface, Radiology Results - 10/29/2019 12:33 [...] and cardiac silhouette are unchanged and unremarkable.Osteopenia. HMRM-WPHYAAWHouss[facility] MethodistBasic metabolic [id number] 07:11:12 Test Item Value Reference Range Interpretation Comments Sodium (test code = 2951-2) 141 135- 148 mEq/L Potassium (test code = 2823-3) 3.4 3.5- 5.0 mEq/L L Chloride (test code = 2075-0) 103 98- 112 mEq/L CO2 (test code = 2027-9) 28 24- 31 mEq/L Anion gap (test code = 73617-9) 10@ANIO 7- 15 mEq/L BUN (test code = 3094-0) 8 mg/dL 8-23 Creatinine (test code = 2160-0) 0.86 mg/dL 0.5-0.9 Glucose (test code = 2345-7) 84 mg/dL 65-99 Calcium (test code = 49607-2) 8.5 mg/dL 8.8-10.2 L Lab Interpretation (test code = Abnormal 17217-0) Michael MethodistMagnesium [id number] 07:11:12 Test Item Value Reference Range Interpretation Comments Magnesium (test code = 11042-8) 1.8 mg/dL 1.6-2.4 Rodriguez MethodistPhosphorus [id number] 07:11:12 Test Item Value Reference Range Interpretation Comments Phosphorus (test code = 2777-1) 3.7 mg/dL 2.4-4.5 Rodriguez MethodistEstimated [id number] 07:11:12 Test Item Value Reference Range Interpretation Comments Estimated GFR (test 69 mL/min/1.73 [facility]2 [facility] code = 5488) InterpretationG 1 >=90 Normal or highG2 60-89 Mildly hebutpbijS2b 45-59 Mildly to mode rately tgmtilujoR8p 30-44 Moderately to severely decreasedG4 15-29 Severely decre asedG5 <15 Kidn ey failureThe eGFR was calculated kirill garcia the Chronic Kidney Disease Epidemiology Co llaboration (CKD-EPI) equat ion. Interpretation is based on recommendations of the National Kidney Foundation-Kidn ey Disease Outcomes Qualit y Initiative (NKF-KDOQI) pub lished in 2013. Rodriguez MethodistCBC with platelet and [id number] 06:59:34 Test Item Value Reference Range Interpretation Comments WBC (test code = 20462-5) 17.49 4.50- 11.00 k/uL H RBC (test code = 72685-6) 3.46 m/uL 4.2-5.5 L HGB (test code = 718-7) 9.6 g/dL 12-16 L HCT (test code = 4544-3) 30.8 % 37-47 L MCV (test code = 787-2) 89.0 fL 82-100 MCH (test code = 785-6) 27.7 pg 27-34 MCHC (test code = 786-4) 31.2 g/dL 31-37 RDW - SD (test code = 43.7 fL 37-55 52393-1) MPV (test code = 82306-7) 9.4 fL 8.8-13.2 Platelet count (test code 429 150- 400 k/uL H = 31119-1) Nucleated RBC (test code 0.00 /100 WBC = 99796-5) Neutrophils (test code = 76.9 % 39-69 H 25514-2) Lymphocytes (test code = 13.2 % 25-45 L 09593-8) Monocytes (test code = 5.4 % 0-10 97250-5) Eosinophils (test code = 3.0 % 0-5 45099-5) Basophils (test code = 0.4 % 0-1 71869-4) Immature granulocytes 1.1 % 0-1 H "Immat ure (test code = 03848-8) granul ocytes" (promyelocytes, myelocytes, metamyelocytes) Lab Interpretation (test Abnormal code = 42296-0) Rodriguez Jose Antoniourgical pathology [id number] 18:07:21 Test Item Value Reference Range Interpretation Comments Case number (test code = [id number]) Surgical pathology See link below for report (test code = PDF Lab Report 2250) Result status (test code This is Final Report = [id number]) for [id number] [place] MethodistFungus [id number] 14:40:24 Test Item Value Reference Range Interpretation Comments Fungus smear No fungi Specimen (test code = observed. InformationSpec [facility] Source: 1443) Bronchial Washi ngSpecimen Site: Lung: RLL [place] MaddiistSmear [id number] 06:32:42 Test Item Value Reference Range Interpretation Comments Platelet slide review (test code = Increased A 02480-6) Anisocytosis (test code = 702-1) Moderate Ovalocytes (test code = 774-0) Moderate Enlarged platelets (test code = Moderate A 13725-6) Giant platelets (test code = Occasional 5908-9) Lab Interpretation (test code = Abnormal 31887-1) Michael MethodistAFB [id number] 01:47:29 Test Item Value Reference Range Interpretation Comments AFB stain No acid fast Specimen (test code = bacilli (AFB) InformationSpe [facility] 676-7) seen. Source: Bronchi al WashingSpecimen Site: Lung: RLL [place] MethodistGram [id number] 16:51:40Gram stain isolateFew WBC'sNo organisms seen Comment: Specimen InformationSpecimen Source: Bronchial WashingSpecimen Site: Lung: RLL [facility] Protestant [id number] 10:29:45Laly Vera 10/27/2019 10:48 AMAirwayDate/Time: 10/27/2019 10:18 AMPerformed by: Laly VeraoAuthorized by: Laly Vera Location: ORUrgency: ElectiveDifficult Airway: No Anesthesiologist: Real Cartagena, MDResident/PICKLER HELPER/AA: Georgi VeraaPerformed by: resident/PICKLER HELPER/AAPreoxygenated with 100% O2: Yes Mask Ventilation: Not [...] damage to lips, teeth, gums or oropharynx. VSS.[place] MethodistCT Chest W [id number] 08:51:15 Hm Interface, Radiology Results 10/27/2019 8:54 [...] liver is indeterminate. Consider MRI to further evaluate.[id number] MethodistType and [id number] 05:09:00 Test Item Value Reference Range Interpretation Comments ABO grouping (test code = 883-9) O Rh type (test code = 90276-2) POS Antibody screen (gel) (test code = NEG 890-4) [place] MethodistPartial thromboplastin time, [id number] 04:29:25 Test Item Value Reference Range Interpretation Comments PTT (test code = 36.6 23.0- 36.0 sec H PTT thera peutic range 83082-4) for unfractiona betty heparin is61.0- 112.0 seconds which corresponds to Anti-Xa0.3-0.7 U/ml. Lab Interpretation Abnormal (test code = 65365-8) Rodriguez MethodistProthrombin time with [id number] 04:29:09 Test Item Value Reference Range Interpretation Comments Prothrombin time (test 15.2 11.5- 14.5 sec H code = 5902-2) INR (test code = 1.2 [facility] Normalized Rati o (INR) is a therapeuti c monitoring tool for patients who ar e stable on oral anticoagulant t herapy. An INR of 2.0-3 .0 is suggested for d eep vein thrombosis/pulm onary embolism. Lab Interpretation Abnormal (test code = 02043-0) Rodriguez MethodistUrinalysis screen and microscopy, with reflex to culture 2019-10-26 21:49:23 Test Item Value Reference Range Interpretation Comments Specimen site (test code = Clean catch 4922852) Color, UA (test code = 5778-6) Yellow Appearance, UA (test code = Clear 5767-9) Specific gravity, UA (test code = 1.009 1.001-1.035 5811-5) pH, UA (test code = 5803-2) 5.0 5.0-8.5 Protein, UA (test code = 60194-1) Negative Negative Glucose, UA (test code = 26996-3) Negative Negative Ketones, UA (test code = 2514-8) Negative Negative Bilirubin, UA (test code = Negative Negative 5770-3) Blood, UA (test code = 5794-3) Small Negative A Nitrite, UA (test code = 5802-4) Negative Negative Urobilinogen, UA (test code = <2.0 <2.0 45452-2) Leukocyte esterase, UA (test code Negative Negative = 5799-2) WBC, UA (test code = 5821-4) 1 0- 4 /HPF RBC, UA (test code = 05539-5) <1 0- 5 /HPF Bacteria, UA (test code = Few None seen 62797-8) Yeast, UA (test code = 73125-3) None seen Yeast with pseudohyphae, UA (test None seen code = 18718-9) Granular casts, UA (test code = 1 0- 1 /LPF 5793-5) Hyaline casts, UA (test code = 3 /LPF 5796-8) Lab Interpretation (test code = Abnormal 35596-0) Michael MendozaUrine [id number] 21:12:49 Test Item Value Reference Range Interpretation Comments Urine culture (test SEE COMMENT Bacteriu alejandro screen code = 6929991) negative. Michael LindaistCT Chest Wo [id number] 08:39:29Hm Interface, Radiology Results 10/26/2019 8:42 AM [...] osseous lesions. Other: None.SUMMARY:1.A Veran protocol was utilized.[id number] Protestant Anaerobic [id number] 07:58:24 Test Item Value Reference Range Interpretation Comments Anaerobic No anaerobic Specimen culture isolate organisms InformationS pecimen (test code = isolated. Source: Pleural 552) fluidSpecimen S ite: Not specified Michael LindaistAerobic [id number] 13:49:27 Test Item Value Reference Range Interpretation Comments Aerobic culture No growth Specimen isolate (test after 3 days. Information ecimen code = 498) Source: Pleural fluidSpecimen S ite: Not specified Michael MethodistVancomycin level, [id number] 10:51:23 Test Item Value Reference Range Interpretation Comments Vancomycin, random (test code = 25.7 ug/mL 42987-5) Michael MethodistSputum [id number] 05:17:38 Test Item Value Reference Range Interpretation Comments Sputum culture Normal oral Specimen isolate (test breana Informatione cimen code = 2234) isolated. Source: SputumS pecimen Site: Expectora betty Rodriguez MethodistVancomycin level, [id number] 09:42:14 Test Item Value Reference Range Interpretation Comments Vancomycin, trough 17.2 ug/mL 10-20 Therapeut ic Ranges: (test code = Peak 30.0 - 40.0 84953-4) ug/mL Trough 10.0 - 20.0 ug/mL [place] MethodistIonized [id number] 06:01:45 Test Item Value Reference Range Interpretation Comments pH (test code = 2753-2) 7.43 Ionized calcium (test code = 1.16 mmol/L 1.11-1.32 ) [place] MethodistIR Tunneled Pleura [id number] 17:28:46Hm Interface, Radiology Results Incoming - 10/21/2019 5:31 PM CDTPerforming RadiologistDavimukul Davis MD AssistantsNone Anesthesia TypeModerate sedation was administered by the procedure nurse and monitored intraservice zmqy-tf-obkp by the procedure physician for 27 minutes. [...] the right pleural space, with return of maircruz-colored pleural fluid. A0.018 inch guidewire was advanced [...] of fluid. This catheter is ready for use.[facility]-[id number] MethodistRespiratory pathogen [id number] 22:15:07 Test Item Value Reference Interpretation Comments Range Adenovirus PCR (test Not Detected Specime n code = 7092) InformationSpec imen Source: [facility] ecimen Site: Not speci fied Coronavirus HKU1 PCR [...] pertussis Not Detected PCR (test code = 9512046) Bordetella Not Detected parapertussis PCR (test code = 1766955) Chlamydia pneumoniae Not Detected PCR (test code = 3753) Mycoplasma Not Detected pneumoniae PCR (test code = 7110) Influenza A no sub Not Reported type PCR (test code = 7127) Lab Interpretation Abnormal (test code = 58292-3) [place] [id number] 16:06:15 Test Item Value Reference Range Interpretation [...] g/dL 1-2 years 5.6-7.5 g/dL>3 years 6.0-8.0 g/cZ70-561 6.3-8. 3 g/dL ALT (test code = 1742-6) 16 U/L 5-50 AST (test code = 1920-8) 15 U/L 10-35 Lab Interpretation (test Abnormal code = 01084-8) [place] [facility] [id number] 16:01:12 Test Item Value Reference Range Interpretation Comments Lactic acid (test code = 64402-0) 1.5 mmol/L 0.5-2.2 Michael MendozaXR Chest External [id number] 14:18:00This exam was not acquired at a [facility] facility and has not been interpreted by a [facility] Provider. The exam was imported into our imaging system.Michael MendozaCT Chest External [id number] 14:17:03This exam was not acquired at a [facility] facility and has not been interpreted by a [employer] Provider. The exam was imported into our imaging system.Michael MendozaUS Vascular External Study 2019-10-20 14:15:11This exam was not acquired at a [facility] facility and has not been interpreted by a Protestant Provider. The exam was imported into our imaging system.Michael BradyARS-CoV2/RT-PCR ([facility])2019-10-15 01:33:00 Test Item Value Reference Range Interpretation Comments SARS-COV2/RT-PCR Not Detected Not Detected, (test code = Negative 68939-3) SARS-COV-2 [facility] PERFORMING LAB (test code = 93989-4) RISA (test code = Negative results do not RISA) preclude SARS-CoV-2 infection and should not be [...] of the Act. Fact Sheet for Healthcare Providers:https://www.protected-networks.com.[employer]/Documents/Xper t%20Xpress%20SARS%20CoV- 2/Fact%20Sheets/302-3802 %99VFYM-KAI-9%20HEALTHCA RE%20PROVIDERS%20FACT%20 SHEET.pdf Fact Sheet for Healthcare Patients:https://www.[employer]/Documents/Xpert %20Xpress%20SARS%20CoV-2 /Fact%20Sheets/302-3801% 27WYNI-BKP-9%20PATIENT%2 0FACT%20SHEET.pdf Performing Laboratory:[facility] [place] [address] [facility])2019-10-15 01:33:00 Test Item Value Reference Range Interpretation Comments SARS-COV2/RT-PCR (test Not Detected Not Detected, Negative code = 8152740) SARS-COV-2 PERFORMING LAB [facility] (test code = 0095773) Negative results do not preclude SARS-CoV-2 infection [...] of the Act.Fact Sheet for Healthcare Pro viders:https://www.[employer]/Documents/Xpert%20Xpress%20SARS%20CoV-2/Fact%20Sh eets/302-3802%92JGJK-SPD-8%20HEALTHCARE%20PROVIDERS%20FACT%20SHEET.pdfFact Sheet for Healthcare Patients:https://www.[employer]/Documents/Xpert%20Xpress%20SARS%20CoV-2/Fact%20Sheets/302-4079%20SARS-COV -2%20PATIENT%20FACT%20SHEET.pdfPerforming Laboratory:[facility] [place] [address]
[2019-12-22 13:18] VITALS: BP 125/70; TEMP 97.7
--- NOTE | 2020-02-08 00:07 | OP ---
Date of Procedure: 12/22/2019 Surgeon: Luciano Braxton MD, Preoperative Diagnosis: Removal of nonfunctional PleurX catheters x2 in the right chest. Postoperative Diagnosis: Removal of nonfunctional PleurX catheters x2 in the right chest. Procedure Performed: Removal of nonfunctional PleurX catheters on the right side of chest/right thor acic cavity. Anesthesia: MAC plus local. Complications: None. Specimen: Cultures sent from catheter tips. Findings: Nonfunctional, clogged, obstructed catheters. Estimated Blood Loss: Less than 5 cc. Drains: None. Complications: None. Procedure In Detail: After informed consent was obtained, the patient was brought to the operating r oom, prepped and draped in the usual sterile fashion. After adequate anesthesia was achieved, I tunn eled the area of the right thoracic cavity around the chest tube cuffs around the PleurX catheters in the right thoracic space. I removed the catheters after removing the cuff circumferentially by diss ecting bluntly around the insertion sites. These came out quite easily with minimal anesthesia requi red. The tips were sent for culture and speciation at this time. I then cleansed, irrigated the rem aining removal sites and closed them with simple interrupted 2-0 nylon sutures and put a sterile dres sing on top. The patient tolerated the procedure well without evidence of complication and transferred back in good condition. All counts c orrect at the end of the case. YUE/VALE Voice ID: [id number] Report ID: [id number]
== END 2019-12-22 12:50 | disposition home health service (06) ==
LOC: OR 10:06
PROVIDERS: ATTEND Surgery
PROC: 0WP933Z Removal of Infusion Device from Right Pleural Cavity, Percutaneous Approach (ICD-10-PCS; principal; 2019-12-22 10:00)
DX: T85.9XXA Unspecified complication of internal prosthetic device, implant and graft, initial encounter (principal); Y83.8 Other surgical procedures as the cause of abnormal reaction of the patient, or of later complication, without mention of misadventure at the time of the procedure; C34.81 Malignant neoplasm of overlapping sites of right bronchus and lung; J90 Pleural effusion, not elsewhere classified; E03.9 Hypothyroidism, unspecified; I10 Essential (primary) hypertension; K21.9 Gastro-esophageal reflux disease without esophagitis; Z79.899 Other long term (current) drug therapy; Z88.1 Allergy status to other antibiotic agents; Z88.3 Allergy status to other anti-infective agents; Z11.59 Encounter for screening for other viral diseases
CPT/HCPCS: 32552; 87070; 87077; 87186; 71045; U0002; J0690; J7120

== ENCOUNTER 2019-12-27 17:42 | Emergency (ER) | payer OTHER ==
--- OUTSIDE RECORDS SUMMARY | 2019-12-27 17:44 | XMS REPORT | Clinical Summary ---
:1950 Author Organization [facility] Address [address] [place] [address] Care Team Providers Name Role Phone Unavailable Primary Care Provider Unavailable Allergies Not on File Medications Not on file Active Problems Not on file Encounters Date Type Specialty Care Team Description 10/15/2019 Lab Requisition Lab Bryce Lopez after 12/26/2018 Social History Tobacco Use Types Packs/Day Years [...] procedure are in the results section. after 12/26/2018 Results SARS-CoV2/RT-PCR ([facility]) (10/14/2019 4:27 PM CDT) SARS-COV2/RT-PCR Not Detected Not Detected, Negative [facility] SARS-COV-2 PERFORMING LAB [facility] Specimen Other Narrative Performed At Negative results [...] the Act. Fact Sheet for Healthcare Providers: https://www.[employer]/Documents/Xpert%20Xpre ss%20SARS%20CoV-2/Fact%20Sheets/3023802%20SAR S-COV-2%20HEALTHCARE%20PROVIDERS%20FACT%20SHEE T.pdf Fact Sheet for Healthcare Patients: https://www.[employer]/Documents/Xpert%20Xpre ss%20SARS%20CoV-2/Fact%20Sheets/398-3801%20SAR S-COV-2%20PATIENT%20FACT%20SHEET.pdf Performing Laboratory: [address] [place] [address] Performing Organization Address City/State/Zipcode Phone Number [facility] [address] [place] [phone] [address] after 12/26/2018
--- OUTSIDE RECORDS SUMMARY | 2019-12-27 17:44 | XMS REPORT | Clinical Summary ---
:1950 Author Organization [facility] Address [address] [place] [address] Care Team Providers Name Role Phone MD [...] states that she was taking Coreg at [facility] carvediloL (Coreg) Take 1 tablet 62 tablet 0 3.125 MG tablet (3.125 mg 0 020 total) by mouth 2 (two) times a day with meals for 31 days. Pt states that she was taking Coreg at [facility] gabapentin (NEURONTIN) Take 1 21 capsule 0 [...] TID for 7 days to patient's home [facility] pharmacy in [place], [place]. 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 [...] right 10/27/2019 Surgery Cardiothoracic Surgery Raulito Pascual [facility] Mirian KINCAID MD USING NAVIGATI ON, VERAN PROTOCOL, FNA, BRUSHINGS, BAL AND BIOPSY 10/27/2019 Anesthesia Event Cardiothoracic Surgery Real Cartagena MD 10/20/2019 - Hospital Encounter General Internal Raulito Pascual Pleur al effusion, right (Primary Dx); 10/29/2019 Medicine MD Mirian Pleural effusio n; Lung mass 10/19/2019 Intake Access after 12/26/2018 Family History Medical History Relation Name Comments [...] INFLUENZA VACCINE 01/29/2020 Implants Implanted Type 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 RI AN ELECTIVE Routine 10/27/2019 10:29 Results f [...] are i n the results section. after 12/26/2018 Results XR Chest 2 Vw (11/16/2019) Narrative [...] silhouette are un changed and unremarkable. Osteopenia. [facility] Procedure Note Hm Interface, Radiology Results Incoming [...] isa houette are unchanged and unremarkable. Osteopenia. [facility] Performing Organization Address City/State/Zipcode Phone Number [facility] [address] [place] [address] CBC with platelet and differential (10/29/2019 6:30 AM CDT)Only the most recent of10 resultswithin the time period is included. WBC 17.49 (H) 4.50 - 11.00 [facility] k/uL [facility] RBC 3.46 (L) 4.20 - 5.50 [facility] m/uL [facility] HGB 9.6 (L) 12.0 - 16.0 [facility] g/dL [facility] HCT 30.8 (L) 37.0 - 47.0 % [facility] MCV 89.0 82.0 - 100.0 [facility] MCH 27.7 27.0 - 34.0 pg [facility] MCHC 31.2 31.0 - 37.0 [facility] g/dL [facility] RDW - SD 43.7 37.0 - 55.0 fL [facility] MPV 9.4 8.8 - 13.2 fL [facility] Platelet count 429 (H) 150 - 400 k/uL [facility] Nucleated RBC 0.00 /100 WBC [facility] Neutrophils 76.9 (H) 39.0 - 69.0 % [facility] Lymphocytes 13.2 (L) 25.0 - 45.0 % [facility] Monocytes 5.4 0.0 - 10.0 % [facility] Eosinophils 3.0 0.0 - 5.0 % [facility] Basophils 0.4 0.0 - 1.0 % [facility] Immature granulocytes 1.1 0.0 - 1.0 % [facility] (H)Comment: HOSPITAL "Immature granulocytes" (promyelocytes , myelocytes, metamyelocytes ) Specimen Blood Performing Organization Address City/State/Zipcode Phone Number [facility] DEPARTMENT OF PATHOLOGY AND [address] [place] [phone] [place] [address] Estimated GFR (10/29/2019 4:00 AM CDT)Only the most recent of9 resultswithin the time period is included. Estimated GFR 69 mL/min/1.73 [facility] Comment: HOSPITAL Catergory Units Interpretation G1 >=90 [...] published in 2014. Specimen Performing Organization Address City/[facility] Phone Number [facility] DEPARTMENT OF PATHOLOGY AND [address] [place] [phone] [place] [address] Phosphorus level (10/29/2019 4:00 AM CDT)Only the most recent of8 resultswithin the time period is included. Pathologist Sig nature Phosphorus 3.7 2.4 - 4.5 mg/dL [facility] L Specimen Blood Performing Organization Address City/State/Zipcode Phone Number [facility] DEPARTMENT OF PATHOLOGY AND [address] [place] [address] [phone] [address] Magnesium level (10/29/2019 4:00 AM CDT)Only the most recent of9 resultswithin the time period is included. Pathologist Sig nature Magnesium 1.8 1.6 - 2.4 mg/dL [facility] L Specimen Blood Performing Organization Address [facility]/[place] Phone Number [facility] DEPARTMENT OF PATHOLOGY AND [address] [place] [address] [phone] [address] Basic metabolic panel (10/29/2019 4:00 AM CDT)Only the most recent of9 results within the time period is included. Pathologist Sig nature Sodium 141 135 - 148 mEq/L [facility] L Potassium 3.4 (L) 3.5 - 5.0 mEq/L [facility] L Chloride 103 98 - 112 mEq/L [facility] CO2 28 24 - 31 mEq/L [facility] Anion gap 10@ANIO 7 - 15 mEq/L [facility] BUN 8 8 - 23 mg/dL [facility] Creatinine 0.86 0.50 - 0.90 mg/dL [facility] Glucose 84 65 - 99 mg/dL [facility] Calcium 8.5 (L) 8.8 - 10.2 mg/dL [facility] Specimen Blood Performing Organization Address [facility]/[place] Phone Number [facility] DEPARTMENT OF PATHOLOGY AND [address] [place] [address] [address] Smear review (10/28/2019 4:15 AM CDT) Platelet slide review Increased (A) [facility] Anisocytosis Moderate [facility] Ovalocytes Moderate [facility] Enlarged platelets Moderate (A) [facility] Giant platelets Occasional [facility] Specimen Performing Organization Address City/[facility]/Zipcode Phone Number [facility] DEPARTMENT OF PATHOLOGY AND [address] [place], [place] [phone] [address] [address] Surgical pathology request (10/27/2019 1:12 PM CDT) [facility] DEPARTMENT OF PATHOLOGY AND GENOMIC MEDICINE Surgical pathology See link below [facility] DEPARTMENT OF report for PDF Lab PATHOLOGY AND Report GENOMIC MEDICINE Result status This is Final [facility] DEPARTMENT OF Report for PATHOLOGY AND [id number] GENOMIC MEDICINE Specimen Performing Organization Address City/[facility]/Zipcode Phone Number [facility] DEPARTMENT OF PATHOLOGY AND [address] [place] [phone] [facility] Cytology (non-gynecological) request (10/27/2019 12:23 PM CDT)Only the most recent of10 resultswithin the time period is included. [facility] DEPARTMENT OF PATHOLOGY AND GENOMIC MEDICINE Cytology See link below for [facility] DEPARTMENT OF (non-gynecological PDF Lab Report PATHOLOGY AND ) report GENOMIC MEDICINE Result status This is Supplemental [facility] DEPARTMENT OF Report for PATHOLOGY AND [id number] GENOMIC MEDICINE Specimen Narrative Performed At [employer] [facility] DEPARTMENT OF PATHOLOGY AND GENOMIC BRAF, EGFR, LUNG NGS, KRASM METFISH, MEDICINE [id number] DOS 10/27/2019 Performing Organization Address City/[facility]/[place] Phone Number [facility] DEPARTMENT OF PATHOLOGY AND [address] [place] [phone] [facility] Respiratory culture (10/27/2019 12:04 PM CDT)Only the most recent of2 results within the time period is included. Respiratory culture No growth after 2 days. [facility] THODIST isolate Comment: HOSPITAL Specimen Information Specimen Source: Bronchial Washing Specimen Site: Lung: RLL Specimen Bronchial washing - Lung Performing Organization Address City/[facility]/[place] Phone Number [facility] DEPARTMENT OF PATHOLOGY AND [address] [place] [address] [phone] [address] Fungus smear (10/27/2019 12:04 PM CDT)Only the most recent of3 resultswithin the time period is included. Pathologist Sig nature Fungus smear No fungi observed. [facility] Comment: HOSPITAL Specimen Information Specimen Source: Bronchial Washing Specimen Site: Lung: RLL Specimen Bronchial washing Performing Organization Address City/[facility]/Zipcode Phone Number [facility] DEPARTMENT OF PATHOLOGY AND [address] [place] [address] [phone] [address] AFB culture (10/27/2019 12:04 PM CDT)Only the most recent of3 resultswithin the time period is included. AFB culture No growth after 6 weeks of incubation. [facility] JAIN isolate Comment: HOSPITAL Specimen Information Specimen Source: Bronchial Washing Specimen Site: Lung: RLL Specimen Bronchial washing - Lung Performing Organization Address City/[facility]/[place] Phone Number [facility] DEPARTMENT OF PATHOLOGY AND [address] [place] [address] [phone] [address] Gram stain (10/27/2019 12:04 PM CDT)Only the most recent of4 resultswithin the time period is included. Gram stain isolate Few WBC's [facility] No organisms seen HOSPITAL Comment: Specimen Information Specimen Source: Bronchial Washing Specimen Site: Lung: RLL Specimen Bronchial washing Performing Organization Address [facility]/[place] Phone Number [facility] DEPARTMENT OF PATHOLOGY AND [address] [place] [address] [phone] [address] AFB stain (10/27/2019 12:04 PM CDT)Only the most recent of3 resultswithin the time period is included. Pathologist Sig nature AFB stain No acid fast bacilli (AFB) seen. [facility] Comment: HOSPITAL Specimen Information Specimen Source: Bronchial Washing Specimen Site: Lung: RLL Specimen Bronchial washing Performing Organization Address [facility] Phone Number [facility] DEPARTMENT OF PATHOLOGY AND [address] [place] [address] [phone] [address] Fungus culture (10/27/2019 12:04 PM CDT)Only the most recent of3 resultswithin the time period is included. Fungus culture No growth after 4 weeks of incubation. [facility] isolate Comment: HOSPITAL Specimen Information Specimen Source: Bronchial Washing Specimen Site: Lung: RLL Specimen Bronchial washing - Lung Performing Organization Address City/[facility]/Zipcode Phone Number [facility] DEPARTMENT OF PATHOLOGY AND [address] [place] [address] [phone] [address] Airway (10/27/2019 10:29 AM CDT) Narrative Performed At Laly Vera 2019 10:48 AM Airway Date/Time: 10/27/2019 10:18 AM Performed by: Laly Vera so Authorized by: Laly Vera sso Location: OR Urgency: Elective Difficult Airway: No Anesthesiologist: Real Cartagena MD Resident/MEDICAL DOCTOR MD/AA: Laly Vera Performed by: resident/MEDICAL DOCTOR MD/AA Preoxygenated with 100% O2: Yes Mask Ventilation: [...] Preoxygenation times five minutes on 100% FiO2. [place] h IV induction. Eyes taped after loss [...] is indeterminate. Consider MRI to further evaluate. [id number] Procedure Note Hm Interface, Radiology Results Incoming [...] is indeterminate. Consider MRI to further evaluate. [id number] Performing Organization Address [facility] Phone Number [address] [address] Partial thromboplastin time, activated (10/27/2019 4:00 AM CDT)Only the most recent of3 resultswithin the time period is included. PTT 36.6 (H) 23.0 - 36.0 [facility] Comment: [facility] PTT therapeutic range for unfractionated heparin is 61.0-112.0 seconds which corresponds to Anti-Xa 0.3-0.7 U/ml. Specimen Blood Performing Organization Address [facility] Phone Number [facility] DEPARTMENT OF PATHOLOGY AND [address] [place] [phone] [facility]OMIC MEDICINE [address] [address] Prothrombin time with INR (10/27/2019 4:00 AM CDT)Only the most recent of3 resultswithin the time period is included. Prothrombin time 15.2 (H) 11.5 - 14.5 [facility] INR 1.2 [place] Comment: JAIN [facility] International Normalized Ratio (INR) is a [facility]OSPITAL monitoring tool for patients who are stable on oral anticoagulant therapy. An INR of 2.0-3.0 is suggested for deep vein thrombosis/pulmonary embolism. Specimen Blood Performing Organization Address [facility]/[place] Phone Number [facility] DEPARTMENT OF PATHOLOGY AND [address] [place] [address] [phone] [address] Type and screen (10/27/2019 4:00 AM CDT)Only the most recent of3 resultswithin the time period is included. Pathologist Sig nature ABO grouping O [facility] Rh type POS [facility] Antibody screen (gel) NEG [facility] Specimen Blood Performing Organization Address City/[facility] Phone Number [facility] DEPARTMENT OF PATHOLOGY AND [address] [place] [phone] [facility] [address] [place] [phone] Urinalysis screen and microscopy, with reflex to culture (10/26/2019 6:15 PM CDT)Only the most recent of2 resultswithin the time period is included. Pathologist Sig nature Specimen site Clean catch [facility] Color, UA Yellow [facility] Appearance, UA Clear [facility] Specific gravity, 1.009 1.001 - 1.035 [facility] pH, UA 5.0 5.0 - 8.5 [facility] Protein, UA Negative Negative [facility] Glucose, UA Negative Negative [facility] Ketones, UA Negative Negative [facility] Bilirubin, UA Negative Negative [facility] Blood, UA Small (A) Negative [facility] Nitrite, UA Negative Negative [facility] Urobilinogen, UA <2.0 <2.0 [facility] Leukocyte esterase, Negative Negative [facility] WBC, UA 1 0 - 4 /HPF [facility] RBC, UA <1 0 - 5 /HPF [facility] Bacteria, UA Few None seen [facility] Yeast, UA None seen [facility] Yeast with None seen [facility] pseudohyphae, [facility] Granular casts, UA 1 0 - 1 /LPF [facility] Hyaline casts, UA 3 /LPF [facility] Specimen Urine Performing Organization Address City/[facility]/[place] Phone Number [facility] DEPARTMENT OF PATHOLOGY AND [address] [place] [address] [phone] [address] Urine culture (10/26/2019 6:15 PM CDT)Only the most recent of2 resultswithin the time period is included. Pathologist Sig nature Urine culture SEE COMMENTComment: [facility] Bacteriuria screen HOSPITAL negative. Specimen Performing Organization Address City/State/Zipcode Phone Number [facility] DEPARTMENT OF PATHOLOGY AND [address] [place], [place] [phone] GENOMIC MEDICINE [facility] [address] [place] [address] CT Chest Wo Contrast (10/26/2019 8:32 AM [...] None. SUMMARY: 1.A Veran protocol was utilized. [id number] Procedure Note Hm Interface, Radiology Results Incoming [...] None. SUMMARY: 1.A Veran protocol was utilized. [id number] Performing Organization Address [facility] Phone Number [address] [phone] Blood culture, aerobic & anaerobic (10/25/2019 10:12 AM CDT)Only the most recent of4 resultswithin the time period is included. Pathologist Violeta Blood culture No growth after 5 days of incubation. ZULEIMA BARONE isolate Comment: HOSPITAL Specimen Information Specimen Source: Blood Specimen Site: Forearm, left Specimen Blood - Forearm, left Performing Organization Address [facility] Phone Number [facility] DEPARTMENT OF PATHOLOGY AND [address] [place] [address] [phone] [address] Vancomycin level, random (10/25/2019 10:10 AM CDT) Pathologist Sig nature Vancomycin, random 25.7 ug/mL [facility] HOSP ITAL Specimen Serum Performing Organization Address [facility]/[place] Phone Number [facility] DEPARTMENT OF PATHOLOGY AND [address] [place] [address] [phone] [address] Vancomycin level, trough (10/22/2019 8:00 AM CDT) Pathologist Violeta Vancomycin, 17.2 10.0 - 20.0 [facility] trough Comment: ug/mL HOSPITAL Therapeutic Ranges: Peak 30.0 - 40.0 ug/mL Trough 10.0 - 20.0 ug/mL Specimen Serum Performing Organization Address City/[facility]/Zipcode Phone Number [facility] DEPARTMENT OF PATHOLOGY AND [address] [place] [address] [phone] [address] Ionized calcium (10/22/2019 4:53 AM CDT)Only the most recent of2 resultswithin the time period is included. Pathologist Sig nature pH 7.43 [facility] Ionized calcium 1.16 1.11 - 1.32 mmol/L [facility] Specimen Blood Performing Organization Address City/[facility]/[place] Phone Number [facility] DEPARTMENT OF PATHOLOGY AND [address] [place] [address] [place] [address] Sputum culture (10/21/2019 5:20 PM CDT) Sputum culture Normal oral breana isolated. SHAYNA ACEVEDO HODDAYANNA isolate Comment: HOSPITAL Specimen Information Specimen Source: Sputum Specimen Site: Expectorated Specimen Sputum - Expectorated Performing Organization Address City/[facility]/[place] Phone Number [facility] DEPARTMENT OF PATHOLOGY AND [address] [place] [address] [phone] [address] Aerobic culture (10/21/2019 5:15 PM CDT) Aerobic culture No growth after 3 days. SHAYNA HARDWICK IST isolate Comment: HOSPITAL Specimen Information Specimen Source: Pleural fluid Specimen Site: Not specified Specimen Pleural fluid - Not specified Performing Organization Address City/[facility]/[place] Phone Number [facility] DEPARTMENT OF PATHOLOGY AND [address] [place] [address] [phone] [address] Anaerobic culture (10/21/2019 5:15 PM CDT) Anaerobic culture No anaerobic organisms isolated. SHEN BARONE isolate Comment: HOSPITAL Specimen Information Specimen Source: Pleural fluid Specimen Site: Not specified Specimen Pleural fluid - Not specified Performing Organization Address City/[facility]/Zipcode Phone Number [facility] DEPARTMENT OF PATHOLOGY AND [address] [place] [address] [phone] [place] [address] IR Tunneled Pleura Catheter (10/21/2019 4:47 PM CDT) Specimen Narrative Performed At Performing Radiologist KELLI Davis MD Assistants None Anesthesia Type Moderate sedation was administered by the procedure nu rse and monitored intraservice [id number] by the procedure physician f or 27 [...] fluid. This catheter is ready for use. [facility]-[id number] Procedure Note Interface, Radiology Results Incoming - 10/21/2019 5:31 PM CDT Performing Radiologist Ryan Davis MD Assistants None Anesthesia Type Moderate sedation was administered by e procedure nurse and monitored intraservice [id number] by the procedure physician for 27 minutes. [...] fluid. This catheter is ready for use. [facility]-[id number] Performing Organization Address City/State/Zipcode Phone Number [address] [address] Respiratory pathogen panel (10/20/2019 6:30 PM CDT) Pathologist [facility] Adenovirus PCR Not Detected [place] Comment: JAIN Specimen Information HOSPITAL Specimen Source: Nares Specimen Site: Not specified Coronavirus HKU1 PCR Not Detected [facility] Coronavirus NL63 PCR Not Detected [facility] Coronavirus 229E PCR Not Detected [facility] Coronavirus OC43 PCR Not Detected [facility] Human metapneumovirus Not Detected [facility] Human Detected (A) [place] rhinovirus/enterovirus [facility] Influenza A PCR Not Detected [facility] Influenza A/H1 PCR Not Reported [facility] Influenza A/H3 PCR Not Reported [facility] Influenza A/H1-2009 PCR Not Reported [facility] Influenza B PCR Not Detected [facility] Parainfluenza virus 1 Not Detected [facility] Parainfluenza virus 2 Not Detected [facility] Parainfluenza virus 3 Not Detected [facility] Parainfluenza virus 4 Not Detected [facility] Respiratory syncytial Not Detected [place] virus PCR [facility] Bordetella pertussis Not Detected [facility] Bordetella Not Detected [place] parapertussis PCR [facility] Chlamydia pneumoniae Not Detected [facility] Mycoplasma pneumoniae Not Detected [facility] Influenza A no sub type Not Reported [facility] Specimen Nares - Not specified Performing Organization Address City/[facility]/Zipcode Phone Number [facility] DEPARTMENT OF PATHOLOGY AND [address] [place] [phone] GENOMIC MEDICINE [address] [address] Lactic acid level (10/20/2019 1:00 PM CDT) Pathologist Sig nature Lactic acid 1.5 0.5 - 2.2 mmol/L [facility] Specimen Blood Performing Organization Address City/State/Zipcode Phone Number [facility] DEPARTMENT OF PATHOLOGY AND [address] [place] [address] [phone] [address] Hepatic function panel (10/20/2019 1:00 PM CDT) Albumin 2.4 (L) 3.5 - 5.0 [facility] g/dL HOSPITAL Total bilirubin 0.5 0.0 - 1.2 [facility] mg/dL [facility] Bilirubin direct <0.2 0.0 - 0.3 [facility] mg/dL HOSPITAL Alkaline phosphatase 92 35 - 104 U/L [facility] Protein 5.4 (L) 6.3 - 8.3 [facility] Comment: g/dL HOSPITAL - 4.6-7.0 g/dL 1 week 4.4-7.6 g/dL 7 months-1year 5.1-7.3 g/dL 1-2 years 5.6-7.5 g/dL >3 years 6.0-8.0 g/dL 18-150 6.3-8.3 g/dL ALT 16 5 - 50 U/L [facility] AST 15 10 - 35 U/L [facility] Specimen Blood Performing Organization Address [facility]/[place] Phone Number [facility] DEPARTMENT OF PATHOLOGY AND [address] [place] [address] [phone] [address] XR Chest External Study (10/19/2019 1:00 PM CDT)Only the most recent of4 resultswithin the time period is included. Specimen Narrative Performed At This exam was not acquired at a [facility] facility and has not been [facility] interpreted by a [facility] Provider. T he exam was imported into our imaging system. Performing Organization Address City/State/Zipcode Phone Number [facility] [address] [place] [id number] [place] Vascular External Study (10/15/2019 9:57 AM CDT) Specimen Narrative Performed At This exam was not acquired at a [facility] facility and has not been [facility] interpreted by a [facility] Provider. T he exam was imported into our imaging system. Performing Organization Address City/State/Zipcode Phone Number [employer] [facility] [address] [place] [address] CT Chest External Study (10/14/2019 8:08 PM CDT) Specimen Narrative Performed At This exam was not acquired at a [facility] facility and has not been [facility] interpreted by a [facility] Provider. T he exam was imported into our imaging system. 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
--- OUTSIDE RECORDS SUMMARY | 2019-12-27 17:46 | XMS REPORT | Continuity of Care Document ---
:1950 Author Organization Formerly [facility] t Address [address] [place] [place] [address] Care Team Providers Name Role Phone Jessica LOZANO Primary Care Physician Ankur LOZANO, Y.H. Attending Clinician Jacob ZAMUDIO M. Attending Clinician Provider Attending Clinician Osiel LOZANO, W. Attending Clinician Pam Lopez Attending Clinician Magdiel LOZANO, S Attending Clinician ANKUR Admitting Clinician Unavailable Payers Payer Name Policy Policy Number Effective Expiration Source Type Date Date MEDICAREMEDICARE PART xxxxxxxxxxx 2016 [facility] A AND 00:00:00 [place] xxxxxxxxx [address] [facility] [place], [place] 00:00:00 Mormon INDEMNITYxxxxxxxxx2/-PresentIndemnit y Problems Condition Condition Condition Status Onset Resolution Last Treating Co mments Source Name Details Category Date Date Treatment Clinician Date Lung mass Lung mass Disease Active Derik ston 4-28 [facility] 00:00: st 00 Pleural Pleural Disease Active [place] effusion, effusion, 4-22 Meth mackenzie right right 00:00: st 00 Allergies, Adverse Reactions, Alerts Allergy Allergy Status Severity Reaction(s) Onset Inactive Treating Comm ents Source Name Type Date Date Clinician Clinjodie Augusteensi Active Rash 2019-0 Rash to [place] on casandra ty to 10-19 hands, Methodi adverse 00:00: per pt st reaction 00 s to drug Levoflox Propensi Active Rash 2019-0 [place] ty to 10-19 Methodi adverse 00:00: st reaction 00 s to drug Family History Family Member Diagnosis Comments Start Date Stop Date Source Natural father Hypertension Rodriguez Mormon Natural mother Hypertension [place] Paternal grandfather Cancer [place] Social History Social Habit Start Date Stop Date Quantity Comments Source Sex Assigned At [place] M ethodist Alcohol intake 2019-10-29 2019-10-29 Ex-drinker [facility] thodist 00:00:00 00:00:00 (finding) Smoking Status Start Date Stop Date Source Never smoker [place] t Medications Ordered Filled Start Stop Current Ordering Indication Dosage Frequency Signature Comments Components Source Medication Medication Date Date Medication? Clinician (SIG) Name Name gabapentin 2020-0 2020- No 300mg Q.[id number] Take 1 [place] (NEURONTIN) 11-02 05-13 [id number] capsule Methodi 300 mg 00:00: 23:59 3D [...] sleep. carvedilol 2019- No Take by Derik youngerdemetra (COREG 10-28 mouth. Pt Methodi ORAL) 16:28: 00:[address] 27 :00 that she was taking Coreg at [facility] carvediloL 2019- No 3.125mg Q.5D Take 1 [place] (Coreg) 10-28 tablet Methodi 3.125 MG 00:00: 23:59 (3.[address] tablet 00 :00 total) by mouth 2 (two) times a day with meals for 31 days. Pt states that she was taking Coreg at [facility] Vital Signs Vital Name Observation Time Observation [...] Maya Caballero MAGNESIUM LEVEL 2019-10-29 04:00:00 AdaMaya Rodriguez Meth odist PHOSPHORUS LEVEL 2019-10-29 04:00:00 AdaАндрейmadeline Rodriguez Met hodist ESTIMATED GFR 2019-10-29 04:00:00 Raulito Pascual Me thodist XR CHEST 1 VW PORTABLE 2019-10-28 06:20:00 Maya Caballero on Mormon HC COMPLETE BLD COUNT 2019-10-28 04:15:00 Maya Caballero W/AUTO DIFF SMEAR REVIEW 2019-10-28 04:15:00 Raulito Pascual Me thodist BASIC METABOLIC PANEL 2019-10-28 04:00:00 Maya Caballero MAGNESIUM LEVEL 2019-10-28 04:00:00 AdaMaya Michael Meth odist PHOSPHORUS LEVEL 2019-10-28 04:00:00 AdaMaya Michael Met hodist ESTIMATED GFR 2019-10-28 04:00:00 Raulito Pascual Ma thodist XR CHEST 1 VW PORTABLE 2019-10-27 13:12:34 Maya Caballero on Mormon SURGICAL PATHOLOGY 2019-10-27 13:12:00 Raulito Pascual Mormon REQUEST CYTOLOGY 2019-10-27 12:23:00 Raulito Pascual Ma thodist (NON-GYNECOLOGICAL) REQUEST CYTOLOGY 2019-10-27 12:21:00 Raulito Pascual Ma thodist (NON-GYNECOLOGICAL) REQUEST FUNGUS CULTURE 2019-10-27 12:04:00 Raulito Pascual Ma thodist AFB CULTURE 2019-10-27 12:04:00 Raulito Pascual Ma thodist RESPIRATORY CULTURE 2019-10-27 12:04:00 Raulito Pascual AFB STAIN 2019-10-27 12:04:00 Raulito Pascual Ma thodist GRAM STAIN 2019-10-27 12:04:00 Raulito Pascual Me thodist CYTOLOGY 2019-10-27 12:02:00 Raulito Pascual Ma thodist (NON-GYNECOLOGICAL) REQUEST CYTOLOGY 2019-10-27 11:52:00 Raulito Pascual Ma thodist (NON-GYNECOLOGICAL) REQUEST FUNGUS CULTURE 2019-10-27 11:35:00 Raulito Pascual Ma thodist AFB CULTURE 2019-10-27 11:35:00 Raulito Pascaul Ma thodist RESPIRATORY CULTURE 2019-10-27 11:35:00 Raulito Pascual Mormon AFB STAIN 2019-10-27 11:35:00 Raulito Pascual Ma thodist GRAM STAIN 2019-10-27 11:35:00 Raulito Pascual Ma thodist CYTOLOGY 2019-10-27 10:40:00 Raulito Pascual Ma thodist (NON-GYNECOLOGICAL) REQUEST [place] AN ELECTIVE 2019-10-27 10:29:45 Laly Vera Ma thodist ENDOTRACHEAL AIRWAY [place] CT CHEST W CONTRAST 2019-10-27 08:41:13 Chuckie Rai Mormon BASIC METABOLIC PANEL 2019-10-27 04:00:00 Chuckie Rai Mormon CBC WITH PLATELET AND 2019-10-27 04:00:00 Chuckie Rai DIFFERENTIAL MAGNESIUM LEVEL 2019-10-27 04:00:00 Chuckie Rai Ma thodist PHOSPHORUS LEVEL 2019-10-27 04:00:00 Chuckie Rai ethodist PARTIAL THROMBOPLASTIN 2019-10-27 04:00:00 Chuckie Rai Derik ston Mormon TIME (PTT) PROTHROMBIN TIME WITH INR 2019-10-27 04:00:00 Chuckie Rai TYPE AND SCREEN 2019-10-27 04:00:00 Chuckie Rai Ma thodist ESTIMATED GFR 2019-10-27 04:00:00 Raulito Pascual Ma thodist URINE CULTURE 2019-10-26 18:15:00 Raulito Pascual Ma thodist URINALYSIS SCREEN AND 2019-10-26 18:15:00 Chuckie Rai Mormon MICROSCOPY, WITH REFLEX TO CULTURE CT CHEST WO CONTRAST 2019-10-26 08:32:20 Chuckie Rai on Mormon HC COMPLETE BLD COUNT 2019-10-26 06:55:00 Chuckie Rai Mormon W/AUTO DIFF BASIC METABOLIC PANEL 2019-10-26 06:55:00 AdaMayaroma n Mormon MAGNESIUM LEVEL 2019-10-26 06:55:00 AdaMaya Meth odist PHOSPHORUS LEVEL 2019-10-26 06:55:00 DiabMaya Met hodist ESTIMATED GFR 2019-10-26 06:55:00 Raulito Pascual Me thodist XR CHEST 1 VW PORTABLE 2019-10-26 06:15:00 Ada Maya Estrada on Mormon CYTOLOGY 2019-10-25 11:07:00 Raulito Pascual Me thodist (NON-GYNECOLOGICAL) REQUEST BLOOD CULTURE, AEROBIC & 2019-10-25 10:12:00 Chuckie Rai ANAEROBIC VANCOMYCIN LEVEL, RANDOM 2019-10-25 10:10:00 Chuckie Rai BLOOD CULTURE, AEROBIC & 2019-10-25 10:05:00 Chuckie Rai ANAEROBIC HC COMPLETE BLD COUNT 2019-10-25 07:24:00 Chuckie Rai W/AUTO DIFF BASIC METABOLIC PANEL 2019-10-25 07:24:00 Raulito Pascual Mormon MAGNESIUM LEVEL 2019-10-25 07:24:00 Raulito Pascual Me thodist ESTIMATED GFR 2019-10-25 07:24:00 Raulito Pascual Me thodist XR CHEST 1 VW PORTABLE 2019-10-25 06:25:00 Mary Carmen Gabriel Mormon XR CHEST 1 VW PORTABLE 2019-10-24 08:15:00 Chuckie Rai HC COMPLETE BLD COUNT 2019-10-24 05:20:00 Chuckie Rai Mormon W/AUTO DIFF XR CHEST 1 VW PORTABLE 2019-10-23 06:40:00 Ricky Moreira Mormonfarheen Lopez BASIC METABOLIC PANEL 2019-10-23 05:40:00 Ricky Moreira on Mormon John HC COMPLETE BLD COUNT 2019-10-23 05:40:00 Ricky Moreira on Mormon W/AUTO DIFF John MAGNESIUM LEVEL 2019-10-23 05:40:00 Ricky Moreira Met todd Lopez PHOSPHORUS LEVEL 2019-10-23 05:40:00 Ricky Moreira Me charisunil John ESTIMATED GFR 2019-10-23 05:40:00 Raulito Pascual Ma thodist XR CHEST 1 VW PORTABLE 2019-10-22 16:31:39 Ricky Moreira VANCOMYCIN LEVEL, TROUGH 2019-10-22 08:00:00 Ricky Moreira XR CHEST 1 VW PORTABLE 2019-10-22 06:32:00 Ricky Moreira BASIC METABOLIC PANEL 2019-10-22 04:53:00 Ricky Moreira on Kelly Lopez HC COMPLETE BLD COUNT 2019-10-22 04:53:00 Ricky Moreira on Mormon W/AUTO DIFF John IONIZED CALCIUM 2019-10-22 04:53:00 Ricky Moreira Met todd Lopez MAGNESIUM LEVEL 2019-10-22 04:53:00 Ricky Moreira Met todd Lopez PHOSPHORUS LEVEL 2019-10-22 04:53:00 Ricky Moreira Ma charimackenzie John ESTIMATED GFR 2019-10-22 04:53:00 Raulito Pascual Ma thodist SPUTUM CULTURE 2019-10-21 17:20:00 Raulito Pascual Me thodist GRAM STAIN 2019-10-21 17:20:00 Raulito Pascual Ma thodist AEROBIC CULTURE 2019-10-21 17:15:00 Raulito Pascual Ma thodist FUNGUS CULTURE 2019-10-21 17:15:00 Raulito Pascual Ma thodist ANAEROBIC CULTURE 2019-10-21 17:15:00 Raulito Pascual Mormon AFB CULTURE 2019-10-21 17:15:00 Raulito Pascual Me thodist GRAM STAIN 2019-10-21 17:15:00 Raulito Pascual Ma thodist AFB STAIN 2019-10-21 17:15:00 Raulito Pascual Ma thodist CYTOLOGY 2019-10-21 17:15:00 Raulito Pascual Ma thodist (NON-GYNECOLOGICAL) REQUEST IR TUNNELED PLEURAL 2019-10-21 16:47:00 Riccardo Marlow Mormon CATHETER CBC WITH PLATELET AND 2019-10-21 05:50:00 Ricky Moreira on Mormon DIFFERENTIAL John BASIC METABOLIC PANEL 2019-10-21 05:50:00 Ricky Moreira on Kelly Lopez MAGNESIUM LEVEL 2019-10-21 05:50:00 Ricky Moreira Met hodfarheen Lopez PHOSPHORUS LEVEL 2019-10-21 05:50:00 Ricky Moreira Me christiano Lopez PROTHROMBIN TIME WITH INR 2019-10-21 05:50:00 Steve Silva PARTIAL THROMBOPLASTIN 2019-10-21 05:50:00 Steve Silva on Mormon TIME (PTT) ESTIMATED GFR 2019-10-21 05:50:00 Raulito Pascual Ma thodist URINE CULTURE 2019-10-20 22:30:00 Raulito Pascual Ma thodist URINALYSIS SCREEN AND 2019-10-20 22:30:00 Ricky Moreira on Mormon MICROSCOPY, WITH REFLEX John TO CULTURE TYPE AND SCREEN 2019-10-20 21:45:00 Raulito Pascual Ma thodist BLOOD CULTURE, AEROBIC & 2019-10-20 19:00:00 Ricky Moreira ANAEROBIC John RESPIRATORY PATHOGEN 2019-10-20 18:30:00 Steve Silva PANEL BLOOD CULTURE, AEROBIC & 2019-10-20 18:30:00 Ricky Moreira ANAEROBIC John CT CHEST W CONTRAST 2019-10-20 18:28:00 Steve Silva BASIC METABOLIC PANEL 2019-10-20 13:00:00 Ricky Moreira on Kelly Lopez HC COMPLETE BLD COUNT 2019-10-20 13:00:00 Ricky Moreira on Mormon W/AUTO DIFF John HEPATIC FUNCTION PANEL 2019-10-20 [...] Lopez ESTIMATED GFR 2019-10-20 13:00:00 Raulito Pascual Ma christiano XR CHEST 1 VW PORTABLE 2019-10-20 12:55:00 Ricky Moreira XR CHEST EXTERNAL STUDY 2019-10-19 13:00:00 Raulito Pascual XR CHEST EXTERNAL STUDY 2019-10-17 09:56:00 Raulito Pascual Mormon XR CHEST EXTERNAL STUDY 2019-10-15 15:08:00 Raulito Pascual US VASCULAR EXTERNAL 2019-10-15 09:57:00 Raulito Pascualist STUDY XR CHEST EXTERNAL STUDY 2019-10-14 20:41:[address] CHEST EXTERNAL STUDY 2019-10-14 20:08:00 Raulito Pascual SARS-COV2/RT-PCR ([facility] & 2019-10-14 16:27:[address] [facility] Plan of Care Planned Activity Planned Date Details Comments Source Future Scheduled 2020-01-29 INFLUENZA VACCINE [place] Test 00:00:00 [code = INFLUENZA VACCINE] Future Scheduled 2016 65+ PNEUMOCOCCAL Michael Mormon Test 00:00:00 VACCINE (1 of 2 - PCV13) [code = 65+ PNEUMOCOCCAL VACCINE (1 of 2 - PCV13)] Future Scheduled 2001 BREAST CANCER Rodriguez Me thodist Test 00:00:00 SCREENING [code = BREAST CANCER SCREENING] Future Scheduled 2001 COLONOSCOPY SCREENING Ho mildred Mormon Test 00:00:00 [code = COLONOSCOPY SCREENING] Future Scheduled 2001 SHINGLES VACCINES (#1) [place] Test 00:00:00 [code = SHINGLES VACCINES (#1)] Encounters Start End Encounter Admission Attending Care Care Encounter Source Date/Time Date/Time Type Type Clinicians Facility Department ID 2019-10-20 2019-10-29 Inpatient [facility] 027 [id number] [address] [place] 00:00:00 00:00:[address] [place] [address] 2019-08-03 2019-08-03 Office [facility] [id number] 12:51:30 13:10:35 Visit Stefania Garland [id number] [place] [id number] [facility] [id number] nal 377 Building Results Test Description Test Time Test Comments Results Result Comments Source AFB culture 2019-12-09 00:13:28 Test Item Value Reference Range Interpretation Comme nts AFB culture isolate No growth after 6 weeks of Specimen InformationSpecimen (test code = 543-9) incubation. Source: Bronchial WashingSpecimen Site: Lung: RLL Michael MethodistFungus [id number] 00:15:15 Test Item Value Reference Range Interpretation Comments Fungus culture No growth Specimen isolate (test after 4 weeks InformationSp ecimen code = 1441) of Source: Bronchi al incubation. WashingSpecimen Site: Lung: RLL Michael MethodistCytology (non-gynecological) [id number] 15:08:10 Test Item Value Reference Range Interpretation Comments Case number (test [id number] code = [id number]) Cytology See link below for PDF (non-gynecological) Lab Report report (test code = 1178) Result status (test This is Supplemental code = 1216264) Report for [id number] RISA (test code = RISA) NEOGENOMICSBRAF, EGFR, LUNG NGS, KRASM METFISH, [id number] 10/27/2019 [place] MethodistBlood culture, aerobic & [id number] 11:33:05 Test Item Value Reference Range Interpretation Comments Blood culture No growth Specimen isolate (test after 5 days InformationSpe cimen code = 600-7) of Source: BloodS pecimen incubation. Site: Forearm, left [place] MethodistRespiratory [id number] 13:42:39 Test Item Value Reference Range Interpretation Comments Respiratory No growth Specimen culture isolate after 2 InformationS pecimen (test code = days. Source: Bronchi al 60005-2) WashingSpecimen Site: Lung: RLL [place] MethodistXR Chest 1 Vw [id number] 12:30:05Hm Interface, Radiology Results - 10/29/2019 12:33 [...] and cardiac silhouette are unchanged and unremarkable.Osteopenia. [facility] MethodistBasic metabolic [id number] 07:11:12 Test Item Value Reference Range Interpretation Comments Sodium (test code = 2951-2) 141 135- 148 mEq/L Potassium (test code = 2823-3) 3.4 3.5- 5.0 mEq/L L Chloride (test code = 2075-0) 103 98- 112 mEq/L CO2 (test code = 2027-9) 28 24- 31 mEq/L Anion gap (test code = 20818-1) 10@ANIO 7- 15 mEq/L BUN (test code = 3094-0) 8 mg/dL 8-23 Creatinine (test code = 2160-0) 0.86 mg/dL 0.5-0.9 Glucose (test code = 2345-7) 84 mg/dL 65-99 Calcium (test code = 38867-8) 8.5 mg/dL 8.8-10.2 L Lab Interpretation (test code = Abnormal 86714-1) Michael MethodistMagnesium [id number] 07:11:12 Test Item Value Reference Range Interpretation Comments Magnesium (test code = 73281-8) 1.8 mg/dL 1.6-2.4 Rodriguez MethodistPhosphorus [id number] 07:11:12 Test Item Value Reference Range Interpretation Comments Phosphorus (test code = 2777-1) 3.7 mg/dL 2.4-4.5 Rodriguez MethodistEstimated [id number] 07:11:12 Test Item Value Reference Range Interpretation Comments Estimated GFR (test 69 mL/min/1.73 m2 [facility] Units code = 5488) InterpretationG 1 >=90 Normal or highG2 60-89 Mildly rduecsnuhM0h 45-59 Mildly to mode rately erpdzyuxxO2f 30-44 Moderately to severely decreasedG4 15-29 Severely decre asedG5 <15 Kidn ey failureThe eGFR was calculated kirill garcia the Chronic Kidney Disease Epidemiology Co llaboration (CKD-EPI) equat ion. Interpretation is based on recommendations of the National Kidney Foundation-Kidn ey Disease Outcomes Qualit y Initiative (NKF-KDOQI) pub lished in 2013. Rodriguez MethodistCBC with platelet and gifxnsaaylvq3665-73-03 06:59:34 Test Item Value Reference Range Interpretation Comments WBC (test code = 74598-5) 17.49 4.50- 11.00 k/uL H RBC (test code = 91171-0) 3.46 m/uL 4.2-5.5 L HGB (test code = 718-7) 9.6 g/dL 12-16 L HCT (test code = 4544-3) 30.8 % 37-47 L MCV (test code = 787-2) 89.0 fL 82-100 MCH (test code = 785-6) 27.7 pg 27-34 MCHC (test code = 786-4) 31.2 g/dL 31-37 RDW - SD (test code = 43.7 fL 37-55 28988-3) MPV (test code = 55121-6) 9.4 fL 8.8-13.2 Platelet count (test code 429 150- 400 k/uL H = 34640-2) Nucleated RBC (test code 0.00 /100 WBC = 11371-1) Neutrophils (test code = 76.9 % 39-69 H 61623-7) Lymphocytes (test code = 13.2 % 25-45 L 29602-8) Monocytes (test code = 5.4 % 0-10 87643-4) Eosinophils (test code = 3.0 % 0-5 66687-3) Basophils (test code = 0.4 % 0-1 16559-3) Immature granulocytes 1.1 % 0-1 H "Immat ure (test code = 30633-5) granul ocytes" (promyelocytes, myelocytes, metamyelocytes) Lab Interpretation (test Abnormal code = 87230-2) Rodriguez Jose Antoniourgical pathology [id number] 18:07:21 Test Item Value Reference Range Interpretation Comments Case number (test code = [id number]) Surgical pathology See link below for report (test code = PDF Lab Report 1179) Result status (test code This is Final Report = [id number]) for [id number] Rodriguez MethodistFungus [id number] 14:40:24 Test Item Value Reference Range Interpretation Comments Fungus smear No fungi Specimen (test code = observed. InformationSpec imen Source: 1443) Bronchial Washi ngSpecimen Site: Lung: RLL Rodriguez MaddiistSmear [id number] 06:32:42 Test Item Value Reference Range Interpretation Comments Platelet slide review (test code = Increased A 91769-4) Anisocytosis (test code = 702-1) Moderate Ovalocytes (test code = 774-0) Moderate Enlarged platelets (test code = Moderate A 34075-1) Giant platelets (test code = Occasional 5908-9) Lab Interpretation (test code = Abnormal 23775-1) Michael LindaistAFB [id number] 01:47:29 Test Item Value Reference Range Interpretation Comments AFB stain No acid fast Specimen (test code = bacilli (AFB) InformationSpe [facility] 676-7) seen. Source: Bronchi al WashingSpecimen Site: Lung: RLL Rodriguez MethodistGram [id number] 16:51:40Gram stain isolateFew WBC'sNo organisms seen Comment: Specimen InformationSpecimen Source: Bronchial WashingSpecimen Site: Lung: RLL [facility] [id number] 10:29:45Laly Vera 10/27/2019 10:48 AMAirwayDate/Time: 10/27/2019 10:18 AMPerformed by: Laly VeraoAuthorized by: Laly Vera Location: ORUrgency: ElectiveDifficult Airway: No Anesthesiologist: Real Cartagena, MDResident/DIALYSIS RN/AA: Georgi eVraaPerformed by: resident/DIALYSIS RN/AAPreoxygenated with 100% O2: Yes Mask Ventilation: Not [...] damage to lips, teeth, gums or oropharynx. VSS.[place] [facility] W [id number] 08:51:15 Hm Interface, Radiology Results 10/27/2019 8:54 [...] liver is indeterminate. Consider MRI to further evaluate.[id number] MethodistType and [id number] 05:09:00 Test Item Value Reference Range Interpretation Comments ABO grouping (test code = 883-9) O Rh type (test code = 40494-2) POS Antibody screen (gel) (test code = NEG 890-4) Rodriguez MethodistPartial thromboplastin time, [id number] 04:29:25 Test Item Value Reference Range Interpretation Comments PTT (test code = 36.6 23.0- 36.0 sec H PTT thera peutic range 21302-6) for unfractiona betty heparin is61.0- 112.0 seconds which corresponds to Anti-Xa0.3-0.7 U/ml. Lab Interpretation Abnormal (test code = 10180-0) Rodriguez MethodistProthrombin time with [id number] 04:29:09 Test Item Value Reference Range Interpretation Comments Prothrombin time (test 15.2 11.5- 14.5 sec H code = 5902-2) INR (test code = 1.2 The [facility] 15627-8) Normalized Rati o (INR) is a therapeuti c monitoring tool for patients who ar e stable on oral anticoagulant t herapy. An INR of 2.0-3 .0 is suggested for d eep vein thrombosis/pulm onary embolism. Lab Interpretation Abnormal (test code = 19676-7) Rodriguez MethodistUrinalysis screen and microscopy, with reflex to culture 2019-10-26 21:49:23 Test Item Value Reference Range Interpretation Comments Specimen site (test code = Clean catch 1467893) Color, UA (test code = 5778-6) Yellow Appearance, UA (test code = Clear 5767-9) Specific gravity, UA (test code = 1.009 1.001-1.035 5811-5) pH, UA (test code = 5803-2) 5.0 5.0-8.5 Protein, UA (test code = 00960-7) Negative Negative Glucose, UA (test code = 11273-0) Negative Negative Ketones, UA (test code = 2514-8) Negative Negative Bilirubin, UA (test code = Negative Negative 5770-3) Blood, UA (test code = 5794-3) Small Negative A Nitrite, UA (test code = 5802-4) Negative Negative Urobilinogen, UA (test code = <2.0 <2.0 64562-8) Leukocyte esterase, UA (test code Negative Negative = 5799-2) WBC, UA (test code = 5821-4) 1 0- 4 /HPF RBC, UA (test code = 00336-6) <1 0- 5 /HPF Bacteria, UA (test code = Few None seen 75449-4) Yeast, UA (test code = 61993-6) None seen Yeast with pseudohyphae, UA (test None seen code = 88496-5) Granular casts, UA (test code = 1 0- 1 /LPF 5793-5) Hyaline casts, UA (test code = 3 /LPF 5796-8) Lab Interpretation (test code = Abnormal 87988-5) Michael MendozaUrine [id number] 21:12:49 Test Item Value Reference Range Interpretation Comments Urine culture (test SEE COMMENT Bacteriu alejandro screen code = 1807378) negative. Rodriguez MaddiistCT Chest Wo [id number] 08:39:29Hm Interface, Radiology Results 10/26/2019 8:42 AM [...] osseous lesions. Other: None.SUMMARY:1.A Veran protocol was utilized.[id number] Mormon Anaerobic [id number] 07:58:24 Test Item Value Reference Range Interpretation Comments Anaerobic No anaerobic Specimen culture isolate organisms InformationS pecimen (test code = isolated. Source: Pleural 552) fluidSpecimen S ite: Not specified Michael LindaistAerobic [id number] 13:49:27 Test Item Value Reference Range Interpretation Comments Aerobic culture No growth Specimen isolate (test after 3 days. InformationSp ecimen code = 498) Source: Pleural fluidSpecimen S ite: Not specified Michael MethodistVancomycin level, [id number] 10:51:23 Test Item Value Reference Range Interpretation Comments Vancomycin, random (test code = 25.7 ug/mL 24750-3) Michael MethodistSputum [id number] 05:17:38 Test Item Value Reference Range Interpretation Comments Sputum culture Normal oral Specimen isolate (test breana InformationSpe cimen code = 2234) isolated. Source: SputumS pecimen Site: Expectora betty Michael MethodistVancomycin level, [id number] 09:42:14 Test Item Value Reference Range Interpretation Comments Vancomycin, trough 17.2 ug/mL 10-20 Therapeut ic Ranges: (test code = Peak 30.0 - 40.0 73576-2) ug/mL Trough 10.0 - 20.0 ug/mL [place] MethodistIonized yturlby6058-78-37 06:01:45 Test Item Value Reference Range Interpretation Comments pH (test code = 2753-2) 7.43 Ionized calcium (test code = 1.16 mmol/L 1.11-1.32 ) Rodriguez MethodistIR Tunneled Pleura [id number] 17:28:46Hm Interface, Radiology Results - 10/21/2019 5:31 PM CDTPerforming RadiologistDavimukul Davis MD AssistantsNone Anesthesia TypeModerate sedation was administered by the procedure nurse and monitored intraservice fnwg-hb-xxlp by the procedure physician for 27 minutes. [...] of fluid. This catheter is ready for use.[facility]-[id number] MethodistRespiratory pathogen [id number] 22:15:07 Test Item Value Reference Interpretation Comments Range Adenovirus PCR (test Not Detected Specime n code = 7092) InformationSpec imen Source: [facility] ecimen Site: Not speci fied Coronavirus HKU1 [...] pertussis Not Detected PCR (test code = 2586928) Bordetella Not Detected parapertussis PCR (test code = 4012457) Chlamydia pneumoniae Not Detected PCR (test code = 3753) Mycoplasma Not Detected pneumoniae PCR (test code = 7110) Influenza A no sub Not Reported type PCR (test code = 7127) Lab Interpretation Abnormal (test code = 62694-3) [place] MethodistHepatic function [id number] 16:06:15 Test Item Value Reference Range Interpretation Comments Albumin (test code = 2.4 g/dL 3.5-5 L 1751-7) Total bilirubin (test 0.5 mg/dL 0-1.2 code = 1974-) Bilirubin direct (test <0.2 0-0.3 code = 1967-7) Alkaline phosphatase 92 U/L 35-104 (test code = 6768-6) Protein (test code = 5.4 g/dL 6.3-8.3 L -[place] n 2885-2) 4.6-7.0 g /dL1 week 4.4-7.6 g/dL 7 months-1year 5.1-7.3 g/dL 1-2 years 5.6-7.5 g/dL>3 years 6.0-8.0 g/dM72-729 6.3-8. 3 g/dL ALT (test code = 1742-6) 16 U/L 5-50 AST (test code = 1920-8) 15 U/L 10-35 Lab Interpretation (test Abnormal code = 74961-4) [place] MethodistLactic acid [id number] 16:01:12 Test Item Value Reference Range Interpretation Comments Lactic acid (test code = 14082-4) 1.5 mmol/L 0.5-2.2 Michael MendozaXR Chest External [id number] 14:18:00This exam was not acquired at a Mormon facility and has not been interpreted by a Mormon Provider. The exam was imported into our imaging system.Michael LindaistCT Chest External [id number] 14:17:03This exam was not acquired at a [facility] facility and has not been interpreted by a [employer] Provider. The exam was imported into our imaging system.Michael MendozaUS Vascular External Study 2019-10-20 14:15:11This exam was not acquired at a [facility] facility and has not been interpreted by a [employer] Provider. The exam was imported into our imaging system.Michael BradyARS-CoV2/RT-PCR ([facility])2019-10-15 01:33:00 Test Item Value Reference Range Interpretation Comments SARS-COV2/RT-PCR Not Detected Not Detected, (test code = Negative 83948-4) SARS-COV-2 [facility] PERFORMING LAB (test code = 53114-7) RISA (test code = Negative results do [...] of the Act. Fact Sheet for Healthcare Providers:https://www.Fidus Writer.Ahead/Documents/Xper t%20Xpress%20SARS%20CoV- 2/Fact%20Sheets/302-3802 %63LUMN-AIS-4%20HEALTHCA RE%20PROVIDERS%20FACT%20 SHEET.pdf Fact Sheet for Healthcare Patients:https://www.DesignCrowd/Documents/Xpert %20Xpress%20SARS%20CoV-2 /Fact%20Sheets/302-3801% 75YMOD-RIZ-0%20PATIENT%2 0FACT%20SHEET.pdf Performing Laboratory:[facility] [facility] [address] [place] [place] [address] [facility])2019-10-15 01:33:00 Test Item Value Reference Range Interpretation Comments SARS-COV2/RT-PCR (test Not Detected Not Detected, Negative code = 7445099) SARS-COV-2 PERFORMING LAB [facility] (test code = 2639751) Negative results do not preclude SARS-CoV-2 infection [...] of the Act.Fact Sheet for Healthcare Pro viders:https://www.Meddle/Documents/Xpert%20Xpress%20SARS%20CoV-2/Fact%20Sh eets/302-3802%19UXHM-ZDU-9%20HEALTHCARE%20PROVIDERS%20FACT%20SHEET.pdfFact Sheet for Healthcare Patients:https://www.Contraqer.Ahead/Documents/Xpert%20Xpress%20SARS%20CoV-2/Fact%20Sheets/302-3054%20SARS-COV -2%20PATIENT%20FACT%20SHEET.pdfPerforming Laboratory:[facility] [place] [address]
[2019-12-27 18:41] LABS: Basophils % 0.6 % (0-1.3); Hematocrit 30.1 % (36.0-45.0); Lymphocytes % 8.2 % (15.3-44.8); MPV 7.5 fL (7.6-11.3); RBC Red Blood Cell Count 3.55 M/uL (3.86-4.86)
[2019-12-27] MEDS ORDERED: NA CHLORIDE 0.9% 1,000 ML ONE (18:49)
[2019-12-27] MEDS ORDERED: BISACODYL 10 MG RECTAL SUPP ONE (18:49)
[2019-12-27] MEDS ORDERED: LACTULOSE 20 GM/30 ML UCUP ONE (18:50)
[2019-12-27 18:59] LABS: ALT/SGPT 10 U/L (12-78); AST/SGOT 18 U/L (15-37); Albumin 2.6 g/dL (3.4-5.0); Alkaline Phosphatase 229 U/L (45-117); BUN Blood Urea Nitrogen 7 mg/dL (7-18); Bicarbonate 26 mmol/L (21-32); Bilirubin Direct 0.5 mg/dL (0-0.2); Glucose Level 87 mg/dL (74-106); Lipase 36 U/L (73-393); Potassium 3.6 mmol/L (3.5-5.1); Protein, Total 7.1 g/dL (6.4-8.2); Sodium Level 135 mmol/L (136-145)
[2019-12-27 20:11] LABS: Urine White Blood Cell Casts OK
[2019-12-27 20:12] LABS: Anisocytosis 1+; Blood Morphology Comment NOTED (NOT SEEN); Platelet Estimate INCR; Poikilocytosis 2+
--- NOTE | 2019-12-27 21:24 | RAD REPORT ---
EXAM DESCRIPTION: CT - Abdomen Pelvis Wo Contrast - 12/27/2019 9:06 pm CLINICAL HISTORY: Abd pain;Constipation COMPARISON: No comparisons TECHNIQUE: Axial [address] imaging of the abdomen and pelvis was performed without IV contrast. No IV contrast was given because of allergy, abnormal renal function, patient refusal or physician re quest. Oral contrast was given. All CT scans are performed using dose optimization technique as appropriate and may include automated exposure control or mA/KV adjustment according to patient size. FINDINGS: Large mass density fills the lower right lung field. This could be mass, loculated fluid o r a combination. There is a small right pleural effusion. This mass is not adequately evaluated on th is abdomen study. Patient has known lung cancer. No left-sided pleural effusion or pneumothorax. Liver size is normal. A few low-density masses are scattered in the liver parenchyma. No splenomegaly or focal splenic finding seen. No pancreatic acute process. Cholecystectomy clips are present. No bi liary tree dilatation. No hydronephrosis or suspicious renal mass. No significant adrenal finding. Isodense renal masses an d pyelonephritis cannot be excluded in the absence of IV contrast. The urinary bladder is without sig nificant finding. Uterus and ovaries show no suspicious findings. No gastric dilatation or gastric wall thickening. No dilation of the small bowel. Appendix is normal. Redundant right-side colon is filled with oral contrast but has no abnormal stool volume and little identifiable stool. Mild to moderate stool is present from the left-side transverse colon distally th rough the descending colon. There is a large amount of stool present filling and distending the tortu ous and redundant sigmoid colon. The rectum is dilated by stool to 7 cm No free air, free fluid or inflammatory stranding. No hernia, mass or bulky lymphadenopathy. No suspicious bony findings. IMPRESSION: Large amount of stool is present dilating the rectum to 7 cm in filling and distending t he entire redundant sigmoid colon. The right-side of the colon contains only oral contrast with little stool present. No obstruction, free air or surgically emergent finding. Large mass density fills the mid and lower right hemithorax along with pleural fluid. Patient has kno wn lung cancer. This mass density is only partially visualized. Patient has known lung cancer. Full assessment is limited is the absence of IV contrast.
--- NOTE | 2019-12-27 21:30 | EDPHYS ---
Physician Documentation [facility] Name: Jessenia James Age: 69 yrs Sex: Female : 1950 Arrival Date: 12/27/2019 Time: 17:45 Bed 18 Private MD: Bryce Lopez V ED Physician Dada Louie HPI: 12/26 19:59 This 69 yrs old Female presents to ER via Wheelchair with complaints of valeri Constipation. 19:59 The patient presents with abdominal pain in the lower abdomen, abdominal distention in valeri the upper abdomen, in the lower abdomen. Onset: The symptoms/episode began/occurred 2 day(s) ago. The symptoms do not radiate. Associated signs and symptoms: none. The symptoms are described as constant, crampy. Modifying factors: The symptoms are alleviated by nothing, the symptoms are aggravated by touching the area, walking. Severity of pain: At its worst the pain was moderate in the emergency department the pain is unchanged. The patient has not experienced similar symptoms in the past. Historical: - Allergies: 17:53 Clindamycin; sv - PMHx: 17:53 Lung cancer; sv - Immunization history:: Adult Immunizations up to date. - Social history:: Smoking status: . - Family history:: not pertinent. ROS: 19:59 Constitutional: Negative for fever, chills, and weight loss, Eyes: Negative for injury, valeri pain, redness, and discharge, ENT: Negative for injury, pain, and discharge, Neck: Negative for injury, pain, and swelling, Cardiovascular: Negative for chest pain, palpitations, and edema, Respiratory: Negative for shortness of breath, cough, wheezing, and pleuritic chest pain, Back: Negative for injury and pain, : Negative for injury, bleeding, discharge, and swelling, MS/Extremity: Negative for injury and deformity, Neuro: Negative for headache, weakness, numbness, tingling, and seizure, Psych: Negative for depression, anxiety, suicide ideation, homicidal ideation, and hallucinations, Allergy/Immunology: Negative for hives, rash, and allergies, Endocrine: Negative for neck swelling, polydipsia, polyuria, polyphagia, and marked weight changes. 19:59 Abdomen/GI: Positive for abdominal pain, constipation, abdominal cramps, abdominal distension. 19:59 Skin: Positive for swelling, of the right leg and left leg, petechiae on both lower ext, no homans and no cords. Exam: 19:59 Constitutional: This is a well developed, well nourished patient who is awake, alert, valeri and in no acute distress. Head/Face: Normocephalic, atraumatic. ENT: Nares patent. No nasal discharge, no septal abnormalities noted. Tympanic membranes are normal and external auditory canals are clear. Oropharynx with no redness, swelling, or masses, exudates, or evidence of obstruction, uvula midline. Mucous membranes moist. Neck: Trachea midline, no thyromegaly or masses palpated, and no cervical lymphadenopathy. Supple, full range of motion without nuchal rigidity, or vertebral point tenderness. No Meningismus. Chest/axilla: Normal chest wall appearance and motion. Nontender with no deformity. No lesions are appreciated. Cardiovascular: Regular rate and rhythm with a normal S1 and S2. No gallops, murmurs, or rubs. Normal PMI, no JVD. No pulse deficits. Respiratory: Lungs have equal breath sounds bilaterally, clear to auscultation and percussion. No rales, rhonchi or wheezes noted. No increased work of breathing, no retractions or nasal flaring. Back: No spinal tenderness. No costovertebral tenderness. Full range of motion. Female : Normal external genitalia. MS/ Extremity: Pulses equal, no cyanosis. Neurovascular intact. Full, normal range of motion. Neuro: Awake and alert, GCS 15, oriented to person, place, time, and situation. Cranial nerves II-XII grossly intact. Motor strength 5/5 in all extremities. Sensory grossly intact. Cerebellar exam normal. Normal gait. Psych: Awake, alert, with orientation to person, place and time. Behavior, mood, and affect are within normal limits. 19:59 Eyes: Conjunctiva: pale. 19:59 Abdomen/GI: Inspection: distension, Bowel sounds: normal, Palpation: nontender, Liver: no appreciated palpable abnormalities, Hernia: not appreciated. 20:37 Abdomen/GI: Rectal exam: rectal tone normal, Stool: guaiac negative, hemorrhoid(s), valeri external, mass, is not appreciated, swelling, is not appreciated, tenderness, that is mild, fecal impaction, that is mild. Vital Signs: 17:47 BP 137 / 87; Pulse 92; Resp 20; Temp 98.6; Pulse Ox 97% ; Weight 68.95 kg; Height 5 ft. sv 6 in. (167.64 cm); 20:30 BP 123 / 77 LA (auto/reg); Pulse 82; Resp 18; Pulse Ox 100% on R/A; jp3 22:30 BP 139 / 96; Pulse 88; Resp 18; Pulse Ox 100% on R/A; wh 17:47 Body Mass Index 24.53 (68.95 kg, 167.64 cm) sv MDM: 18:04 Patient medically screened. [facility] 20:02 Data reviewed: vital signs, nurses notes, lab test result(s), radiologic studies, CT valeri scan. 20:02 Differential diagnosis: AAA, bowel obstruction, Mesenteric ischemia or infarction, valeri non-specific abd pain, pancreatitis, urinary tract infection. Data interpreted: quality assurance monitor final: rate is 92 beats/min, rhythm is normal sinus rhythm, Pulse oximetry: on room air is 97 %. Test interpretation: by ED physician or midlevel provider:. Counseling: I had a detailed discussion with the patient and/or guardian regarding: the historical points, exam findings, and any diagnostic results supporting the discharge/admit diagnosis, lab results, radiology results, the need for outpatient follow up. Medication response: lactulose, contrast oral and dulcolax. 21:30 ED course: increase fluids, take meds follow up , return if symptoms worsen. [facility] 12/26 18:05 Order name: Basic Metabolic Panel; Complete Time: 19:58 [facility] 12/26 18:05 Order name: CBC with Diff; Complete Time: 20:19 [facility] 12/26 18:05 Order name: Hepatic Function; Complete Time: 19:58 [facility] 12/26 18:05 Order name: Lipase; Complete Time: 19:58 [facility] 12/26 19:01 Order name: CBC Smear Scan; Complete Time: 20:19 [facility] 12/26 18:05 Order name: IV Saline Lock; Complete Time: 18:37 [facility] 12/26 18:05 Order name: Labs collected and sent; Complete Time: 18:37 [facility] 12/26 18:05 Order name: Urine Dipstick-Ancillary (obtain specimen); Complete Time: 22:14 [facility] 12/26 19:01 Order name: Abdomen [facility] 12/26 21:29 Order name: Misc. Order: fleet enema x1; Complete Time: 22:00 [facility] Administered Medications: 18:45 Drug: NS 0.9% 1000 ml Route: IV; Rate: 1 bolus; Site: right antecubital; 22:17 Follow up: Response: No adverse reaction; IV Status: Completed infusion 18:50 Drug: Dulcolax Suppository 10 mg Route: [place]; 22:17 Follow up: Response: No adverse reaction 18:50 Drug: Lactulose 30 grams Volume: 45 ml; Route: PO; 22:17 Follow up: Response: No adverse reaction 21:44 Drug: Lactulose 30 grams Volume: 45 ml; Route: PO; 22:16 Follow up: Response: No adverse reaction Disposition: 12/27/19 21:29 Discharged to Home. Impression: Constipation, Abdominal tenderness. - Condition is Stable. - Discharge Instructions: Abdominal Pain, Adult, Constipation, Adult, Constipation, Adult, Bzbd-bv-Ekmy, Abdominal Pain, Adult, Zdwt-ov-Ssol, Constipation, Pediatric, Gjoz-bz-Oaew. - Prescriptions for Lactulose 10 gram/15 mL Oral Solution - take 30 milliliters by ORAL route 3 times per day; 300 milliliter. Dulcolax 10 mg Rectal Suppository - insert 1 suppository by RECTAL route every 12 hours As needed; 10 suppository. Miralax 17 gram/dose Oral - take 1 packet by ORAL route once daily dilute powder in 8 ounces of water or juice; 14 packet. - Medication Reconciliation Form, Thank You Letter, Antibiotic Education, Prescription Opioid Use form. - Follow up: Bryce Lopez; When: 2 - 3 days; Reason: Recheck today's complaints, Continuance of care, Re-evaluation by your physician. - Problem is new. - Symptoms have improved. Signatures: Dispatcher [employer] EDMS Sada Terrazas RN RN sv Anderson, Corey, MD MD cha Westbrook, MyKena mw2 Susy Ponce RN RN Corrections: (The following items were deleted from the chart) 19:00 18:06 Abdomen Pelvis W Con+CT.RAD.BRZ ordered. EDMS EDMS 23:14 21:29 12/27/2019 21:29 Discharged to Home. Impression: Constipation; Abdominal mw2 tenderness. Condition is Stable. Discharge Instructions: Constipation, Adult, Constipation, Adult, Tgfi-es-Gwmh, Constipation, Pediatric, Dgfq-dt-Vwio, Abdominal Pain, Adult, Abdominal Pain, Adult, Rlvr-mm-Yldr. Prescriptions for Lactulose 10 gram/15 mL Oral Solution - take 30 milliliter by ORAL route once daily; 300 milliliter, Dulcolax 10 mg Rectal Suppository - insert 1 suppository by RECTAL route every 12 hours As needed; 10 suppository, Miralax 17 gram/dose Oral - take 1 packet by ORAL route once daily dilute powder in 8 ounces of water or juice; 14 packet. and Forms are Medication Reconciliation Form, Thank You Letter, Antibiotic Education, Prescription Opioid Use. Follow up: Bryce Lopez; When: 2 - 3 days; Reason: Recheck today's complaints, Continuance of care, Re-evaluation by your physician. Problem is new. Symptoms have improved. valeri
--- NOTE | 2019-12-27 21:30 | ER ---
Nurse's Notes [facility] Name: Jessenia James Age: 69 yrs Sex: Female : 1950 Arrival Date: 12/27/2019 Time: 17:45 Bed 18 Private MD: Bryce Lopez V Diagnosis: Constipation;Abdominal tenderness Presentation: 12/26 17:45 Chief complaint: Patient states: sent by her oncologist for fecal impaction. Reports no sv BM x 8 days. Coronavirus screen: Proceed with normal triage. Patient denies a cough. Patient denies shortness of breath or difficulty breathing. Patient denies measured and/or subjective temperature greater than 100.4F prior to today's visit. Patient denies travel on a cruise ship or to a country the [facility] currently lists as an affected area. Patient denies contact with known and/or suspected case of COVID-19. Ebola Screen: No symptoms or risks identified at this time. Risk Assessment: Do you want to hurt yourself or someone else? Patient reports no desire to harm self or others. Onset of symptoms was November 2019. 17:45 Method Of Arrival: Wheelchair sv 17:45 Acuity: KLARISSA 3 sv 17:47 Initial Sepsis Screen: Does the patient meet any 2 criteria? HR > 90 bpm. No. Patient's sv initial sepsis screen is negative. Does the patient have a suspected source of infection? No. Patient's initial sepsis screen is negative. Triage Assessment: 17:46 General: Appears in no apparent distress. uncomfortable, Behavior is calm, cooperative, sv appropriate for age. Neuro: Level of Consciousness is awake, alert, obeys commands, Oriented to person, place, time, situation. Respiratory: Respiratory effort is even, unlabored. GI: Reports constipation. Historical: - Allergies: 17:53 Clindamycin; sv - PMHx: 17:53 Lung cancer; sv - Immunization history:: Adult Immunizations up to date. - Social history:: Smoking status: . - Family history:: not pertinent. Screenin:00 Abuse screen: Denies threats or abuse. Nutritional screening: No deficits noted. Tuberculosis screening: No symptoms or risk factors identified. Fall Risk None identified. Assessment: 18:10 General: Appears uncomfortable, Behavior is calm, cooperative, appropriate for age. ah Pain: Denies pain. Neuro: Level of Consciousness is awake, alert, obeys commands, Oriented to person, place, time, situation, Appropriate for age. Cardiovascular: Heart tones S1 S2 present. Respiratory: Airway is patent Respiratory effort is even, unlabored. GI: Last BM was December 20, 2019. Bowel sounds present X 4 quads. Abd is soft and non tender X 4 quads. Reports constipation, since x8 days. Derm: Skin is intact, is healthy with good turgor. 19:01 Reassessment: Called CT to inform them that she is about to finish her oral contrast. ah 20:00 Reassessment: Patient and/or family updated on plan of care and expected duration. Pain ah level reassessed. Patient is alert, oriented x 3, equal unlabored respirations, skin warm/dry/pink. 21:00 Reassessment: Patient and/or family updated on plan of care and expected duration. Pain ah level reassessed. Patient is alert, oriented x 3, equal unlabored respirations, skin warm/dry/pink. 21:50 Reassessment: Pt sitting on BSC in room. BM noted after/during enema. ah 22:20 Reassessment: Patient appears in no apparent distress at this time. Patient and/or wh family updated on plan of care and expected duration. Pain level reassessed. Patient is alert, oriented x 3, equal unlabored respirations, skin warm/dry/pink. Pt still in bedside commode. 23:12 Reassessment: Patient appears in no apparent distress at this time. No changes from previously documented assessment. Patient and/or family updated on plan of care and expected duration. Pain level reassessed. Patient is alert, oriented x 3, equal unlabored respirations, skin warm/dry/pink. Patient states feeling better. Patient states symptoms have improved. Vital Signs: 17:47 BP 137 / 87; Pulse 92; Resp 20; Temp 98.6; Pulse Ox 97% ; Weight 68.95 kg; Height 5 ft. sv 6 in. (167.64 cm); 20:30 BP 123 / 77 LA (auto/reg); Pulse 82; Resp 18; Pulse Ox 100% on R/A; jp3 22:30 BP 139 / 96; Pulse 88; Resp 18; Pulse Ox 100% on R/A; wh 17:47 Body Mass Index 24.53 (68.95 kg, 167.64 cm) ED Course: 17:45 Patient arrived in ED. mr 17:45 Arm band placed on. 17:46 Triage completed. 17:46 Bryce Lopez MD is Private Physician. mr 17:48 Susy Ponce, RN is Primary Nurse. 18:04 Dada Louie MD is Attending Physician. valeri 18:20 Bed in low position. Call light in reach. Side rails up X 1. Warm blanket given. Verbal jp3 reassurance given. Pulse ox on. NIBP on. 18:20 Inserted saline lock: 20 gauge in right antecubital area, using aseptic technique. jp3 Blood collected. Patient maintains SpO2 saturation greater than 95% on room air. 18:20 Initial lab(s) drawn, by me, sent to lab. jp3 20:00 Assisted to bedside commode. jp3 21:06 Abdomen In Process Unspecified. EDMA 21:29 Bryce Lopez MD is Referral Physician. [facility] 22:21 No provider procedures requiring assistance completed. Administered Medications: 18:45 Drug: NS 0.9% 1000 ml Route: IV; Rate: 1 bolus; Site: right antecubital; 22:17 Follow up: Response: No adverse reaction; IV Status: Completed infusion 18:50 Drug: Dulcolax Suppository 10 mg Route: [place]; 22:17 Follow up: Response: No adverse reaction 18:50 Drug: Lactulose 30 grams Volume: 45 ml; Route: PO; 22:17 Follow up: Response: No adverse reaction 21:44 Drug: Lactulose 30 grams Volume: 45 ml; Route: PO; 22:16 Follow up: Response: No adverse reaction Outcome: 21:29 Discharge ordered by . [facility] 23:14 Patient left the ED. mw2 23:14 Discharged to home via wheelchair, with family. 23:14 Condition: stable 23:14 Discharge instructions given to patient, Instructed on discharge instructions, follow up and referral plans. medication usage, POC Demonstrated understanding of instructions, follow-up care, medications, POC Prescriptions given X 3. Signatures: Dispatcher [employer] NICKOLASMA Sada Terrazas RN RN sv Anderson, Corey, MD MD cha Rivera, Joy JordanmariellaAfshin Nikkie Lopez mw2 Reg Garcia jp3 Susy Ponce, RN RN
[2019-12-27] MEDS ORDERED: FLEET ENEMA ADULT PR ONE (21:56)
[2019-12-27 23:31] VITALS: TEMP 98.6
[2019-12-27 23:36] VITALS: O2SAT 100
[2019-12-27 23:37] VITALS: BP 139/96
== END 2019-12-27 23:14 | disposition home or self-care (01) ==
LOC: ER 17:42
DX: K59.00 Constipation, unspecified (principal); Z88.1 Allergy status to other antibiotic agents; Z85.118 Personal history of other malignant neoplasm of bronchus and lung
CPT/HCPCS: 96361; 85025; 80048; 36415; 80076; 83690; 74176; 96360; 99284; J7030

== ENCOUNTER 2021-07-27 07:52 | Inpatient (IN) | payer OTHER ==
--- OUTSIDE RECORDS SUMMARY | 2021-07-27 07:55 | XMS REPORT | Continuity of Care Document ---
:1950 Author Organization [facility] t Address [address] [place] [address] Care Team Providers Name Role Phone WOJCIECH Primary Care Physician Unavailable NIRMALA SANDHU Attending Clinician Unavailable APOLONIA Attending Clinician Unavailable Juan Carlos LOZANO S Attending Clinician Shaunna RANGEL Attending Clinician Unavailable BRUCE Attending Clinician Unavailable APOLONIA Admitting Clinician Unavailable Shaunna RANGEL Admitting Clinician Unavailable BRUCE Admitting Clinician Unavailable Payers Payer Name Policy Type Policy Number Effective Date Expiration Date S yannick MEDICARE PART A [id number] 2016 \T\ B 00:00:00 [employer] INDEMNITY [id number] 2018 2020 00:00:00 00:00:00 Problems This patient has no known problems. Allergies, Adverse Reactions, Alerts Allergy Allergy Status Severity Reaction(s) Onset Inactive Treating Comm ents Source Name Type Date Date Clinician CLINDAMY DRUG Active Rash 2018- [facility] LARRY INGREDI 2-18 ity of 00:00: [place] 00 [facility] SULFA Drug Active Unknown-Cmnt 2018-06 Univ ers (SULFONA Class 2-18 ity of MIDE 00:00: [place] ANTIBIOT 00 Medical ICS) Branch Medications This patient has no known medications. Procedures This patient has no known procedures. Encounters Start End Encounter Admission Attending Care Care Encounter Source Date/Time Date/Time Type Type Clinicians Facility Department ID 2021-01-15 2021-01-15 Outpatient FLY SANDHU MED [id number] FLY 09:10:00 23:59:00 [place] 2020-10-13 2020-10-13 Outpatient APOLONIA, [facility] [id number] [address] [place] 00:00:00 00:00:00 [place] [address] 2019-10-20 2019-10-29 Inpatient APOLONIA, [facility] [id number] [place] 00:00:00 00:00:00 [place] [address] 2019-08-03 2019-08-03 Office [facility] [id number] 12:51:30 13:10:35 Visit Stefania Shaunna Garland [id number] [place] [id number] Professio [id number] [address] 2019-06-18 2019-06-18 Outpatient [facility] [id number] [facility] 13:18:44 13:19:00 STEFANIA [facility] 2019-06-16 2019-06-16 Outpatient R RAYO [facility] [id number] [facility] 16:25:59 16:25:00 [facility] Results Test Description Test Time Test Comments Results Result Comments Source SARS-COV2/RT-PCR ([facility]) 2019-10-15 01:33:00 Test Item Value Reference Range Interpretation Comme nts SARS-COV2/RT-PCR (test code = [id number]) Not Detected Not Detected, N egative SARS-COV-2 PERFORMING LAB (test code = BSC [id number]) Negative results do not preclude SARS-CoV-2 infection [...] of the Act.Fact Sheet for Healthcare Pro viders:https://www.[employer]/Documents/Xpert%20Xpress%20SARS%20CoV-2/Fact%20Sh eets/3023802%80OWAD-GAV-1%20HEALTHCARE%20PROVIDERS%20FACT%20SHEET.pdfFact Sheet for Healthcare Patients:https://www.[employer]/Documents/Xpert%20Xpress%20SARS%20CoV-2/Fact%20Sheets/3023801%20SARS-COV -2%20PATIENT%20FACT%20SHEET.pdfPerforming Laboratory:[facility] [place] [address]
[2021-07-27 10:44] LABS: Absolute Lymphocytes (CBC) 3.4 K/uL (0.7-4.9); Hematocrit 27.7 % (36.0-45.0); Lymphocytes % 5.8 % (15.3-44.8); MPV 7.8 fL (7.6-11.3); RBC Red Blood Cell Count 3.37 M/uL (3.86-4.86)
[2021-07-27 11:09] LABS: Platelet Estimate ADEQ
[2021-07-27 11:10] LABS: Anisocytosis 1+; Blood Morphology Comment NOTED (NOT SEEN)
[2021-07-27 11:25] LABS: ALT/SGPT 13 U/L (12-78); AST/SGOT 17 U/L (15-37); Albumin 2.8 g/dL (3.4-5.0); Alkaline Phosphatase 168 U/L (45-117); BUN Blood Urea Nitrogen 15 mg/dL (7-18); Bicarbonate 28 mmol/L (21-32); Bilirubin Direct 0.7 mg/dL (0-0.2); Bilirubin Total 1.5 mg/dL (0.2-1.0); Glucose Level 88 mg/dL (74-106); Magnesium 2.1 mg/dL (1.8-2.4); Potassium 3.3 mmol/L (3.5-5.1); Protein, Total 6.4 g/dL (6.4-8.2); Sodium Level 136 mmol/L (136-145)
--- NOTE | 2021-07-27 11:32 | RAD REPORT ---
EXAM DESCRIPTION: CT - Chest For Pe Angio - 07/27/2021 11:12 am CLINICAL HISTORY: Chest pain. Possible pulmonary embolism COMPARISON: Thorax W/ Con dated 04/04/2021 TECHNIQUE: CT angiogram of the pulmonary arteries was performed with MIP. All CT scans are performed using dose optimization technique as appropriate and may include automated exposure control or mA/KV adjustment according to patient size. FINDINGS: No evidence of pulmonary thromboembolism. No acute aortic finding demonstrated. Aneurysmal dilatation of the ascending thoracic aorta noted tsering suring up to 4.4 cm Very large mass in the right lower lobe is again seen the with mass effect on the cardiac structures. Small right pleural effusion. No left-sided pleural fluid or pericardial fluid. No concerning bony finding. IMPRESSION: No evidence of pulmonary thromboembolism. Ascending thoracic aortic aneurysm measuring 4.4 cm. Very large mass in the right lower lobe again noted. Small right pleural effusion.
[2021-07-27] MEDS ORDERED: ONDANSETRON 4 MG/2 ML VIAL IV PRN (12:00)
[2021-07-27] MEDS ORDERED: POLYETHYL GLY 3350 17 GM/DOSE PO PRN (12:00)
[2021-07-27] MEDS ORDERED: ONDANSETRON 4 MG (ODT) TAB PO PRN (12:00)
[2021-07-27] MEDS ORDERED: ACETAMINOPHEN 325 MG TABLET PO PRN (12:00)
[2021-07-27] MEDS ORDERED: LOPERAMIDE HCL 2 MG CAPSULE PO PRN (12:00)
[2021-07-27] MEDS: Meropenem 1,000 MG in NA CHLORIDE 0.9% 100 ML IV SCH ×2 (12:26→21:15)
[2021-07-27] MEDS: NACHLORIDE 0.45% 1,000 ML IV SCH (12:27)
[2021-07-27 12:40] VITALS: BMI 24.8
--- NOTE | 2021-07-27 13:12 | P.CNS ---
Date of Consult: 07/27/21 Reason for Consult: Elevated white count lung cancer Chief Complaint: Nausea vomiting epigastric distress History of Present Illness: Patient is 71 years of age on oral chemotherapy for non-small cell lung cancer the right lower lobe. Complaining of nausea upper abdominal pain significantly elevated white count Allergies clindamycin Allergy (Verified 12/22/19 09:39) Itching/Hives/Rash levofloxacin [From Levaquin] Allergy (Verified 12/22/19 09:39) Itching/Hives/Rash Home Medications: Zolpidem Tartrate 2.5 mg PO BEDTIME PRN PRN 10/14/19 Gabapentin 300 mg PO BID PRN 07/27/21 - Past Medical/Surgical History Diabetic: No -: Hypertension -: GERD -: Allergies -: Lung cancer right lower lobe diagnosed in September 2019 -: Polypectomy -: Dilation and Curettage -: Tonsillectomy, Adenoidectomy -: Cholecystectomy -: 2 Cesarian Section - Social History Alcohol use: No CD- Drugs: No Caffeine use: Yes Review of Systems General: Weakness Respiratory: Shortness of Breath Gastrointestinal: Nausea, Abdominal Pain Physical Examination Temp Pulse Resp BP Pulse Ox 98.3 F 109 H 20 127/81 98 07/27/21 12:00 07/27/21 12:00 07/27/21 12:00 07/27/21 12:00 07/27/21 12:00 General: Alert, Oriented x3, Mild distress HEENT: Atraumatic Neck: Supple Respiratory: Diminished (Diminished in the right side) Gastrointestinal: Normal bowel sounds, Soft and benign, Non-distended Laboratory Data (last 24 hrs) 07/27/21 10:29: Sodium 136, Potassium 3.3 L, BUN 15, Creatinine 0.61, Glucose 88, Phosphorus 3.0, Magnesium 2.1, Total Bilirubin 1.5 H, AST 17, ALT 13, Alkaline Phosphatase 168 H 07/27/21 10:29: APTT 29.6 07/27/21 10:29: WBC 59.00 H*, Hgb 8.3 L, Hct 27.7 L, Plt Count 575 H - Problems (1) Elevated white blood cell count Current Visit: Yes Status: Acute Plan: Patient is 71 years of age history of right lower lobe lung cancer treated with Alecensa came in with some nausea abdominal discomfort patient has been on oral chemotherapy for about a year and a progressive increase in her white count CT scan shows right lower lobe lung mass minimal effusion agree with meropenem also put her on p.o. doxycycline to cover MRSA complains of severe GERD elevated alkaline phosphatase is a predominance of neutrophils oxygenation satisfactory is a minimal effusion on the right side possible sepsis Qualifiers: Leukocytosis type: leukemoid reaction Qualified Code(s): D72.823 - Leukemoid reaction
--- NOTE | 2021-07-27 14:13 | P.HP ---
Certification for Inpatient Patient admitted to: Inpatient With expected LOS: >2 Midnights Practitioner: I am a practitioner with admitting privileges, knowledge of patient current condition, hospital course, and medical plan of care. Services: Services provided to patient in accordance with Admission requirements found in Title 42 Section 412.3 of the Code of Federal Regulations Patient History Date of Service: 07/27/21 Reason for admission: Nausea vomiting epigastric distress History of Present Illness: MARCELLA HAS ADVANCED, LARGE NON SMALL CELL CANCER OF R LUNG THAT WAS DETECTED MORE THAN A YEAR AGO. SHE WENT THROUGH CHEMO AND HER WBC COUNT THAT WAS ALSO 40K AT THAT TIME CAME BACK TO NORMAL. DR. TUCKER CALLED AND ASKED ME TO GET HER ADMITTED WBC IS RISING AGAIN AND SHE HAS NAUSEA, VOMITING AND WEAKNESS WITH UPPER ABDOMEN PAIN. Allergies clindamycin Allergy (Verified 12/22/19 09:39) Itching/Hives/Rash levofloxacin [From Levaquin] Allergy (Verified 12/22/19 09:39) Itching/Hives/Rash Home medications list reviewed: Yes Home Medications: Zolpidem Tartrate 2.5 mg PO BEDTIME PRN PRN 10/14/19 Gabapentin 300 mg PO BID PRN 07/27/21 - Past Medical/Surgical History Diabetic: No -: Hypertension -: GERD -: Allergies -: Lung cancer right lower lobe diagnosed in September 2019 -: Polypectomy -: Dilation and Curettage -: Tonsillectomy, Adenoidectomy -: Cholecystectomy -: 2 Cesarian Section - Social History Smoking Status: Never smoker Alcohol use: No CD- Drugs: No Caffeine use: Yes Review of Systems 10-point ROS is otherwise unremarkable General: Weakness, Malaise Gastrointestinal: Nausea, Vomiting, Abdominal Pain Physical Examination - Vital Signs Temperature: 98.3 F Blood Pressure: 127/81 Pulse: 109 Respirations: 20 Pulse Ox (%): 98 - Physical Exam General: Oriented x3, Mild distress HEENT: Atraumatic, PERRLA, Mucous membr. moist/pink, EOMI, Sclerae nonicteric Neck: Supple, 2+ carotid pulse no bruit, No LAD, Without JVD or thyroid abnormality Respiratory: Clear to auscultation bilaterally, Normal air movement Cardiovascular: Regular rate/rhythm, Normal S1 S2 Gastrointestinal: Normal bowel sounds, No tenderness Musculoskeletal: No tenderness Integumentary: No rashes Neurological: Normal gait, Normal speech, Normal strength at 5/5 x4 extr, Normal tone, Normal affect Lymphatics: No axilla or inguinal lymphadenopathy - Studies Laboratory Data (last 24 hrs) 07/27/21 10:29: Sodium 136, Potassium 3.3 L, BUN 15, Creatinine 0.61, Glucose 88, Phosphorus 3.0, Magnesium 2.1, Total Bilirubin 1.5 H, AST 17, ALT 13, Alkaline Phosphatase 168 H 07/27/21 10:29: APTT 29.6 07/27/21 10:29: WBC 59.00 H*, Hgb 8.3 L, Hct 27.7 L, Plt Count 575 H Assessment and Plan - Problems (Diagnosis) (1) Non-small cell cancer of right lung Current Visit: Yes Status: Chronic Plan: IT LOOKS LIKE ONCE AGAIN ALL HER SYMPTOMS ARE FROM LUNG CANCER THAT IS PRESENTING IN SIMILAR WAY WITH HIGH WBC COUNT. ORDER ECHO THE TUMOR IS VERY CLOSE TO HEART. (2) Abdominal pain Current Visit: Yes Status: Chronic Plan: MRI ABDOMEN ORDERED MAY NOT HELP US IN TREATMENT. Qualifiers: Abdominal location: epigastric Qualified Code(s): R10.13 - Epigastric pain (3) Elevated white blood cell count Current Visit: Yes Status: Acute Plan: BC 2 IV MERREM IT IS UNCLEAR IF THIS IS FROM INFECTION. PREVIOUSLY SHE HAD SUCH WBC COUNT FROM LUNG CANCER ONLY. PROGNOSIS IS POOR. IT MAY BE TIME TO EITHER GO TO [facility] AND GET DNR STATUS. Qualifiers: Leukocytosis type: leukemoid reaction Qualified Code(s): D72.823 - Leukemoid reaction - Advance Directives Does patient have a Living Will: No Does patient have a Durable POA for Healthcare: Yes
[2021-07-27] MEDS ORDERED: POTASSIUM CL SA 10 MEQ TAB PO ONE (16:00)
--- NOTE | 2021-07-27 16:15 | RAD REPORT ---
EXAM DESCRIPTION: MRI - Mri Abdomen W/Wo Cont - 07/27/2021 3:50 pm CLINICAL HISTORY: Abdominal pain COMPARISON: March 2021 MRI TECHNIQUE: Axial and coronal magnetic resonance imaging of the liver performed. 15 cc MultiHance adm inistered intravenously. FINDINGS: An approximately 4 centimeter enhancing lesion within segment II of the liver is without o bvious change. 10 millimeter area of enhancement segment VIII Small hepatic cyst Linear filling defect within right portal vein Biliary tree is not dilated IMPRESSION: No obvious change in the approximately 4 centimeter a lesion segment II of the liver 10 millimeter enhancing lesion segment VIII presumably metastasis Small linear filling defect within the right portal vein having the appearance of subacute thrombus
[2021-07-27] MEDS: PANTOPRAZOLE 40MG TABLET PO SCH (16:23)
[2021-07-27] MEDS: DOXYCYCLINE 100 MG CAP PO SCH ×2 (17:19→21:15)
[2021-07-27 20:17] LABS: Urine Appearance CLEAR (Clear); Urine Blood NEGATIVE (Negative); Urine Color DK YELLOW (Yellow); Urine Glucose NEGATIVE (Negative); Urine Protein TRACE (Negative); Urine Specific Gravity >=1.030 (1.005-1.030)
[2021-07-27 20:27] LABS: Urine Bilirubin NEGATIVE (Negative)
[2021-07-27 20:38] LABS: Urine Bacteria 20-50 /HPF (<20); Urine RBC <5 /HPF (NONE SEEN)
[2021-07-27] MEDS: ZOLPIDEM TARTRATE 10 MG TABLET PO PRN (22:28)
[2021-07-27] MEDS: GABAPENTIN 300 MG CAP PO PRN (22:28)
[2021-07-28 06:11] LABS: BUN Blood Urea Nitrogen 14 mg/dL (7-18); Bicarbonate 27 mmol/L (21-32); Glucose Level 72 mg/dL (74-106); Potassium 3.5 mmol/L (3.5-5.1); Sodium Level 137 mmol/L (136-145)
[2021-07-28 06:27] LABS: Absolute Lymphocytes (CBC) 1.8 K/uL (0.7-4.9); Hematocrit 24.7 % (36.0-45.0); Lymphocytes % 4.3 % (15.3-44.8); MPV 7.7 fL (7.6-11.3); RBC Red Blood Cell Count 2.93 M/uL (3.86-4.86)
[2021-07-28] MEDS: ENOXAPARIN 40 MG/0.4 ML SQ SCH (07:59)
[2021-07-28] MEDS: DOXYCYCLINE 100 MG CAP PO SCH ×2 (07:59→20:29)
[2021-07-28] MEDS: PANTOPRAZOLE 40MG TABLET PO SCH ×2 (07:59→15:33)
[2021-07-28] MEDS: Meropenem 1,000 MG in NA CHLORIDE 0.9% 100 ML IV SCH ×2 (08:00→20:29)
[2021-07-28] MEDS ORDERED: POTASSIUM CL SA 10 MEQ TAB PO ONE (09:00)
--- NOTE | 2021-07-28 10:19 | P.PN ---
Subjective Date of Service: 07/28/21 Chief Complaint: NAUSEA, DYSPNEA Subjective: Improving SHE FEELS A LOT BETTER AFTER ONE DAY OF ANTIBIOTICS. SHE ALSO HAS LESS NAUSEA AND APPETITE IS COMING BACK. Review of Systems 10-point ROS is otherwise unremarkable General: Weakness Respiratory: As per HPI Physical Examination - Vital Signs Temperature: 98.8 F Blood Pressure: 140/75 Pulse: 100 Respirations: 20 Pulse Ox (%): 95 - Physical Exam General: Oriented x3, Mild distress HEENT: Atraumatic, PERRLA, EOMI Neck: Supple, JVD not distended Respiratory: Clear to auscultation bilaterally, Normal air movement Cardiovascular: Regular rate/rhythm, Normal S1 S2 Gastrointestinal: Normal bowel sounds, No tenderness Musculoskeletal: No tenderness Integumentary: No rashes Neurological: Normal speech, Normal tone, Normal affect Lymphatics: No axilla or inguinal lymphadenopathy - Studies Laboratory Data (last 24 hrs) 07/28/21 05:11: Sodium 137, Potassium 3.5, BUN 14, Creatinine 0.50 L, Glucose 72 L, Magnesium 2.0 07/28/21 05:11: WBC 42.60 H* D, Hgb 7.6 L, Hct 24.7 L, Plt Count 467 H 07/27/21 22:02: Potassium 3.3 L 07/27/21 10:29: Sodium 136, Potassium 3.3 L, BUN 15, Creatinine 0.61, Glucose 88, Phosphorus 3.0, Magnesium 2.1, Total Bilirubin 1.5 H, AST 17, ALT 13, Alkaline Phosphatase 168 H 07/27/21 10:29: APTT 29.6 07/27/21 10:29: WBC 59.00 H*, Hgb 8.3 L, Hct 27.7 L, Plt Count 575 H Medications List Reviewed: Yes Assessment And Plan - Current Problems (Diagnosis) (1) Non-small cell cancer of right lung Current Visit: Yes Status: Chronic Plan: IT LOOKS LIKE ONCE AGAIN ALL HER SYMPTOMS ARE FROM LUNG CANCER THAT IS PRESENTING IN SIMILAR WAY WITH HIGH WBC COUNT. ORDER ECHO THE TUMOR IS VERY CLOSE TO HEART. WBC COMING DOWN FROM 59K TO 42K. SUPERADDED INFECTION IS IMPROVING. SHE IS FEELING BETTER. (2) Abdominal pain Current Visit: Yes Status: Chronic Plan: MRI ABDOMEN ORDERED MAY NOT HELP US IN TREATMENT. Qualifiers: Abdominal location: epigastric Qualified Code(s): R10.13 - Epigastric pain (3) Elevated white blood cell count Current Visit: Yes Status: Acute Plan: BC 2 IV MERREM IT IS UNCLEAR IF THIS IS FROM INFECTION. PREVIOUSLY SHE HAD SUCH WBC COUNT FROM LUNG CANCER ONLY. PROGNOSIS IS POOR. IT MAY BE TIME TO EITHER GO TO [facility] AND GET DNR STATUS. Qualifiers: Leukocytosis type: leukemoid reaction Qualified Code(s): D72.823 - Felipa kemoid reaction (4) Nausea & vomiting Current Visit: Yes Status: Acute Plan: AND ABDOMEN PAIN ALL IMPROVED WITH IV PROTONIX. MRI LIVER SHOWS ADDITIONAL 1 CM LESION. TO SMALL TO BIOPSY. OTHER 4 CM LESION HAS BEEN BIOPSIED BY [employer] AND WAS NONDIAGNOSTIC.
[2021-07-28 13:53] LABS: Anisocytosis 2+; Blood Morphology Comment NOTED (NOT SEEN); Burr Cells 1+; Platelet Estimate INCR; Polychromasia 1+
[2021-07-28] MEDS: NACHLORIDE 0.45% 1,000 ML IV SCH (21:20)
[2021-07-28] MEDS: ZOLPIDEM TARTRATE 10 MG TABLET PO PRN (22:23)
[2021-07-28] MEDS: GABAPENTIN 300 MG CAP PO PRN (22:23)
[2021-07-29 05:48] LABS: Absolute Lymphocytes (CBC) 1.9 K/uL (0.7-4.9); Lymphocytes % 6.3 % (15.3-44.8); MPV 7.7 fL (7.6-11.3); RBC Red Blood Cell Count 2.77 M/uL (3.86-4.86)
[2021-07-29 06:05] LABS: BUN Blood Urea Nitrogen 11 mg/dL (7-18); Bicarbonate 29 mmol/L (21-32); Glucose Level 75 mg/dL (74-106); Magnesium 1.9 mg/dL (1.8-2.4); Potassium 3.5 mmol/L (3.5-5.1); Sodium Level 135 mmol/L (136-145)
[2021-07-29] MEDS ORDERED: NA CHLORIDE 0.9% 0 ML ONE (07:28)
[2021-07-29] MEDS: Meropenem 1,000 MG in NA CHLORIDE 0.9% 100 ML IV SCH ×2 (07:58→20:10)
[2021-07-29] MEDS: PANTOPRAZOLE 40MG TABLET PO SCH ×2 (07:59→15:27)
[2021-07-29] MEDS: DOXYCYCLINE 100 MG CAP PO SCH ×2 (07:59→20:10)
[2021-07-29] MEDS: ENOXAPARIN 40 MG/0.4 ML SQ SCH (07:59)
[2021-07-29] MEDS ORDERED: POTASSIUM CL SA 10 MEQ TAB PO ONE (09:00)
[2021-07-29] MEDS ORDERED: NA CHLORIDE 0.9% 250 ML ONE ×2 (10:54→15:15)
--- NOTE | 2021-07-29 11:22 | P.PN ---
Subjective Date of Service: 07/29/21 Chief Complaint: NAUSEA, DYSPNEA Subjective: Improving SHE FEELS A LOT BETTER AFTER ONE DAY OF ANTIBIOTICS. SHE ALSO HAS LESS NAUSEA AND APPETITE IS COMING BACK. FEELS BETTER. NO PAIN. HAD PICC LINE DONE. Review of Systems 10-point ROS is otherwise unremarkable General: Weakness Physical Examination - Vital Signs Temperature: 98.3 F Blood Pressure: 115/71 Pulse: 94 Respirations: 20 Pulse Ox (%): 95 - Physical Exam General: Alert, In no apparent distress HEENT: Atraumatic, PERRLA, EOMI Neck: Supple, JVD not distended Respiratory: Clear to auscultation bilaterally, Normal air movement Cardiovascular: Regular rate/rhythm, Normal S1 S2 Gastrointestinal: Normal bowel sounds, No tenderness Musculoskeletal: No tenderness Integumentary: No rashes Neurological: Normal speech, Normal tone, Normal affect Lymphatics: No axilla or inguinal lymphadenopathy - Studies Laboratory Data (last 24 hrs) 07/29/21 05:05: Sodium 135 L, Potassium 3.5, BUN 11, Creatinine 0.52 L, Glucose 75, Magnesium 1.9 07/29/21 05:05: WBC 30.20 H* D, Hgb 7.1 L, Hct 23.0 L, Plt Count 404 07/28/21 05:11: WBC 42.60 H* D, Hgb 7.6 L, Hct 24.7 L, Plt Count 467 H Microbiology Data (last 24 hrs): 07/27/21 19:45 Clean Catch Urine [place] Count - Final No growth. 07/27/21 19:45 Clean Catch Urine - Final No growth. Medications List Reviewed: Yes Assessment And Plan - Current Problems (Diagnosis) (1) Non-small cell cancer of right lung Current Visit: Yes Status: Chronic Plan: IT LOOKS LIKE ONCE AGAIN ALL HER SYMPTOMS ARE FROM LUNG CANCER THAT IS PRESENTING IN SIMILAR WAY WITH HIGH WBC COUNT. ORDER ECHO THE TUMOR IS VERY CLOSE TO HEART. WBC COMING DOWN FROM 59K TO 42K. SUPERADDED INFECTION IS IMPROVING. SHE IS FEELING BETTER. (2) Abdominal pain Current Visit: Yes Status: Chronic Plan: MRI ABDOMEN ORDERED MAY NOT HELP US IN TREATMENT. IMPROVED BUT NOT GONE YET. MAY NEED EGD. I CALLED DR. PATHAK. SHE IS ALSO ANEMIC. Qualifiers: Abdominal location: epigastric Qualified Code(s): R10.13 - Epigastric pain (3) Elevated white blood cell count Current Visit: Yes Status: Acute Plan: BC 2 IV MERREM IT IS UNCLEAR IF THIS IS FROM INFECTION. PREVIOUSLY SHE HAD SUCH WBC COUNT FROM LUNG CANCER ONLY. PROGNOSIS IS POOR. IT MAY BE TIME TO EITHER GO TO [facility] AND GET DNR STATUS. Qualifiers: Leukocytosis type: leukemoid reaction Qualified Code(s): D72.823 - Leukemoid reaction (4) Nausea & vomiting Current Visit: Yes Status: Acute Plan: AND ABDOMEN PAIN ALL IMPROVED WITH IV PROTONIX. MRI LIVER SHOWS ADDITIONAL 1 CM LESION. TO SMALL TO BIOPSY. OTHER 4 CM LESION HAS BEEN BIOPSIED BY [employer] AND WAS NONDIAGNOSTIC. (5) Anemia Current Visit: Yes Status: Acute Plan: CAN BE RELATED TO CHEMO , CANCER AND INFECTION. WILL GIVE BLOOD. CHECK PROFILE CONSULTED DR. PATHAK SHE MAY HAVE ULCERS ALSO.
[2021-07-29 12:38] LABS: RBC Red Blood Cell Count 3.02 M/uL (3.86-4.86)
[2021-07-29 13:12] LABS: Ferritin 796.1 ng/mL (8-388)
--- NOTE | 2021-07-29 16:16 | CON ---
Date of Consultation: 07/29/2021 Reason For Consultation: Midepigastric pain, nausea, vomiting for the past 7 days. History Of Present Illness: The patient is a 71-year-old white female with history of non-small cell cancer/large cell cancer of the lung chronically. The patient was admitted to the hospital due to nausea, vomiting, epigastric pain, and found to have elevated white count again. In the past, she has elevated white count in the 40-50,000 range due to her lung cancer, chemotherapy with possible obstruction leading to infection, responding to antibiotics in the past. The patient is on antibiotics now. Her white count has come down from 59,000 to approximately 30,000 on IV antibiotics. Continues to have midepigastric pain, nausea, vomiting. This was not present on the last elevated white count at admission associated with her lung cancer. Past Medical History: Significant for non-small cell lung cancer/large cell history of lesions in the liver, which is stable as per CT report as per below, colon polyp, gastroesophageal reflux disease, hypertension, D and C, tonsillectomy, and cholecystectomy, 2 C-sections. Medications: At home include gabapentin, , and chemotherapy. Allergies: TO CLINDAMYCIN AND LEVAQUIN. Social History: She is a . She has a son who is 32 with daughter 33. No tobacco, alcohol. Family History: Father of old age at 88. Mother of old age at 89. Review of Systems: The patient has midepigastric pain, nausea, vomiting. No melena, hematochezia, hematemesis, coffee-grounds emesis, hematuria, dysuria, polydipsia. The patient states she does cough occasionally a streak of blood in her cough probably associated with her lung cancer. She denies any depression, anxiety, muscle aches, joint aches, backaches, seizure, syncope, chest pain, shortness of breath. No chest pain, but plus or minus on the shortness of breath. Physical Examination: Vital Signs: The patient is 5 feet 6 inches, 154 pounds, BMI 24.9 kg/m2. Temperature of 98.4 degrees Fahrenheit, pulse at 94 to 102, respirations 20, blood pressure 140/78, O2 saturation 96%. General: She is an elderly female, lying in bed, in no acute distress. HEENT: Normocephalic, atraumatic. Anicteric. Pupils equal, round, and reactive to light. Extraocular movements are intact. Oropharynx is clear. Neck: Supple. No masses. Respirations: Clear to auscultation bilaterally. Cardiac: Regular rate and rhythm. No gallops or rubs. Abdomen: Positive bowel sounds. Soft, nondistended. She did have some midepigastric pain, tenderness, but no peritoneal or Vega sign. No guarding. Mildly obese. Extremities: No clubbing, cyanosis, or edema. 2+ pulses. Neuro: Alert and oriented x3. Grossly nonfocal. 5/5 motor. Sensation intact to light touch. Laboratory Data: The patient had white count on admission of 59, now down to 30,200, hemoglobin 8.6 on admission down to 7.1 with an MCV of 83, polys of 89% and on admission was 91.4%, lymphocytes 6%, monocytes 4%, eosinophils 1%. PTT of 29.6. She has a sodium of 135, potassium 3.5, chloride 99, bicarb 29, BUN 11, creatinine of 0.51, glucose 75, calcium 8.6, magnesium 1.9, total bilirubin 1.5, direct bilirubin 0.7, AST 17, ALT 13, alkaline phosphatase 168, total protein 6.5, albumin 2.8. Vitamin B12 of 1079. TSH of 5.15, slightly elevated. Free T4 elevated at 1.52. UA is 1+ ketones, many acid crystals, bacteria 20- 50, trace urine, negative leukocyte esterase, negative nitrate however. Serology, COVID-19 test is negative. Imaging: CT chest shows a large chest mass that has not measured on this report; however, the patient states it is large 12 cm. MRI of abdomen reveals a stable 4 cm lesion in segment 2 of the liver. Impression: 1. Midepigastric, nausea and vomiting for 7 days, maximum 6/10, now down to 3/10, now present with last episode of flare of her lung cancer on chemotherapy with elevated white count in the past. At this time, she has midepigastric pain, nausea and vomiting. 2. Advanced non-small cell large lung cancer in the right lower lobe diagnosed in September 2019, approximately 12 cm in size. Ongoing chemotherapy with Oncology. 3. Stable 4 cm lesion in liver segment 2 noted on MRI of the abdomen. 4. Elevated white count secondary to lung cancer, obstruction, and infection. White count has dropped from 59 down to 30,200 with IV antibiotics. 5. Anemia. Hemoglobin 8.3, now down to 7.1. Getting 2 units of packed RBCs currently. 6. Ascending thoracic aneurysm 4.4 cm in size. She will be followed by Cardiology. 7. History of non-small cell large cell lung cancer with colon polyps. 8. Hypertension, D and C, tonsillectomy, cholecystectomy, 2 C-sections. Recommendations: 1. Continue IV antibiotics and IV fluids. 2. P.r.n. pain medicines and antiemetics. 3. EGD evaluation. 4. Agree with packed RBCs. 5. Serial H and H and transfuse p.r.n. 6. PPI therapy. AGUSTÍN/VALE Voice ID: [id number] Report ID: [id number] ARLEN
[2021-07-29] MEDS ORDERED: NA CHLORIDE 0.9% 100 ML ONE (20:06)
[2021-07-29] MEDS ORDERED: Meropenem 1000 MG/VIAL IV ONE (20:07)
[2021-07-29 21:22] LABS: Hematocrit 30.7 % (36.0-45.0)
[2021-07-29] MEDS: GABAPENTIN 300 MG CAP PO PRN (22:14)
[2021-07-29] MEDS: ZOLPIDEM TARTRATE 10 MG TABLET PO PRN (22:15)
[2021-07-29] MEDS: DIPHENHYDRAMINE 25 MG TAB/CAP PO PRN (22:16)
--- NOTE | 2021-07-29 23:53 | RAD REPORT ---
EXAM DESCRIPTION: RAD - Chest Single View - 07/28/2021 10:41 pm CLINICAL HISTORY: PICC placement COMPARISON: 12/22/2019 FINDINGS: Single frontal view of the chest. Tubes and lines: Left arm PICC with tip in the SVC. Cardiomediastinal silhouette: Heart is not enlarged. Lungs: Complete opacification of the right lower lobe compatible with previously visualized mass. Pos sible small right pleural effusion. No pneumothorax. No definite airspace consolidation. Bones: Mild endplate spondylosis of the spine. Upper abdomen: No acute abnormality. IMPRESSION: 1. Left arm PICC with tip in the SVC. 2. Right lower lobe mass and small right pleural effusion are stable. Electronically signed by: Yohannes Squires 07/29/2021 12:06 AM COUNTY DIRECTOR Due to temporary technical issues with the PACS/Fluency reporting system, reports are being signed by the in house radiologists without review as a courtesy to insure prompt reporting. The interpreting radiologist is fully responsible for the content of the report.
[2021-07-30] MEDS: NACHLORIDE 0.45% 1,000 ML IV SCH (05:16)
[2021-07-30 05:31] LABS: Absolute Lymphocytes (CBC) 2.1 K/uL (0.7-4.9); Hematocrit 28.6 % (36.0-45.0); Lymphocytes % 7.5 % (15.3-44.8); MPV 7.4 fL (7.6-11.3)
[2021-07-30] MEDS: PANTOPRAZOLE 40MG TABLET PO SCH ×2 (07:30→16:34)
[2021-07-30 07:35] LABS: BUN Blood Urea Nitrogen 9 mg/dL (7-18); Bicarbonate 29 mmol/L (21-32); Glucose Level 88 mg/dL (74-106); Potassium 3.6 mmol/L (3.5-5.1); Sodium Level 136 mmol/L (136-145)
--- NOTE | 2021-07-30 08:15 | ECHO ---
HEIGHT: 5 ft 6 in WEIGHT: 154 lb 0 oz DATE OF STUDY: 07/27/[address]: Bryce Lopez MD 2-DIMENSIONAL: YES M.MODE: YES DOPPLER: YES COLOR FLOW: YES TDS: PORTABLE: DEFINITY: BUBBLE STUDY: DIAGNOSIS: EDEMA, DYSPNEA CARDIAC HISTORY: CATHERIZATION: NO SURGERY: NO PROSTHETIC VALVE: NO PACEMAKER: NO MEASUREMENTS (cm) DIASTOLIC (NORMALS) SYSTOLIC (NORMALS) IVSd 1.0 (0.6-1.2) LA Diam 2.0 (1.9-4.0) LVEF 55-60% LVIDd 3.7 (3.5-5.7) LVIDs 2.9 (2.0-3.5) %FS 21% LVPWd 1.0 (0.6-1.2) Ao Diam 2.9 (2.0-3.7) 2 DIMENSIONAL ASSESSMENT: RIGHT ATRIUM: NORMAL LEFT ATRIUM: NORMAL RIGHT VENTRICLE: NORMAL LEFT VENTRICLE: NORMAL TRICUSPID VALVE: MILD TRICUSPID REGURGITATION MITRAL VALVE: MITRAL ANNULAR CALCIFICATION WITH MILD MITRAL INSUFFIENCY PULMONIC VALVE: NORMAL AORTIC VALVE: THICKENED WITH AORTIC INSUFFIENCY PERICARDIAL EFFUSION: NONE AORTIC ROOT: NORMAL LEFT VENTRICULAR WALL MOTION: NORMAL DOPPLER/COLOR FLOW: SEE BELOW COMMENTS: NORMAL LEFT VENTRICULAR EJECTION FRACTION 55-60%. NORMAL WALL MOTION. MILD TRICUSPID RGURGITATION. MILD AORTIC INSUFFIENCY, MILD MITRAL REGURGITATION. TECHNOLOGIST: MADISON BERNAL
[2021-07-30] MEDS ORDERED: NA CHLORIDE 0.9% 100 ML ONE (08:32)
[2021-07-30] MEDS ORDERED: Meropenem 1000 MG/VIAL IV ONE (08:33)
[2021-07-30] MEDS ORDERED: KCL 20 MEQ/100 mL IVPB 20 MEQ/100 ML BAG IV SCH (09:00)
[2021-07-30] MEDS: DOXYCYCLINE 100 MG CAP PO SCH ×2 (09:00→20:42)
[2021-07-30] MEDS: Meropenem 1,000 MG in NA CHLORIDE 0.9% 100 ML IV SCH ×2 (09:13→20:43)
[2021-07-30] MEDS ORDERED: Ringers Lactate 1,000 ML IV ONE (11:11)
[2021-07-30] MEDS ORDERED: propofoL 200 MG/20 ML VIAL IV ONE (11:58)
[2021-07-30] MEDS ORDERED: LIDOCAINE 1% MPF 5 ML VIAL ONE (11:58)
--- NOTE | 2021-07-30 12:46 | ENDO RPT ---
[address], [address] EGD PROCEDURE REPORT EXAM DATE: 07/30/2021 PATIENT NAME: Jessenia James MR#: [id number] BIRTHDATE: 1950 ATTENDING: Fan [address] Dr STATUS: inpatient - [facility] OXYGRAPH OPERATOR: Mariela Ash RN and Stephanie Marquez INDICATIONS: The patient is a 71 yr old Female here for an EGD due to mid epigastric abdominal pain and nausea and vomiting PROCEDURE PERFORMED: EGD with biopsy MEDICATIONS: Per Anesthesia. TOPICAL ANESTHETIC: none CONSENT: The patient understands the risks and benefits of the procedure and understands that these risks include, but are not limited to: sedation, allergic reaction, infection, perforation and/or bleeding. Alternative means of evaluation and treatment include, among others: physical exam, x-rays, and/or surgical intervention. The patient elects to proceed with this endoscopic procedure. DESCRIPTION OF PROCEDURE: During intra-op preparation period all mechanical medical equipment was checked for proper function. Hand hygiene and appropriate measures for infection prevention was taken. Procedure, possible complications, and alternatives including but not limited to the possibility of bleeding, perforation, tear, infection, sepsis, need for surgery, need for blood transfusion, and anesthesia related complications were explained to the patient. After the risks, benefits and alternatives of the procedure were thoroughly explained, Informed consent was verified, confirmed and timeout was successfully executed by the treatment team. The patient was placed in the left lateral position. The patient was anesthetized with topical anesthesia. Through the anesthetized oropharyngeal area, the scope was passed without any difficulty. The EG-[id number] ([id number]) and Pentax EG-[id number] ([id number]) endoscope was introduced through the mouth and advanced to the third portion of the duodenum. Retroflexed views revealed a large hiatal hernia. The gastroscope was then slowly withdrawn and removed. Moderate amount of bile fluid with excessive bubbles was found in the body of the stomach - suctioned out with endoscope. Moderate atrophic gastritis was found in the body of the stomach. Multiple biopsies were obtained and sent to pathology. ADVERSE EVENTS: There were no complications. IMPRESSIONS: 1. Moderate amount of bile fluid with excessive bubbles was found in the body of the stomach - suctioned out with endoscope 2. Moderate atrophic gastritis in the body of the stomach, s/p biopsies RECOMMENDATIONS: 1. await biopsy results 2. acid suppression therapy REPEAT EXAM: Fan Murri[address] Dr eSigned: Fan Murrieta Dr 07/30/2021 12:46 PM cc: Bryce Lopez CPT CODES: ICD9 CODES: PATIENT NAME: Jessenia JamesMaryana MR#: [id number]
--- NOTE | 2021-07-30 12:58 | P.PN ---
Subjective Date of Service: 07/30/21 Chief Complaint: NAUSEA, DYSPNEA Subjective: Improving SHE FEELS A LOT BETTER AFTER ONE DAY OF ANTIBIOTICS. SHE ALSO HAS LESS NAUSEA AND APPETITE IS COMING BACK. FEELS BETTER. NO PAIN. HAD PICC LINE DONE. HER PAIN IN ABDOMEN IS BETTER BUT NOT GONE YET. SHE HAS LOT LESS GERD NOW. EGD DONE TODAY SHOWS ATROPHIC GASTRITIS. Review of Systems 10-point ROS is otherwise unremarkable General: Weakness Physical Examination - Vital Signs Temperature: 97.9 F Blood Pressure: 131/79 Pulse: 96 Respirations: 18 Pulse Ox (%): 96 - Physical Exam General: Mild distress HEENT: Atraumatic, PERRLA, EOMI Neck: Supple, JVD not distended Respiratory: Clear to auscultation bilaterally, Normal air movement Cardiovascular: Regular rate/rhythm, Normal S1 S2 Gastrointestinal: Normal bowel sounds, No tenderness Musculoskeletal: No tenderness Integumentary: No rashes Neurological: Normal speech, Normal tone, Normal affect Lymphatics: No axilla or inguinal lymphadenopathy - Studies Laboratory Data (last 24 hrs) 07/30/21 05:05: Sodium 136, Potassium 3.6, BUN 9, Creatinine 0.53 L, Glucose 88, Magnesium OIL FIELD TESTER 07/30/21 05:05: WBC 28.10 H*, Hgb 9.2 L, Hct 28.6 L, Plt Count 338 07/29/21 21:04: Hgb Cancelled 07/29/21 21:02: Hgb 9.9 L D, Hct 30.7 L D Microbiology Data (last 24 hrs): 07/27/21 19:45 Clean Catch Urine [place] Count - Final No growth. 07/27/21 19:45 Clean Catch Urine - Final No growth. Medications List Reviewed: Yes Assessment And Plan - Current Problems (Diagnosis) (1) Non-small cell cancer of right lung Current Visit: Yes Status: Chronic Plan: IT LOOKS LIKE ONCE AGAIN ALL HER SYMPTOMS ARE FROM LUNG CANCER THAT IS PRESENTING IN SIMILAR WAY WITH HIGH WBC COUNT. ORDER ECHO THE TUMOR IS VERY CLOSE TO HEART. WBC COMING DOWN FROM 59K TO 42K. SUPERADDED INFECTION IS IMPROVING. SHE IS FEELING BETTER. (2) Abdominal pain Current Visit: Yes Status: Chronic Plan: MRI ABDOMEN ORDERED MAY NOT HELP US IN TREATMENT. IMPROVED BUT NOT GONE YET. MAY NEED EGD. I CALLED DR. PATHAK. SHE IS ALSO ANEMIC. Qualifiers: Abdominal location: epigastric Qualified Code(s): R10.13 - Epigastric pain (3) Elevated white blood cell count Current Visit: Yes Status: Acute Plan: BC 2 IV MERREM IT IS UNCLEAR IF THIS IS FROM INFECTION. PREVIOUSLY SHE HAD SUCH WBC COUNT FROM LUNG CANCER ONLY. PROGNOSIS IS POOR. IT MAY BE TIME TO EITHER GO TO [facility] AND GET DNR STATUS. Qualifiers: Leukocytosis type: leukemoid reaction Qualified Code(s): D72.823 - Leukemoid reaction (4) Nausea & vomiting Current Visit: Yes Status: Acute Plan: AND ABDOMEN PAIN ALL IMPROVED WITH IV PROTONIX. MRI LIVER SHOWS ADDITIONAL 1 CM LESION. TO SMALL TO BIOPSY. OTHER 4 CM LESION HAS BEEN BIOPSIED BY BUDDHISM AND WAS NONDIAGNOSTIC. (5) Anemia Current Visit: Yes Status: Acute Plan: CAN BE RELATED TO CHEMO , CANCER AND INFECTION. WILL GIVE BLOOD. CHECK PROFILE CONSULTED DR. PATHAK SHE MAY HAVE ULCERS ALSO. 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 WE ARE WAITING FOR IV ABX APPROVAL FOR HOME.
[2021-07-30 16:36] LABS: Magnesium 1.5
[2021-07-30] MEDS: GABAPENTIN 300 MG CAP PO PRN (20:42)
[2021-07-30] MEDS: ZOLPIDEM TARTRATE 10 MG TABLET PO PRN (20:42)
[2021-07-30] MEDS: DIPHENHYDRAMINE 25 MG TAB/CAP PO PRN (20:42)
[2021-07-31] MEDS: NACHLORIDE 0.45% 1,000 ML IV SCH ×2 (04:42→20:09)
[2021-07-31 05:31] LABS: Hematocrit 34.5 % (36.0-45.0); Lymphocytes % 4.9 % (15.3-44.8); MPV 7.8 fL (7.6-11.3); RBC Red Blood Cell Count 4.09 M/uL (3.86-4.86)
[2021-07-31 05:50] LABS: BUN Blood Urea Nitrogen 13 mg/dL (7-18); Bicarbonate 27 mmol/L (21-32); Glucose Level 120 mg/dL (74-106); Potassium 3.8 mmol/L (3.5-5.1); Sodium Level 134 mmol/L (136-145)
[2021-07-31 07:57] LABS: Anisocytosis 1+; Blood Morphology Comment NOTED (NOT SEEN); Dohle Bodies PRESENT; Platelet Estimate INCR; Polychromasia 1+
[2021-07-31 07:58] LABS: Burr Cells 3+; Poikilocytosis 3+
[2021-07-31] MEDS: PROMETHAZINE INJ 25 MG/ML AMP IV PRN ×4 (08:51→23:13)
[2021-07-31] MEDS: Meropenem 1,000 MG in NA CHLORIDE 0.9% 100 ML IV SCH ×2 (08:52→20:07)
[2021-07-31] MEDS: DOXYCYCLINE 100 MG CAP PO SCH ×2 (08:54→12:40)
[2021-07-31] MEDS: PANTOPRAZOLE 40MG TABLET PO SCH ×2 (08:54→16:16)
[2021-07-31] MEDS ORDERED: POTASSIUM 25 MEQ EFFERV TAB PO ONE ×2 (09:00→17:00)
--- NOTE | 2021-07-31 09:57 | RAD REPORT ---
EXAM DESCRIPTION: RAD - Abdomen W Erect - 07/31/2021 9:24 am CLINICAL HISTORY: Vomiting COMPARISON: Ct Skull/Thigh dated 06/21/2021 FINDINGS: Diffusely dilated small bowel consistent with a bowel obstruction is noted. Air-fluid leve ls are present. No acute osseous abnormality.Right-sided pleural effusion noted. Large right lower lo be lung mass again noted.No abnormal calcifications. IMPRESSION: Bowel-gas pattern consistent with a small bowel obstruction.
--- NOTE | 2021-07-31 12:15 | RAD REPORT ---
EXAM DESCRIPTION: CTAbdomen Pelvis W Contrast - 07/31/2021 11:06 am CLINICAL HISTORY: Vomiting COMPARISON: Chest For Pe Angio dated 07/27/2021; Mri Abdomen W/Wo Cont dated 07/27/2021; Abdomen WWo C ont dated 12/19/2020; Chest Abdomen Pelvis W Cont dated 08/29/2020 TECHNIQUE: CT of the abdomen and pelvis was performed. All CT scans are performed using dose optimization technique as appropriate and may include automated exposure control or mA/KV adjustment according to patient size. FINDINGS: Lower chest: Re- demonstrated very large enhancing mass in the right lower lung. Small rig ht pleural effusion. Reference CT from 07/27/2021. Liver: Liver lesions were better assessed on MRI from 07/19/2021. Biliary: Cholecystectomy. Stomach: No significant focal abnormality. Duodenum: No significant focal abnormality. Pancreas: No significant abnormality. Spleen: Mild splenomegaly. Adrenal: Bilateral adrenal nodules. Kidney/ureter: No hydronephrosis. No renal calculi. Too small to characterize and/or benign appearing renal lesions are noted. Retroperitoneum: No retroperitoneal adenopathy. Vascular: No aneurysm. Atherosclerosis. Bowel: Small-bowel obstruction secondary to enhancing intraluminal small bowel mass. It measures appr oximately 4 cm. See image 86, series 4. Multiple air-fluid levels. The small bowel is dilated to 4 cm . Scattered colonic diverticular.. Peritoneum: No ascites or free air. Bladder: Decompressed. Reproductive: No adnexal masses. Bones: No acute fracture. Tiny lytic focus in the left iliac bone is unchanged. Other: n/a IMPRESSION: Small bowel obstruction as result of an enhancing endoluminal small bowel mass.
[2021-07-31] MEDS ORDERED: POTASSIUM CL SA 10 MEQ TAB PO ONE (12:20)
[2021-07-31 12:57] LABS: ALT/SGPT 13 U/L (12-78); AST/SGOT 22 U/L (15-37); Albumin 2.6 g/dL (3.4-5.0); Alkaline Phosphatase 153 U/L (45-117); Bilirubin Direct 0.6 mg/dL (0-0.2); Bilirubin Total 1.5 mg/dL (0.2-1.0); Magnesium 1.6; Protein, Total 5.9 g/dL (6.4-8.2)
[2021-07-31] MEDS: HYDROMORPHONE HCL 1 MG/ML INJ IV PRN (16:16)
--- NOTE | 2021-07-31 17:57 | P.PN ---
Subjective Date of Service: 07/31/21 Chief Complaint: ELISA pain, N/V, dyspnea, h/o lung cancer Subjective: Worsening (Severe abdominal pain overnight. Urgent abdominal series Xrays revealed SBO. CT abdomen confirmed as well.) Review of Systems 10-point ROS is otherwise unremarkable General: Weakness, Malaise Respiratory: Shortness of Breath Gastrointestinal: Nausea, Vomiting, Abdominal Pain Physical Examination - Vital Signs Temperature: 97.5 F Blood Pressure: 131/92 Pulse: 105 Respirations: 18 Pulse Ox (%): 100 - Physical Exam General: Alert, Oriented x3, Cooperative, Mild distress HEENT: Atraumatic, Normocephalic, PERRLA, EOMI Neck: Supple Respiratory: Diminished Cardiovascular: Normal pulses Gastrointestinal: No rebound, Distended (tympany throughout), Guarding Neurological: Normal speech, Normal strength at 5/5 x4 extr - Studies Laboratory Data (last 24 hrs) 07/31/21 05:20: Sodium 134 L, Potassium 3.8, BUN 13, Creatinine 0.56, Glucose 120 H, Magnesium 1.6, Total Bilirubin 1.5 H, AST 22, ALT 13, Alkaline Phosphatase 153 H 07/31/21 05:20: WBC 41.20 H* D, Hgb 10.7 L, Hct 34.5 L D, Plt Count 356 Medications List Reviewed: Yes Assessment And Plan - Current Problems (Diagnosis) (1) Epigastric abdominal pain Current Visit: Yes Status: Acute (2) Sepsis Current Visit: Yes Status: Acute (3) Small bowel obstruction Current Visit: Yes Status: Acute (4) Abnormal x-ray of abdomen Current Visit: Yes Status: Acute (5) Abnormal CT of the abdomen Current Visit: Yes Status: Acute (6) Non-small cell cancer of right lung Current Visit: Yes Status: Chronic (7) Lung mass Current Visit: No Status: Acute - Plan REC: 1) surgery consultation for small bowel obstruction 2) continue PPI for gastritis 3) will need small bowel evaluation once SBO resolved 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
--- NOTE | 2021-07-31 18:39 | RAD REPORT ---
EXAM DESCRIPTION: RAD - Abdomen 1 View (KUB) - 07/31/2021 6:04 pm CLINICAL HISTORY: NGT placement Pain COMPARISON: No comparisons FINDINGS: Enteric tube is in the stomach.
--- NOTE | 2021-07-31 20:57 | P.PN ---
Subjective Date of Service: 07/31/21 Chief Complaint: NAUSEA,VOMITING AND PAIN. Subjective: C/O voiced SHE STARTED TO HAVE NAUSEA, VOMITING AND ABDOMEN PAIN THIS AM AT ABOUT4 . NURSE CALLED ME AND I GAVE INITIAL ORDER. WBC RAISED TO 41K. I ASKED FOR STAT CT ABDOEMN WITH CONTRAST. IT SHOWED SBO WITH TUMOR BLOCKING THE INTESTINE. I ASKED FOR STAT NGT WITH LIS AND SHE HAD 900 ML OUTPUT WITHIN HOURS. IV FLUIDS RAISED. I CALLED DR. RUBIO FOR CONSULT. WILL KEEP HER NPO AFTER MIDNIGHT. SHE M AY HAVE SURGERY IN AM. Physical Examination - Vital Signs Temperature: 97.5 F Blood Pressure: 131/92 Pulse: 105 Respirations: 18 Pulse Ox (%): 100 - Physical Exam General: Acute distress, Moderate distress HEENT: Atraumatic, PERRLA, EOMI Neck: Supple, JVD not distended Respiratory: Clear to auscultation bilaterally, Normal air movement Cardiovascular: Regular rate/rhythm, Normal S1 S2 Gastrointestinal: Normal bowel sounds, No tenderness Musculoskeletal: No tenderness Integumentary: No rashes Neurological: Normal speech, Normal tone, Normal affect Lymphatics: No axilla or inguinal lymphadenopathy - Studies Laboratory Data (last 24 hrs) 07/31/21 05:20: Sodium 134 L, Potassium 3.8, BUN 13, Creatinine 0.56, Glucose 120 H, Magnesium 1.6, Total Bilirubin 1.5 H, AST 22, ALT 13, Alkaline Phosphatase 153 H 07/31/21 05:20: WBC 41.20 H* D, Hgb 10.7 L, Hct 34.5 L D, Plt Count 356 Medications List Reviewed: Yes Assessment And Plan - Current Problems (Diagnosis) (1) Non-small cell cancer of right lung Current Visit: Yes Status: Chronic Plan: IT LOOKS LIKE ONCE AGAIN ALL HER SYMPTOMS ARE FROM LUNG CANCER THAT IS PRESENTING IN SIMILAR WAY WITH HIGH WBC COUNT. ORDER ECHO THE TUMOR IS VERY CLOSE TO HEART. WBC COMING DOWN FROM 59K TO 42K. SUPERADDED INFECTION IS IMPROVING. SHE IS FEELING BETTER. (2) Abdominal pain Current Visit: Yes Status: Chronic Plan: MRI ABDOMEN ORDERED MAY NOT HELP US IN TREATMENT. IMPROVED BUT NOT GONE YET. MAY NEED EGD. I CALLED DR. PATHAK. SHE IS ALSO ANEMIC. Qualifiers: Abdominal location: epigastric Qualified Code(s): R10.13 - Epigastric pain (3) Elevated white blood cell count Current Visit: Yes Status: Acute Plan: BC 2 IV MERREM IT IS UNCLEAR IF THIS IS FROM INFECTION. PREVIOUSLY SHE HAD SUCH WBC COUNT FROM LUNG CANCER ONLY. PROGNOSIS IS POOR. IT MAY BE TIME TO EITHER GO TO [facility] AND GET DNR STATUS. Qualifiers: Leukocytosis type: leukemoid reaction Qualified Code(s): D72.823 - Leukemoid reaction (4) Nausea & vomiting Current Visit: Yes Status: Acute Plan: AND ABDOMEN PAIN ALL IMPROVED WITH IV PROTONIX. MRI LIVER SHOWS ADDITIONAL 1 CM LESION. TO SMALL TO BIOPSY. OTHER 4 CM LESION HAS BEEN BIOPSIED BY LUTHERAN AND WAS NONDIAGNOSTIC. (5) Anemia Current Visit: Yes Status: Acute Plan: CAN BE RELATED TO CHEMO , CANCER AND INFECTION. WILL GIVE BLOOD. CHECK PROFILE CONSULTED DR. PATHAK SHE MAY HAVE ULCERS ALSO. 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 WE ARE WAITING FOR IV ABX APPROVAL FOR HOME. (7) Bowel obstruction Current Visit: Yes Status: Acute Plan: POSSIBLE FROM METS TO ABDOMEN FROM LUNG CANCER. PROGNOSIS IS POOR. SHE ALREADY HAS STAGE 4 LUNG CANCER. THIS IS AN AREA OF METASTASIS BESIDES LIVER.
[2021-08-01] MEDS: PROMETHAZINE INJ 25 MG/ML AMP IV PRN (03:37)
[2021-08-01] MEDS: NACHLORIDE 0.45% 1,000 ML IV SCH ×3 (05:05→22:38)
[2021-08-01] MEDS ORDERED: SODIUM CHLORIDE 0.9% 10ML INJ IV PRN (05:50)
[2021-08-01 07:59] LABS: Absolute Lymphocytes (CBC) 2.1 K/uL (0.7-4.9); Hematocrit 32.6 % (36.0-45.0); Lymphocytes % 4.6 % (15.3-44.8); MPV 7.8 fL (7.6-11.3); RBC Red Blood Cell Count 3.84 M/uL (3.86-4.86)
[2021-08-01 08:31] LABS: BUN Blood Urea Nitrogen 16 mg/dL (7-18); Bicarbonate 25 mmol/L (21-32); Glucose Level 92 mg/dL (74-106); Sodium Level 135 mmol/L (136-145)
--- NOTE | 2021-08-01 08:49 | P.PN ---
Subjective Date of Service: 08/01/21 Chief Complaint: ELISA pain, N/V, history of lung cancer, sepsis Subjective: New changes (CT abdomen also revealed endoluminal mass causing the small bowel obstruction. NGT to LWIS has reduced abdominal distention. She is going to surgery today due to small bowel mass causing SBO.) Review of Systems 10-point ROS is otherwise unremarkable General: Weakness, Malaise (Improved) Gastrointestinal: Nausea, Vomiting (Improved with NGT to LWIS), Abdominal Pain, Distention (Improved with NGT to LWIS) Physical Examination - Vital Signs Temperature: 96.8 F Blood Pressure: 124/76 Pulse: 114 Respirations: 18 Pulse Ox (%): 96 - Physical Exam General: Alert, In no apparent distress, Oriented x3 HEENT: Atraumatic, Normocephalic, PERRLA, EOMI Neck: Supple Respiratory: Normal air movement Cardiovascular: Normal pulses Gastrointestinal: Distended (Improved with NGT to LWIS ) Musculoskeletal: No swelling Neurological: Normal speech, Normal strength at 5/5 x4 extr - Studies Laboratory Data (last 24 hrs) 08/01/21 07:30: Sodium 135 L, Potassium 4.0, BUN 16, Creatinine 0.50 L, Glucose 92 08/01/21 07:30: WBC 46.30 H*, Hgb 10.2 L, Hct 32.6 L, Plt Count 327 07/31/21 05:20: Magnesium 1.6, Total Bilirubin 1.5 H, AST 22, ALT 13, Alkaline Phosphatase 153 H Medications List Reviewed: Yes Assessment And Plan - Current Problems (Diagnosis) (1) Epigastric abdominal pain Current Visit: Yes Status: Acute (2) Sepsis Current Visit: Yes Status: Acute (3) Small bowel obstruction Current Visit: Yes Status: Acute (4) Abnormal x-ray of abdomen Current Visit: Yes Status: Acute (5) Abnormal CT of the abdomen Current Visit: Yes Status: Acute (6) Non-small cell cancer of right lung Current Visit: Yes Status: Chronic (7) Lung mass Current Visit: No Status: Acute (8) Small bowel mass Current Visit: Yes Status: Acute - Plan REC: 1) await surgery resection of small bowel mass / Rx for small bowel obstruction 2) continue PPI for gastritis 3) monitor labs 4) oncology input, especially if small bowel mass reveals neoplasia (lung cancer met versus new type of cancer)
[2021-08-01] MEDS ORDERED: Ringers Lactate 1,000 ML IV ONE (08:53)
[2021-08-01] MEDS ORDERED: SUCCINYLCHOLINE 20 MG/ML (10 ML) IV ONE (09:09)
[2021-08-01] MEDS ORDERED: dexAMETHasone 10 MG/ML VIAL ONE (09:16)
[2021-08-01] MEDS ORDERED: BUPIVACAINE 0.25% PF 10 ML VIAL ONE (09:16)
[2021-08-01 09:30] LABS: Platelet Estimate ADEQ
[2021-08-01 09:31] LABS: Anisocytosis 1+; Blood Morphology Comment NOTED (NOT SEEN)
[2021-08-01] MEDS ORDERED: Phenylephrine HCl 10 MG/ML 1 ML VIAL ONE (09:31)
[2021-08-01] MEDS ORDERED: ROCURONIUM 50 MG/5 ML VIAL IV ONE (10:01)
[2021-08-01] MEDS ORDERED: SUGAMMADEX SODIUM 200 MG/2 ML VIAL IV ONE (10:09)
--- NOTE | 2021-08-01 10:31 | PREOPCON ---
Date of Consultation: 07/31/2021 Reason For Consultation: Small bowel obstruction. History Of Present Illness: The patient is a 71-year-old female, who came in last week with nausea, vomiting, and upper abdominal pain. She has a known history of lung cancer with mets to the liver. This diagnosis has been with her for the last 2 years and she has clinically been stable being treate d by Dr. Rivera. On her workup, she had an abdominal MRI which showed a lesion in the liver and a subacute thrombus in the portal vein and no other evidence of disease. She had a chest CTA which w as negative for pulmonary embolus and she had a CAT scan done yesterday as she was not improving afte r EGD was nondiagnostic and the CAT scan showed a small bowel mass in the mid small bowel causing a s mall bowel obstruction and the luminal mass. No surrounding lymphadenopathy was described. This was discussed with the radiologist. The patient is awake, alert, no acute distress. Has NG tube in pranav ce which is functioning well. No sore throat, runny nose, cough, headaches, or dizziness. No chest pain. No fever or chills. Review of Systems: Otherwise unremarkable. Past Medical History: History of hypertension, GERD, lung cancer. Past Surgical History: Two C sections, tonsillectomy, adenoidectomy, cholecystectomy, and D and C. Allergies: INCLUDE CLINDAMYCIN AND LEVAQUIN. Social History: The patient has never smoked and does not drink alcohol. Family History: Noncontributory. Physical Examination: Vital Signs: Stable. She is slightly tachycardic at 115. She is afebrile. General: She is awake, alert, and oriented x3. Head and Neck: Cranial nerves 2 through 12 are grossly within normal limits. No neck masses. No JV D. Throat clear. Neck supple. Chest: Clear. Heart: S1 and S2. Abdomen: Soft. Distended. Hypoactive bowel sounds. Minimal tenderness. No rebound, rigidity, or guarding. Extremities: Adequately perfused. Nontender. Neuro: Nonfocal. Diagnostic Data: As per HPI. Her white count this morning is 46,000, it was 60,000 on admission. H and H are 10.2 and 32.6. Platelet count is 327. PTT is 29.6. Electrolytes reviewed. Assessment: A 71-year-old female with multiple medical problems with small bowel obstruction seconda ry to a small bowel mass and probably stage IV lung cancer. Recommendation: As the patient is obstructed and she is a good surgical candidate at this time, per discussion with Dr. Lopez we will proceed with exploratory laparotomy and small bowel resection to he lp alleviate the patient's current symptomatology. The patient understands the risks, benefits, and alternatives and agrees to the procedure. KRISTEL/VALE Voice ID: [id number] Report ID: [id number]
--- NOTE | 2021-08-01 11:22 | P.OP ---
Yeast Washer: Ratna ROLAND Preoperative diagnosis: SBO with SB Mass Postoperative diagnosis: same Primary procedure: Exp Lap, SB Resection Anesthesia: General Estimated blood loss: min Specimen: SB with mass Findings: as above Complications: None Drain(s): Nasogastric, Urinary catheter Transferred to: Recovery Room Condition: Good
[2021-08-01] MEDS ORDERED: ONDANSETRON 4 MG/2 ML VIAL IV PRN (11:32)
[2021-08-01] MEDS: Meropenem 1,000 MG in NA CHLORIDE 0.9% 100 ML IV SCH ×2 (12:38→20:53)
[2021-08-01] MEDS: METRONIDAZOLE 500mg IVPB 500 MG/100 ML BAG IV SCH ×2 (12:39→20:53)
[2021-08-01] MEDS: PANTOPRAZOLE 40 MG INJ IVP SCH ×2 (12:40→20:55)
[2021-08-01 13:01] LABS: BUN Blood Urea Nitrogen 17 mg/dL (7-18); Bicarbonate 24 mmol/L (21-32); Glucose Level 102 mg/dL (74-106); Sodium Level 135 mmol/L (136-145)
--- NOTE | 2021-08-01 13:34 | OP ---
Date of Procedure: 08/01/2021 Surgeon: Teo Olivo MD Circular Gang Saw Operator: LUAN Ramires. Preoperative Diagnosis: Small obstruction secondary to small bowel mass. Postoperative Diagnosis: Small obstruction secondary to small bowel mass. Procedure: Exploratory laparotomy and small bowel resection. Estimated Blood Loss: Minimal. Specimen: Small bowel with a tumor. Finding: As above. Anesthesia: General. Complications: None. Disposition: The patient tolerated the procedure in stable condition and taken to Recovery in good g eneral condition. Procedure In Detail: The patient was brought to the OR and placed in supine position. General anest hesia begun. The patient was prepped and draped in the usual sterile fashion. Then, a lower midline incision made below the umbilicus to the pubis. Subcutaneous tissue divided. Fascia identified and divided. Peritoneal cavity entered with sharp and blunt dissection and exploratory laparotomy revea led indurated liver. No discrete mass was palpated. Stomach was within normal limits. NG tube was in the proper place. GE junction was within normal limits. Duodenal sweep was within normal limits. The jejunum was dilated up to the point of obstruction where there was a palpable mass in the pelvi s, which was approximately 6 cm in diameter. Distally, the bowel was collapsed. The right colon, tr ansverse colon, descending colon, sigmoid colon, rectum, uterus, and adnexa were all within normal li mits. Subsequently, the obstructive mass was brought into the open wound and then proximal and dista l division 5 cm away from the mass were done with BAYRON stapling device. LigaSure was used to divide t he mesentery and then the mass was excised and sent to Radiology pathology for frozen section, which revealed a fungating polypoid exophytic mass in the lumen with cancer and necrosis. Etiology of the cancer was unclear. Subsequently, antimesenteric standard anastomosis was done. A 3-0 silk was used to take the tension off the anastomosis and a TA-55 was used to close the open end and then 3-0 silk was used to close the mesenteric defect. The abdomen was irrigated. Effluent clear. No evidence o f bleeding or bowel injury appreciated. Subsequently, a #2 nylon was used to close the fascia and th en subcutaneous wounds irrigated. Bleeding controlled with cautery. A 3-0 chromic was used to appro ximate the subcutaneous tissue and bon were used to close the skin. Sterile dressing applied and then the patient had abdominal block done by the Anesthesia team for postop pain control. The patie nt was awakened and brought to recovery room in good general condition. KRISTEL/VALE Voice ID: [id number] Report ID: [id number]
--- NOTE | 2021-08-01 17:56 | P.PN ---
Subjective Date of Service: 08/01/21 Chief Complaint: NAUSEA, VOMITING, PAIN Subjective: Improving SHE STARTED TO HAVE NAUSEA, VOMITING AND ABDOMEN PAIN THIS AM AT ABOUT4 . NURSE CALLED ME AND I GAVE INITIAL ORDER. WBC RAISED TO 41K. I ASKED FOR STAT CT ABDOEMN WITH CONTRAST. IT SHOWED SBO WITH TUMOR BLOCKING THE INTESTINE. I ASKED FOR STAT NGT WITH LIS AND SHE HAD 900 ML OUTPUT WITHIN HOURS. IV FLUIDS RAISED. I CALLED DR. RUBIO FOR CONSULT. WILL KEEP HER NPO AFTER MIDNIGHT. SHE MAY HAVE SURGERY IN AM. AFTER NGT SHE IS BETTER BUT STILL HAS ABOUT 2 LT OF FLUID COMING FROM NGT. I CALLED IN DR. RUBIO, KEPT HER NPO SO HE CAN DO SURGERY. HE WAS ABLE TO REMOVE THE TUMOR AND BLOCKAGE. SHE IS IN ICU. IT IS SUSPECTED TO BE A METASTATIC CANCER TO INTESTINE FROM LUNGS. Review of Systems 10-point ROS is otherwise unremarkable General: Weakness Physical Examination - Vital Signs Temperature: 98.6 F Blood Pressure: 119/84 Pulse: 115 Respirations: 22 Pulse Ox (%): 97 - Physical Exam General: Oriented x3, Mild distress HEENT: Atraumatic, PERRLA, EOMI Neck: Supple, JVD not distended Respiratory: Clear to auscultation bilaterally, Normal air movement Cardiovascular: Regular rate/rhythm, Normal S1 S2 Gastrointestinal: Normal bowel sounds, No tenderness Musculoskeletal: No tenderness Integumentary: No rashes Neurological: Normal speech, Normal tone, Normal affect Lymphatics: No axilla or inguinal lymphadenopathy - Studies Laboratory Data (last 24 hrs) 08/01/21 12:25: Sodium 135 L, Potassium 4.0, BUN 17, Creatinine 0.45 L, Glucose 102 08/01/21 07:30: Sodium 135 L, Potassium 4.0, BUN 16, Creatinine 0.50 L, Glucose 92 08/01/21 07:30: WBC 46.30 H*, Hgb 10.2 L, Hct 32.6 L, Plt Count 327 Microbiology Data (last 24 hrs): 07/27/21 11:23 Blood - Blood Aerobic Blood Culture - Final No growth in 5 days. 07/27/21 11:23 Blood - Blood Anaerobic Blood Culture - Final No growth in 5 days. 07/27/21 11:18 Blood - Blood Aerobic Blood Culture - Final No growth in 5 days. 07/27/21 11:18 Blood - Blood Anaerobic Blood Culture - Final No growth in 5 days. Medications List Reviewed: Yes Assessment And Plan - Current Problems (Diagnosis) (1) Non-small cell cancer of right lung Current Visit: Yes Status: Chronic Plan: IT LOOKS LIKE ONCE AGAIN ALL HER SYMPTOMS ARE FROM LUNG CANCER THAT IS PRESENTING IN SIMILAR WAY WITH HIGH WBC COUNT. ORDER ECHO THE TUMOR IS VERY CLOSE TO HEART. WBC COMING DOWN FROM 59K TO 42K. SUPERADDED INFECTION IS IMPROVING. SHE IS FEELING BETTER. SHE HAS REFUSED TO GO TO THORACIC SURGEON IN [place] BEFORE PER DR. TUCKER, HER ONCOLOGIST. (2) Abdominal pain Current Visit: Yes Status: Chronic Plan: MRI ABDOMEN ORDERED MAY NOT HELP US IN TREATMENT. IMPROVED BUT NOT GONE YET. MAY NEED EGD. I CALLED DR. PATHAK. SHE IS ALSO ANEMIC. BOWL OBSTRUCTION RELIEVED WITH SURGERY TODAY. METASTATIC TUMOR CAUSED THE BLOCKAGE. PROGNOSIS POOR. Qualifiers: Abdominal location: epigastric Qualified Code(s): R10.13 - Epigastric pain (3) Elevated white blood cell count Current Visit: Yes Status: Acute Plan: BC 2 IV MERREM IT IS UNCLEAR IF THIS IS FROM INFECTION. PREVIOUSLY SHE HAD SUCH WBC COUNT FROM LUNG CANCER ONLY. PROGNOSIS IS POOR. IT MAY BE TIME TO EITHER GO TO [facility] AND GET DNR STATUS. Qualifiers: Leukocytosis type: leukemoid reaction Qualified Code(s): D72.823 - Leukemoid reaction (4) Nausea & vomiting Current Visit: Yes Status: Acute Plan: AND ABDOMEN PAIN ALL IMPROVED WITH IV PROTONIX. MRI LIVER SHOWS ADDITIONAL 1 CM LESION. TO SMALL TO BIOPSY. OTHER 4 CM LESION HAS BEEN BIOPSIED BY [facility] AND WAS NONDIAGNOSTIC. (5) Anemia Current Visit: Yes Status: Acute Plan: CAN BE RELATED TO CHEMO , CANCER AND INFECTION. WILL GIVE BLOOD. CHECK PROFILE CONSULTED DR. PATHAK SHE MAY HAVE ULCERS ALSO. 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 WE ARE WAITING FOR IV ABX APPROVAL FOR HOME. (7) Bowel obstruction Current Visit: Yes Status: Acute Plan: POSSIBLE FROM METS TO ABDOMEN FROM LUNG CANCER. PROGNOSIS IS POOR. SHE ALREADY HAS STAGE 4 LUNG CANCER. THIS IS AN AREA OF METASTASIS BESIDES LIVER.
[2021-08-01 18:30] LABS: Albumin, (SPE) 2.7 g/dL (3.8-4.8); Alpha-1-Globulins 0.6 g/dL (0.2-0.3); Alpha-2-Globulins 0.6 g/dL (0.5-0.9); Gamma Globulins 0.5 g/dL (0.8-1.7); INTERPRETATION REPORT
[2021-08-01] MEDS: HYDROMORPHONE HCL 1 MG/ML INJ IV PRN (20:59)
[2021-08-01 22:36] LABS: Magnesium 1.7
[2021-08-02 00:05] LABS: Vitamin D 1,25-Dihydroxy Total 23 pg/mL (18-72); Vitamin D,1,25-OH2, D2 <8 pg/mL
[2021-08-02] MEDS: METRONIDAZOLE 500mg IVPB 500 MG/100 ML BAG IV SCH ×2 (00:30→05:08)
[2021-08-02 05:07] LABS: Absolute Lymphocytes (CBC) 2.5 K/uL (0.7-4.9); Hematocrit 30.7 % (36.0-45.0); MPV 7.8 fL (7.6-11.3); RBC Red Blood Cell Count 3.59 M/uL (3.86-4.86)
[2021-08-02 05:46] LABS: BUN Blood Urea Nitrogen 18 mg/dL (7-18); Bicarbonate 24 mmol/L (21-32); Glucose Level 83 mg/dL (74-106); Phosphorus 3.1 mg/dL (2.5-4.9); Potassium 3.9 mmol/L (3.5-5.1); Sodium Level 136 mmol/L (136-145)
[2021-08-02] MEDS: NACHLORIDE 0.45% 1,000 ML IV SCH ×2 (08:20→14:13)
[2021-08-02] MEDS: ENOXAPARIN 40 MG/0.4 ML SQ SCH (08:21)
[2021-08-02] MEDS: PANTOPRAZOLE 40 MG INJ IVP SCH ×2 (08:21→21:23)
[2021-08-02] MEDS: Meropenem 1,000 MG in NA CHLORIDE 0.9% 100 ML IV SCH ×2 (08:22→21:23)
[2021-08-02] MEDS ORDERED: VANCOMYCIN 1 GM in NA CHLORIDE 0.9% 250 ML IVPB SCH (08:38)
[2021-08-02] MEDS: VANCOMYCIN 1.25 GM in NA CHLORIDE 0.9% 250 ML IVPB SCH ×2 (09:48→21:24)
[2021-08-02] MEDS ORDERED: NA CHLORIDE 0.9% 500 ML IV ONE (14:11)
--- NOTE | 2021-08-02 16:01 | PN ---
Date of Progress Note: 08/02/2021 Subjective: The patient is awake, alert, no complaint. Ambulating with physical therapy without dif ficulty. Objective: Vital Signs: Stable. Heart rate is slightly elevated 105, and she is afebrile. Abdomen: Soft. Hypoactive bowel sounds. Dressing is clean, dry, and intact. Laboratory Data: Reviewed. White count is 49.8, H and H are 9.5 and 30.7, platelets are 344. Chemi stry reviewed, essentially unremarkable. Assessment: Status post small bowel resection for tumor causing small bowel obstruction. Recommendations: Continue n.p.o., NG tube, IV fluids, IV antibiotics. Encourage ambulation with phy sical therapy. Incentive spirometry. DVT prophylaxis. Please note, I have discussed in detail the importance for the patient to follow up with Thoracic Surgery as it is important to try to decompress that right lung as it is pressing on the heart and causing some minimization of the pre-load which c an lead to a secondary right heart failure with congestion of the liver as noted in surgery. She sta david that she will try to go see Dr. Molina in [place] upon discharge. Should she clinically require, may consider transferring her from our hospital to [place]. However at this point, she is clinicall y stable and recovering from an abdominal surgery. Therefore I would recommend soon after discharge she should go see a thoracic surgeon to see if a VATS procedure would help her. /MODL Voice ID: [id number] Report ID: [id number]
[2021-08-02 16:18] LABS: Magnesium 1.8
--- NOTE | 2021-08-02 21:21 | P.PN ---
Subjective Date of Service: 08/02/21 Chief Complaint: BOWEL OBSTRUCTION Subjective: Improving SHE HAD SURGERY TO REMOVE BLOCKAGE AND TUMOR IN THE LUMEN OF SMALL INTESTINE ABOUT 6 CM PER . PATH PENDING. Review of Systems 10-point ROS is otherwise unremarkable General: Weakness Physical Examination - Vital Signs Temperature: 98.7 F Blood Pressure: 117/79 Pulse: 110 Respirations: 24 Pulse Ox (%): 98 - Physical Exam General: Oriented x3, Mild distress, Moderate distress HEENT: Atraumatic, PERRLA, EOMI Neck: Supple, JVD not distended Respiratory: Clear to auscultation bilaterally, Normal air movement Cardiovascular: Regular rate/rhythm, Normal S1 S2 Gastrointestinal: Normal bowel sounds, No tenderness Musculoskeletal: No tenderness Integumentary: No rashes Neurological: Normal speech, Normal tone, Normal affect Lymphatics: No axilla or inguinal lymphadenopathy - Studies Laboratory Data (last 24 hrs) 08/02/21 04:53: Sodium 136, Potassium 3.9, BUN 18, Creatinine 0.50 L, Glucose 83, Phosphorus 3.1, Magnesium 1.8 08/02/21 04:53: WBC 49.80 H*, Hgb 9.5 L, Hct 30.7 L, Plt Count 344 08/01/21 07:30: Magnesium 1.7 Medications List Reviewed: Yes Assessment And Plan - Current Problems (Diagnosis) (1) Non-small cell cancer of right lung Current Visit: Yes Status: Chronic Plan: IT LOOKS LIKE ONCE AGAIN ALL HER SYMPTOMS ARE FROM LUNG CANCER THAT IS PRESENTING IN SIMILAR WAY WITH HIGH WBC COUNT. ORDER ECHO THE TUMOR IS VERY CLOSE TO HEART. WBC COMING DOWN FROM 59K TO 42K. SUPERADDED INFECTION IS IMPROVING. SHE IS FEELING BETTER. SHE HAS REFUSED TO GO TO THORACIC SURGEON IN [place] BEFORE PER DR. TUCKER, HER ONCOLOGIST. DR. RIVERA TALKED TO DR. BARKSDALE, THORACIC SURGERY. HE CAN'T OFFER ANYTHING FOR THIS PATIENT SHE IS VERY ADVANCED, HAS STAGE 4 CANCER AND WILL MOST LIKELY BENEFIT FROM HOSPICE IF DR. TUCKER CAN'T DO ANYTHING ELSE FOR HER. (2) Abdominal pain Current Visit: Yes Status: Chronic Plan: SP SURGERY STABLE DAY 1. BACK TO FLOOR. Qualifiers: Abdominal location: epigastric Qualified Code(s): R10.13 - Epigastric pain (3) Elevated white blood cell count Current Visit: Yes Status: Acute Plan: THIS ELEVATION MOST LIKELY IS REACTION TO CANCER ITSELF AND MAY NOT GET BETTER IF WE HAVE NOTHING TO OFFER FOR THIS CANCER. Qualifiers: Leukocytosis type: leukemoid reaction Qualified Code(s): D72.823 - Leukemoid reaction (4) Nausea & vomiting Current Visit: Yes Status: Acute Plan: AND ABDOMEN PAIN ALL IMPROVED WITH IV PROTONIX. MRI LIVER SHOWS ADDITIONAL 1 CM LESION. TO SMALL TO BIOPSY. OTHER 4 CM LESION HAS BEEN BIOPSIED BY [facility] AND WAS NONDIAGNOSTIC. (5) Anemia Current Visit: Yes Status: Acute Plan: CAN BE RELATED TO CHEMO , CANCER AND INFECTION. WILL GIVE BLOOD. CHECK PROFILE CONSULTED DR. PATHAK SHE MAY HAVE ULCERS ALSO. 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 WE ARE WAITING FOR IV ABX APPROVAL FOR HOME. (7) Bowel obstruction Current Visit: Yes Status: Acute Plan: POSSIBLE FROM METS TO ABDOMEN FROM LUNG CANCER. PROGNOSIS IS POOR. SHE ALREADY HAS STAGE 4 LUNG CANCER. THIS IS AN AREA OF METASTASIS BESIDES LIVER.
[2021-08-03] MEDS: HYDROMORPHONE HCL 1 MG/ML INJ IV PRN ×2 (00:03→23:33)
[2021-08-03] MEDS: NACHLORIDE 0.45% 1,000 ML IV SCH ×4 (00:04→20:13)
[2021-08-03 05:30] LABS: BUN Blood Urea Nitrogen 18 mg/dL (7-18); Bicarbonate 27 mmol/L (21-32); Glucose Level 70 mg/dL (74-106); Potassium 3.7 mmol/L (3.5-5.1); Sodium Level 138 mmol/L (136-145)
--- NOTE | 2021-08-03 07:46 | PN ---
Date of Progress Note: 08/03/2021 Subjective: The patient is awake, alert, no complaint. Objective: Vital Signs: Stable. Afebrile. Abdomen: Soft. Minimal distention. Hypoactive bowel sounds. No peritonitis. Dressings clean, dry , and intact. Laboratory Data: Reviewed. Her white count is still elevated as of yesterday. No significant salazar e. Assessment: Small bowel resection for tumor causing small bowel obstruction. Recommendations: Continue n.p.o., NG tube, IV fluids, IV antibiotic, ambulation. Once bowel functio n begins, we will clamp the NG tube and start her on liquids and advance as tolerated. The patient i s clinically stable and doing well. /MODL Voice ID: [id number] Report ID: [id number]
[2021-08-03] MEDS ORDERED: KCL 20 MEQ/100 mL IVPB 20 MEQ/100 ML BAG IV SCH (08:00)
[2021-08-03] MEDS ORDERED: POTASSIUM CL 20 MEQ in NA CHLORIDE 0.9% 20 MEQ/100 ML BAG IV ONE (09:00)
[2021-08-03] MEDS: VANCOMYCIN 1.25 GM in NA CHLORIDE 0.9% 250 ML IVPB SCH ×2 (09:11→21:00)
[2021-08-03] MEDS: Meropenem 1,000 MG in NA CHLORIDE 0.9% 100 ML IV SCH ×2 (09:11→22:00)
[2021-08-03] MEDS: PANTOPRAZOLE 40 MG INJ IVP SCH ×2 (09:11→22:00)
[2021-08-03 09:44] LABS: Absolute Lymphocytes (CBC) 1.8 K/uL (0.7-4.9); Hematocrit 32.2 % (36.0-45.0); Lymphocytes % 5.2 % (15.3-44.8); MPV 8.1 fL (7.6-11.3); RBC Red Blood Cell Count 3.77 M/uL (3.86-4.86)
[2021-08-03] MEDS: ENOXAPARIN 40 MG/0.4 ML SQ SCH (12:27)
--- NOTE | 2021-08-03 13:15 | P.PN ---
Subjective Date of Service: 08/03/21 Chief Complaint: SP SURGERY FOR BOWEL OBST. LUNG CANCER STAGE 4. Subjective: Improving SHE HAD SURGERY TO REMOVE BLOCKAGE AND TUMOR IN THE LUMEN OF SMALL INTESTINE ABOUT 6 CM PER . PATH PENDING. MARCELLA IS LOT BETTER SHE UNDERSTANDS THE NATURE OF THIS CANCER. Review of Systems 10-point ROS is otherwise unremarkable General: Weakness Physical Examination - Vital Signs Temperature: 98.1 F Blood Pressure: 143/89 Pulse: 104 Respirations: 20 Pulse Ox (%): 97 - Physical Exam General: Oriented x3, Moderate distress HEENT: Atraumatic, PERRLA, EOMI Neck: Supple, JVD not distended Respiratory: Clear to auscultation bilaterally, Normal air movement Cardiovascular: Regular rate/rhythm, Normal S1 S2 Gastrointestinal: Non-distended, Tenderness (POST SURGERY) Musculoskeletal: No tenderness Integumentary: No rashes Neurological: Normal speech, Normal tone, Normal affect Lymphatics: No axilla or inguinal lymphadenopathy - Studies Laboratory Data (last 24 hrs) 08/03/21 09:15: WBC 35.70 H* D, Hgb 9.9 L, Hct 32.2 L, Plt Count 318 08/03/21 05:00: Sodium 138, Potassium 3.7, BUN 18, Creatinine 0.43 L, Glucose 70 L 08/02/21 04:53: Magnesium 1.8 Medications List Reviewed: Yes Assessment And Plan - Current Problems (Diagnosis) (1) Non-small cell cancer of right lung Current Visit: Yes Status: Chronic Plan: IT LOOKS LIKE ONCE AGAIN ALL HER SYMPTOMS ARE FROM LUNG CANCER THAT IS PRESENTING IN SIMILAR WAY WITH HIGH WBC COUNT. ORDER ECHO THE TUMOR IS VERY CLOSE TO HEART. WBC COMING DOWN FROM 59K TO 42K. SUPERADDED INFECTION IS IMPROVING. SHE IS FEELING BETTER. SHE HAS REFUSED TO GO TO THORACIC SURGEON IN [place] BEFORE PER DR. TUCKER, HER ONCOLOGIST. DR. RIVERA TALKED TO DR. BARKSDALE, THORACIC SURGERY. HE CAN'T OFFER ANYTHING FOR THIS PATIENT SHE IS VERY ADVANCED, HAS STAGE 4 CANCER AND WILL MOST LIKELY BENEFIT FROM HOSPICE IF DR. TUCKER CAN'T DO ANYTHING ELSE FOR HER. SHE IS AWARE OF ABOVE. SHE KNOWS SHE MAY NOT HAVE ANY OTHER THERAPY AVAILABLE. I ASKED IF SHE WANTS TO GO TO [facility] AND SHE SAYS NO. SHE KNOWS WE TALKED TO DR. BARKSDALE AND THERE IS NOTHING HE CAN DO FOR THIS TUMOR. (2) Abdominal pain Current Visit: Yes Status: Chronic Plan: SP SURGERY STABLE DAY 1. BACK TO FLOOR. Qualifiers: Abdominal location: epigastric Qualified Code(s): R10.13 - Epigastric pain (3) Elevated white blood cell count Current Visit: Yes Status: Acute Plan: THIS ELEVATION MOST LIKELY IS REACTION TO CANCER ITSELF AND MAY NOT GET BETTER IF WE HAVE NOTHING TO OFFER FOR THIS CANCER. Qualifiers: Leukocytosis type: leukemoid reaction Qualified Code(s): D72.823 - Leukemoid reaction (4) Nausea & vomiting Current Visit: Yes Status: Acute Plan: AND ABDOMEN PAIN ALL IMPROVED WITH IV PROTONIX. MRI LIVER SHOWS ADDITIONAL 1 CM LESION. TO SMALL TO BIOPSY. OTHER 4 CM LESION HAS BEEN BIOPSIED BY [employer] AND WAS NONDIAGNOSTIC. (5) Anemia Current Visit: Yes Status: Acute Plan: CAN BE RELATED TO CHEMO , CANCER AND INFECTION. WILL GIVE BLOOD. CHECK PROFILE CONSULTED DR. PATHAK SHE MAY HAVE ULCERS ALSO. 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 WE ARE WAITING FOR IV ABX APPROVAL FOR HOME. (7) Bowel obstruction Current Visit: Yes Status: Acute Plan: POSSIBLE FROM METS TO ABDOMEN FROM LUNG CANCER. PROGNOSIS IS POOR. SHE ALREADY HAS STAGE 4 LUNG CANCER. THIS IS AN AREA OF METASTASIS BESIDES LIVER.
--- NOTE | 2021-08-03 17:12 | P.PN ---
Subjective Date of Service: 08/03/21 Chief Complaint: SP SURGERY FOR BOWEL OBST. LUNG CANCER STAGE 4. Subjective: Improving (Out of ICU after SBO surgery 2 days ago with pathology pending. NGT still to [facility]. To start CLs soon possibly she reports.) Review of Systems 10-point ROS is otherwise unremarkable General: Malaise (Improving.) Gastrointestinal: Abdominal Pain (Improving.) Physical Examination - Vital Signs Temperature: 98.1 F Blood Pressure: 143/89 Pulse: 104 Respirations: 20 Pulse Ox (%): 97 - Physical Exam General: Alert, In no apparent distress, Oriented x3, Cooperative HEENT: Atraumatic, Normocephalic, PERRLA, EOMI Neck: Supple Respiratory: Normal air movement Cardiovascular: Normal pulses Gastrointestinal: Soft and benign, No tenderness, No rebound, No guarding Neurological: Normal speech, Normal strength at 5/5 x4 extr - Studies Laboratory Data (last 24 hrs) 08/03/21 09:15: WBC 35.70 H* D, Hgb 9.9 L, Hct 32.2 L, Plt Count 318 08/03/21 05:00: Sodium 138, Potassium 3.7, BUN 18, Creatinine 0.43 L, Glucose 70 L Medications List Reviewed: Yes Assessment And Plan - Current Problems (Diagnosis) (1) Epigastric abdominal pain Current Visit: Yes Status: Acute (2) Sepsis Current Visit: Yes Status: Acute (3) Small bowel obstruction Current Visit: Yes Status: Acute (4) Abnormal x-ray of abdomen Current Visit: Yes Status: Acute (5) Abnormal CT of the abdomen Current Visit: Yes Status: Acute (6) Non-small cell cancer of right lung Current Visit: Yes Status: Chronic (7) Lung mass Current Visit: No Status: Acute (8) Small bowel mass Current Visit: Yes Status: Acute - Plan REC: 1) await surgical pathology 2) continue PPI for gastritis 3) monitor labs 4) oncology input, especially if small bowel mass reveals neoplasia (lung cancer met versus new type of cancer)
[2021-08-03] MEDS ORDERED: VANCOMYCIN 1 GM/VIAL ONE (20:43)
[2021-08-03] MEDS: ENSURE HIGH PROTEIN 237 ML CAN PO SCH (21:00)
[2021-08-04 04:49] LABS: Absolute Lymphocytes (CBC) 1.5 K/uL (0.7-4.9); Hematocrit 30.8 % (36.0-45.0); Lymphocytes % 4.5 % (15.3-44.8); MPV 7.8 fL (7.6-11.3)
[2021-08-04 05:02] LABS: BUN Blood Urea Nitrogen 11 mg/dL (7-18); Bicarbonate 25 mmol/L (21-32); Glucose Level 59 mg/dL (74-106); Potassium 3.6 mmol/L (3.5-5.1); Sodium Level 138 mmol/L (136-145)
[2021-08-04] MEDS: NACHLORIDE 0.45% 1,000 ML IV SCH ×2 (05:08→15:37)
[2021-08-04] MEDS: LORazepam 2 MG/ML VIAL IV PRN (06:55)
[2021-08-04] MEDS ORDERED: KCL 20 MEQ/100 mL IVPB 20 MEQ/100 ML BAG IV ONE (08:00)
[2021-08-04] MEDS ORDERED: POTASSIUM CL 20 MEQ in NA CHLORIDE 0.9% 20 MEQ/100 ML BAG IV ONE (08:00)
[2021-08-04] MEDS: ENSURE HIGH PROTEIN 237 ML CAN PO SCH ×2 (09:00→21:00)
[2021-08-04] MEDS: VANCOMYCIN 1.25 GM in NA CHLORIDE 0.9% 250 ML IVPB SCH (09:00)
[2021-08-04] MEDS: ENOXAPARIN 40 MG/0.4 ML SQ SCH (09:01)
[2021-08-04] MEDS: PANTOPRAZOLE 40 MG INJ IVP SCH ×2 (10:14→21:57)
[2021-08-04] MEDS: Meropenem 1,000 MG in NA CHLORIDE 0.9% 100 ML IV SCH ×2 (10:14→22:03)
--- NOTE | 2021-08-04 10:14 | P.PN ---
Subjective Date of Service: 08/04/21 Chief Complaint: SP SURGERY FOR BOWEL OBST. LUNG CANCER STAGE 4. Subjective: Improving STABLE, NOBM YET, NO GAS YET. NO NEW ISSUES SO FAR. Review of Systems 10-point ROS is otherwise unremarkable General: Weakness Eyes: As per HPI Cardiovascular: As per HPI Lymphatics: As per HPI Physical Examination - Vital Signs Temperature: 97.7 F Blood Pressure: 149/82 Pulse: 101 Respirations: 20 Pulse Ox (%): 97 - Physical Exam General: Oriented x3, Mild distress HEENT: Atraumatic, PERRLA, EOMI Neck: Supple, JVD not distended Respiratory: Clear to auscultation bilaterally, Normal air movement Cardiovascular: Regular rate/rhythm, Normal S1 S2 Gastrointestinal: Normal bowel sounds, No tenderness Musculoskeletal: No tenderness Integumentary: No rashes Neurological: Normal speech, Normal tone, Normal affect Lymphatics: No axilla or inguinal lymphadenopathy - Studies Laboratory Data (last 24 hrs) 08/04/21 04:35: WBC 33.60 H*, Hgb 9.4 L, Hct 30.8 L, Plt Count 295 08/04/21 04:35: Sodium 138, Potassium 3.6, BUN 11, Creatinine 0.34 L, Glucose 59 L Medications List Reviewed: Yes Assessment And Plan - Current Problems (Diagnosis) (1) Non-small cell cancer of right lung Current Visit: Yes Status: Chronic Plan: IT LOOKS LIKE ONCE AGAIN ALL HER SYMPTOMS ARE FROM LUNG CANCER THAT IS PRESENTING IN SIMILAR WAY WITH HIGH WBC COUNT. ORDER ECHO THE TUMOR IS VERY CLOSE TO HEART. WBC COMING DOWN FROM 59K TO 42K. SUPERADDED INFECTION IS IMPROVING. SHE IS FEELING BETTER. SHE HAS REFUSED TO GO TO THORACIC SURGEON IN [place] BEFORE PER DR. TUCKER, HER ONCOLOGIST. DR. RIVERA TALKED TO DR. BARKSDALE, THORACIC SURGERY. HE CAN'T OFFER ANYTHING FOR THIS PATIENT SHE IS VERY ADVANCED, HAS STAGE 4 CANCER AND WILL MOST LIKELY BENEFIT FROM HOSPICE IF DR. TUCKER CAN'T DO ANYTHING ELSE FOR HER. SHE IS AWARE OF ABOVE. SHE KNOWS SHE MAY NOT HAVE ANY OTHER THERAPY AVAILABLE. I ASKED IF SHE WANTS TO GO TO [facility] AND SHE SAYS NO. SHE KNOWS WE TALKED TO DR. BARKSDALE AND THERE IS NOTHING HE CAN DO FOR THIS TUMOR. (2) Abdominal pain Current Visit: Yes Status: Chronic Plan: SP SURGERY STABLE DAY 1. BACK TO FLOOR. Qualifiers: Abdominal location: epigastric Qualified Code(s): R10.13 - Epigastric pain (3) Elevated white blood cell count Current Visit: Yes Status: Acute Plan: THIS ELEVATION MOST LIKELY IS REACTION TO CANCER ITSELF AND MAY NOT GET BETTER IF WE HAVE NOTHING TO OFFER FOR THIS CANCER. Qualifiers: Leukocytosis type: leukemoid reaction Qualified Code(s): D72.823 - Leukemoid reaction (4) Nausea & vomiting Current Visit: Yes Status: Acute Plan: AND ABDOMEN PAIN ALL IMPROVED WITH IV PROTONIX. MRI LIVER SHOWS ADDITIONAL 1 CM LESION. TO SMALL TO BIOPSY. OTHER 4 CM LESION HAS BEEN BIOPSIED BY [employer] AND WAS NONDIAGNOSTIC. (5) Anemia Current Visit: Yes Status: Acute Plan: CAN BE RELATED TO CHEMO , CANCER AND INFECTION. WILL GIVE BLOOD. CHECK PROFILE CONSULTED DR. PATHAK SHE MAY HAVE ULCERS ALSO. 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 WE ARE WAITING FOR IV ABX APPROVAL FOR HOME. (7) Bowel obstruction Current Visit: Yes Status: Acute Plan: SP SURGERY I HEAR BOWEL SOUNDS. SHOULD HAVE PASSAGE OF GAS OR BM SOON. STABLE SO FAR SHE IS ABLE TO AMBULATE.
--- NOTE | 2021-08-04 13:04 | PN ---
Date of Progress Note: 08/04/2021 Subjective: The patient is awake, alert. No complaints. She has not had a bowel movement or passin g any gas, but she feels like she is about to have a little bowel movement. Objective: Vital Signs: Her vitals are stable. She is afebrile. Abdomen: Soft. Positive bowel sounds. Nondistended and nontender. Laboratory Data: Reviewed. White count is improved to 33.6. H and H are stable. Chemistry reviewe d as well and is unremarkable. Assessment: Status post small bowel resection for tumor causing obstruction. Recommendations: Continue current medical management. Also, we will clamp the NG tube, start her on sips of clear liquids. Should she have a bowel movement or pass gas, we will remove the NG tube and begin diet. /MODL Voice ID: [id number] Report ID: [id number]
[2021-08-04] MEDS: VANCOMYCIN 1 GM in NA CHLORIDE 0.9% 250 ML IVPB SCH (21:00)
[2021-08-04] MEDS: HYDROMORPHONE HCL 1 MG/ML INJ IV PRN (23:42)
[2021-08-05] MEDS: NACHLORIDE 0.45% 1,000 ML IV SCH ×3 (01:55→12:30)
[2021-08-05] MEDS: LORazepam 2 MG/ML VIAL IV PRN (04:02)
[2021-08-05 04:39] LABS: Absolute Lymphocytes (CBC) 1.5 K/uL (0.7-4.9); Hematocrit 30.2 % (36.0-45.0); Lymphocytes % 4.8 % (15.3-44.8); MPV 7.9 fL (7.6-11.3); RBC Red Blood Cell Count 3.55 M/uL (3.86-4.86)
[2021-08-05 05:01] LABS: BUN Blood Urea Nitrogen 8 mg/dL (7-18); Bicarbonate 25 mmol/L (21-32); Glucose Level 79 mg/dL (74-106); Potassium 3.7 mmol/L (3.5-5.1); Sodium Level 137 mmol/L (136-145)
[2021-08-05 06:25] LABS: Anisocytosis 1+; Blood Morphology Comment NOTED (NOT SEEN); Platelet Estimate ADEQ
[2021-08-05 06:26] LABS: Hypochromasia 1+; Poikilocytosis 2+
[2021-08-05] MEDS: ENSURE HIGH PROTEIN 237 ML CAN PO SCH ×2 (09:00→22:37)
[2021-08-05] MEDS: VANCOMYCIN 1 GM in NA CHLORIDE 0.9% 250 ML IVPB SCH ×2 (09:00→22:14)
[2021-08-05] MEDS ORDERED: VANCOMYCIN 1 GM/VIAL ONE (09:35)
[2021-08-05] MEDS ORDERED: NA CHLORIDE 0.9% 250 ML ONE (09:39)
[2021-08-05] MEDS: ENOXAPARIN 40 MG/0.4 ML SQ SCH (09:45)
[2021-08-05] MEDS: PANTOPRAZOLE 40 MG INJ IVP SCH ×2 (09:45→22:13)
[2021-08-05] MEDS: METOPROLOL TARTRATE 5 MG/5 ML INJ IV SCH ×3 (09:45→22:15)
[2021-08-05] MEDS ORDERED: NA CHLORIDE 0.9% 100 ML ONE (10:28)
[2021-08-05] MEDS: Meropenem 1,000 MG in NA CHLORIDE 0.9% 100 ML IV SCH ×2 (10:45→22:13)
--- NOTE | 2021-08-05 10:46 | P.PN ---
Subjective Date of Service: 08/05/21 Chief Complaint: SP SURGERY FOR BOWEL OBST. LUNG CANCER STAGE 4. Subjective: Improving STABLE, NOBM YET, NO GAS YET. NO NEW ISSUES SO FAR. SHE IS STARTING TO HAVE LIQUIDS. SLOWLY WILL ADVANCE. Review of Systems 10-point ROS is otherwise unremarkable General: Weakness Gastrointestinal: No Distention Physical Examination - Vital Signs Temperature: 97.3 F Blood Pressure: 166/97 Pulse: 98 Respirations: 23 Pulse Ox (%): 98 - Physical Exam General: Oriented x3, Mild distress HEENT: Atraumatic, PERRLA, EOMI Neck: Supple, JVD not distended Respiratory: Clear to auscultation bilaterally, Normal air movement Cardiovascular: Regular rate/rhythm, Normal S1 S2 Gastrointestinal: Normal bowel sounds, No tenderness Musculoskeletal: No tenderness Integumentary: No rashes Neurological: Normal speech, Normal tone, Normal affect Lymphatics: No axilla or inguinal lymphadenopathy - Studies Laboratory Data (last 24 hrs) 08/05/21 04:20: WBC 32.30 H*, Hgb 9.3 L, Hct 30.2 L, Plt Count 296 08/05/21 04:20: Sodium 137, Potassium 3.7, BUN 8, Creatinine 0.33 L, Glucose 79 08/04/21 04:35: Magnesium 1.7 Medications List Reviewed: Yes Assessment And Plan - Current Problems (Diagnosis) (1) Non-small cell cancer of right lung Current Visit: Yes Status: Chronic Plan: IT LOOKS LIKE ONCE AGAIN ALL HER SYMPTOMS ARE FROM LUNG CANCER THAT IS PRESENTING IN SIMILAR WAY WITH HIGH WBC COUNT. ORDER ECHO THE TUMOR IS VERY CLOSE TO HEART. WBC COMING DOWN FROM 59K TO 42K. SUPERADDED INFECTION IS IMPROVING. SHE IS FEELING BETTER. SHE HAS REFUSED TO GO TO THORACIC SURGEON IN [place] BEFORE PER DR. TUCKER, HER ONCOLOGIST. DR. RIVERA TALKED TO DR. BARKSDALE, THORACIC SURGERY. HE CAN'T OFFER ANYTHING FOR THIS PATIENT SHE IS VERY ADVANCED, HAS STAGE 4 CANCER AND WILL MOST LIKELY BENEFIT FROM HOSPICE IF DR. TUCKER CAN'T DO ANYTHING ELSE FOR HER. SHE IS AWARE OF ABOVE. SHE KNOWS SHE MAY NOT HAVE ANY OTHER THERAPY AVAILABLE. I ASKED IF SHE WANTS TO GO TO [facility] AND SHE SAYS NO. SHE KNOWS WE TALKED TO DR. BARKSDALE AND THERE IS NOTHING HE CAN DO FOR THIS TUMOR. (2) Abdominal pain Current Visit: Yes Status: Chronic Plan: SP SURGERY STABLE DAY 1. BACK TO FLOOR. DOING GOOD. STARTING TO HAVE GAS PASSAGE. Qualifiers: Abdominal location: epigastric Qualified Code(s): R10.13 - Epigastric pain (3) Elevated white blood cell count Current Visit: Yes Status: Acute Plan: THIS ELEVATION MOST LIKELY IS REACTION TO CANCER ITSELF AND MAY NOT GET BETTER IF WE HAVE NOTHING TO OFFER FOR THIS CANCER. Qualifiers: Leukocytosis type: leukemoid reaction Qualified Code(s): D72.823 - Leukemoid reaction (4) Nausea & vomiting Current Visit: Yes Status: Acute Plan: AND ABDOMEN PAIN ALL IMPROVED WITH IV PROTONIX. MRI LIVER SHOWS ADDITIONAL 1 CM LESION. TO SMALL TO BIOPSY. OTHER 4 CM LESION HAS BEEN BIOPSIED BY [employer] AND WAS NONDIAGNOSTIC. (5) Anemia Current Visit: Yes Status: Acute Plan: CAN BE RELATED TO CHEMO , CANCER AND INFECTION. WILL GIVE BLOOD. CHECK PROFILE CONSULTED DR. PATHAK SHE MAY HAVE ULCERS ALSO. 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 WE ARE WAITING FOR IV ABX APPROVAL FOR HOME. (7) Bowel obstruction Current Visit: Yes Status: Acute Plan: SP SURGERY I HEAR BOWEL SOUNDS. SHOULD HAVE PASSAGE OF GAS OR BM SOON. STABLE SO FAR SHE IS ABLE TO AMBULATE.
--- NOTE | 2021-08-05 10:52 | PN ---
Date of Progress Note: 08/05/2021 Subjective: The patient is awake, alert. Had a bowel movement. Tolerating her clear liquids. Objective: Vital Signs: Her vitals are stable. She is afebrile. Abdomen: Benign. Positive bowel sounds. Soft, nondistended, nontender. Laboratory Data: Reviewed and essentially same as yesterday. Assessment: Status post exploratory laparotomy, small bowel resection for tumor. Recommendations: The patient can have GI soft diet. IV fluids can be discontinued. We would discon tinue the Vickers and encourage ambulation and incentive spirometry. The patient is doing well. Eunice li the need for Thoracic Surgery evaluation with the patient as well as Dr. Lopez. /MODL Voice ID: [id number] Report ID: [id number]
--- NOTE | 2021-08-05 11:51 | RAD REPORT ---
EXAM DESCRIPTION: US - UPPER EXTREMITY VENOUS UNILATE - 08/05/2021 11:40 am CLINICAL HISTORY: RIGHT ARM EDEMA. Arm swelling and edema. COMPARISON: Extrem Venous W Compress Cody dated 12/06/2019 FINDINGS: Right upper extremity venous system was interrogated with Doppler technique. Normal flow, compressibility and augmentation was noted. There is no DVT present. IMPRESSION: No evidence of right upper extremity deep venous thrombosis.
[2021-08-05] MEDS: HYDROMORPHONE HCL 1 MG/ML INJ IV PRN (22:37)
[2021-08-06] MEDS: METOPROLOL TARTRATE 5 MG/5 ML INJ IV SCH (02:00)
[2021-08-06] MEDS: NACHLORIDE 0.45% 1,000 ML IV SCH (02:23)
[2021-08-06] MEDS: LORazepam 2 MG/ML VIAL IV PRN (02:56)
[2021-08-06 05:48] LABS: BUN Blood Urea Nitrogen 6 mg/dL (7-18); Bicarbonate 26 mmol/L (21-32); Glucose Level 87 mg/dL (74-106); Potassium 3.1 mmol/L (3.5-5.1); Sodium Level 132 mmol/L (136-145)
[2021-08-06 05:54] LABS: Absolute Lymphocytes (CBC) 1.2 K/uL (0.7-4.9); Hematocrit 26.3 % (36.0-45.0); Lymphocytes % 4.1 % (15.3-44.8); MPV 8.3 fL (7.6-11.3); RBC Red Blood Cell Count 3.09 M/uL (3.86-4.86)
[2021-08-06 06:46] LABS: Anisocytosis 1+; Blood Morphology Comment NOTED (NOT SEEN); Platelet Estimate ADEQ; White Blood Cell Scan OK (OK)
[2021-08-06] MEDS ORDERED: NACHLORIDE 0.45% 1,000 ML IV SCH (06:51)
[2021-08-06] MEDS: ENSURE HIGH PROTEIN 237 ML CAN PO SCH ×2 (09:00→21:00)
[2021-08-06] MEDS: VANCOMYCIN 1 GM in NA CHLORIDE 0.9% 250 ML IVPB SCH ×2 (09:00→21:00)
[2021-08-06] MEDS ORDERED: POTASSIUM CL SA 10 MEQ TAB PO ONE (09:00)
[2021-08-06] MEDS: Meropenem 1,000 MG in NA CHLORIDE 0.9% 100 ML IV SCH ×2 (09:44→21:00)
[2021-08-06] MEDS: PANTOPRAZOLE 40 MG INJ IVP SCH ×2 (09:45→21:00)
[2021-08-06] MEDS: ENOXAPARIN 40 MG/0.4 ML SQ SCH (09:46)
--- NOTE | 2021-08-06 11:28 | PN ---
Date of Progress Note: 08/06/2021 Subjective: The patient is awake, alert. No complaints. Tolerating diet. Objective: Vital Signs: Stable, afebrile. Abdomen: Soft, nondistended, nontender. Positive bowel sounds. Assessment: Status post excision of small bowel tumor causing small bowel obstruction. Recommendations: Continue to advance diet, IV antibiotics as ordered. Encourage ambulation, DVT pro phylaxis as well as incentive spirometry. Likely discharge in a.m. /MODL Voice ID: [id number] Report ID: [id number]
--- NOTE | 2021-08-06 20:33 | P.PN ---
Subjective Date of Service: 08/06/21 Chief Complaint: SP SURGERY FOR BOWEL OBST. LUNG CANCER STAGE 4. Subjective: Improving STABLE, NOBM YET, NO GAS YET. NO NEW ISSUES SO FAR. SHE IS STARTING TO HAVE LIQUIDS. SLOWLY WILL ADVANCE. SHE IS STABLE, ABLE TO TOLERATE DIET. MAY GO HOME IN AM. SHE IS AWARE THAT IF DR. TUCKER CAN'T DO MUCH FOR HER, WE WILL ORDER HOSPICE CARE FOR HER. SHE DOES NOT WANT TO GO TO [facility] OR [facility]. Review of Systems 10-point ROS is otherwise unremarkable Physical Examination - Vital Signs Temperature: 97.9 F Blood Pressure: 133/88 Pulse: 111 Respirations: 23 Pulse Ox (%): 99 - Physical Exam HEENT: Atraumatic, PERRLA, EOMI Neck: Supple, JVD not distended Respiratory: Clear to auscultation bilaterally, Normal air movement Cardiovascular: Regular rate/rhythm, Normal S1 S2 Gastrointestinal: Soft and benign Musculoskeletal: No tenderness Integumentary: No rashes Neurological: Normal speech, Normal tone, Normal affect Lymphatics: No axilla or inguinal lymphadenopathy - Studies Laboratory Data (last 24 hrs) 08/06/21 15:00: Potassium 3.4 L 08/06/21 05:00: Phosphorus 2.1 L 08/06/21 05:00: WBC 28.00 H*, Hgb 8.1 L, Hct 26.3 L, Plt Count 253 08/06/21 05:00: Sodium 132 L, Potassium 3.1 L, BUN 6 L, Creatinine 0.26 L, Glucose 87 Medications List Reviewed: Yes Assessment And Plan - Current Problems (Diagnosis) (1) Non-small cell cancer of right lung Current Visit: Yes Status: Chronic Plan: IT LOOKS LIKE ONCE AGAIN ALL HER SYMPTOMS ARE FROM LUNG CANCER THAT IS PRESENTING IN SIMILAR WAY WITH HIGH WBC COUNT. ORDER ECHO THE TUMOR IS VERY CLOSE TO HEART. WBC COMING DOWN FROM 59K TO 42K. SUPERADDED INFECTION IS IMPROVING. SHE IS FEELING BETTER. SHE HAS REFUSED TO GO TO [facility] IN [place] BEFORE PER DR. TUCKER, HER ONCOLOGIST. DR. RIVERA TALKED TO DR. BARKSDALE, THORACIC SURGERY. HE CAN'T OFFER ANYTHING FOR THIS PATIENT SHE IS VERY ADVANCED, HAS STAGE 4 CANCER AND WILL MOST LIKELY BENEFIT FROM HOSPICE IF DR. TUCKER CAN'T DO ANYTHING ELSE FOR HER. SHE IS AWARE OF ABOVE. SHE KNOWS SHE MAY NOT HAVE ANY OTHER THERAPY AVAILABLE. I ASKED IF SHE WANTS TO GO TO [facility] AND SHE SAYS NO. SHE KNOWS WE TALKED TO DR. BARKSDALE AND THERE IS NOTHING HE CAN DO FOR THIS TUMOR. (2) Abdominal pain Current Visit: Yes Status: Chronic Plan: SP SURGERY STABLE DAY 1. BACK TO FLOOR. DOING GOOD. STARTING TO HAVE GAS PASSAGE. POST OP DOING WELL. ABLE TO TOLERATE FOOD. Qualifiers: Abdominal location: epigastric Qualified Code(s): R10.13 - Epigastric pain (3) Elevated white blood cell count Current Visit: Yes Status: Acute Plan: THIS ELEVATION MOST LIKELY IS REACTION TO CANCER ITSELF AND MAY NOT GET BETTER IF WE HAVE NOTHING TO OFFER FOR THIS CANCER. Qualifiers: Leukocytosis type: leukemoid reaction Qualified Code(s): D72.823 - Leukemoid reaction (4) Nausea & vomiting Current Visit: Yes Status: Acute Plan: AND ABDOMEN PAIN ALL IMPROVED WITH IV PROTONIX. MRI LIVER SHOWS ADDITIONAL 1 CM LESION. TO SMALL TO BIOPSY. OTHER 4 CM LESION HAS BEEN BIOPSIED BY [facility] AND WAS NONDIAGNOSTIC. (5) Anemia Current Visit: Yes Status: Acute Plan: CAN BE RELATED TO CHEMO , CANCER AND INFECTION. WILL GIVE BLOOD. CHECK PROFILE CONSULTED DR. PATHAK SHE MAY HAVE ULCERS ALSO. 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 WE ARE WAITING FOR IV ABX APPROVAL FOR HOME. (7) Bowel obstruction Current Visit: Yes Status: Acute Plan: SP SURGERY I HEAR BOWEL SOUNDS. SHOULD HAVE PASSAGE OF GAS OR BM SOON. STABLE SO FAR SHE IS ABLE TO AMBULATE.
[2021-08-06] MEDS: HYDROMORPHONE HCL 1 MG/ML INJ IV PRN (21:15)
[2021-08-07] MEDS: HYDROMORPHONE HCL 1 MG/ML INJ IV PRN (01:24)
[2021-08-07 04:52] LABS: Absolute Lymphocytes (CBC) 1.6 K/uL (0.7-4.9); Hematocrit 29.3 % (36.0-45.0); MPV 8.2 fL (7.6-11.3); RBC Red Blood Cell Count 3.45 M/uL (3.86-4.86)
[2021-08-07 05:17] LABS: BUN Blood Urea Nitrogen 5 mg/dL (7-18); Bicarbonate 28 mmol/L (21-32); Glucose Level 88 mg/dL (74-106); Potassium 3.6 mmol/L (3.5-5.1); Sodium Level 137 mmol/L (136-145)
[2021-08-07 05:26] LABS: Anisocytosis 1+; Blood Morphology Comment NOTED (NOT SEEN); Burr Cells 2+; Platelet Estimate ADEQ; Polychromasia 2+
[2021-08-07] MEDS ORDERED: METOPROLOL XL 50 MG TAB PO SCH (06:00)
[2021-08-07 07:08] LABS: BUN Blood Urea Nitrogen 5 mg/dL (7-18); Bicarbonate 27 mmol/L (21-32); Glucose Level 85 mg/dL (74-106); Potassium 3.6 mmol/L (3.5-5.1); Sodium Level 137 mmol/L (136-145)
[2021-08-07] MEDS: ENSURE HIGH PROTEIN 237 ML CAN PO SCH (08:15)
[2021-08-07] MEDS: PANTOPRAZOLE 40 MG INJ IVP SCH (08:30)
[2021-08-07] MEDS: ENOXAPARIN 40 MG/0.4 ML SQ SCH (08:30)
[2021-08-07] MEDS: Meropenem 1,000 MG in NA CHLORIDE 0.9% 100 ML IV SCH (08:30)
[2021-08-07] MEDS ORDERED: KCL 20 MEQ/100 mL IVPB 20 MEQ/100 ML BAG IV ONE (09:00)
[2021-08-07 09:25] VITALS: O2SAT 95
[2021-08-07 09:47] VITALS: BP 122/93; TEMP 97.3
--- NOTE | 2021-08-07 20:48 | P.DS ---
Admission Date: 07/27/21 Discharge Date: 08/07/21 Disposition: ROUTINE DISCHARGE Discharge Condition: SERIOUS Reason for Admission: SP SURGERY FOR BOWEL OBST. LUNG CANCER STAGE 4. 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 SHE WENT THROUGH CHEMO AND HER WBC COUNT THAT WAS ALSO 40K AT THAT TIME CAME BACK TO NORMAL. DR. TUCKER CALLED AND ASKED ME TO GET HER ADMITTED WBC IS RISING AGAIN AND SHE HAS NAUSEA, VOMITING AND WEAKNESS WITH UPPER ABDOMEN PAIN. Hospital Course: MARCELLA CAME IN WITH FATIGUE, DYSPNEA, COUGH, UPPER ABDOMEN PAIN. SHE HAS LARGE MASS IN LUNG THAT IS CANCER AND HAD WBC COUNT OF 59K. INITIALLY SHE IMPORVED ON MERREM GIVEN FOR ANEROBIC INFECTION. HER EPIG PAIN ALSO IMPROVED ON IV PROTONIX BUT ON ABOUT DAY 3 SHE STARTED TO VOMIT. I ORDERED CT ABDOMEN AND PELVIS WITH CONTRAST THAT SHOWED A MASS ABOUT 6 CM BLOCKING THE SMALL INTESTINE INTRA LUMINALLY. I CALLED IN DR. OLIVO FOR SURGERY. HE REMOVED TH MASS, REMOVED THE BLOCKAGE AND SHE DID WELL AFTER SURGERY. SHE IS STABLE TO GO HOME. HER WBC COUNT CAME DOWN TO ABOUT 30K. THIS COUNT IS FROM CANCER. IN THE PAST SHE HAD HIGH WHITE COUNT AND AFTER CHEMO FOR CANCER THE COUNT CAME DOWN TO NORMAL. SHE IS NOT DOING GOOD ABOUT CANCER. THERE MAY BE ONE MORE EXPENSIVE PILL DR. TUCKER CAN GIVE HER IF AFFORDABLE. SHE OTHERWISE WILL GO ON HOSPICE AFTER ALL THE CHEMO OPTIONS HAVE RUN OUT. SHE IS AGGREABLE TO IT. SHE DOES NOT WANT TO GO TO ANY BIGGER CANCER CENTERS. Vital Signs/Physical Exam: Temp Pulse Resp BP Pulse Ox 97.3 F 103 H 20 122/93 H 95 08/07/21 08:00 08/07/21 08:00 08/07/21 08:00 08/07/21 08:00 08/07/21 08:00 Laboratory Data at Discharge: WBC 31.70 K/uL (4.3-10.9) H* 08/07/21 04:30 Hgb 9.1 g/dL (12.0-15.0) L 08/07/21 04:30 Hct 29.3 % (36.0-45.0) L 08/07/21 04:30 Plt Count 277 K/uL (152-406) 08/07/21 04:30 APTT 29.6 SECONDS (24.3-36.9) 07/27/21 10:29 Sodium 137 mmol/L (136-145) 08/07/21 06:41 Potassium 3.6 mmol/L (3.5-5.1) 08/07/21 06:41 BUN 5 mg/dL (7-18) L 08/07/21 06:41 Creatinine 0.32 mg/dL (0.55-1.3) L 08/07/21 06:41 Glucose 85 mg/dL (74-106) 08/07/21 06:41 Phosphorus 2.1 mg/dL (2.5-4.9) L 08/06/21 05:00 Magnesium 1.7 08/04/21 04:35 Total Bilirubin 1.5 mg/dL (0.2-1.0) H 07/31/21 05:20 AST 22 U/L (15-37) 07/31/21 05:20 ALT 13 U/L (12-78) 07/31/21 05:20 Alkaline Phosphatase 153 U/L (45-117) H 07/31/21 05:20 Home Medications: Zolpidem Tartrate 2.5 mg PO BEDTIME PRN PRN 10/14/19 Gabapentin 300 mg PO BID PRN 07/27/21 Amox/Clavulanate [Augmentin 875-125 Tab] 1 each PO BID #20 tab 08/07/21 Metoprolol Succinate [Toprol Xl*] 50 mg PO [id number] #90 tab 08/07/21 Pantoprazole [Protonix Tab] 40 mg PO DAILY #90 tab 08/07/21 New Medications: Amox/Clavulanate [Augmentin 875-125 Tab] 1 each PO BID #20 tab Pantoprazole [Protonix Tab] 40 mg PO DAILY #90 tab Metoprolol Succinate [Toprol Xl*] 50 mg PO [id number] #90 tab Physician Discharge Instructions: May shower Keep wound clean and dry Gauze to wound daily Diet: AHA Activity: No lifting more than 10 lbs Followup: Bryce Lopez MD [ACTIVE - CAN ADMIT] - (Call to schedule appointment) Teo Olivo MD [ACTIVE - CAN ADMIT] - 1 Week
== END 2021-08-07 10:15 | disposition home or self-care (01) | DRG 853 ==
LOC: 2ND 07:52 → 3RD-ICU 08-01 12:04 → 2ND 08-02 17:50
PROVIDERS: ADMIT Internal Medicine; ATTEND Internal Medicine
PROC: 02HV33Z Insertion of Infusion Device into Superior Vena Cava, Percutaneous Approach (ICD-10-PCS; 2021-07-28)
PROC: 30233N1 Transfusion of Nonautologous Red Blood Cells into Peripheral Vein, Percutaneous Approach (ICD-10-PCS; 2021-07-29)
PROC: 0DB68ZX Excision of Stomach, Via Natural or Artificial Opening Endoscopic, Diagnostic (ICD-10-PCS; 2021-07-30)
PROC: 0DBA0ZZ Excision of Jejunum, Open Approach (ICD-10-PCS; principal; 2021-08-01 09:00)
DX: A41.9 Sepsis, unspecified organism (principal); A48.0 Gas gangrene; C78.4 Secondary malignant neoplasm of small intestine; C34.91 Malignant neoplasm of unspecified part of right bronchus or lung; C78.7 Secondary malignant neoplasm of liver and intrahepatic bile duct; D64.9 Anemia, unspecified; I10 Essential (primary) hypertension; K29.40 Chronic atrophic gastritis without bleeding; K44.9 Diaphragmatic hernia without obstruction or gangrene; K21.9 Gastro-esophageal reflux disease without esophagitis; D72.823 Leukemoid reaction; Z20.822 Contact with and (suspected) exposure to COVID-19
CPT/HCPCS: 36415; 36430; 36569; 71045; 71275; 74018; 74019; 74177; 80048; 80053; 80076; 80202; 81001; 82607; 82652; 82728; 83605; 83615; 83735; 84100; 84132; 84145; 84165; 84439; 84443; 85014; 85018; 85025; 85044; 85730; 86850; 86900; 86901; 87040; 87086; 87088; 88305; 88307; 88309; 88312; 88331; 93306; 93971; 94010; 96365; 97116; 97161; 97530; 99214; C9113; J0330; J1100; J1170; J1650; J2185; J2370; J2405; J2550; J2704; J3370; J3480; J7040; J7050; J7120; P9016; Q0138; Q9967; U0003

== ENCOUNTER 2021-08-24 21:21 | Inpatient (IN) | payer OTHER ==
--- OUTSIDE RECORDS SUMMARY | 2021-08-24 21:23 | XMS REPORT | Continuity of Care Document ---
:1950 Author Organization [facility] t Address [address] [place] [address] Care Team Providers Name Role Phone WOJCIECH [...] Expiration Date S yannick MEDICARE PART A [id number] 2016 \T\ B 00:00:00 [employer] INDEMNITY [id number] 2018 2020 00:00:00 00:00:00 Problems This patient has no known problems. Allergies, Adverse Reactions, Alerts Allergy Allergy Status Severity Reaction(s) Onset Inactive Treating Comm ents Source Name Type Date Date Clinician CLINDAMY DRUG Active Rash 2018-06 [facility] LARRY INGREDI 2-18 ity of 00:00: [...] 09:10:00 23:59:00 [place] 2020-10-13 2020-10-13 Outpatient APOLONIA, [facility] [id number] [address] 00:00:00 00:00:00 EDWARD [address] 2019-10-20 2019-10-29 Inpatient APOLONIA, [facility] [id number] [address] 00:00:00 00:00:00 EDWARD [address] 2019-08-03 2019-08-03 Office [facility] [id number] 12:51:30 13:10:35 Visit Stefania Shaunna Garland [id number] [place] [id number] Professio [id number] [address] 2019-06-18 2019-06-18 [facility] [id number] [facility] 13:18:44 13:19:00 STEFANIA [facility] 2019-06-16 2019-06-16 Outpatient R RAYO [facility] [id number] [facility] 16:25:59 16:25:00 [facility] Results Test Description Test Time Test Comments Results Result Comments Source SARS-COV2/RT-PCR ([facility]) 2019-10-15 01:33:00 Test Item Value Reference Range Interpretation Comme nts SARS-COV2/RT-PCR (test code = [id number]) Not Detected Not Detected, N egative SARS-COV-2 PERFORMING LAB (test code = BSC [id number]) Negative results do not preclude SARS-CoV-2 infection [...] of the Act.Fact Sheet for Healthcare Pro viders:https://www.[employer]/Documents/Xpert%20Xpress%20SARS%20CoV-2/Fact%20Sh eets/3023802%25TOOY-RYA-3%20HEALTHCARE%20PROVIDERS%20FACT%20SHEET.pdfFact Sheet for Healthcare Patients:https://www.[employer]/Documents/Xpert%20Xpress%20SARS%20CoV-2/Fact%20Sheets/3023801%20SARS-COV -2%20PATIENT%20FACT%20SHEET.pdfPerforming Laboratory:[facility] [place] [address]
[2021-08-24] MEDS ORDERED: LORazepam 2 MG/ML VIAL ONE (22:32)
[2021-08-24] MEDS ORDERED: HYDROMORPHONE HCL 0.5 MG/0.5 ML INJ ONE (23:16)
[2021-08-24] MEDS ORDERED: NA CHLORIDE 0.9% 50 ML ONE (23:17)
[2021-08-24 23:18] LABS: Protime INR 1.41
[2021-08-24 23:21] LABS: Hematocrit 31.5 % (36.0-45.0); Lymphocytes % 3.4 % (15.3-44.8); MPV 8.6 fL (7.6-11.3); RBC Red Blood Cell Count 3.71 M/uL (3.86-4.86)
[2021-08-24] MEDS ORDERED: ONDANSETRON 4 MG/2 ML VIAL ONE (23:26)
[2021-08-24 23:31] LABS: AST/SGOT 12 U/L (15-37); Albumin 2.8 g/dL (3.4-5.0); Alkaline Phosphatase 199 U/L (45-117); BUN Blood Urea Nitrogen 12 mg/dL (7-18); Bicarbonate 26 mmol/L (21-32); Bilirubin Direct 0.4 mg/dL (0-0.2); Glucose Level 197 mg/dL (74-106); NT PRO-BNP 1257 pg/mL (<125); Potassium 3.6 mmol/L (3.5-5.1); Protein, Total 6.4 g/dL (6.4-8.2); Sodium Level 134 mmol/L (136-145)
[2021-08-24 23:33] LABS: ALT/SGPT < 10 U/L (12-78)
[2021-08-24 23:46] LABS: Anisocytosis 1+; Blood Morphology Comment NOTED (NOT SEEN); Platelet Estimate INCR
[2021-08-25] MEDS ORDERED: ENOXAPARIN 80 MG/0.8 ML SQ ONE (00:59)
[2021-08-25] MEDS ORDERED: NA CHLORIDE 0.9% 500 ML ONE (02:37)
--- NOTE | 2021-08-25 02:51 | ER ---
Nurse's Notes [facility] Name: Jessenia James Age: 71 yrs Sex: Female : 1950 Arrival Date: 08/24/2021 Time: 21:24 Bed 13 Private MD: Diagnosis: Acute embolism and thrombosis of deep veins of lower extremity Presentation: 08/24 21:50 Chief complaint: Patient's son or daughter states: "She was here 11 days ago and had ab2 surgery on her intestines and now her left leg is very swollen and tight, im afraid its a blood clot.". Coronavirus screen: Vaccine status: Patient reports receiving the 2nd dose of the covid vaccine. Client denies travel out of the [place] in the last 14 days. At this time, the client does not indicate any symptoms associated with coronavirus-19. Ebola Screen: Patient negative for fever greater than or equal to 101.5 degrees Fahrenheit, and additional compatible Ebola Virus Disease symptoms Patient denies exposure to infectious person. Patient denies travel to an Ebola-affected area in the 21 days before illness onset. No symptoms or risks identified at this time. Initial Sepsis Screen: Does the patient meet any 2 criteria? RR > 20 per min. HR > 90 bpm. No. Patient's initial sepsis screen is negative. Does the patient have a suspected source of infection? No. Patient's initial sepsis screen is negative. Risk Assessment: Do you want to hurt yourself or someone else? Patient reports no desire to harm self or others. Onset of symptoms is unknown. 21:50 Method Of Arrival: Wheelchair ab2 21:50 Acuity: KLARISSA 3 ab2 Triage Assessment: 21:53 General: Appears in no apparent distress. uncomfortable, Behavior is calm, cooperative, ab2 appropriate for age. Pain: Complains of pain in left leg. Historical: - Allergies: 21:52 Clindamycin; ab2 21:52 Levaquin; ab2 - PMHx: 21:52 Lung Cancer; ab2 - PSHx: 21:52 Abdominal mass removal; ab2 - Immunization history:: Adult Immunizations up to date. - Social history:: Smoking status: Patient denies any tobacco usage or history of. Screenin:00 Abuse screen: Denies threats or abuse. Nutritional screening: No deficits noted. ll3 Tuberculosis screening: No symptoms or risk factors identified. Fall Risk No fall in past 12 months (0 pts). No secondary diagnosis (0 pts). IV access (20 points). Ambulatory Aid- Crutches/Cane/Walker (15 pts). Gait- Impaired (20 pts.). Mental Status- Oriented to own ability (0 pts). Total Hazel Fall Scale indicates High Risk Score (45 or more points). Fall prevention measures have been instituted. Side Rails Up X 2 Family Present and informed to notify staff if the need to leave the bedside. Assessment: 22:00 General: Appears uncomfortable, Behavior is cooperative, anxious, restless. ll3 22:00 Pain: Complains of pain in left leg Pain radiates to left foot Pain currently is 6 out ll3 of 10 on a pain scale. Quality of pain is described as heavy, squeezing, Pain began 1 day ago. Is continuous, Alleviated by repositioning, Noted to be restless, Also complains of States left leg feels tight and heavy. Neuro: Level of Consciousness is awake, alert, obeys commands, Oriented to person, place, time, situation. Cardiovascular: Patient's skin is warm and dry. Respiratory: Respiratory effort is labored, asymmetrical, Respiratory pattern is tachypnea Onset: The symptoms/episode began/occurred States has lung cancer and has been having difficulty breathing for the past few months, the patient has moderate shortness of breath Parent/caregiver reports the patient having shortness of breath labored breathing. Derm: Skin is dusky, Skin temperature is cool 3+ pitting edema to left leg, cool to touch, pt states swelling started to get worse today and more painful. Musculoskeletal: Circulation, motion, and sensation intact. Swelling present in left leg. 23:00 Reassessment: Pt states Ativan did help some with anxiety, c/o of left leg pain 6/10, ll3 Uyen Greene MEDICAL POLICY SPECIALIST notified. 08/25 00:07 Reassessment: Patient and/or family updated on plan of care and expected duration. Pain ll3 level reassessed. States medicine helped, pain is 5/10 Patient states feeling better. 00:20 Reassessment: Administered 2L nasal cannula, tolerated well. ll3 01:40 Reassessment: Patient and/or family updated on plan of care and expected duration. Pain ll3 level reassessed. Pain level remains the same 11/06. 03:03 Reassessment: Patient and/or family updated on plan of care and expected duration. Pain ll3 level reassessed. Pt states pain remains the same, pt is sleeping with eyes closed, RR are even and unlabored, chest rising and falling. 04:33 Reassessment: Patient and/or family updated on plan of care and expected duration. Pain ll3 level reassessed. Transporting pt to second floor room 230. Vital Signs: 08/24 21:50 BP 99 / 77; Pulse 121; Resp 22; Temp 98.1(TE); Pulse Ox 99% ; Weight 68.04 kg; Height 5 ab2 ft. 6 in. (167.64 cm); Pain 0/10; 22:00 BP 117 / 75; Pulse 120; Resp 30; Pulse Ox 98% on R/A; ll3 22:43 BP 124 / 96; Pulse 120; Resp 32; Pulse Ox 96% ; ll3 23:17 BP 128 / 95; Pulse 122; Resp 36; Pulse Ox 98% ; ll3 08/25 00:07 BP 103 / 77; Pulse 117; Resp 29; Pulse Ox 94% on R/A; ll3 01:40 BP 110 / 82; Pulse 122; Resp 33; Pulse Ox 98% on 2 lpm NC; ll3 02:30 BP 102 / 92; Pulse 118; Resp 28; Pulse Ox 98% on 2 lpm NC; ll3 03:00 BP 104 / 78; Pulse 108; Resp 28; Pulse Ox 98% on 2 lpm NC; ll3 04:00 BP 100 / 81; Pulse 108; Resp 26; Pulse Ox 98% on 2 lpm NC; ll3 08/24 21:50 Body Mass Index 24.21 (68.04 kg, 167.64 cm) ab2 ED Course: 08/24 21:24 Patient arrived in ED. ja2 21:52 Triage completed. ab2 21:54 Arm band placed on right wrist. ab2 22:00 Patient has correct armband on for positive identification. Placed in gown. Bed in low ll3 position. Call light in reach. Side rails up X 1. Adult w/ patient. 22:00 Initial lab(s) drawn, by me, sent to lab. EKG done, by ED staff, reviewed by Uyen MCNULTY. Inserted saline lock: 22 gauge in left antecubital area, using aseptic technique. Blood collected. 22:12 Uyen Greene FNP-C is [facility]. kb 22:12 Edgardo Barrientos MD is Attending Physician. kb 22:49 Basic Metabolic Panel Sent. ll3 22:49 CBC with Diff Sent. ll3 22:49 LFT's Sent. ll3 22:49 Magnesium Sent. ll3 22:49 NT PRO-BNP Sent. ll3 22:49 PT-INR Sent. ll3 22:57 Christin Camargo, JANET is Primary Nurse. ll3 23:05 XRAY Chest (1 view) In Process Unspecified. EDMS 02 00:50 Lower Extremity Artery Uni Ltd In Process Unspecified. EDMS 00:51 Extrem Venous W Compress Cody In Process Unspecified. EDMS 01:30 CT Chest For PE Angio In Process Unspecified. EDMS 02:50 Bryce Lopez MD is Hospitalizing Provider. kb 03:00 No provider procedures requiring assistance completed. Patient admitted, IV remains in ll3 place. No redness/swelling at site. Administered Medications: 08/24 22:44 Drug: Ativan (LORazepam) 1 mg Route: IVP; Site: left antecubital; ll3 23:31 Follow up: Response: No adverse reaction ll3 23:30 Drug: Dilaudid (HYDROmorphone) 1 mg Route: IVP; Site: left antecubital; ll3 08/25 00:07 Follow up: Response: No adverse reaction; Marked relief of symptoms ll3 08/24 23:30 Drug: Zofran (Ondansetron) 4 mg Route: IVP; Site: left antecubital; ll3 08/25 00:02 Follow up: Response: No adverse reaction ll3 01:05 Drug: Lovenox (enoxaparin) 1 mg/kg Route: Sub-Q; Site: abdomen; ll3 02:48 Follow up: Response: No adverse reaction ll3 02:48 Drug: NS 0.9% 500 ml Route: IV; Rate: bolus; Site: left antecubital; ll3 Outcome: 02:50 Decision to Hospitalize by Provider. kb 03:00 Admitted to Med/surg accompanied by nurse, via stretcher, room 230, with oxygen, with ll3 chart, Report called to JANET Diaz 03:00 Condition: stable 03:00 Instructed on the need for admit, Demonstrated understanding of instructions. 04:46 Patient left the ED. ll3 Signatures: Dispatcher [employer] EDUyen Parker, MEDICAL POLICY SPECIALIST-C MEDICAL POLICY SPECIALIST-Ckb Teri Grullon Lynsea, RN RN ll3 Godwin Comer2 Corrections: (The following items were deleted from the chart) 08/24 23:18 22:00 BP 117 / 75; Pulse 120bpm; Resp 26bpm; Pulse Ox 98% RA; ll3 ll3 23:18 22:43 BP 124 / 96; Pulse 120bpm; Resp 26bpm; Pulse Ox 96%; ll3 ll3
--- NOTE | 2021-08-25 02:51 | EDPHYS ---
Physician Documentation [facility] Name: Jessenia James Age: 71 yrs Sex: Female : 1950 Arrival Date: 08/24/2021 Time: 21:24 Bed 13 Private MD: ED Physician Edgardo Barrientos HPI: 08/24 22:25 This 71 yrs old Female presents to ER via Wheelchair with complaints of Leg Swelling, kb Leg Pain. 22:25 The patient presents with pain, swelling, tenderness. The complaints affect the left kb leg. Context: The problem was sustained at home, the patient is able to ambulate. Onset: The symptoms/episode began/occurred 10 day(s) ago, and became worse yesterday. Modifying factors: The symptoms are alleviated by nothing. the symptoms are aggravated by nothing. Associated signs and symptoms: Pertinent positives: swelling, Pertinent negatives calf tenderness, fever, nausea, numbness, rash, tingling, vomiting, warmth, weakness. Treatment prior to arrival includes: no previous treatment. Severity of symptoms: At their worst the symptoms were moderate, in the emergency department the symptoms are unchanged. The patient has not experienced similar symptoms in the past. The patient has been recently seen by a physician:. Pt reports she had an abdominal surgery and was released from the hospital 10 days ago. States she had swelling to bilateral lower extremities upon discharge, but her left leg swelling and pain got worse yesterday. . Historical: - Allergies: 21:52 Clindamycin; ab2 21:52 Levaquin; ab2 - PMHx: 21:52 Lung Cancer; ab2 - PSHx: 21:52 Abdominal mass removal; ab2 - Immunization history:: Adult Immunizations up to date. - Social history:: Smoking status: Patient denies any tobacco usage or history of. ROS: 22:23 Constitutional: Negative for fever, chills, and weight loss. kb 22:23 MS/extremity: Positive for pain, swelling, tenderness, of the left leg. 22:23 All other systems are negative. Exam: 22:23 Constitutional: This is a well developed, well nourished patient who is awake, alert, kb and in no acute distress. Head/Face: Normocephalic, atraumatic. ENT: Moist Mucous membranes Cardiovascular: Regular rate and rhythm with a normal S1 and S2. No gallops, murmurs, or rubs. No pulse deficits. Abdomen/GI: Soft, non-tender. No distention Skin: Warm, dry with normal turgor. Normal color. Neuro: Awake and alert, GCS 15, oriented to person, place, time, and situation. Moves all extremities. Normal gait. Psych: Awake, alert, with orientation to person, place and time. Behavior, mood, and affect are within normal limits. 22:23 Respiratory: the patient does not display signs of respiratory distress, Respirations: labored breathing, that is mild, Breath sounds: are clear throughout. 22:23 Musculoskeletal/extremity: Extremities: grossly normal except: noted in the left leg: pain, swelling, tenderness, discoloration, ROM: intact in all extremities, Perfusion: the extremity is with brisk capillary refill, cool, Edema, 3+ to the left foot is noted, Sensation intact. DVT Exam: pain, swelling, tenderness. Vital Signs: 21:50 BP 99 / 77; Pulse 121; Resp 22; Temp 98.1(TE); Pulse Ox 99% ; Weight 68.04 kg; Height 5 ab2 ft. 6 in. (167.64 cm); Pain 0/10; 22:00 BP 117 / 75; Pulse 120; Resp 30; Pulse Ox 98% on R/A; ll3 22:43 BP 124 / 96; Pulse 120; Resp 32; Pulse Ox 96% ; ll3 23:17 BP 128 / 95; Pulse 122; Resp 36; Pulse Ox 98% ; ll3 08/25 00:07 BP 103 / 77; Pulse 117; Resp 29; Pulse Ox 94% on R/A; ll3 01:40 BP 110 / 82; Pulse 122; Resp 33; Pulse Ox 98% on 2 lpm NC; ll3 02:30 BP 102 / 92; Pulse 118; Resp 28; Pulse Ox 98% on 2 lpm NC; ll3 03:00 BP 104 / 78; Pulse 108; Resp 28; Pulse Ox 98% on 2 lpm NC; ll3 04:00 BP 100 / 81; Pulse 108; Resp 26; Pulse Ox 98% on 2 lpm NC; ll3 08/24 21:50 Body Mass Index 24.21 (68.04 kg, 167.64 cm) ab2 MDM: 08/24 22:12 Patient medically screened. kb 22:23 Data reviewed: vital signs, nurses notes. Data interpreted: Pulse oximetry: on room air kb is 99 %. Interpretation: normal. 08/25 02:49 Counseling: I had a detailed discussion with the patient and/or guardian regarding: the kb historical points, exam findings, and any diagnostic results supporting the discharge/admit diagnosis, lab results, radiology results, the need for further work-up and treatment in the hospital. Transition of care: After a detail discussion of the patient's case, care is transferred to Edgardo Barrientos MD. ED course: Dr Barrientos will call Dr Lopez about admission in the morning. 08/24 22:21 Order name: Basic Metabolic Panel; Complete Time: 23:33 kb 08/24 22:21 Order name: CBC with Diff; Complete Time: 23:48 kb 08/24 22:21 Order name: LFT's; Complete Time: 23:33 kb 08/24 22:21 Order name: Magnesium; Complete Time: 23:33 kb 08/24 22:21 Order name: NT PRO-BNP; Complete Time: 23:33 kb 08/24 22:21 Order name: PT-INR; Complete Time: 23:18 kb 08/24 22:21 Order name: XRAY Chest (1 view) kb 08/24 22:33 Order name: Lower Extremity Artery Uni Ltd EDMS 08/24 23:27 Order name: Manual Differential; Complete Time: 23:48 EDMS 08/25 01:55 Order name: COVID-19 SARS RT PCR (Document "Date of Onset" if Symptomatic); Complete kb Time: 03:53 08/24 22:21 Order name: EKG; Complete Time: 22:44 kb 08/24 22:21 Order name: Cardiac monitoring; Complete Time: 22:48 kb 08/24 22:21 Order name: EKG - Nurse/Tech; Complete Time: 22:48 kb 08/24 22:21 Order name: IV Saline Lock; Complete Time: 22:48 kb 08/24 22:21 Order name: Labs collected and sent; Complete Time: 22:48 kb 08/24 22:21 Order name: O2 Per Protocol; Complete Time: 22:48 kb 08/24 22:21 Order name: O2 Sat Monitoring; Complete Time: 22:49 kb 08/25 00:43 Order name: CT Chest For PE Angio kb 08/25 00:50 Order name: Extrem Venous W Compress Cody EDMS Administered Medications: 08/24 22:44 Drug: Ativan (LORazepam) 1 mg Route: IVP; Site: left antecubital; ll3 23:31 Follow up: Response: No adverse reaction ll3 23:30 Drug: Dilaudid (HYDROmorphone) 1 mg Route: IVP; Site: left antecubital; ll3 08/25 00:07 Follow up: Response: No adverse reaction; Marked relief of symptoms ll3 08/24 23:30 Drug: Zofran (Ondansetron) 4 mg Route: IVP; Site: left antecubital; ll3 08/25 00:02 Follow up: Response: No adverse reaction ll3 01:05 Drug: Lovenox (enoxaparin) 1 mg/kg Route: Sub-Q; Site: abdomen; ll3 02:48 Follow up: Response: No adverse reaction ll3 02:48 Drug: NS 0.9% 500 ml Route: IV; Rate: bolus; Site: left antecubital; ll3 Disposition: 06:31 Co-signature as Attending Physician, Edgardo Barrientos MD. 7 Disposition Summary: 08/25/21 02:50 Hospitalization Ordered Hospitalization Status: Inpatient Admission kb Provider: Bryce Lopez Location: Telemetry/MedSur (Inpatient) kb Condition: Stable kb Problem: new kb Symptoms: are unchanged kb Bed/Room Type: Standard Room Assignment: 230(08/25/21 03:50) Diagnosis - Acute embolism and thrombosis of deep veins of lower extremity kb Forms: - Medication Reconciliation Form kb - SBAR form kb Signatures: Dispatcher [employer] EDMS Uyen Greene, JOVANNI-C DRAFTER GEOPHYSICAL-Ayesha Aguilera RN Edgardo Nieves MD MD 7 Christin Camargo RN RN 3 Godwin Comer Corrections: (The following items were deleted from the chart) 08/24 22:48 22:30 Chest Single View ordered. EDMS EDMS 23: 22:43 Extremity Venous Uni Ltd+US.RAD.BRZ ordered. EDMS EDMS :24 22:43 Lower Extremity Artery Uni Ltd+US.RAD.BRZ ordered. EDMS EDMS 08/25 00:49 08/24 22:23 Musculoskeletal/extremity: Extremities: grossly normal except: noted in the kb left leg: pain, swelling, tenderness, ROM: intact in all extremities, Perfusion: the extremity is with brisk capillary refill, cool, Edema, 3+ to the left foot is noted, Sensation intact. DVT Exam: pain, swelling, tenderness, 08/25 00:50 08/24 22:33 Extremity Venous Uni Ltd ordered. [facility] 08/25 02:35 08/24 22:23 Respiratory: the patient does not display signs of respiratory distress, Respirations: labored breathing, that is mild, Breath sounds: are clear throughout, 08/25 02:35 08/24 22:23 Musculoskeletal/extremity: Extremities: grossly normal except: noted in the kb left leg: pain, swelling, tenderness, discoloration, ROM: intact in all extremities, Perfusion: the extremity is with brisk capillary refill, cool, Edema, 3+ to the left foot is noted, Sensation intact. DVT Exam: pain, swelling, tenderness, 08/25 03:50 02:50 kb mw
[2021-08-25] MEDS ORDERED: ONDANSETRON 4 MG/2 ML VIAL IV PRN (04:33)
[2021-08-25] MEDS ORDERED: NA CHLORIDE 0.9% 1,000 ML IV SCH (04:33)
[2021-08-25 06:00] VITALS: BMI 25.0
[2021-08-25] MEDS ORDERED: INFLUENZA VACCINE (for 6+ mo) 0.5 ML DOSE IMVAC ONE (07:00)
[2021-08-25] MEDS ORDERED: PNEUMOCOCCAL VACCINE 0.5 ML IMVAC ONE (07:00)
[2021-08-25] MEDS: ENOXAPARIN 80 MG/0.8 ML SQ SCH ×2 (08:41→20:13)
[2021-08-25] MEDS ORDERED: GABAPENTIN 300 MG CAP PO PRN (09:38)
--- NOTE | 2021-08-25 09:42 | RAD REPORT ---
EXAM DESCRIPTION: US - Lower Extremity Artery Uni Ltd - 08/25/2021 12:50 am CLINICAL HISTORY: PAIN; SWELLING COMPARISON: Extrem Venous W Compress Cody dated 08/24/2021 FINDINGS: Grayscale, color and power Doppler interrogation of the left lower extremity arterial syst em was performed. Triphasic waveforms are seen throughout the left lower extremity arterial system. No evidence signifi cant stenosis or occlusion. IMPRESSION: No significant flow abnormality is seen.
--- NOTE | 2021-08-25 09:48 | P.SSS ---
Patient History Date of Service: 08/25/21 Reason for admission: L LEG SWELLING. History of Present Illness: MARCELLA HAS END STAGE LUNG CANCER WITH METS TO LIVER AND SMALL INTESTINE. SHE HAS CHRONIC HIGH WBC COUNT OF ABOUT 50K FROM CANCER ITSELF. SHE RECENTLY HAD SMALL BOWEL OBSTRUCTION FROM METASTATIC CANCER TO LUMEN OF SMALL INTESTINE. THIS WAS REMOVED BY DR. RUBIO AND IT IS ABOUT 14 DAYS POST OP. SHE IS WEAK, DYSPNEIC AT REST BUT SHE DOES NOT FEEL IT SHE HAS NOT BEEN BACK TO DR. TUCKER FOR CANCER YET. THERE MAY NOT BE ANYMORE THERAPY FOR HER. I ASKED HER ABOUT DNR AND SHE SAYS SHE HAS ALL PAPERS BUT NOT SIGNED THEM. SHE IS WILLING TO SIGN PAPERS TODAY. SHE HAS EDEMA OF LEG L SIDE THAT DID NOT RESOLVE, GOT LARGER AND PAINFUL. SHE HAS DVT IN L LEG. Allergies clindamycin Allergy (Verified 12/22/19 09:39) Itching/Hives/Rash levofloxacin [From Levaquin] Allergy (Verified 12/22/19 09:39) Itching/Hives/Rash Home medications list reviewed: Yes Home Medications: Gabapentin 300 mg PO BID PRN 07/27/21 Metoprolol Succinate [Toprol Xl*] 50 mg PO [id number] #90 tab 08/07/21 Pantoprazole [Protonix Tab] 40 mg PO DAILY #90 tab 08/07/21 - Past Medical/Surgical History Diabetic: No -: Hypertension -: GERD -: Allergies -: Lung cancer right lower lobe diagnosed in September 2019 -: Polypectomy -: Dilation and Curettage -: Tonsillectomy, Adenoidectomy -: Cholecystectomy -: 2 Cesarian Section - Social History Smoking Status: Never smoker Alcohol use: No CD- Drugs: No Caffeine use: Yes Place of Residence: Home Review of Systems 10-point ROS is otherwise unremarkable General: Weakness, Malaise Physical Examination - Vital Signs Temperature: 97.6 F Blood Pressure: 111/72 Pulse: 112 Respirations: 16 Pulse Ox (%): 100 - Physical Exam General: Oriented x3, Mild distress, Moderate distress HEENT: Atraumatic, PERRLA, Mucous membr. moist/pink, EOMI, Sclerae nonicteric Neck: Supple, 2+ carotid pulse no bruit, No LAD, Without JVD or thyroid abnormality Respiratory: Clear to auscultation bilaterally, Normal air movement Cardiovascular: Edema (L LEG EDEMA, MILD TENDER. ) Gastrointestinal: Normal bowel sounds, No tenderness Musculoskeletal: No tenderness Integumentary: No rashes Neurological: Normal gait, Normal speech, Normal strength at 5/5 x4 extr, Normal tone, Normal affect Lymphatics: No axilla or inguinal lymphadenopathy - Studies Laboratory Data (last 24 hrs) 08/24/21 22:44: PT 16.3 H, INR 1.41 08/24/21 22:44: WBC 57.90 H*, Hgb 9.8 L, Hct 31.5 L, Plt Count 495 H 08/24/21 22:44: Sodium 134 L, Potassium 3.6, BUN 12, Creatinine 0.72, Glucose 197 H, Magnesium 2.0, Total Bilirubin 1.0, AST 12 L, ALT < 10 L, Alkaline Phosphatase 199 H - Diagnosis (Problem(s)) (1) DVT (deep venous thrombosis) Current Visit: Yes Status: Acute Plan: LOVENOX SC BID. FROM TOMORROW WILL CHANGE TO ELIQUIS SHE HAS BECOME SEVERELY ANEMIC BEFORE. IF SHE DOES NOT TOLERATE THE ANTICOAGULATION SHE WILL NEED IVC FILTER. WILL REDO HG IN AM. SHE IS NOT GOOD AT FOLLOW UP. SHE WILL EITHER HAVE TO SEE ONCOLOGIST OR ME EVERY WEEK FOR THIS. Qualifiers: DVT location: lower extremity Laterality: left (2) Stage 4 lung cancer Current Visit: Yes Status: Chronic Plan: PROGNOSIS POOR. DNR ABOVE (3) Anemia Current Visit: No Status: Chronic Plan: HG IS MILD LOW. WILL DO LAB IN AM. - Disposition Disposition: ROUTINE DISCHARGE
--- NOTE | 2021-08-25 10:20 | RAD REPORT ---
EXAM DESCRIPTION: RAD - Chest Single View - 08/24/2021 11:05 pm CLINICAL HISTORY: DYSPNEA Chest pain. COMPARISON: Abdomen 1 View (KUB) dated 07/31/2021; Chest Single View dated 07/28/2021; Chest Single Vie w dated 12/22/2019; Chest Single View dated 11/19/2019; Chest For Pe Angio dated 08/25/2021 FINDINGS: Portable technique limits examination quality. Large right lung mass and pleural fluid is again seen, unchanged. Heart size is likely upper limit of normal. Left lung is grossly clear.
[2021-08-25] MEDS: HYDROMORPHONE HCL 1 MG/ML INJ IV PRN ×2 (16:20→23:27)
--- NOTE | 2021-08-25 21:02 | RAD REPORT ---
EXAM DESCRIPTION: CTA CHEST WITH CONTRAST CLINICAL HISTORY: DYSPNEA COMPARISON: CT abdomen and pelvis 07/27/2021. TECHNIQUE: Axial CT imaging of the thorax utilizing intravenous contrast. Reformatted multiplanar im ages obtained including reconstructed maximum intensity projection images. This exam was performed according to our departmental dose-optimization program which includes automa betty exposure control, adjustment of the mA and/or kV according to patient size and/or use of iterativ e reconstruction technique FINDINGS: PULMONARY ARTERIES: Normal caliber main pulmonary artery. There is no filling defect seen within the right atrium and right ventricle, central or peripheral pulmonary arteries. There is atten uation of the right lower lobe and right middle lobe pulmonary artery secondary to a large lobular lo w-density mass . HEART/GREAT VESSELS: Normal heart size. Mild dilatation of the ascending aorta to 4.2 cm . No dissect ion. Well-opacified arch vessels. MEDIASTINUM/RAE: 2.2 x 1.4 x 1.7 cm subcarinal lymphadenopathy. Normal trachea. There is abrupt occl usion of the right lower lobe airways at the rae. Esophagus is displaced leftward by the right lower lobe pulmonary mass. Leftward mediastinal shift by the right lower lobe lung mass. LUNGS/PLEURA: There is a 15.5 x 12.8 x 14.1 cm low-density mass occupying most of the right lower lob e with peripheral lobulation of the wall, relatively larger. There is surrounding parenchymal atelect asis. There are heterogeneous low-density masses within the surrounding right pleural fluid. The infe rior extent is not fully imaged. The left lung is clear. There is no edema. The mass is causing signi ficant mass effect upon the right atrium. CHEST WALL/SOFT TISSUES: Intact sternum. Mild thoracic spondylosis. Unremarkable remaining bony thora x. Normal right lower lobe of thyroid. Left lobe contains a 1.7 cm low-density nodule. UPPER ABDOMEN: Unremarkable included spleen. No free air. IMPRESSION: 1. No pulmonary embolism 2. Interim enlargement of a large low-density mass which nearly completely occupies the entire right lower lobe. Surrounding atelectasis. There is a moderate right effusion with additional masses in the inferior right pleural fluid. Findings are compatible with progression of malignancy. This is abrupt ly occluding the right lower lobe airways and resulting in leftward mediastinal shift. Significant im pression upon the right atrium also noted. 3. Subcarinal lymphadenopathy. 4. Ascending aorta aneurysm, 4.2 cm. No dissection. 5. 1.7 cm incidental left thyroid nodule. Recommend thyroid US. Reference: J Am Marion Radiol. 2015 Jul;12(2): 143-50 Electronically signed by: Irene Jiménez DO 08/25/2021 2:21 AM CELL COVERER Due to temporary technical issues with the PACS/Fluency reporting system, reports are being signed by the in house radiologists without review as a courtesy to insure prompt reporting. The interpreting radiologist is fully responsible for the content of the report.
--- NOTE | 2021-08-25 21:04 | RAD REPORT ---
EXAM DESCRIPTION: ULTRASOUND RIGHT AND LEFT LOWER EXTREMITY VENOUS DUPLEX. CLINICAL HISTORY: Pain and swelling. COMPARISON: None. TECHNIQUE: High resolution grayscale sonographic evaluation of the right and left lower extremity venous system performed with color flow and duplex. Compression maneuvers utilized. FINDINGS: There is intraluminal echogenic soft tissue with lack of compressibility throughout the le ft common femoral vein, proximal, mid, and distal femoral vein, popliteal vein with lack of flow comp atible with occlusive clot. There is absent flow in the left posterior tibial vein. There is complete compression with flow demonstrated within the right common femoral vein, proximal, mid and distal femoral vein and popliteal vein. There is augmentation in the right common femoral vei n, mid femoral vein, and popliteal vein. IMPRESSION: 1. Extensive occlusive clot throughout the left lower extremity from the common femoral vein to the popliteal vein and posterior tibial vein. 2. No evidence of venous thrombosis within the right lower extremity. Electronically signed by: Irene Jiménez DO 08/25/2021 1:19 AM PROCESSING MGR Due to temporary technical issues with the PACS/Fluency reporting system, reports are being signed by the in house radiologists without review as a courtesy to insure prompt reporting. The interpreting radiologist is fully responsible for the content of the report.
[2021-08-26 05:29] LABS: Absolute Lymphocytes (CBC) 2.1 K/uL (0.7-4.9); Hematocrit 24.4 % (36.0-45.0); Lymphocytes % 3.7 % (15.3-44.8); MPV 7.8 fL (7.6-11.3); RBC Red Blood Cell Count 2.91 M/uL (3.86-4.86)
[2021-08-26] MEDS: METOPROLOL XL 50 MG TAB PO SCH (05:32)
[2021-08-26 05:59] LABS: Potassium 4.3 mmol/L (3.5-5.1)
[2021-08-26] MEDS ORDERED: APIXABAN 5 MG TABLET PO SCH (09:00)
[2021-08-26] MEDS: PANTOPRAZOLE 40MG TABLET PO SCH (10:32)
--- NOTE | 2021-08-26 11:36 | P.PN ---
Subjective Date of Service: 08/26/21 Chief Complaint: L LEG SWELLING. Subjective: No C/O voiced, Worsening SHE IS ALWAYS TALKING LIKE SHE IS GASPING WITH DEEPER BREATHS. SHE HAS L LEG PAIN. SHE DOES NOT HAVE ANY OBVIOUS GI BLEED. SHE HAS ORAL SPOTTING OF BLOOD SINCE CANCER. Review of Systems 10-point ROS is otherwise unremarkable General: Weakness, Malaise Cardiovascular: As per HPI Physical Examination - Vital Signs Temperature: 96.9 F Blood Pressure: 113/71 Pulse: 106 Respirations: 18 Pulse Ox (%): 99 - Physical Exam General: Mild distress, Moderate distress HEENT: Atraumatic, PERRLA, EOMI Neck: Supple, JVD not distended Respiratory: Clear to auscultation bilaterally, Normal air movement Cardiovascular: Edema (L LEG WITH PAIN) Gastrointestinal: Normal bowel sounds, No tenderness Musculoskeletal: No tenderness Integumentary: No rashes Neurological: Normal speech, Normal tone, Normal affect Lymphatics: No axilla or inguinal lymphadenopathy - Studies Medications List Reviewed: Yes Assessment And Plan - Current Problems (Diagnosis) (1) DVT (deep venous thrombosis) Current Visit: Yes Status: Acute Plan: LOVENOX SC BID. FROM TOMORROW WILL CHANGE TO ELIQUIS SHE HAS BECOME SEVERELY ANEMIC BEFORE. IF SHE DOES NOT TOLERATE THE ANTICOAGULATION SHE WILL NEED IVC FILTER. WILL REDO HG IN AM. SHE IS NOT GOOD AT FOLLOW UP. SHE WILL EITHER HAVE TO SEE ONCOLOGIST OR ME EVERY WEEK FOR THIS. EXPECTED HG DROPPED. GIVE HER TWO UNITS OF BLOOD. I CALLED IN DR. RUBIO TO DO IVC FILTER. WILL STOP ELIQUIS MAY RESTART LATER IF HG IS STABLE. SHE GOES TO DR. TUCKER AND SHE CAN DO ROUTINE VISITS THERE FOR DVT. Qualifiers: DVT location: lower extremity Laterality: left (2) Stage 4 lung cancer Current Visit: Yes Status: Chronic Plan: PROGNOSIS POOR. DNR ABOVE (3) Anemia Current Visit: No Status: Chronic Plan: HG IS MILD LOW. WILL DO LAB IN AM.
--- NOTE | 2021-08-26 12:11 | CON ---
Date of Consultation: 08/26/2021 Reason For Consultation: The patient needs a [place] filter. History Of Present Illness: The patient is a 71-year-old female with known advanced lung cancer and she had small bowel mass, which was turned out to be an obstructive mass and was metastatic cancer fr om her lung, which I took care of approximately 4 weeks ago, and she has recovered from that surgery; however, in the meantime, she has developed DVT in her left leg and her H and H are going down, ther efore she is going to require a [place] filter. She is awake, alert, complaining of left leg pain . No sore throat, runny nose, cough, headaches, or dizziness. No chest pain. No fever or chills. Please note, the plan with a large mass in the right lung was discussed with the thoracic surgeon who stated that there was nothing surgical that can be done to help this patient in this current state. Review of Systems: Otherwise unremarkable. Past Medical History: Hypertension, GERD, and lung cancer metastatic. Past Surgical History: Two C-sections, tonsillectomy, adenoidectomy, cholecystectomy, D and C, and r ecent small bowel resection. Allergies: INCLUDE CLINDAMYCIN AND LEVAQUIN. Social History: The patient does not smoke or drink alcohol. Family History: Noncontributory. Physical Examination: Vital Signs: Stable. Heart rate is 106, however, she is afebrile. General: She is awake, alert, and oriented x3. Head and Neck: Cranial nerves 2 through 12 are grossly within normal limits. No neck masses. No JV D. Throat clear. Neck is supple. Chest: Clear. Heart: S1 and S2. Abdomen: Soft, nondistended, nontender. Positive bowel sounds. Extremities: Neurovascularly intact. The left leg is swollen. Laboratory Data: Venous Doppler shows extensive occlusive clot throughout the left lower extremity f rom the common femoral and to the popliteal vein and the posterior tibial vein. No evidence of venou s thrombosis within the right lower extremity. White count is 56,000 and H and H are 7.6 and 24.4, p latelets are 327. INR is 1.41. Chemistry reviewed. Assessment: A 71-year-old female with advanced lung cancer with left leg deep vein thrombosis and an emia. Recommendations: We will go and place a retrievable [place] filter via the right groin approach. The patient understands the risks, benefits, and alternatives and agrees to procedure. /MODL Voice ID: [id number] Report ID: [id number]
[2021-08-26] MEDS ORDERED: BISACODYL 10 MG RECTAL SUPP PR ONE (13:00)
[2021-08-26] MEDS ORDERED: NA CHLORIDE 0.9% 250 ML ONE ×2 (13:40→21:51)
[2021-08-26] MEDS: HYDROMORPHONE HCL 1 MG/ML INJ IV PRN (21:23)
[2021-08-26] MEDS ORDERED: CHOLESTYRAMINE/ASP 4 GM/PKT PO ONE (23:00)
[2021-08-27] MEDS: HYDROMORPHONE HCL 1 MG/ML INJ IV PRN ×2 (01:20→21:15)
[2021-08-27 03:28] LABS: Hematocrit 28.3 % (36.0-45.0)
[2021-08-27] MEDS: METOPROLOL XL 50 MG TAB PO SCH (05:35)
[2021-08-27] MEDS ORDERED: CEFAZOLIN 1 GM in NA CHLORIDE 0.9% 50 ML IVPB SCH (06:00)
--- NOTE | 2021-08-27 08:52 | EKG ---
Test Date: 2021-08-24 Test Time: 22:33:10 Machine Setter: MEASUREMENT RESULTS: Intervals: Rate: 121 [place]: QRSD: 74 QT: 422 QTc: 599 [place]: P: WV: QRS: 17 T: 30 INTERPRETIVE STATEMENTS: Undetermined rhythm Low voltage QRS Borderline ECG Compared to ECG 10/16/2019 12:29:13 Low QRS voltage now present Sinus rhythm no longer present Electronically Signed On 08-27-21 08:48:02 MOSS PICKER by Junior Gilliland
[2021-08-27] MEDS ORDERED: Ringers Lactate 1,000 ML IV ONE (09:25)
[2021-08-27] MEDS ORDERED: MIDAZOLAM HCL 2 MG/2 ML INJ ONE (09:27)
[2021-08-27] MEDS ORDERED: propofoL 200 MG/20 ML VIAL IV ONE ×2 (09:27→10:01)
[2021-08-27] MEDS ORDERED: LIDOCAINE 1% MPF 5 ML VIAL ONE (09:27)
[2021-08-27] MEDS ORDERED: FENTANYL CITR 100 MCG/2 ML ONE (09:27)
[2021-08-27] MEDS ORDERED: HEPARIN 5000 UNIT/ML 1 ML VIAL ONE (09:30)
[2021-08-27] MEDS ORDERED: LIDOCAINE 1% MPF 30 ML VIAL ONE (09:30)
[2021-08-27] MEDS ORDERED: NA CHLORIDE 0.9% 50 ML ONE (09:31)
[2021-08-27] MEDS ORDERED: CEFAZOLIN SODIUM 1 GM/VIAL ONE (09:34)
[2021-08-27] MEDS ORDERED: NS 0.9% VIAL 10 ML ONE (10:19)
[2021-08-27] MEDS ORDERED: Phenylephrine HCl 10 MG/ML 1 ML VIAL ONE (10:19)
--- NOTE | 2021-08-27 10:40 | P.OP ---
Principal Strategist: NONE,NONE Preoperative diagnosis: Left leg DVT, Anemia Postoperative diagnosis: same Primary procedure: Insertion Right Femoral [place] Filter Secondary procedure: Flouroscopy Anesthesia: MAC Estimated blood loss: min Specimen: none Findings: Normal Anatomy Complications: None Transferred to: Recovery Room Condition: Good
[2021-08-27] MEDS: PANTOPRAZOLE 40MG TABLET PO SCH (11:20)
--- NOTE | 2021-08-27 12:05 | OP ---
Date of Procedure: 08/27/2021 Surgeon: Teo Olivo MD Customs Import Specialist: None. Preoperative Diagnoses: Left leg deep vein thrombosis and anemia. Postoperative Diagnoses: Left leg deep vein thrombosis and anemia. Procedure: Placement of right femoral [place] filter and interpretation of intraoperative fluoros copy. Estimated Blood Loss: Minimal. Specimen: None. Findings: Normal anatomy. Anesthesia: MAC. Complications: None. Disposition: The patient tolerated the procedure in stable condition and taken to Recovery in good g eneral condition. Procedure In Detail: The patient was brought to the OR and placed in supine position. MAC anesthesi a was begun. The patient was prepped and draped in the sterile fashion. Lidocaine 1% infiltrated lo amada and then 18-gauge needle was used to access the right femoral vein. Guidewire passed, position confirmed with fluoroscopy. The vein dilated and then the filter device placed and deployed at the L2 level under fluoroscopy with complete opening and no migration. Then, the introducer removed and pressure applied and sterile dressing applied. The patient tolerated the procedure in stable condition and taken to Recovery in good general conditi on. /MODL Voice ID: [id number] Report ID: [id number]
--- NOTE | 2021-08-27 12:42 | RAD REPORT ---
EXAM DESCRIPTION: RAD - Fluoroscopy <1 Hour - 08/27/2021 10:54 am CLINICAL HISTORY: Device placement inferior vena cava filter placement FINDINGS: An inferior vena cava was placed at approximately the L2 level. Seven fluoroscopic spot images are submitted. Fluoroscopy time 1.9 minutes The examination was performed by Dr. Olivo
--- NOTE | 2021-08-27 17:37 | P.PN ---
Subjective Date of Service: 08/27/21 Chief Complaint: L LEG SWELLING. Subjective: Improving SHE IS ALWAYS TALKING LIKE SHE IS GASPING WITH DEEPER BREATHS. SHE HAS L LEG PAIN. SHE DOES NOT HAVE ANY OBVIOUS GI BLEED. SHE HAS ORAL SPOTTING OF BLOOD SINCE CANCER. I ASKED DR. RUBIO TO PLACE IN IVC FILTER THAT WAS DONE TODAY. SHE IS STABLE BUT WEAK AND WILL GO HOME IN AM. Review of Systems 10-point ROS is otherwise unremarkable General: Weakness Physical Examination - Vital Signs Temperature: 97.4 F Blood Pressure: 120/74 Pulse: 84 Respirations: 20 Pulse Ox (%): 99 - Physical Exam General: Mild distress HEENT: Atraumatic, PERRLA, EOMI Neck: Supple, JVD not distended Respiratory: Clear to auscultation bilaterally, Normal air movement Cardiovascular: Regular rate/rhythm, Normal S1 S2, Edema (L LEG EDEMA.) Gastrointestinal: Normal bowel sounds, No tenderness Musculoskeletal: No tenderness Integumentary: No rashes Neurological: Normal speech, Normal tone, Normal affect Lymphatics: No axilla or inguinal lymphadenopathy - Studies Medications List Reviewed: Yes Assessment And Plan - Current Problems (Diagnosis) (1) DVT (deep venous thrombosis) Current Visit: Yes Status: Acute Plan: SHE CAN'T TAKE ELIQUIS OR ANY ANTIOCOAGUATION AT FULL DOSES. IVC FILTER IS DONE. I TALKED TO DR. MARIBEL CONTRERAS FOR THROMBECTOMY. HE CAN DO THIS AT [facility]. PATIENT CAN GO TO ER THERE AND HAVE THEM CALL HIM. MARCELLA HAS PROCRASTINATED IN PAST MANY TIMES. I STILL URGE HER TO GO THERE QUICK AND NOT WAIT. Qualifiers: DVT location: lower extremity Laterality: left (2) Stage 4 lung cancer Current Visit: Yes Status: Chronic Plan: PROGNOSIS POOR. DNR ABOVE SHE SHOULD BE ON HOSPICE I SEE THAT SHE IS DECLINING AND CHEMO IS NOT REALLY HELPING HER. (3) Anemia Current Visit: No Status: Chronic Plan: HG IS MILD LOW. WILL DO LAB IN AM.
[2021-08-27] MEDS ORDERED: CHOLESTYRAMINE/ASP 4 GM/PKT PO ONE (22:30)
[2021-08-28 05:13] VITALS: TEMP 98.4
[2021-08-28] MEDS: METOPROLOL XL 50 MG TAB PO SCH (05:21)
[2021-08-28 08:21] LABS: Absolute Lymphocytes (CBC) 1.3 K/uL (0.7-4.9); Hematocrit 30.2 % (36.0-45.0); Lymphocytes % 3.6 % (15.3-44.8); MPV 7.8 fL (7.6-11.3); RBC Red Blood Cell Count 3.52 M/uL (3.86-4.86)
[2021-08-28] MEDS: PANTOPRAZOLE 40MG TABLET PO SCH (09:06)
[2021-08-28 09:57] LABS: Blood Morphology Comment NOTED (NOT SEEN); Platelet Estimate ADEQ
[2021-08-28 09:58] LABS: Anisocytosis SLIGHT; Poikilocytosis 1+; Polychromasia 1+
[2021-08-28] MEDS ORDERED: ALPRAZOLAM 0.25 MG TABLET PO ONE (10:03)
[2021-08-28 10:05] VITALS: BP 150/66
[2021-08-28 10:18] VITALS: O2SAT 96
--- NOTE | 2021-08-28 12:55 | P.DS ---
Admission Date: 08/25/21 Discharge Date: 08/28/21 Disposition: ROUTINE DISCHARGE Discharge Condition: SERIOUS Reason for Admission: L LEG SWELLING. - Problems (1) DVT (deep venous thrombosis) Status: Acute Qualifiers: DVT location: lower extremity Laterality: left (2) Stage 4 lung cancer Status: Chronic (3) Anemia Status: Chronic Brief History of Present Illness: MARCELLA HAS END STAGE LUNG CANCER WITH METS TO LIVER AND SMALL INTESTINE. SHE HAS CHRONIC HIGH WBC COUNT OF ABOUT 50K FROM CANCER ITSELF. SHE RECENTLY HAD SMALL BOWEL OBSTRUCTION FROM METASTATIC CANCER TO LUMEN OF SMALL INTESTINE. THIS WAS REMOVED BY DR. RUBIO AND IT IS ABOUT 14 DAYS POST OP. SHE IS WEAK, DYSPNEIC AT REST BUT SHE DOES NOT FEEL IT SHE HAS NOT BEEN BACK TO DR. TUCKER FOR CANCER YET. THERE MAY NOT BE ANYMORE THERAPY FOR HER. I ASKED HER ABOUT DNR AND SHE SAYS SHE HAS ALL PAPERS BUT NOT SIGNED THEM. SHE IS WILLING TO SIGN PAPERS TODAY. SHE HAS EDEMA OF LEG L SIDE THAT DID NOT RESOLVE, GOT LARGER AND PAINFUL. SHE HAS DVT IN L LEG. Hospital Course: MARCELLA HAS STAGE 4 LUNG CANCER. SHE HAS DVT ON L LEG BUT COULD NOT TOLERATE ANTICOAGUALATION WITH HG DROPPING TO 7.6 GM. SHE IS STABLE AFTER TWO UNITS OF BLOOD, STOPPING LOVENOX. SHE HAD IVC FILTER BY DR. RUBIO. SHE NEEDS TO HAVE CLOT REMOVED BY VASCULAR SURGEON. I TALKED TO DR. VINEET CONTRERAS AND HE CAN DO THIS AT [facility]. I EXPLAINED TO PATIENT THAT SHE CAN HAVE DAUGHTER DRIVE HER TO ER THERE AND HAVE THEM CALL DR. CONTRERAS. HE HAS ALL HER INFORMATION. Vital Signs/Physical Exam: Temp Pulse Resp BP Pulse Ox 98.4 F 61 17 150/66 H 92 08/28/21 08:00 08/28/21 08:00 08/28/21 08:00 08/28/21 08:00 08/28/21 08:00 General: Mild distress HEENT: Atraumatic, PERRLA, EOMI Neck: Supple, JVD not distended Respiratory: Clear to auscultation bilaterally, Normal air movement Cardiovascular: Regular rate/rhythm, Normal S1 S2 Gastrointestinal: Normal bowel sounds, No tenderness Musculoskeletal: No tenderness Integumentary: No rashes Neurological: Normal speech, Normal tone, Normal affect Lymphatics: No axilla or inguinal lymphadenopathy Laboratory Data at Discharge: WBC 36.70 K/uL (4.3-10.9) H* D 08/28/21 08:12 Hgb 9.7 g/dL (12.0-15.0) L 08/28/21 08:12 Hct 30.2 % (36.0-45.0) L 08/28/21 08:12 Plt Count 311 K/uL (152-406) 08/28/21 08:12 PT 16.3 SECONDS (9.5-12.5) H 08/24/21 22:44 INR 1.41 08/24/21 22:44 Sodium 133 mmol/L (136-145) L 08/26/21 05:20 Potassium 4.3 mmol/L (3.5-5.1) 08/26/21 05:20 BUN 19 mg/dL (7-18) H 08/26/21 05:20 Creatinine 0.77 mg/dL (0.55-1.3) 08/26/21 05:20 Glucose 116 mg/dL (74-106) H 08/26/21 05:20 Magnesium 2.0 mg/dL (1.8-2.4) 08/24/21 22:44 Total Bilirubin 1.0 mg/dL (0.2-1.0) 08/24/21 22:44 AST 12 U/L (15-37) L 08/24/21 22:44 ALT < 10 U/L (12-78) L 08/24/21 22:44 Alkaline Phosphatase 199 U/L (45-117) H 08/24/21 22:44 Home Medications: Gabapentin 300 mg PO BID PRN 07/27/21 Metoprolol Succinate [Toprol Xl*] 50 mg PO [id number] #90 tab 08/07/21 Pantoprazole [Protonix Tab*] 40 mg PO DAILY #90 tab 08/07/21 Physician Discharge Instructions: PROBLEM: Left lower DVT GOAL: Clear understanding of disease process INSTRUCTIONS: Ok to discharge home Follow up with Dr. Lopez as needed Follow up with vascular surgeon Dr Vineet Contreras Continue home medications Call [phone] for any questions regarding hospital stay Diet: Regular Activity: As tolerated IMMUNIZATION Influenza Vaccine Indicated: Yes Influenza Vaccine Given: No Date Given: Pneumonia Vaccine Indicated: Yes Pneumonia Vaccine Given: No Date Given: Followup: Bryce Lopez MD [Primary Care Provider] -
== END 2021-08-28 11:03 | disposition home or self-care (01) | DRG 300 ==
LOC: ER 21:21 → ERHOLD 08-25 03:18 → 2ND 08-25 03:54
PROVIDERS: ADMIT Internal Medicine; ATTEND Internal Medicine
PROC: 06H03DZ Insertion of Intraluminal Device into Inferior Vena Cava, Percutaneous Approach (ICD-10-PCS; principal; 2021-08-27 10:00)
DX: I82.412 Acute embolism and thrombosis of left femoral vein (principal); C34.90 Malignant neoplasm of unspecified part of unspecified bronchus or lung; C78.7 Secondary malignant neoplasm of liver and intrahepatic bile duct; C78.4 Secondary malignant neoplasm of small intestine; I82.432 Acute embolism and thrombosis of left popliteal vein; I82.442 Acute embolism and thrombosis of left tibial vein; I10 Essential (primary) hypertension; K21.9 Gastro-esophageal reflux disease without esophagitis; D64.9 Anemia, unspecified; Z20.822 Contact with and (suspected) exposure to COVID-19
CPT/HCPCS: 36415; 36430; 71045; 71275; 76000; 80048; 80076; 82274; 83735; 83880; 85014; 85018; 85025; 85610; 86850; 86900; 86901; 93005; 93926; 93970; 96372; 96374; 96375; 99285; J0690; J1170; J1644; J2250; J2370; J2405; J2704; J3010; J7030; J7040; J7050; J7120; P9016; Q9967; U0003